=== PATIENT | female | born 1940 | race Caucasian/White ===

== ENCOUNTER 2017-01-05 14:12 | Emergency (ER) | payer MEDICARE, OTHER, MEDICAID ==
[2017-01-05] MEDS ORDERED: NS 0.9% 1000 ML* 2,000 ML IV ONE (15:14)
[2017-01-05] MEDS ORDERED: Ondansetron INJ* 2 MG/ML VIAL IV ONE (15:14)
[2017-01-05 15:45] LABS: Hematocrit 38 % (35-47); Hemoglobin 12.1 g/dl (12.0-16.0); Mean Corpuscular HGB Conc 32 g/dl (31-36); Mean Corpuscular Hemoglobin 26 pg (27-31); Mean Corpuscular Volume 83 fL (80-97); Mean Platelet Volume 10 um3 (7.4-10.4); Red Cell Distribution Width 15 % (10.5-15)
[2017-01-05 15:57] LABS: Albumin 3.5 g/dL (3.2-5.2); BUN/Creatinine Ratio 23.2 (8-20); C Reactive Protein 53.75 mg/L (< 5.00); Calcium 9.7 mg/dL (8.6-10.3); EGFR African American 87.4 (>60); Globulin 3.8 g/dL (2-4); Total Bilirubin 0.3 mg/dL (0.2-1.0); Total Protein 7.3 g/dL (6.4-8.9)
[2017-01-05] MEDS ORDERED: Iodixanol* (CONTRAST) 320 MG/ML 100 ML SDV IV ONE (16:59)
--- NOTE | 2017-01-05 18:14 | RAD ---
Indication: Left-sided abdominal pain, diverticulitis. Contrast:Administered 100.0 ml of VISAPAQUE 320 mgi/ml CT of the abdomen and pelvis was performed after oral and IV contrast administration. Coronal and sagittal reconstructed images were obtained. The lung bases demonstrate no pleural fluid, nodules or masses. Heart is of normal size without evidence of pericardial effusion. Liver is normal in size. No focal lesions or intrahepatic ductal dilatation is noted although the liver is incompletely imaged. Spleen is normal in size. Pancreas demonstrates no mass or pancreatic duct dilatation. Common duct is not dilated. Gallbladder demonstrates no calcified gallstones. No pericholecystic fluid or wall thickening is noted. No adrenal lesions are noted. The kidneys demonstrate no hydronephrosis of either kidney. Urinary bladder is distended. Aorta demonstrates peripheral thrombus with atherosclerosis. Common iliac arteries are unremarkable. The colon is filled with stool. No hernias are noted. The patient status post hysterectomy. No evidence of bowel obstruction is noted. No free fluid is identified. IMPRESSION: No evidence of bowel obstruction. No hydronephrosis of either kidney is noted. Atherosclerotic aorta is noted. No hernias are noted.
[2017-01-05 18:39] VITALS: BP 117/82
--- NOTE | 2017-01-05 18:55 | ED ---
I, Oh,Soohdianaun, scribed for Hao Alcala MD on 01/05/17 at 1519 . Abdominal Pain/Female - HPI Summary HPI Summary: This 76 y/o female presents to ED for left sided abd pain since 5 days ago. Pain is intermittent and lasts about 10 minutes, and radiates to left hip. Positive nausea. Negative fever, chills, couch, or diarrhea. Deep breath makes it worse. Oxycodone does not alleviate the pain. PMHx includes recently diagnosed UTI with ongoing abx treatment since 4 days ago. Pt was not able to specify which abx she is on. Other PMHx includes chronic constipation, breast CA , DM, CAD, HTN, and [place]. Primary care involves Dr. Nguyễn. 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 Negative: Fever , Vomiting, Diarrhea Allergies/Adverse Reactions: Allergies Allergy/AdvReac Type Severity Reaction Status Date / Time Atorvastatin [From Lipitor] AdvReac Intermediate MUSCLE Verified 01/05/17 14:20 ACHES PMH/Surg Hx/FS Hx/Imm Hx Endocrine/Hematology History: Reports: Hx Diabetes - diet controlled, Other Endocrine/Hematological Disorders - Risk for neutropenia secondary to chemotherapy Denies: Hx Sickle Cell Disease, Hx Thyroid Disease, Hx Unexplained Bleeding Cardiovascular History: Reports: Hx Angina, Hx Angioplasty - LAD stent 2010, Hx Coronary Artery Disease, Hx Deep Vein Thrombosis, Hx Hypercholesterolemia, Hx Hypertension, Hx Myocardial Infarction, Other Cardiovascular Problems/Disorders Denies: Hx Pacemaker/ICD, Hx Peripheral Vascular Disease, Hx Valvular Heart Disease Respiratory History: Reports: Hx Asthma, Hx Sleep Apnea, Other Respiratory Problems/Disorders Denies: Hx Chronic Obstructive Pulmonary Disease (COPD) GI History: Reports: Hx Gastroesophageal Reflux Disease, Hx Hiatal Hernia, Other GI Disorders - CHRONIC CONSTIPATION History: Reports: Hx Kidney Stones, Other Problems/Disorders - FREQUENT UTI'S Denies: Hx Dialysis, Hx Renal Disease Musculoskeletal History: Reports: Hx Orthopedic Injury - L hip fx, 1014, Other Musculoskeletal History - osteo/arthitis, generalized weakness Denies: Hx Arthritis, Hx Osteoporosis Sensory History: Reports: Hx Cataracts - B/L cataract removal , Hx Contacts or Glasses, Hx Hearing Aid - DOESN'T WEAR, Hx Hearing Problem - [place] Denies: Hx Glaucoma Opthamlomology History: Reports: Hx Cataracts - B/L cataract removal , Hx Contacts or Glasses Denies: Hx Glaucoma Neurological History: Reports: Other Neuro Impairments/Disorders - pt states sometimes she gets weak Psychiatric History: Reports: Hx Anxiety, Hx Depression - Hx, Hx Inpatient Treatment - [facility] [place] 2005, Other Psychiatric Issues/Disorders - Possible delusional symptoms Denies: Hx Eating Disorder, Hx Panic Disorder, Hx Community Mental Health Tx , Hx of Violent Episodes Against Others - Cancer History Cancer Type, Location and Year: breast ca, R mastectomy 2012 Hx Chemotherapy: Yes Hx Radiation Therapy: Yes Hx Palliative Cancer Treatment: Yes - RIGHT MASECTOMY - Surgical History Surgery Procedure, Year, and Place: Rt MASTECTOMY 2012. CARDIAC STENTS 04/2013 @ [facility] [place] - [facility]-ELUTING STENT - [facility] DRUG ELUTING STENT - CONDITIONAL 5 1.5T-3.0T MAX SPATIAL GRADIENT 720GAUSS/CM. CATARACT SURGERY. : Screw fixation of fractured L hip, [facility] [place]. 12/2014 FRACTURED LEFT SHOULDER. POWER PORT Hx Anesthesia Reactions: No Infectious Disease History: No Infectious Disease History: Denies: Traveled Outside the [place] in Last 30 Days - Family History Known Family History: Positive: Cardiac Disease, Other - Depression - Social History Alcohol Use: None Substance Use Type: Reports: None Smoking Status (MU): Never Smoked Tobacco Review of Systems Negative: Fever, Chills Negative: Cough Positive: Abdominal Pain, Nausea, Other - chronic constipation. Negative: Vomiting All Other Systems Reviewed And Are Negative: Yes Physical Exam - Summary Physical Exam Summary: The patient is well-nourished in no acute distress and in no acute pain. Obese. The skin is warm and diaphoresis. HEENT: The head is normocephalic and atraumatic. The pupils are equal and reactive. The conjunctivae are clear and without drainage. Nares are patent and without drainage. Mouth reveals moist mucous membranes and the throat is without erythema and exudate. The external ears are intact. The ear canals are patent and without drainage. The tympanic membranes are intact. Hard of hearing Neck is supple with full range of motion and non-tender. There are no carotid bruits. There is no neck vein distension. Respiratory: Chest is non-tender. Lungs are clear to auscultation and breath sounds are symmetrical and equal. Cardiovascular: Hear is regular rate and rhythm. There is no murmur or rub auscultated. There is no peripheral edema and pulses are symmetrical and equal. Abdomen: The abdomen is tender at left mid quadrant. There are normal bowel sounds heard in all four quadrants and there is no organomegaly palpated. Musculoskeletal: There is no back pain noted. Extremities are non-tender with full range of motion. There is good capillary refill. There is no peripheral edema or calf tenderness elicited. Neurological: Patient is alert and oriented to person, place and time. The patient has symmetrical motor strength in all four extremities. Cranial nerves are grossly intact. Deep tendon reflexes are symmetrical and equal in all four extremities. Psychiatric: The patient has an appropriate affect and does not exhibit any anxiety or depression. Triage Information Reviewed: Yes Vital Signs On Initial Exam: Initial Vitals Temp Pulse Resp BP Pulse Ox 97.0 F 77 16 138/74 100 01/05/17 14:16 01/05/17 14:16 01/05/17 14:16 01/05/17 14:16 01/05/17 14:16 Vital Signs Reviewed: Yes - Lottie Coma Scale Coma Scale Total: 15 Diagnostics - Vital Signs Vital Signs Temp Pulse Resp BP Pulse Ox 01/05/17 14:32 77 94 01/05/17 14:29 137/82 01/05/17 14:16 97.0 F 77 16 138/74 100 - Laboratory Lab Results: Lab Results 01/05/17 01/05/17 01/05/17 Range/Units 15:30 15:30 15:30 WBC 8.0 (3.5-10.8) 10^3/ul RBC 4.60 (4.0-5.4) 10^6/ul Hgb 12.1 (12.0-16.0) g/dl Hct 38 (35-47) % MCV 83 (80-97) fL MCH 26 L (27-31) pg MCHC 32 (31-36) g/dl RDW 15 (10.5-15) % Plt Count 146 L (150-450) 10^3/ul MPV 10 (7.4-10.4) um3 Neut % (Auto) 78.5 (38-83) % Lymph % (Auto) 10.6 L (25-47) % Dewey % (Auto) 7.5 (1-9) % Eos % (Auto) 2.4 (0-6) % Baso % (Auto) 1.0 (0-2) % Absolute Neuts (auto) 6.3 (1.5-7.7) 10^3/ul Absolute Lymphs (auto) 0.8 L (1.0-4.8) 10^3/ul Absolute Monos (auto) 0.6 (0-0.8) 10^3/ul Absolute Eos (auto) 0.2 (0-0.6) 10^3/ul Absolute Basos (auto) 0.1 (0-0.2) 10^3/ul Absolute Nucleated RBC 0.01 10^3/ul Nucleated RBC % 0.1 Sodium 136 (133-145) mmol/L Potassium 4.0 (3.5-5.0) mmol/L Chloride 98 L (101-111) mmol/L Carbon Dioxide 31 (22-32) mmol/L Anion Gap 7 (2-11) mmol/L BUN 19 (6-24) mg/dL Creatinine 0.82 (0.51-0.95) mg/dL Est GFR ( Amer) 87.4 (>60) Est GFR (Non-Af Amer) 68.0 (>60) BUN/Creatinine Ratio 23.2 H (8-20) Glucose 114 H (70-100) mg/dL Lactic Acid 1.3 (0.5-2.0) mmol/L Calcium 9.7 (8.6-10.3) mg/dL Total Bilirubin 0.30 (0.2-1.0) mg/dL AST 37 (13-39) U/L ALT 16 (7-52) U/L Alkaline Phosphatase 75 (34-104) U/L C-Reactive Protein 53.75 H (< 5.00) mg/L Total Protein 7.3 (6.4-8.9) g/dL Albumin 3.5 (3.2-5.2) g/dL Globulin 3.8 (2-4) g/dL Albumin/Globulin Ratio 0.9 L (1-3) Amylase 14 L (29-103) U/L Lipase 10 L (11.0-82.0) U/L Result Diagrams: 01/05/17 15:30 01/05/17 15:30 Lab Statement: Any lab studies that have been ordered have been reviewed, and results considered in the medical decision making process. - CT Ab/P CT Interpretation: No Acute Changes - No evidence of bowel obstruction. No hydronephrosis of either kidney is noted. Atherosclerotic aorta is noted. No hernias are noted. CT Interpretation Completed By: Radiologist Re-Evaluation - Re-Evaluation First Eval Re-Evaluation Time: 18:28 Comment: Dr. Alcala in room to update pt on bloodwork and CT results. Plan of care involving outpatient f/u with Dr. Ramirez is discussed, and she is agreeable. Abdominal Pain Fem Course/Dx - Course Course Of Treatment: This 76 y/o female presents to ED for persistent LUQ abd pain since 5 days ago. PMHx includes chronic constipation, UTI with ongoing abx treatment, and breast CA. Pt was noted with left mid quadrant pain upon physical examination. CT Ab/P was unremarkable. Bloodwork is wnl except CRP of 53.75. Lab results and CT imagings were shared with pt and present at bedside, and plan of care involving outpatient f/u with PCP is discussed. They are agreeable at this time. - Diagnoses Differential Diagnosis: Positive: Bowel Obstruction, Diverticulitis, Peptic Ulcer Disease, Urinary Tract Infection, Other - adverse drug reaction to antibiotics Provider Diagnoses: Abdominal pain Discharge - Discharge Plan Condition: Stable Disposition: HOME Patient Education Materials: Abdominal Pain (ED) Referrals: Tramaine Ramirez MD [Primary Care Provider] - 2 Days The documentation as recorded by the Elton mcqueen Soohyun accurately reflects the service I personally performed and the decisions made by me, Hao Alcala MD.
== END 2017-01-05 18:58 | disposition home or self-care (01) ==
LOC: ED 14:12
DX: R10.9 Unspecified abdominal pain (principal); K59.00 Constipation, unspecified; R11.0 Nausea
CPT/HCPCS: 36415; 74177; 80053; 82150; 83605; 83690; 85025; 86140; 96374; 99282; J2405; Q9967

== ENCOUNTER 2017-10-09 15:46 | Inpatient (IN) | payer MEDICARE, OTHER, MEDICAID ==
[2017-10-09] MEDS ORDERED: Albuterol 2.5 MG/3 ML NEB.SOL* (0.083%) INH ONE (16:19)
[2017-10-09 17:31] LABS: ABS Basophils 0 10^3/ul (0-0.2); ABS Eosinophils 0.2 10^3/ul (0-0.6); ABS Monocytes 0.7 10^3/ul (0-0.8); ABS Neutrophils 6.3 10^3/ul (1.5-7.7); ABS Nucleated RBC 0 10^3/ul; Eosinophil % 2.8 % (0-6); Hematocrit 37 % (35-47); Hemoglobin 11.4 g/dl (12.0-16.0); Lymphocyte % 12.5 % (25-47); Mean Corpuscular HGB Conc 31 g/dl (31-36); Mean Corpuscular Hemoglobin 25 pg (27-31); Mean Corpuscular Volume 82 fL (80-97); Mean Platelet Volume 11 um3 (7.4-10.4); Nucleated Red Blood Cells % 0.2; Platelet Count 131 10^3/ul (150-450); Red Blood Count 4.53 10^6/ul (4.0-5.4); Red Cell Distribution Width 17 % (10.5-15); White Blood Count 8.3 10^3/ul (3.5-10.8)
[2017-10-09 17:33] LABS: EGFR Non-African American 61.7 (>60)
--- NOTE | 2017-10-09 17:37 | RAD ---
Indication: Dyspnea. 2 views of the chest are reviewed and compared to previous exam dated December 07, 2014. Central line is in place. Cardiomegaly is noted. Interstitial edema consistent with vascular congestion is noted. IMPRESSION: Findings consistent with vascular congestion.
[2017-10-09] MEDS ORDERED: Furosemide IV* 10 MG/ML 2 ML VIAL (20 MG) IV ONE (17:42)
[2017-10-09] MEDS ORDERED: Nitroglycerin TAB 0.4 MG* 0.4 MG TAB SL PRN (18:40)
[2017-10-09] MEDS ORDERED: Meclizine TAB* 12.5 MG PO PRN (18:40)
[2017-10-09] MEDS ORDERED: ALPRAZolam TAB* 0.5 MG PO PRN (18:40)
[2017-10-09] MEDS ORDERED: LORazepam TAB(*) 1 MG PO PRN (18:40)
[2017-10-09] MEDS: Oxybutynin TAB* 5 MG PO SCH (21:10)
[2017-10-09] MEDS: CMCS Simvastatin TAB(NF) 20 MG TAB PO SCH (21:10)
[2017-10-09] MEDS: CMCS Melatonin (NF) 3 MG TAB PO SCH (21:10)
[2017-10-09] MEDS: Mirtazapine TAB* 15 MG PO SCH (21:10)
[2017-10-09] MEDS: Gabapentin CAP(*) 300 MG PO SCH (21:10)
[2017-10-09] MEDS: Heparin VIAL(*) 5000 UNITS/ML VIAL (FIVE THOUSAND) SUBCUT SCH (21:10)
--- NOTE | 2017-10-09 23:54 | HP ---
CC: Dr. Ramirez; Dr. Gio Armijo * ADMISSION HISTORY AND PHYSICAL: DATE OF ADMISSION: 10/09/17 PRIMARY CARE PROVIDER: Dr. Ramirez. MY ATTENDING WHILE IN THE HOSPITAL: Dr. Ed Wiggins.* (DICTATED BY AMRIT HERNÁNDEZ) PRIMARY BREAD DISTRIBUTOR: Dr. Gio Armijo. CHIEF COMPLAINT: Shortness of breath x1 month. HISTORY OF PRESENT ILLNESS: Ms. Bill is a 77-year-old female with past medical history significant for hypertension; hyperlipidemia; coronary artery disease, status post stenting; PAULA; history of Herceptin-induced heart failure; recurrent UTIs and breast cancer, who presents with 1-month of progressive shortness of breath with exertion as well as intermittent substernal chest pain and occasional dizziness on standing. Patient denies any changes in her medications or diet before the shortness of breath began. Patient states that during this time, her exercise tolerance has decreased significantly due to dyspnea. She states that she cannot walk more than 30 feet at this point, but cannot quantify what her previous activity tolerance was. Patient states that her chest pain is unpredictable, happens 0 to 3 times a week, occasionally associated with diaphoresis, was not associated with increased shortness of breath or nausea. This has been evaluated previously by her primary care provider according to outpatient notes. Patient states that she tries to restrict salt in her diet, was unable to describe how she does so, but states that she has not had any changes in her diet corresponding to this weight gain. Patient previously had CHF related to her Herceptin treatment for her breast cancer, but does not remember when she stopped taking Herceptin. Patient recently had a PET scan, which showed no metastatic disease. Patient is currently on anastrozole therapy for suppression. Patient states that she is supposed to be wearing a CPAP at home but does not due to urinary frequency during the night. Patient has frequent urinary tract infections and is generally on suppressive antibiotics. Patient cannot identify what her suppressive antibiotic outpatient is. Patient states that she is being considered for a bladder surgery at [facility], but they cannot perform it due to according to her inability to eradicate her bladder infection. Patient states she does not weigh herself at home. Patient has gained 30 pounds according to notes from her pressure controller. Patient was at her pressure controller's office today and was found to be saturating at 82% and was sent into the emergency department for evaluation. Patient continued to have oxygen demand in the emergency department and had an elevated troponin at 0.12 and we were asked to evaluate for admission. PAST MEDICAL HISTORY: Hypertension, chest pain, syncope, hyperlipidemia, diastolic heart failure, borderline EF at 50% to 55%, diabetes mellitus type 2, breast cancer in remission, obstructive sleep apnea, recurrent UTIs, anxiety. PAST SURGICAL HISTORY: Heart catheterization in 2010 with stent placement and bilateral mastectomy. MEDICATIONS: 1. Lorazepam 1 mg p.o. b.i.d. as needed. 2. Gabapentin 300 mg p.o. t.i.d. 3. Anastrazole 1 mg p.o. daily. 4. Metoprolol 50 mg p.o. daily. 5. Sertraline 100 mg p.o. daily. 6. Aspirin 81 mg p.o. daily. 7. Simvastatin 20 mg p.o. at bedtime. 8. Meclizine 37.5 mg p.o. t.i.d. as needed. 9. Omeprazole 40 mg p.o. daily. 10. Ranitidine 300 mg p.o. daily. 11. Mirtazapine 30 mg p.o. at bedtime. 12. Lisinopril 10 mg p.o. daily. 13. Oxybutynin 5 mg p.o. b.i.d. 14. Xanax 0.5 mg p.o. daily as needed. 15. Zolpidem 5 mg p.o. at bedtime as needed. 16. Nitroglycerin 0.4 mg sublingually q. 5 minutes as needed for chest pain. 17. Polyethylene glycol 17 g p.o. daily. 18. MetroCream 0.75% topical at bedtime. 19. Ibuprofen 600 mg p.o. t.i.d. as needed. Patient also takes unknown antibiotic for urinary tract infection, suppressive therapy and diuretics at unknown dose. We will reconcile these when patient is able to bring them in. ALLERGIES: Patient gets severe muscle aches with LIPITOR. FAMILY HISTORY: Patient's mother of "woman cancer." Patient's father of [place]. Patient's mother suffers from fibromyalgia. Patient's son has chronic back pain. Nothing else runs in the patient's family. SOCIAL HISTORY: Patient denies ever smoking tobacco, drinking alcohol, or using illicit drugs. 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 Patient is , has a significant other, Piero Preciado, who is her healthcare proxy and has 2 adult children. REVIEW OF SYSTEMS: A 14-point review of systems was reviewed and is negative except as above. PHYSICAL EXAMINATION GENERAL: Patient is a 77-year-old female who appears stated age and sitting in the bed, in no acute distress with slight increased work of breathing. VITAL SIGNS: Temperature 98.1, pulse rate 71, respiratory rate 22, oxygen saturation 87% on room air, 99% on 2 L, blood pressure 142/107. HEENT: Head: Normocephalic, atraumatic. Sclerae anicteric. No conjunctival injection. Nasal mucosa moist. Oral mucosa moist. No pharyngeal erythema, discharge, or exudate. NECK: Supple, nontender. No lymphadenopathy. No carotid bruit auscultated. RESPIRATORY: Crackles in the bilateral lung bases in the lateral and posterior lobes. No other adventitious lung sounds. Good air exchange bilaterally. CARDIAC: Regular rate and rhythm. No clicks, murmurs, gallops, or rubs. Pulses are 2+ in the bilateral dorsalis pedis, posterior tibialis and radial areas, 1+ pitting edema in the bilateral lower extremity slightly worse in the left than the right. No calf tenderness or palpable cords. ABDOMEN: Soft, nontender, nondistended. Bowel sounds present and normoactive in all 4 quadrants. No hepatosplenomegaly. GENITOURINARY: No suprapubic or CVA tenderness. NEUROLOGIC: Cranial nerves II through XII intact. No focal deficits. Alert and oriented x3. SKIN: Clean, dry, and intact. No rash. PSYCHIATRIC: Pleasant and cooperative. DIAGNOSTIC STUDIES/LAB DATA: White blood cell count 8.3, hemoglobin 11.4, hematocrit 37, MCV 82, MCH 25, RDW 17, platelet count 131. Sodium 139, potassium 4.2, chloride 98, carbon dioxide 36, anion gap 5, BUN 19, creatinine 0.89, glucose 127, calcium 9.2. Total bilirubin 0.3, AST 32, ALT 18, alkaline phosphatase 81. Troponin I 0.12. BNP 203, total protein 7.5, albumin 3.8, globulin 3.7, albumin/globulin ratio 1.0, TSH 14.9. Hemoglobin A1c, lipid panel , free T3 and free T4 pending and repeat troponin are pending. Chest x-ray read as findings consistent with vascular congestion. Electrocardiogram shows normal sinus rhythm, normal axis, poor R-wave progression across the precordium. No blocks, hypertrophy, or enlargement. T- waves inverted in V1, V2, V3, flattened in V4 and positive in V5, V6 consistent with previous exams. No other abnormalities. ASSESSMENT AND PLAN: Impression: Ms. Bill is a 77-year-old female with past medical history significant for diastolic congestive heart failure, hypertension , hyperlipidemia, obstructive sleep apnea, and breast cancer currently in remission, who presents with 1 month of worsening shortness of breath and leg swelling with significant dyspnea on exertion. The patient has gained 30 pounds over this period. Patient has a constellation of findings consistent with chronic obstructive pulmonary disease exacerbation. The patient will be admitted to the hospital for aggressive diuresis, fluid restriction, telemetry monitoring and rule out myocardial infarction. 1. Congestive heart failure exacerbation. The patient has increased swelling in her legs, worsening shortness of breath and dyspnea on exertion with chest x- ray showing significant vascular congestion. We will start the patient on Lasix 20 mg p.o. b.i.d. and monitor strict intake and output and adjust up as needed. We will weigh patient daily. The patient takes an unknown dose of diuretic at home, we will reconcile this when available. Patient refuses Mace catheter for hemodynamic monitoring. Patient's blood pressure is currently within normal limits. Patient will have fluid restriction of 1.5 L every 24 hours. For patient's dyspnea on exertion, will have physical therapy and occupational therapy assessment to see if patient will be able to function at home upon discharge. We will repeat patient's transthoracic echocardiogram as she does have significant decrease in her functional capacity since her most recent one in February 2016. 2. Coronary artery disease, status post stenting. Patient has an elevated troponin. This is likely demand ischemia from her congestive heart failure exacerbation. We will trend this to peak. Due to patient's congestive heart failure exacerbation, patient is not a candidate for stress testing at this time. We would recommend outpatient stress testing and possible followup cardiac catheterization to assess the patient's coronary artery disease given recurrent stable angina as well. 3. Hypertension. Patient is currently normotensive. Continue patient's lisinopril and metoprolol as well as increase Lasix dose. We will monitor closely. 4. Hyperlipidemia. We will check a lipid panel. Continue patient's home statin. Patient is intolerant to Lipitor. We will substitute per pharmacy while in the hospital. 5. Diabetes mellitus. We will check a hemoglobin A1c and start the patient on pharmacologic for lifestyle modification therapy based on this. 6. Breast cancer. Patient is status post bilateral breast mastectomies and Herceptin treatment, which caused heart failure. Patient recently on a PET scan , which showed no disease activity. Continue anastrozole while in the hospital. 7. Obstructive sleep apnea. Patient refuses to wear a CPAP. Patient should have to wear her CPAP at home. Patient's bladder procedure to decrease the frequency of her incontinence would help with this and have a long-term positive effect on her health. 8. Recurrent urinary tract infections. Patient is on chronic suppressive therapy. We will institute this when available by med reconciliation. We will get a urinalysis and culture. 9. FEN: The patient is fluid overloaded. We will not start her on fluids. Patient will have a heart healthy diet without caffeine. 10. Code status: The patient would like to be a full code. Patient's surrogate decision maker is her significant other, Piero Preciado. 11. Disposition: The patient is admitted for observation. 12. DVT prophylaxis: The patient is a high risk. Patient will be on heparin subcu. TIME SPENT: Approximately 60 minutes were spent on this admission, 30 of which was spent [id number] with the patient obtaining history and physical and discussing the treatment plan. This plan has been discussed with my attending, Dr. Ed Wiggins, he is in agreement. AMRIT HERNÁNDEZ [id number]/[facility] #: [id number] JOSE
[2017-10-10 03:16] LABS: Urine Appearance Clear; Urine Blood 2+ (Negative); Urine Color Yellow; Urine Ketones Negative (Negative); Urine Protein 2+(100 mg/dL) (Negative); Urine Specific Gravity 1.019 (1.010-1.030); Urine Urobilinogen Negative (Negative)
[2017-10-10] MEDS: Heparin VIAL(*) 5000 UNITS/ML VIAL (FIVE THOUSAND) SUBCUT SCH ×3 (05:13→22:00)
[2017-10-10 06:28] LABS: EGFR Non-African American 70.8 (>60)
[2017-10-10] MEDS: Acetaminophen TAB* 325 MG PO PRN (07:01)
[2017-10-10] MEDS: Lisinopril TAB* 10 MG PO SCH (07:38)
[2017-10-10] MEDS: Sertraline* 100 MG TAB PO SCH (07:38)
[2017-10-10] MEDS: Metoprolol Succinate XL TAB* 50 MG PO SCH (07:38)
[2017-10-10] MEDS: Gabapentin CAP(*) 300 MG PO SCH ×3 (07:38→21:59)
[2017-10-10] MEDS: Furosemide IV* 10 MG/ML VIAL (40 MG) IV SLOW PU SCH ×2 (07:38→17:09)
[2017-10-10] MEDS: Famotidine TAB* 20 MG PO SCH (07:39)
[2017-10-10] MEDS: Oxybutynin TAB* 5 MG PO SCH ×2 (07:39→21:59)
[2017-10-10] MEDS: Aspirin EC Low Dose* 81 MG TAB.EC PO SCH (07:39)
[2017-10-10] MEDS: Omeprazole CAP* 20 MG PO SCH (07:39)
[2017-10-10] MEDS: Polyethylene Glycol 3350* 17 GM PACKET PO SCH (07:40)
[2017-10-10 07:42] LABS: ABS Basophils 0 10^3/ul (0-0.2); ABS Eosinophils 0.2 10^3/ul (0-0.6); ABS Lymphocytes 0.7 10^3/ul (1.0-4.8); ABS Monocytes 0.4 10^3/ul (0-0.8); ABS Neutrophils 4.8 10^3/ul (1.5-7.7); ABS Nucleated RBC 0 10^3/ul; Hematocrit 36 % (35-47); Hemoglobin 10.7 g/dl (12.0-16.0); Lymphocyte % 11.7 % (25-47); Mean Corpuscular HGB Conc 30 g/dl (31-36); Mean Corpuscular Hemoglobin 25 pg (27-31); Mean Corpuscular Volume 84 fL (80-97); Mean Platelet Volume 11 um3 (7.4-10.4); Nucleated Red Blood Cells % 0.1; Platelet Count 103 10^3/ul (150-450); Red Blood Count 4.29 10^6/ul (4.0-5.4); Red Cell Distribution Width 18 % (10.5-15); White Blood Count 6.1 10^3/ul (3.5-10.8)
[2017-10-10] MEDS: Anastrozole (NF) 1 MG TAB PO SCH (08:43)
--- NOTE | 2017-10-10 12:23 | ECHO ---
Patient: TODD RODRIGUES [facility] Rec#: [id number] : 1940 Date: 10/10/2017 Age: 77y Height: 149.9 cm / 59.0 in Weight: 95.3 kg / 210.0 lbs Sex: F BSA: 1.88 Room#: [facility] Admit Date#: 10/09/2017 Type: Inpatient Referring: Ed Wiggins MD Reading: Mejia Abreu MD Quality Assurance Manager: Jennifer Turner RN RDCS CC: Tramaine Ramirez MD CC: Gio Armijo MD Transthoracic Echocardiogram Indication: CHF BP: 149/58 HR: 71 Rhythm: NSR Findings History: CAD, PCI, Herceptin-induced heart failure, HTN, HLD, breast cancer, mastectomy, chemotherapy, PAULA Technical Comments: The study quality is fair. The study is technically limited due to patient body habitus. The study was technically limited due to the patient's inability to lay in the left lateral decubitus position. Completed at 1110. Left Ventricle: The left ventricular chamber size is normal. Mild concentric left ventricular hypertrophy is observed. Global left ventricular wall motion and contractility are within normal limits. There is normal left ventricular systolic function. The estimated ejection fraction is 55-60%. The assessment of diastolic function is non-diagnostic. Left Atrium: The left atrial chamber size is normal. Right Ventricle: The right ventricular cavity size is normal. The right ventricular global systolic function is low normal. Right Atrium: The right atrial cavity size is normal. Aortic Valve: The aortic valve structure is not well visualized. The aortic valve leaflets are mildly thickened. There is trace to mild aortic regurgitation. There is mild aortic stenosis. The mean gradient of the aortic valve is 9.7 mmHg. The peak instantaneous gradient of the aortic valve is 14.6 mmHg. The aortic valve area, by peak velocities, is calculated at 1.8 cm2. The aortic valve area, by VTI's, is calculated at 1.6 cm2. Mitral Valve: The mitral valve leaflets are mildly thickened. There is a trace of mitral regurgitation. There is no evidence of mitral stenosis. Tricuspid Valve: The tricuspid valve leaflets are normal. There is trace to mild tricuspid regurgitation. Unable to estimate the right ventricular systolic pressure. There is no tricuspid stenosis. Pulmonic Valve: The pulmonic valve structure is not well visualized. There is a trace pulmonic regurgitation. There is no pulmonic stenosis. Pericardium: There is no significant pericardial effusion. A pericardial fat pad is visualized. Aorta: There is mild dilatation of the ascending aorta. There is no dilatation of the aortic arch. There is no dilation of the aortic root. Pulmonary Artery: The main pulmonary artery is not well visualized. Venous: The inferior vena cava appears normal in size. There is less than 50% respiratory change in the inferior vena cava dimension. Summary: There are changes noted when compared to the previous study done on 02/08/2016, is new. Conclusions The left ventricular chamber size is normal. Mild concentric left ventricular hypertrophy is observed. The estimated ejection fraction is 55-60%. The assessment of diastolic function is non-diagnostic. There is mild aortic stenosis. There is trace to mild aortic regurgitation. There is a trace of mitral regurgitation. There is trace to mild tricuspid regurgitation. Unable to estimate the right ventricular systolic pressure. There is a trace pulmonic regurgitation. Measurements Name Value Normal Range RVDdMajor (2D) 3.7 cm (2.2 - 4.4) RAd ISD 4CH 4.5 cm (3.4 - 4.9) RA (A4C)W 4.1 cm (2.9 - 4.6) IVSd (2D) 1.2 cm (0.6 - 1) LVPWd (2D) 1.2 cm (0.6 - 1) LVIDd (2D) 4 cm (3.6 - 5.4) LVIDs (2D) 3 cm - LV FS (2D) 25 % (25 - 45) Aortic Annulus 1.9 cm (1.4 - 2.6) Ao root diameter (2D) 2.5 cm (2.1 - 3.5) Ascending Ao 3.5 cm (2.1 - 3.4) Aortic arch 3 cm (1.8 - 3.4) LA dimension (AP) 2D 3.1 cm (2.3 - 3.8) LAd ISD 4CH 4.5 cm (2.9 - 5.3) LA ISD 4CH W 4.1 cm (2.5 - 4.5) Name Value Normal Range LA ESV SP 4CH (A/L) 71 ml - LA ESV SP 2CH (A/L) 37 ml - LA ESV BP (A/L) 52 ml - LA ESV BP (A/L) index 28 ml/m2 - LA ESV SP 4CH (MOD) 62 ml - LA ESV SP 2CH (MOD) 35 ml - Name Value Normal Range MV E-wave Vmax 1.1 m/sec - MV deceleration time 166 msec - MV A-wave Vmax 0.88 m/sec - MV E:A ratio 1.3 ratio - LV septal e' Vmax 0.06 m/sec - LV lateral e' Vmax 0.1 m/sec - LV E:e' septal ratio 18.3 ratio - LV E:e' lateral ratio 11 ratio - Name Value Normal Range AV Vmax 1.9 m/sec - AV VTI 47 cm - AV peak gradient 14.6 mmHg - AV mean gradient 9.7 mmHg - LVOT diameter 2 cm - LVOT Vmax 1.1 m/sec - LVOT VTI 24.5 cm - LVOT peak gradient 5 mmHg - LVOT mean gradient 3.1 mmHg - DOI (VTI) 0.52 ratio - DOI (Vmax) 0.58 ratio - SV LVOT 77 ml - CO LVOT 5.5 l/min - Cardiac index 2.9 l/min/m2 - KHUSHBU (continuity Vmax) 1.8 cm2 - KHUSHBU (continuity VTI) 1.6 cm2 - AR PHT 536 msec - JOSE RAUL Vmax 0.61 m/sec - Name Value Normal Range IVC diameter 2 cm - Name Value Normal Range PV Vmax 0.68 m/sec -
--- NOTE | 2017-10-10 17:13 | PN ---
Subjective Date of Service: 10/10/17 Interval History: Patient feels much better today. Decreased BOTELLO, able to ambulate further in the hallway. Decreased SOB at rest. Denies CP, Dysuria, F/C, N/V, abdominal pain, dizziness, palpitations, or other pain. 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 Family History: Unchanged from Admission Social History: Unchanged from Admission Past Medical History: Unchanged from Admission Objective Active Medications: Acetaminophen (Tylenol Tab*) 650 mg PO Q4H PRN PRN Reason: FEVER/PAIN Last Admin: 10/10/17 07:01 Dose: 650 mg Alprazolam (Xanax Tab*) 0.5 mg PO DAILY PRN PRN Reason: ANXIETY Anastrozole (Arimidex (Nf)) 1 mg PO DAILY [facility] Last Admin: 10/10/17 08:43 Dose: Not Given Aspirin (Aspirin Ec Low Dose*) 81 mg PO DAILY [facility] Last Admin: 10/10/17 07:39 Dose: 81 mg Famotidine (Pepcid Tab*) 40 mg PO DAILY [facility] PRN Reason: Protocol Last Admin: 10/10/17 07:39 Dose: 40 mg Furosemide (Lasix Iv*) 20 mg IV SLOW PU 0800,1700 [facility] Last Admin: 10/10/17 07:38 Dose: 20 mg Gabapentin (Neurontin Cap(*)) 300 mg PO TID [facility] Last Admin: 10/10/17 13:52 Dose: 300 mg Heparin Sodium (Porcine) (Heparin Vial(*)) 5,000 units SUBCUT Q8HR [facility] Last Admin: 10/10/17 13:52 Dose: 5,000 units Lisinopril (Prinivil Tab*) 10 mg PO DAILY [facility] Last Admin: 10/10/17 07:38 Dose: 10 mg Lorazepam (Ativan Tab(*)) 1 mg PO BID PRN PRN Reason: ANXIETY Meclizine HCl (Antivert Tab*) 37.5 mg PO TID PRN PRN Reason: DIZZINESS Melatonin (Melatonin (Nf)) 3 mg PO BEDTIME [facility] Last Admin: 10/09/17 21:10 Dose: 3 mg Metoprolol Succinate (Toprol Xl Tab*) 50 mg PO DAILY [facility] Last Admin: 10/10/17 07:38 Dose: 50 mg Mirtazapine (Remeron Tab*) 30 mg PO BEDTIME [facility] Last Admin: 10/09/17 21:10 Dose: 30 mg Nitroglycerin (Nitroglycerin Tab 0.4 Mg*) 0.4 mg SL Q5M PRN PRN Reason: PAIN - CHEST Omeprazole (Prilosec Cap*) 40 mg PO DAILY [facility] Last Admin: 10/10/17 07:39 Dose: 40 mg Oxybutynin Chloride (Ditropan Tab*) 5 mg PO BID [facility] Last Admin: 10/10/17 07:39 Dose: 5 mg Polyethylene Glycol/Electrolytes (Miralax*) 17 gm PO DAILY [facility] Last Admin: 10/10/17 07:40 Dose: Not Given Sertraline HCl (Zoloft*) 100 mg PO DAILY [facility] Last Admin: 10/10/17 07:38 Dose: 100 mg Simvastatin (Zocor(Nf)) 20 mg PO BEDTIME [facility] Last Admin: 10/09/17 21:10 Dose: 20 mg Vital Signs - 8 hr 10/10/17 10/10/17 13:52 15:31 Temperature 98.4 F Pulse Rate 70 Respiratory 18 22 Rate Blood Pressure 147/55 (mmHg) O2 Sat by Pulse 98 Oximetry Oxygen Devices in Use Now: Nasal Cannula Appearance: Patient is a 77yo female who appears stated age and is sitting in the bed in [facility]. Eyes: No Scleral Icterus, PERRLA Ears/Nose/Mouth/Throat: NL Teeth, Lips, Gums, Clear Oropharnyx, Mucous Membranes Moist Neck: NL Appearance and Movements; NL JVP, Trachea Midline Respiratory: Symmetrical Chest Expansion and Respiratory Effort, Clear to Auscultation Cardiovascular: NL Sounds; No Murmurs; No JVD, RRR, - - 1+ edema in B/L LE. Decreased from previous exam. Abdominal: NL Sounds; No Tenderness; No Distention, No Hepatosplenomegaly Lymphatic: No Cervical Adenopathy Extremities: No Edema, No Clubbing, Cyanosis Skin: No Rash or Ulcers, No Nodules or Sclerosis Neurological: Alert and Oriented x 3, NL Sensation, NL Muscle Strength and Tone , - - CN II-XII intact. Result Diagrams: 10/10/17 05:05 10/10/17 05:05 Assess/Plan/Problems-Billing Assessment: Patient os a 77yo female with HFpEF, HTN, PAULA, recurrent UTIs DM II and Breast cancer in remission who presents with CHF exacerbation and is feeling better with diuresis. - Patient Problems (1) CHF exacerbation Current Visit: Yes Status: Acute Code(s): I50.9 - HEART FAILURE, UNSPECIFIED SNOMED Code(s): 78135965 Comment: Acute, with 20lb weight gain in past year. Significant BOTELLO and leg swelling. Down 1L overnight. Feels much better. Increased exercise tolerance. Continue with Lasix 20mg IV BID. Strict I/O, Daily Weights. (2) Hematuria Current Visit: Yes Status: Acute Code(s): R31.9 - HEMATURIA, UNSPECIFIED SNOMED Code(s): 76027197 Comment: Patient has known microscopic hematuria with bladder mass according to patient. H/H stable. Plan for cystoscopy at [facility] outpatient. (3) Recurrent UTI Current Visit: Yes Status: Acute Code(s): N39.0 - URINARY TRACT INFECTION, SITE NOT SPECIFIED SNOMED Code(s): 196435871 Comment: Patient states she gets frequent UTIs and was on suppressive therapy. Was on Bactrim at home before being admitted at dose for UTI treatment. Will hold in hospital as she is asymptomatic and UA shows only trace LE. (4) CAD (coronary artery disease) Current Visit: No Status: Chronic Code(s): I25.10 - ATHSCL HEART DISEASE OF [place] CORONARY ARTERY W/O ANG PCTRS SNOMED Code(s): 25310566 Comment: No signs of ACS. Troponin mildly elevated, likely due to demand ischemia. Continue ASA, Statin, BB. (5) Diabetes Current Visit: No Status: Chronic Code(s): E11.9 - TYPE 2 DIABETES MELLITUS WITHOUT COMPLICATIONS SNOMED Code(s): 61511457 Comment: Hemoglobin A1c 7.1%. Would be a candidate for metformin treatment. Will not begin while aggressively diuresing due to risk for KATHIE. Discussed lifestyle modification. (6) Dyslipidemia Current Visit: No Status: Chronic Code(s): E78.5 - HYPERLIPIDEMIA, UNSPECIFIED SNOMED Code(s): 811377108 Comment: Continue Simvastatin. (7) GERD (gastroesophageal reflux disease) Current Visit: No Status: Chronic Code(s): K21.9 - GASTRO-ESOPHAGEAL REFLUX DISEASE WITHOUT ESOPHAGITIS SNOMED Code(s): 829676296 Comment: Asymptomatic, continue Zantac. (8) HTN (hypertension) Current Visit: No Status: Chronic Code(s): I10 - ESSENTIAL (PRIMARY) HYPERTENSION SNOMED Code(s): 84047024 Comment: Normotensive. Continue Lisinopril and Metoprolol. (9) PAULA (obstructive sleep apnea) Current Visit: Yes Status: Acute Code(s): G47.33 - OBSTRUCTIVE SLEEP APNEA ( ADULT) (PEDIATRIC) SNOMED Code(s): 93840105 Comment: Has CPAP at home. Non-compliant due to frequent nocturia. (10) DVT prophylaxis Current Visit: No Status: Acute Priority: Medium Onset Date: 11/21/14 Code(s): FLS0316 - SNOMED Code(s): 752024640 Comment: Heparin SubQ. (11) Full code status Current Visit: No Status: Acute Priority: Medium Onset Date: 11/21/14 Code(s): Z78.9 - OTHER SPECIFIED HEALTH STATUS SNOMED Code(s): 409525209 Status and Disposition: Patient is admitted inpatient.
[2017-10-10] MEDS: CMCS Melatonin (NF) 3 MG TAB PO SCH (21:58)
[2017-10-10] MEDS: CMCS Simvastatin TAB(NF) 20 MG TAB PO SCH (21:59)
[2017-10-10] MEDS: Mirtazapine TAB* 15 MG PO SCH (21:59)
[2017-10-11] MEDS: Heparin VIAL(*) 5000 UNITS/ML VIAL (FIVE THOUSAND) SUBCUT SCH ×3 (05:24→20:56)
[2017-10-11 06:39] LABS: EGFR Non-African American 76.3 (>60)
[2017-10-11] MEDS: Lisinopril TAB* 10 MG PO SCH (08:18)
[2017-10-11] MEDS: Furosemide IV* 10 MG/ML VIAL (40 MG) IV SLOW PU SCH ×2 (08:18→15:14)
[2017-10-11] MEDS: Omeprazole CAP* 20 MG PO SCH (08:18)
[2017-10-11] MEDS: Aspirin EC Low Dose* 81 MG TAB.EC PO SCH (08:18)
[2017-10-11] MEDS: Oxybutynin TAB* 5 MG PO SCH ×2 (08:18→20:56)
[2017-10-11] MEDS: Sertraline* 100 MG TAB PO SCH (08:18)
[2017-10-11] MEDS: Famotidine TAB* 20 MG PO SCH (08:18)
[2017-10-11] MEDS: Metoprolol Succinate XL TAB* 50 MG PO SCH (08:18)
[2017-10-11] MEDS: Acetaminophen TAB* 325 MG PO PRN (08:19)
[2017-10-11] MEDS: Gabapentin CAP(*) 300 MG PO SCH ×3 (08:19→20:56)
[2017-10-11] MEDS: Polyethylene Glycol 3350* 17 GM PACKET PO SCH (08:44)
[2017-10-11] MEDS: Anastrozole (NF) 1 MG TAB PO SCH (08:44)
[2017-10-11 09:38] LABS: ABS Basophils 0 10^3/ul (0-0.2); ABS Eosinophils 0.1 10^3/ul (0-0.6); ABS Lymphocytes 0.9 10^3/ul (1.0-4.8); ABS Monocytes 0.5 10^3/ul (0-0.8); ABS Neutrophils 5.1 10^3/ul (1.5-7.7); ABS Nucleated RBC 0 10^3/ul; Eosinophil % 2.2 % (0-6); Hematocrit 37 % (35-47); Hemoglobin 11.4 g/dl (12.0-16.0); Lymphocyte % 13.3 % (25-47); Mean Corpuscular HGB Conc 31 g/dl (31-36); Mean Corpuscular Hemoglobin 25 pg (27-31); Mean Corpuscular Volume 82 fL (80-97); Mean Platelet Volume 10 um3 (7.4-10.4); Nucleated Red Blood Cells % 0.1; Platelet Count 105 10^3/ul (150-450); Red Blood Count 4.53 10^6/ul (4.0-5.4); Red Cell Distribution Width 17 % (10.5-15); White Blood Count 6.7 10^3/ul (3.5-10.8)
--- NOTE | 2017-10-11 15:27 | PN ---
Subjective Date of Service: 10/11/17 Interval History: Patient continues to fell much better. Patient states she has less SOB with exertion. Patient states that she feels her leg swelling is much improved. Patient denies CP, N/V, Abdominal pain, back pain, or other pain. Significant Other brought in meds for reconciliation. Family History: Unchanged from Admission Social History: Unchanged from Admission Past Medical History: Unchanged from Admission Objective Active Medications: Acetaminophen (Tylenol Tab*) 650 mg PO Q4H PRN PRN Reason: FEVER/PAIN Last Admin: 10/11/17 08:19 Dose: 650 mg Alprazolam (Xanax Tab*) 0.5 mg PO DAILY PRN PRN Reason: ANXIETY Anastrozole (Arimidex (Nf)) 1 mg PO DAILY [facility] Last Admin: 10/11/17 08:44 Dose: Not Given Aspirin (Aspirin Ec Low Dose*) 81 mg PO DAILY [facility] Last Admin: 10/11/17 08:18 Dose: 81 mg Famotidine (Pepcid Tab*) 40 mg PO DAILY [facility] PRN Reason: Protocol Last Admin: 10/11/17 08:18 Dose: 40 mg Furosemide (Lasix Iv*) 20 mg IV SLOW PU 0800,1700 [facility] Last Admin: 10/11/17 15:14 Dose: 20 mg Gabapentin (Neurontin Cap(*)) 300 mg PO TID [facility] Last Admin: 10/11/17 15:13 Dose: 300 mg Heparin Sodium (Porcine) (Heparin Vial(*)) 5,000 units SUBCUT Q8HR [facility] Last Admin: 10/11/17 15:13 Dose: 5,000 units Lisinopril (Prinivil Tab*) 10 mg PO DAILY [facility] Last Admin: 10/11/17 08:18 Dose: 10 mg Lorazepam (Ativan Tab(*)) 1 mg PO BID PRN PRN Reason: ANXIETY Meclizine HCl (Antivert Tab*) 37.5 mg PO TID PRN PRN Reason: DIZZINESS Melatonin (Melatonin (Nf)) 3 mg PO BEDTIME [facility] Last Admin: 10/10/17 21:58 Dose: 3 mg Metoprolol Succinate (Toprol Xl Tab*) 50 mg PO DAILY [facility] Last Admin: 10/11/17 08:18 Dose: 50 mg Mirtazapine (Remeron Tab*) 30 mg PO BEDTIME [facility] Last Admin: 10/10/17 21:59 Dose: 30 mg Nitroglycerin (Nitroglycerin Tab 0.4 Mg*) 0.4 mg SL Q5M PRN PRN Reason: PAIN - CHEST Omeprazole (Prilosec Cap*) 40 mg PO DAILY [facility] Last Admin: 10/11/17 08:18 Dose: 40 mg Oxybutynin Chloride (Ditropan Tab*) 5 mg PO BID [facility] Last Admin: 10/11/17 08:18 Dose: 5 mg Polyethylene Glycol/Electrolytes (Miralax*) 17 gm PO DAILY [facility] Last Admin: 10/11/17 08:44 Dose: Not Given Sertraline HCl (Zoloft*) 100 mg PO DAILY [facility] Last Admin: 10/11/17 08:18 Dose: 100 mg Simvastatin (Zocor(Nf)) 20 mg PO BEDTIME [facility] Last Admin: 10/10/17 21:59 Dose: 20 mg Vital Signs - 8 hr 10/11/17 10/11/17 10/11/17 08:00 08:19 11:47 Temperature 98.7 F Pulse Rate 74 Respiratory 16 16 16 Rate Blood Pressure 154/58 (mmHg) O2 Sat by Pulse 97 Oximetry 10/11/17 15:13 Temperature Pulse Rate Respiratory 18 Rate Blood Pressure (mmHg) O2 Sat by Pulse Oximetry Oxygen Devices in Use Now: None Appearance: Patient is a 77yo female who appears stated age and is sitting in the bed in [facility]. Eyes: No Scleral Icterus, PERRLA Ears/Nose/Mouth/Throat: NL Teeth, Lips, Gums, Clear Oropharnyx, Mucous Membranes Moist Neck: NL Appearance and Movements; NL JVP, Trachea Midline Respiratory: Symmetrical Chest Expansion and Respiratory Effort, - - Crackles in B/L Lung bases. Cardiovascular: NL Sounds; No Murmurs; No JVD, RRR, - - 1+ pitting edema in B/L LE. Abdominal: NL Sounds; No Tenderness; No Distention, No Hepatosplenomegaly Lymphatic: No Cervical Adenopathy Extremities: No Edema, No Clubbing, Cyanosis Skin: No Rash or Ulcers, No Nodules or Sclerosis Neurological: Alert and Oriented x 3, NL Sensation, NL Muscle Strength and Tone , - - CN II-XII intact. Lines/Tubes/Other Access: Clean, Dry and Intact Mace Result Diagrams: 10/11/17 05:47 10/11/17 05:47 Assess/Plan/Problems-Billing Assessment: Patient os a 77yo female with HFpEF, HTN, PAULA, recurrent UTIs DM II and Breast cancer in remission who presents with CHF exacerbation and is feeling better with diuresis. - Patient Problems (1) CHF exacerbation Current Visit: Yes Status: Acute Code(s): I50.9 - HEART FAILURE, UNSPECIFIED SNOMED Code(s): 36964468 Comment: Acute, with 20lb weight gain in past year. Significant BOTELLO and leg swelling. Down 3.4L since admission and 7lbs. Feels much better. Increased exercise tolerance. Continue with Lasix 20mg IV BID. Strict I/O, Daily Weights. Patient takes 40mg PO lasix daily at home and attests to compliance. Patient states that she enjoys and eats a large amount of salty food. Counseled to avoid added salt and monitor daily salt intake. Nutrition consult entered. (2) Hematuria Current Visit: Yes Status: Acute Code(s): R31.9 - HEMATURIA, UNSPECIFIED SNOMED Code(s): 97400127 Comment: Patient has known microscopic hematuria with bladder mass according to patient. H/H stable. Plan for cystoscopy at [facility] outpatient. (3) Recurrent UTI Current Visit: Yes Status: Acute Code(s): N39.0 - URINARY TRACT INFECTION, SITE NOT SPECIFIED SNOMED Code(s): 889270284 Comment: Patient states she gets frequent UTIs and was on suppressive therapy. Was on Bactrim at home before being admitted at dose for UTI treatment. Will hold in hospital as she is asymptomatic and UA shows only trace LE. (4) CAD (coronary artery disease) Current Visit: No Status: Chronic Code(s): I25.10 - ATHSCL HEART DISEASE OF [place] CORONARY ARTERY W/O ANG PCTRS SNOMED Code(s): 45100372 Comment: No signs of ACS. Troponin mildly elevated, likely due to demand ischemia. Continue ASA, Statin, BB. (5) Diabetes Current Visit: No Status: Chronic Code(s): E11.9 - TYPE 2 DIABETES MELLITUS WITHOUT COMPLICATIONS SNOMED Code(s): 88441551 Comment: Hemoglobin A1c 7.1%. Would be a candidate for metformin treatment. Will not begin while aggressively diuresing due to risk for KATHIE. Discussed lifestyle modification. (6) Dyslipidemia Current Visit: No Status: Chronic Code(s): E78.5 - HYPERLIPIDEMIA, UNSPECIFIED SNOMED Code(s): 555895597 Comment: Continue Simvastatin. LDL cholesterol 81. (7) GERD (gastroesophageal reflux disease) Current Visit: No Status: Chronic Code(s): K21.9 - GASTRO-ESOPHAGEAL REFLUX DISEASE WITHOUT ESOPHAGITIS SNOMED Code(s): 678374113 Comment: Severe at times, worst in AM. Takes Omeprazole, Ranitidine and Sucralfate at home. Patient does not sleep on a wedge but is acquiring one. Discussed other lifestyle modifications to mitigate GERD symptoms. Possible cause of non-cardiac chest pain. Continue Omeprazole and Ranitidine. (8) HTN (hypertension) Current Visit: No Status: Chronic Code(s): I10 - ESSENTIAL (PRIMARY) HYPERTENSION SNOMED Code(s): 27709871 Comment: Normotensive. Continue Lisinopril and Metoprolol. (9) PAULA (obstructive sleep apnea) Current Visit: Yes Status: Acute Code(s): G47.33 - OBSTRUCTIVE SLEEP APNEA ( ADULT) (PEDIATRIC) SNOMED Code(s): 63481022 Comment: Has CPAP at home. Non-compliant due to frequent nocturia. (10) DVT prophylaxis Current Visit: No Status: Acute Priority: Medium Onset Date: 11/21/14 Code(s): JRK6524 - SNOMED Code(s): 269560134 Comment: Heparin SubQ. (11) Full code status Current Visit: No Status: Acute Priority: Medium Onset Date: 11/21/14 Code(s): Z78.9 - OTHER SPECIFIED HEALTH STATUS SNOMED Code(s): 583170453 Status and Disposition: Patient is admitted inpatient.
[2017-10-11] MEDS ORDERED: Lisinopril TAB* 10 MG PO ONE (16:14)
[2017-10-11] MEDS ORDERED: Zolpidem TAB* 5 MG PO PRN (17:02)
[2017-10-11] MEDS ORDERED: CMCS:Simvastatin TAB(NF) 20 MG TAB PO SCH (17:03)
[2017-10-11] MEDS: CMCS Melatonin (NF) 3 MG TAB PO SCH (20:54)
[2017-10-11] MEDS: Mirtazapine TAB* 15 MG PO SCH (20:56)
[2017-10-12] MEDS: Heparin VIAL(*) 5000 UNITS/ML VIAL (FIVE THOUSAND) SUBCUT SCH (05:28)
[2017-10-12 05:34] VITALS: BP 158/62
[2017-10-12 06:13] LABS: ABS Basophils 0 10^3/ul (0-0.2); ABS Eosinophils 0.2 10^3/ul (0-0.6); ABS Lymphocytes 1.3 10^3/ul (1.0-4.8); ABS Monocytes 0.7 10^3/ul (0-0.8); ABS Neutrophils 5.9 10^3/ul (1.5-7.7); ABS Nucleated RBC 0 10^3/ul; Eosinophil % 2.1 % (0-6); Hematocrit 38 % (35-47); Hemoglobin 12.1 g/dl (12.0-16.0); Lymphocyte % 16.5 % (25-47); Mean Corpuscular HGB Conc 32 g/dl (31-36); Mean Corpuscular Hemoglobin 25 pg (27-31); Mean Corpuscular Volume 80 fL (80-97); Mean Platelet Volume 11 um3 (7.4-10.4); Nucleated Red Blood Cells % 0.1; Platelet Count 110 10^3/ul (150-450); Red Blood Count 4.78 10^6/ul (4.0-5.4); Red Cell Distribution Width 17 % (10.5-15)
[2017-10-12 06:32] LABS: EGFR Non-African American 77.5 (>60)
[2017-10-12] MEDS: Polyethylene Glycol 3350* 17 GM PACKET PO SCH (07:36)
[2017-10-12] MEDS: Omeprazole CAP* 20 MG PO SCH (07:36)
[2017-10-12] MEDS: Metoprolol Succinate XL TAB* 50 MG PO SCH (07:37)
[2017-10-12] MEDS: Gabapentin CAP(*) 300 MG PO SCH (07:37)
[2017-10-12] MEDS: Oxybutynin TAB* 5 MG PO SCH (07:37)
[2017-10-12] MEDS: Anastrozole (NF) 1 MG TAB PO SCH (07:37)
[2017-10-12] MEDS: Famotidine TAB* 20 MG PO SCH (07:37)
[2017-10-12] MEDS: Sertraline* 100 MG TAB PO SCH (07:37)
[2017-10-12] MEDS: Aspirin EC Low Dose* 81 MG TAB.EC PO SCH (07:37)
[2017-10-12] MEDS ORDERED: metFORMIN* 500 MG TAB PO SCH (09:00)
[2017-10-12] MEDS ORDERED: Lisinopril TAB* 10 MG PO SCH (09:00)
[2017-10-12] MEDS ORDERED: Furosemide TAB* 40 MG PO SCH (09:00)
[2017-10-12] MEDS ORDERED: Furosemide TAB* 20 MG PO SCH (15:00)
[2017-10-12] MEDS ORDERED: CMCS Simvastatin TAB(NF) 20 MG TAB PO SCH (21:00)
--- NOTE | 2017-10-13 04:28 | DS ---
CC: Dr. Ramirez * DISCHARGE SUMMARY: DATE OF ADMISSION: 10/09/17 DATE OF DISCHARGE: 10/12/17 PRIMARY CARE PROVIDER: Dr. Ramirez. MY ATTENDING WHILE IN THE HOSPITAL: Dr. Lauri Hastings.* (DICTATED BY AMRIT HERNÁNDEZ) PRIMARY DISCHARGE DIAGNOSES: 1. Congestive heart failure exacerbation. 2. Diabetes mellitus type 2. SECONDARY DISCHARGE DIAGNOSES: 1. Hypertension. 2. Hyperlipidemia. 3. Diastolic heart failure. 4. Breast cancer. 5. Obstructive sleep apnea. 6. Recurrent urinary tract infections. 7. Anxiety. 8. Hematuria. STUDIES DONE WHILE IN THE HOSPITAL: Chest x-ray from 10/09/17 read as findings consistent with vascular congestion. Electrocardiogram from 10/09/17 read as normal sinus rhythm, normal axis, QTc of 456. No enlargement or hypertrophy. T - wave flattening in V2, V3, V4, and V5. No other abnormalities. Transthoracic echocardiogram from 10/09/17 read as left ventricular chamber size normal, mild concentric left ventricular hypertrophy observed. The estimated ejection fraction is 55% to 60%. Assessment is diastolic function is nondiagnostic. There is some mild aortic stenosis. There is mild aortic regurgitation. There is trace mitral regurgitation, trace tricuspid regurgitation. Unable to estimate the right ventricular systolic pressure. There is a trace pulmonary regurgitation. MEDICATIONS AT DISCHARGE: 1. Lorazepam 0.25 mg p.o. b.i.d. p.r.n. 2. Gabapentin 600 mg p.o. b.i.d. 3. Anastrazole 1 mg p.o. q.a.m. 4. Sertraline 100 mg p.o. daily. 5. Aspirin 81 mg p.o. daily. 6. Simvastatin 40 mg p.o. at bedtime. 7. Meclizine 25 mg p.o. t.i.d. as needed. 8. Omeprazole 40 mg p.o. daily. 9. Ranitidine 150 mg p.o. b.i.d. 10. Mirtazapine 30 mg p.o. at bedtime. 11. Lisinopril 20 mg p.o. daily. 12. Nitroglycerin 0.4 mg sublingually q.5 minutes as needed for chest pain. 13. Polyethylene glycol 17 g p.o. daily. 14. MetroCream 0.75% one application topical at bedtime. 15. Ibuprofen 600 mg p.o. t.i.d. as needed. 16. Oxybutynin 10 mg p.o. daily. 17. Sucralfate 1 g p.o. q.i.d. 18. [place] 7.5/325 one to two tabs q.8 hours as needed. 19. Vitamin D3 5000 units p.o. daily. 20. Furosemide 40 mg p.o. daily. 21. Furosemide 20 mg p.o. at 1500. 22. Melatonin 3 mg p.o. at bedtime. 23. Metformin 500 mg p.o. daily. 24. Metoprolol succinate 50 mg p.o. daily. New medications at discharge: 1. Furosemide 20 mg p.o. at 1500. 2. Metformin 500 mg p.o. daily. 3. Metoprolol succinate 50 mg p.o. daily. Medications discontinued at discharge: 1. Lisinopril 5 mg p.o. daily. 2. Metoprolol tartrate 12.5 mg p.o. b.i.d. 3. Bactrim double strength 1 tab p.o. b.i.d. HOSPITAL COURSE: This is a brief summary of the patient's presentation. For more details, please see the history and physical from this author on 10/09/17. The patient is a 77-year-old female with a past medical history significant for the above, who presents after being sent in from her airbrush artist, Dr. Armijo's office for progressive shortness of breath with exertion over 1 month. The patient has also gained 30 pounds since her last appointment with Dr. Armijo and 20 pounds since her last admission to this hospital last year. The patient denies any recent changes in her diet or medications; however, upon further examination, the patient eats quite a bit of salty food, but she does not eat canned food. The patient states that at point she could not walk more than 30 feet without becoming too short of breath. She does not know what her exercise tolerance was previous to this. The patient was admitted to the hospital. The patient had an elevated troponin on admission which trended down. The patient was started on Lasix 20 mg IV b.i.d. The patient had a Mace inserted. The patient was normal to hypertensive throughout her hospital stay with no hypotension. The patient had a urinalysis which showed trace leukocyte esterase and 3+ blood. The patient had a hemoglobin A1c of 7.1. Other laboratory values of note show a hemoglobin of 11.4, platelet count of 151 , carbon-dioxide 36, chloride 98. The patient had good diuresis, being negative approximately 4.5 L throughout her hospitalization and losing approximately 7 pounds. The patient did also note decrease in her renal function. The patient felt much better after one night of treatment with IV Lasix. The patient did not sleep well while in the hospital. The patient had desaturations overnight both nights. The patient refused attempt to use her CPAP while in the hospital. The patient felt better when treated with melatonin and Ambien. The patient states she is noncompliant with CPAP at home due to frequent urination and inability to get back to sleep after she gets up to urinate. The patient also endorses significant reflux, waking up with gastric contents in her mouth several times a week. The patient was not started on metformin while she was in the hospital due to aggressive diuresis and risk for acute kidney injury. However, the patient was in agreement to be started on metformin at discharge. The patient was instructed on proper heart- healthy diet and was in agreement to having her metoprolol and lisinopril increased. PHYSICAL EXAM ON THE DAY OF DISCHARGE: General: The patient is a 77-year-old female who appears her stated age and sitting comfortable in the bed, in no acute distress. Vital Signs: At the time of discharge; temperature 98.4, pulse rate 75, respiratory rate 16, oxygen saturation 92% on room air, and blood pressure 158/62. HEENT: Head: Normocephalic and atraumatic. Sclerae anicteric. No conjunctival injection. Nasal mucosa moist. Oral mucosa moist. No oropharyngeal erythema, discharge, or exudate. The patient has a high arching palate. Neck: Supple, nontender. No lymphadenopathy. No carotid bruits auscultated. Cardiac: Regular rate and rhythm. No clicks, murmurs, gallops, or rubs. Pulses 2+ in bilateral dorsalis pedis, posterior tibialis, and radial areas. The patient has trace edema in her bilateral lower extremities, significantly decreased from previous exam. Respiratory: Clear to auscultation bilaterally. No wheezes, rales, or rhonchi. Good air exchange bilaterally. Abdomen: Soft, nontender, and nondistended. Bowel sounds present and normoactive in all 4 quadrants. No hepatosplenomegaly. No abdominal bruits auscultated. Genitourinary: No suprapubic or CVA tenderness. Skin: Clean, dry, and intact. No rash. Neuro: Cranial nerves II through XII intact. Normal gait. No focal deficits. Alert and oriented x3. Psychiatric: Pleasant and cooperative. LABORATORY DATA ON DAY OF DISCHARGE: White blood cell count 8.0, hemoglobin 12.1, MCH 25, RDW 17, platelet count 110. Sodium 140, potassium 3.9, chloride 96, carbon dioxide 37, anion gap 7, BUN 14, creatinine 0.73, glucose 129, calcium 9.9, magnesium 1.9. Other laboratory values of note from admission, troponin at admission 0.12; repeat 0.09, 0.09, and 0.08. Urinalysis showing trace leukocyte esterase, 2+ protein, 2+ blood, and squamous epithelial cells. TSH of 14.9, free T4 of 0.61, free T3 of 2.5. LDL cholesterol of 71, HDL cholesterol of 36.4. DISCHARGE PLAN: The patient will be discharged to home with the assistance of her . The patient will be on an increased dose of Lasix as above. The patient was started on metformin for her newly diagnosed diabetes. The patient was hypertensive while in the hospital, will have increased lisinopril, metoprolol, and Lasix as above. The patient was educated on a heart-healthy diet. The patient will attempt to be more compliant with her CPAP as much as possible. The patient will follow up with Piero Barnett for her chronic hematuria and possibly to address her chronic incontinence which would help with compliance with her CPAP. The patient will avoid salt and try to maintain around 2 L of oral intake fluid daily. The patient will not be restarted on her Bactrim at discharge as her urine culture grew nothing and she had only trace leukocyte esterase in her urine and no nitrite. The patient should follow up with Dr. Armijo as scheduled. The patient should follow up with her primary care provider within 1 week. The patient should return to the hospital for alarming symptoms such as chest pain, significantly increased shortness of breath, or other alarming symptoms. TIME SPENT: Approximately 1 hour was spent on this discharge, 35 minutes of which was spent [id number] with the patient obtaining history and physical and discussing treatment plan. AMRIT HERNÁNDEZ [id number]/[facility] #: [id number] JOSE
--- NOTE | 2017-10-14 19:41 | ED ---
Kyree Leal Julia, scribed for Tramaine Gusman MD on 10/09/17 at 1625 . Shortness of Breath - HPI Summary HPI Summary: This patient is a 77 year old F presenting to [facility] accompanied by her with a chief complaint of SOB for the past month. Patient reports mild lower extremity edema. Patient denies chest pain, fever, and chills. SOB is worse at night and walking at any incline. Patient was sent from Dr. Cano office with an SaO2 of 82%. Patient is not on at home oxygen. Patient has sleep apnea and a CPAP machine at home but does not use it because she is frequently waking up during the night to urinate. - History of Current Complaint Chief Complaint: EDShortnessOfBreath Hx Obtained From: Patient Onset/Duration: Lasting Weeks, Still Present Timing: Constant Dyspnea At: Rest Associated Signs & Symptoms: Negative - Allergy/Home Medications Allergies/Adverse Reactions: Allergies Allergy/AdvReac Type Severity Reaction Status Date / Time atorvastatin [From Lipitor] Allergy Muscle Ache Verified 10/09/17 16:20 Home Medications: Home Medications Ibuprofen TAB* [Motrin TAB* 600 MG] 600 mg PO TID PRN 10/09/17 [History Confirmed 10/09/17] Metronidazole (TOPICAL)(NF) [Metrocream (NF)] 0.75 % TOPICAL BEDTIME 10/09/17 [ History Confirmed 10/09/17] Mirtazapine TAB* [Remeron TAB*] 30 mg PO BEDTIME 10/09/17 [History Confirmed 03/21] Nitroglycerin TAB 0.4 MG* 0.4 mg SL Q5M PRN 10/09/17 [History Confirmed 10/09/17 ] Polyethylene Glycol 3350* [Miralax*] 17 gm PO DAILY 10/09/17 [History Confirmed 10/09/17] Ranitidine TAB (NF) [Zantac TAB (NF)] 150 mg PO BID 10/09/17 [History Confirmed 10/11/17] Cholecalciferol (Vitamin D3) [Vitamin D3] 5,000 unit PO DAILY 10/11/17 [History Confirmed 10/11/17] Hydrocodone/Acetaminophen [[place] 7.5-325 Tablet] 2 each PO Q8HR PRN MDD 6 [History Confirmed 10/11/17] Oxybutynin Chloride [Oxybutynin Chloride ER] 10 mg PO DAILY 10/11/17 [History Confirmed 10/11/17] Sucralfate TAB* [Carafate*] 1 gm PO QID 10/11/17 [History Confirmed 10/11/17] PMH/Surg Hx/FS Hx/Imm Hx Endocrine/Hematology History: Reports: Hx Diabetes - diet controlled, Other Endocrine/Hematological Disorders - Risk for neutropenia secondary to chemotherapy Denies: Hx Sickle Cell Disease, Hx Thyroid Disease, Hx Unexplained Bleeding Cardiovascular History: Reports: Hx Angina, Hx Angioplasty - LAD stent 2010, Hx Coronary Artery Disease, Hx Deep Vein Thrombosis, Hx Hypercholesterolemia, Hx Hypertension, Hx Myocardial Infarction, Other Cardiovascular Problems/Disorders Denies: Hx Pacemaker/ICD, Hx Peripheral Vascular Disease, Hx Valvular Heart Disease Respiratory History: Reports: Hx Asthma, Hx Sleep Apnea, Other Respiratory Problems/Disorders Denies: Hx Chronic Obstructive Pulmonary Disease (COPD) GI History: Reports: Hx Gastroesophageal Reflux Disease, Hx Hiatal Hernia, Other GI Disorders - CHRONIC CONSTIPATION History: Reports: Hx Kidney Stones, Other Problems/Disorders - FREQUENT UTI'S Denies: Hx Dialysis, Hx Renal Disease Musculoskeletal History: Reports: Hx Orthopedic Injury - L hip fx, 1014, Other Musculoskeletal History - osteo/arthitis, generalized weakness Denies: Hx Arthritis, Hx Osteoporosis Sensory History: Reports: Hx Cataracts - B/L cataract removal , Hx Contacts or Glasses, Hx Hearing Aid - DOESN'T WEAR, Hx Hearing Problem - [place] Denies: Hx Glaucoma Opthamlomology History: Reports: Hx Cataracts - B/L cataract removal , Hx Contacts or Glasses Denies: Hx Glaucoma Neurological History: Reports: Other Neuro Impairments/Disorders - pt states sometimes she gets weak Psychiatric History: Reports: Hx Anxiety, Hx Depression - Hx, Hx Inpatient Treatment - [facility] [place], Other Psychiatric Issues/Disorders - Possible delusional symptoms Denies: Hx Eating Disorder, Hx Panic Disorder, Hx Community Mental Health Tx , Hx of Violent Episodes Against Others - Cancer History Cancer Type, Location and Year: breast ca, R mastectomy 2012 Hx Chemotherapy: Yes Hx Radiation Therapy: Yes Hx Palliative Cancer Treatment: Yes - RIGHT MASECTOMY - Surgical History Surgery Procedure, Year, and Place: Rt MASTECTOMY 2012. CARDIAC STENTS 04/2013 @ [facility] [place] - [facility]-EL[facility] STENT - [facility] ELUTING STENT - CONDITIONAL 5 1.5T-3.0T MAX SPATIAL GRADIENT 720GAUSS/CM. CATARACT SURGERY. : Screw fixation of fractured L hip, [facility]. 12/2014 FRACTURED LEFT SHOULDER. POWER PORT Hx Anesthesia Reactions: No Infectious Disease History: No Infectious Disease History: Denies: Traveled Outside the [place] in Last 30 Days - Family History Known Family History: Positive: Cardiac Disease, Other - Depression - Social History Alcohol Use: None Substance Use Type: Reports: None Smoking Status (MU): Never Smoked Tobacco Review of Systems Negative: Fever, Chills Negative: Chest Pain Positive: Shortness Of Breath All Other Systems Reviewed And Are Negative: Yes Physical Exam - Summary Physical Exam Summary: Appearance:, Well-nourished, cyanotic Skin: Warm, Dry, No rash Eyes: Normal, PERRL, EOMI, sclera anicteric ENT: mallampati score of +4 Neck: Supple, nontender, no lymphadenopathy Respiratory: Clear to auscultation, tachypnic at rest Cardiovascular: S1, S2, no murmur, no rub, no gallop Abdomen: Soft, nontender, no organomegaly Bowel sounds: Present Musculoskeletal: Normal, Strength/ROM Intact, +1 lower extremity edema, pulses symmetrical Neurological: Normal, A&Ox3, cranial nerves II-XII WNL, follows commands, gait not tested, sensation intact to pin and light touch Psychiatric: affect normal, behavior appropriate, dressed appropriately, judgment intact Triage Information Reviewed: Yes Vital Signs On Initial Exam: Initial Vitals Temp Pulse Resp BP Pulse Ox 98.1 F 71 22 142/107 87 10/09/17 15:55 10/09/17 15:55 10/09/17 15:55 10/09/17 15:55 10/09/17 15:55 Vital Signs Reviewed: Yes Diagnostics - Vital Signs Vital Signs Temp Pulse Resp BP Pulse Ox 10/09/17 15:55 98.1 F 71 22 142/107 87 - Laboratory Lab Results: Lab Results 10/09/17 10/09/17 10/09/17 Range/Units 16:41 16:41 16:41 WBC 8.3 (3.5-10.8) 10^3/ul RBC 4.53 (4.0-5.4) 10^6/ul Hgb 11.4 L (12.0-16.0) g/dl Hct 37 (35-47) % MCV 82 (80-97) fL MCH 25 L (27-31) pg MCHC 31 (31-36) g/dl RDW 17 H (10.5-15) % Plt Count 131 L (150-450) 10^3/ul MPV 11 H (7.4-10.4) um3 Neut % (Auto) 76.2 (38-83) % Lymph % (Auto) 12.5 L (25-47) % [place] % (Auto) 8.2 H (0-7) % Eos % (Auto) 2.8 (0-6) % Baso % (Auto) 0.3 (0-2) % Absolute Neuts (auto) 6.3 (1.5-7.7) 10^3/ul Absolute Lymphs (auto) 1.0 (1.0-4.8) 10^3/ul Absolute Monos (auto) 0.7 (0-0.8) 10^3/ul Absolute Eos (auto) 0.2 (0-0.6) 10^3/ul Absolute Basos (auto) 0 (0-0.2) 10^3/ul Absolute Nucleated RBC 0 10^3/ul Nucleated RBC % 0.2 Sodium 139 (133-145) mmol/L Potassium 4.2 (3.5-5.0) mmol/L Chloride 98 L (101-111) mmol/L Carbon Dioxide 36 H (22-32) mmol/L Anion Gap 5 (2-11) mmol/L BUN 19 (6-24) mg/dL Creatinine 0.89 (0.51-0.95) mg/dL Est GFR ( Amer) 79.3 (>60) Est GFR (Non-Af Amer) 61.7 (>60) BUN/Creatinine Ratio 21.3 H (8-20) Glucose 127 H (70-100) mg/dL Hemoglobin A1c (4.0-5.6) % Calcium 9.2 (8.6-10.3) mg/dL Total Bilirubin 0.30 (0.2-1.0) mg/dL AST 32 (13-39) U/L ALT 18 (7-52) U/L Alkaline Phosphatase 81 (34-104) U/L Troponin I 0.12 H* (<0.04) ng/mL B-Natriuretic Peptide 203 H ( - 100) pg/mL Total Protein 7.5 (6.4-8.9) g/dL Albumin 3.8 (3.2-5.2) g/dL Globulin 3.7 (2-4) g/dL Albumin/Globulin Ratio 1.0 (1-3) Triglycerides 224 mg/dL Cholesterol 152 mg/dL LDL Cholesterol 71 mg/dL HDL Cholesterol 36.4 mg/dL TSH 14.09 H (0.34-5.60) mcIU/mL Free T4 0.61 (0.61-1.12) ng/dL Free T3 2.50 (2.5-3.9) pg/mL Urine Color Urine Appearance Urine pH (5-9) Ur Specific [place] (1.010-1.030) Urine Protein (Negative) Urine Ketones (Negative) Urine Blood (Negative) Urine Nitrate (Negative) Urine Bilirubin (Negative) Urine Urobilinogen (Negative) Ur Leukocyte Esterase (Negative) Urine WBC (Auto) (Absent) Urine RBC (Auto) (Absent) Ur Squamous Epith Cells (Absent) Urine Bacteria (Absent) Urine Glucose (Negative) 10/09/17 10/09/17 10/10/17 Range/Units 19:02 21:07 01:24 WBC (3.5-10.8) 10^3/ul RBC (4.0-5.4) 10^6/ul Hgb (12.0-16.0) g/dl Hct (35-47) % MCV (80-97) fL MCH (27-31) pg MCHC (31-36) g/dl RDW (10.5-15) % Plt Count (150-450) 10^3/ul MPV (7.4-10.4) um3 Neut % (Auto) (38-83) % Lymph % (Auto) (25-47) % [place] % (Auto) (0-7) % Eos % (Auto) (0-6) % Baso % (Auto) (0-2) % Absolute Neuts (auto) (1.5-7.7) 10^3/ul Absolute Lymphs (auto) (1.0-4.8) 10^3/ul Absolute Monos (auto) (0-0.8) 10^3/ul Absolute Eos (auto) (0-0.6) 10^3/ul Absolute Basos (auto) (0-0.2) 10^3/ul Absolute Nucleated RBC 10^3/ul Nucleated RBC % Sodium (133-145) mmol/L Potassium (3.5-5.0) mmol/L Chloride (101-111) mmol/L Carbon Dioxide (22-32) mmol/L Anion Gap (2-11) mmol/L BUN (6-24) mg/dL Creatinine (0.51-0.95) mg/dL Est GFR ( Amer) (>60) Est GFR (Non-Af Amer) (>60) BUN/Creatinine Ratio (8-20) Glucose (70-100) mg/dL Hemoglobin A1c 7.1 H (4.0-5.6) % Calcium (8.6-10.3) mg/dL Total Bilirubin (0.2-1.0) mg/dL AST (13-39) U/L ALT (7-52) U/L Alkaline Phosphatase (34-104) U/L Troponin I 0.09 H* 0.09 H* (<0.04) ng/mL B-Natriuretic Peptide ( - 100) pg/mL Total Protein (6.4-8.9) g/dL Albumin (3.2-5.2) g/dL Globulin (2-4) g/dL Albumin/Globulin Ratio (1-3) Triglycerides mg/dL Cholesterol mg/dL LDL Cholesterol mg/dL HDL Cholesterol mg/dL TSH (0.34-5.60) mcIU/mL Free T4 (0.61-1.12) ng/dL Free T3 (2.5-3.9) pg/mL Urine Color Urine Appearance Urine pH (5-9) Ur Specific [place] (1.010-1.030) Urine Protein (Negative) Urine Ketones (Negative) Urine Blood (Negative) Urine Nitrate (Negative) Urine Bilirubin (Negative) Urine Urobilinogen (Negative) Ur Leukocyte Esterase (Negative) Urine WBC (Auto) (Absent) Urine RBC (Auto) (Absent) Ur Squamous Epith Cells (Absent) Urine Bacteria (Absent) Urine Glucose (Negative) 10/10/17 10/10/17 10/10/17 Range/Units 02:50 05:05 05:05 WBC 6.1 (3.5-10.8) 10^3/ul RBC 4.29 (4.0-5.4) 10^6/ul Hgb 10.7 L (12.0-16.0) g/dl Hct 36 (35-47) % MCV 84 (80-97) fL MCH 25 L (27-31) pg MCHC 30 L (31-36) g/dl RDW 18 H (10.5-15) % Plt Count 103 L (150-450) 10^3/ul MPV 11 H (7.4-10.4) um3 Neut % (Auto) 78.1 (38-83) % Lymph % (Auto) 11.7 L (25-47) % [place] % (Auto) 7.0 (0-7) % Eos % (Auto) 3.0 (0-6) % Baso % (Auto) 0.2 (0-2) % Absolute Neuts (auto) 4.8 (1.5-7.7) 10^3/ul Absolute Lymphs (auto) 0.7 L (1.0-4.8) 10^3/ul Absolute Monos (auto) 0.4 (0-0.8) 10^3/ul Absolute Eos (auto) 0.2 (0-0.6) 10^3/ul Absolute Basos (auto) 0 (0-0.2) 10^3/ul Absolute Nucleated RBC 0 10^3/ul Nucleated RBC % 0.1 Sodium 139 (133-145) mmol/L Potassium 4.0 (3.5-5.0) mmol/L Chloride 98 L (101-111) mmol/L Carbon Dioxide 35 H (22-32) mmol/L Anion Gap 6 (2-11) mmol/L BUN 16 (6-24) mg/dL Creatinine 0.79 (0.51-0.95) mg/dL Est GFR ( Amer) 91.0 (>60) Est GFR (Non-Af Amer) 70.8 (>60) BUN/Creatinine Ratio 20.3 H (8-20) Glucose 118 H (70-100) mg/dL Hemoglobin A1c (4.0-5.6) % Calcium 9.2 (8.6-10.3) mg/dL Total Bilirubin (0.2-1.0) mg/dL AST (13-39) U/L ALT (7-52) U/L Alkaline Phosphatase (34-104) U/L Troponin I (<0.04) ng/mL B-Natriuretic Peptide ( - 100) pg/mL Total Protein (6.4-8.9) g/dL Albumin (3.2-5.2) g/dL Globulin (2-4) g/dL Albumin/Globulin Ratio (1-3) Triglycerides mg/dL Cholesterol mg/dL LDL Cholesterol mg/dL HDL Cholesterol mg/dL TSH (0.34-5.60) mcIU/mL Free T4 (0.61-1.12) ng/dL Free T3 (2.5-3.9) pg/mL Urine Color Yellow Urine Appearance Clear Urine pH 5.0 (5-9) Ur Specific [place] 1.019 (1.010-1.030) Urine Protein 2+(100 mg/dl) A (Negative) Urine Ketones Negative (Negative) Urine Blood 2+ A (Negative) Urine Nitrate Negative (Negative) Urine Bilirubin Negative (Negative) Urine Urobilinogen Negative (Negative) Ur Leukocyte Esterase Trace A (Negative) Urine WBC (Auto) 2+(11-20/hpf) A (Absent) Urine RBC (Auto) 3+(>10/hpf) A (Absent) Ur Squamous Epith Cells Present A (Absent) Urine Bacteria Absent (Absent) Urine Glucose Negative (Negative) 10/10/17 Range/Units 05:05 WBC (3.5-10.8) 10^3/ul RBC (4.0-5.4) 10^6/ul Hgb (12.0-16.0) g/dl Hct (35-47) % MCV (80-97) fL MCH (27-31) pg MCHC (31-36) g/dl RDW (10.5-15) % Plt Count (150-450) 10^3/ul MPV (7.4-10.4) um3 Neut % (Auto) (38-83) % Lymph % (Auto) (25-47) % [place] % (Auto) (0-7) % Eos % (Auto) (0-6) % Baso % (Auto) (0-2) % Absolute Neuts (auto) (1.5-7.7) 10^3/ul Absolute Lymphs (auto) (1.0-4.8) 10^3/ul Absolute Monos (auto) (0-0.8) 10^3/ul Absolute Eos (auto) (0-0.6) 10^3/ul Absolute Basos (auto) (0-0.2) 10^3/ul Absolute Nucleated RBC 10^3/ul Nucleated RBC % Sodium (133-145) mmol/L Potassium (3.5-5.0) mmol/L Chloride (101-111) mmol/L Carbon Dioxide (22-32) mmol/L Anion Gap (2-11) mmol/L BUN (6-24) mg/dL Creatinine (0.51-0.95) mg/dL Est GFR ( Amer) (>60) Est GFR (Non-Af Amer) (>60) BUN/Creatinine Ratio (8-20) Glucose (70-100) mg/dL Hemoglobin A1c (4.0-5.6) % Calcium (8.6-10.3) mg/dL Total Bilirubin (0.2-1.0) mg/dL AST (13-39) U/L ALT (7-52) U/L Alkaline Phosphatase (34-104) U/L Troponin I 0.08 H* (<0.04) ng/mL B-Natriuretic Peptide ( - 100) pg/mL Total Protein (6.4-8.9) g/dL Albumin (3.2-5.2) g/dL Globulin (2-4) g/dL Albumin/Globulin Ratio (1-3) Triglycerides mg/dL Cholesterol mg/dL LDL Cholesterol mg/dL HDL Cholesterol mg/dL TSH (0.34-5.60) mcIU/mL Free T4 (0.61-1.12) ng/dL Free T3 (2.5-3.9) pg/mL Urine Color Urine Appearance Urine pH (5-9) Ur Specific [place] (1.010-1.030) Urine Protein (Negative) Urine Ketones (Negative) Urine Blood (Negative) Urine Nitrate (Negative) Urine Bilirubin (Negative) Urine Urobilinogen (Negative) Ur Leukocyte Esterase (Negative) Urine WBC (Auto) (Absent) Urine RBC (Auto) (Absent) Ur Squamous Epith Cells (Absent) Urine Bacteria (Absent) Urine Glucose (Negative) Result Diagrams: 10/12/17 05:28 10/12/17 05:28 Lab Statement: Any lab studies that have been ordered have been reviewed, and results considered in the medical decision making process. - Radiology CXR Radiology Interpretation Completed By: Radiologist - Findings consistent with vascular congestion. ED Physician has reviewed this report. - EKG 16:28 Cardiac Rate: NL - at 73 BPM EKG Rhythm: Sinus Rhythm EKG Interpretation: RAD Course/Dx - Course Course Of Treatment: Patient presents with SOB for the past month. Patient was sent from Dr. Cano office with an SaO2 of 82%. CXR reveals vascular congestion. EKG is unremarkable. Lab results reveal a Troponin of 0.12. An ABG was unable to be obtained. Patient is given Lasix and Albuterol. Patient will be admited to rule out an non STEMI. - Diagnoses Provider Diagnoses: Sleep apnea, CAD (coronary artery disease), Breast cancer - Physician Notifications Discussed Care of Patient With: Brit Barragan Time Discussed With Above Provider: 17:40 Instructed by Provider To: Admit As Inpatient Discharge - Discharge Plan Condition: Guarded Disposition: ADMITTED TO [facility] Discharge Disposition Comment: admit to [facility] [place] The documentation as recorded by the Kyree mcqueen Julia accurately reflects the service I personally performed and the decisions made by me, Tramaine Gusman MD.
== END 2017-10-12 12:00 | disposition home or self-care (01) | DRG 292 ==
LOC: ED 15:46 → MEDTELE 18:38 → OBSVTOIN 10-10 11:34
PROVIDERS: ADMIT Internal Medicine; ATTEND Internal Medicine
DX: I11.0 Hypertensive heart disease with heart failure (principal); I24.8 Other forms of acute ischemic heart disease; E11.9 Type 2 diabetes mellitus without complications; R31.9 Hematuria, unspecified; I50.31 Acute diastolic (congestive) heart failure; E78.5 Hyperlipidemia, unspecified; F41.9 Anxiety disorder, unspecified; G47.33 Obstructive sleep apnea (adult) (pediatric); I25.10 Atherosclerotic heart disease of native coronary artery without angina pectoris; R74.8 Abnormal levels of other serum enzymes; R32 Unspecified urinary incontinence; K21.9 Gastro-esophageal reflux disease without esophagitis; Z95.5 Presence of coronary angioplasty implant and graft; Z87.440 Personal history of urinary (tract) infections; Z85.3 Personal history of malignant neoplasm of breast; Z79.1 Long term (current) use of non-steroidal anti-inflammatories (NSAID); Z79.82 Long term (current) use of aspirin; Z79.899 Other long term (current) drug therapy; Z79.2 Long term (current) use of antibiotics; Z88.8 Allergy status to other drugs, medicaments and biological substances; Z80.49 Family history of malignant neoplasm of other genital organs; Z82.49 Family history of ischemic heart disease and other diseases of the circulatory system
CPT/HCPCS: 36415; 71046; 80048; 80053; 80061; 81003; 81015; 83036; 83735; 83880; 84439; 84443; 84481; 84484; 85025; 87086; 93005; 93306; 94640; 99283; A9270-GY; G8978-GP-CI; G8979-GP-CH; G8987-GO-CJ; G8988-GO-CI; J1644; J1940

== ENCOUNTER 2017-12-19 12:18 | Inpatient (IN) | payer MEDICARE, OTHER, MEDICAID ==
[2017-12-19 13:54] LABS: Urine Appearance Cloudy; Urine Blood 2+ (Negative); Urine Color Amber; Urine Ketones Negative (Negative); Urine Protein 1+(30 mg/dL) (Negative); Urine Urobilinogen Negative (Negative)
[2017-12-19 14:20] LABS: Hematocrit 37 % (35-47); Hemoglobin 11.4 g/dl (12.0-16.0); Mean Corpuscular HGB Conc 31 g/dl (31-36); Mean Corpuscular Hemoglobin 26 pg (27-31); Mean Corpuscular Volume 82 fL (80-97); Mean Platelet Volume 10.5 um3 (7.4-10.4); Platelet Count 134 10^3/ul (150-450); Red Blood Count 4.46 10^6/ul (4.0-5.4); Red Cell Distribution Width 20 % (10.5-15); White Blood Count 9.4 10^3/ul (3.5-10.8)
[2017-12-19 14:37] LABS: EGFR Non-African American 25.1 (>60)
[2017-12-19] MEDS ORDERED: NS 0.9% 1000 ML* 1,000 ML IV ONE (14:53)
[2017-12-19] MEDS ORDERED: cefTRIAXone(*) 1 GM in NS 0.9% 50 ML* 50 ML IVPB ONE (15:00)
--- NOTE | 2017-12-19 15:58 | ED ---
Huseyin Leal Natalie, scribed for Eloy Lara MD on 12/19/17 at 1505 . Neurological HPI - HPI Summary HPI Summary: The pt is a 77 y/o F presenting to the ED c/o unable to walk starting today. She has been feeling weaker for the last few months, but it's been getting worse as she keeps shaking, causing her to not be able to walk. She fell today when she was trying to get out of bed and get her walker. Pt additionally c/o pain in neck, where she has a tumor that doesn't have a specific diagnosis, but was found through an MRI about 7 months ago. The neck pain radiates to shoulders. She hasn't had these shakes before. - History of Current Complaint Chief Complaint: EDWeakness Stated Complaint: UNABLE TO WALK Hx Obtained From: Patient Onset/Duration: Gradual Onset, Still Present Timing: Constant Onset Severity: Moderate Current Severity: Moderate Pain Intensity: 0 Pain Scale Used: 0-10 Numeric Character: Weak Aggravating: Nothing Alleviating: Nothing Associated Signs and Symptoms: Positive: Neck Pain/Stiffness - radiates to shoulders - Additional Pertinent History Primary Care Physician: [id number] - Allergy/Home Medications Allergies/Adverse Reactions: Allergies Allergy/AdvReac Type Severity Reaction Status Date / Time atorvastatin [From Lipitor] Allergy Muscle Ache Verified 10/09/17 16:20 Home Medications: Home Medications Cholecalciferol TAB* [Vitamin D TAB*] 5,000 unit PO DAILY 12/19/17 [History Confirmed 12/19/17] Furosemide TAB* [Lasix TAB*] 20 mg PO 1200 12/19/17 [History Confirmed 12/19/17] Furosemide TAB* [Lasix TAB*] 40 mg PO BID 12/19/17 [History Confirmed 12/19/17] Levothyroxine TAB* [Synthroid TAB*] 25 mcg PO DAILY 12/19/17 [History Confirmed 12/19/17] Lisinopril TAB* [Prinivil TAB 10 MG*] 20 mg PO QAM 12/19/17 [History Confirmed 12/19/17] Lisinopril TAB* [Prinivil TAB*] 10 mg PO QPM 12/19/17 [History Confirmed ] Metformin ER (NF) 500 mg PO DAILY 12/19/17 [History Confirmed 12/19/17] Oxybutynin XL TAB* [Ditropan XL TAB*] 10 mg PO DAILY 12/19/17 [History Confirmed 12/19/17] PMH/Surg Hx/FS Hx/Imm Hx Endocrine/Hematology History: Reports: Hx Diabetes - diet controlled, Other Endocrine/Hematological Disorders - Risk for neutropenia secondary to chemotherapy Denies: Hx Sickle Cell Disease, Hx Thyroid Disease, Hx Unexplained Bleeding Cardiovascular History: Reports: Hx Angina, Hx Angioplasty - LAD stent 2010, Hx Coronary Artery Disease, Hx Deep Vein Thrombosis, Hx Hypercholesterolemia, Hx Hypertension, Hx Myocardial Infarction, Other Cardiovascular Problems/Disorders Denies: Hx Pacemaker/ICD, Hx Peripheral Vascular Disease, Hx Valvular Heart Disease Respiratory History: Reports: Hx Asthma, Hx Sleep Apnea, Other Respiratory Problems/Disorders Denies: Hx Chronic Obstructive Pulmonary Disease (COPD) GI History: Reports: Hx Gastroesophageal Reflux Disease, Hx Hiatal Hernia, Other GI Disorders - CHRONIC CONSTIPATION History: Reports: Hx Kidney Stones, Other Problems/Disorders - FREQUENT UTI'S Denies: Hx Dialysis, Hx Renal Disease Musculoskeletal History: Reports: Hx Orthopedic Injury - L hip fx, 1014, Other Musculoskeletal History - osteo/arthitis, generalized weakness Denies: Hx Arthritis, Hx Osteoporosis Sensory History: Reports: Hx Cataracts - B/L cataract removal , Hx Contacts or Glasses, Hx Hearing Aid - DOESN'T WEAR, Hx Hearing Problem - NUIQSUT Denies: Hx Glaucoma Opthamlomology History: Reports: Hx Cataracts - B/L cataract removal , Hx Contacts or Glasses Denies: Hx Glaucoma Neurological History: Reports: Other Neuro Impairments/Disorders - pt states sometimes she gets weak Psychiatric History: Reports: Hx Anxiety, Hx Depression - Hx, Hx Inpatient Treatment - [facility], Other Psychiatric Issues/Disorders - Possible delusional symptoms Denies: Hx Eating Disorder, Hx Panic Disorder, Hx Community Mental Health Tx , Hx of Violent Episodes Against Others - Cancer History Cancer Type, Location and Year: breast ca, R mastectomy 2012 Hx Chemotherapy: Yes Hx Radiation Therapy: Yes Hx Palliative Cancer Treatment: Yes - RIGHT MASECTOMY - Surgical History Surgery Procedure, Year, and Place: Rt MASTECTOMY 2012. CARDIAC STENTS 04/2013 @ [facility] [place] - [facility]-ELUTING STENT - [facility] DRUG ELUTING STENT - CONDITIONAL 5 1.5T-3.0T MAX SPATIAL GRADIENT 720GAUSS/CM. CATARACT SURGERY. : Screw fixation of fractured L hip, [facility]. 12/2014 FRACTURED LEFT SHOULDER. POWER PORT Hx Anesthesia Reactions: No Infectious Disease History: No Infectious Disease History: Denies: Traveled Outside the [place] in Last 30 Days - Family History Known Family History: Positive: Cardiac Disease, Other - Depression - Social History Alcohol Use: None Substance Use Type: Reports: None Smoking Status (MU): Never Smoked Tobacco Review of Systems Positive: Other - neck pain radiating to shoulders Neurological: Other - unable to ambulate, shaking All Other Systems Reviewed And Are Negative: Yes Physical Exam - Summary Physical Exam Summary: Appearance: Slightly fatigued, Well-nourished Skin: Warm Eyes: Normal ENT: Normal Neck: Supple, nontender Respiratory: Clear to auscultation Cardiovascular: Normal S1, S2. No murmurs. Normal distal pulses in tibial and radial bilaterally. Abdomen: Soft, nontender Musculoskeletal: Strength/ROM Intact. Mild tremulous weakness of upper annular extremities with intention, no obvious focal neurological deficits. Granular nodes intact. Neurological: Normal, A&Ox3 Psychiatric: Normal General: No acute distress Triage Information Reviewed: Yes Vital Signs On Initial Exam: Initial Vitals Temp Pulse Resp BP Pulse Ox 97.8 F 89 18 163/140 91 12/19/17 12:27 12/19/17 12:27 12/19/17 12:27 12/19/17 12:27 12/19/17 12:27 Vital Signs Reviewed: Yes Diagnostics - Vital Signs Vital Signs Temp Pulse Resp BP Pulse Ox 12/19/17 14:00 83 19 92 12/19/17 13:57 88 22 101/68 88 12/19/17 13:56 85 20 90 12/19/17 12:27 97.8 F 89 18 163/140 91 - Laboratory Lab Results: Lab Results 12/19/17 12/19/17 12/19/17 Range/Units 13:17 14:09 14:09 WBC 9.4 (3.5-10.8) 10^3/ul RBC 4.46 (4.0-5.4) 10^6/ul Hgb 11.4 L (12.0-16.0) g/dl Hct 37 (35-47) % MCV 82 (80-97) fL MCH 26 L (27-31) pg MCHC 31 (31-36) g/dl RDW 20 H (10.5-15) % Plt Count 134 L (150-450) 10^3/ul MPV 10.5 H (7.4-10.4) um3 Sodium 139 (139-145) mmol/L Potassium 3.6 (3.5-5.0) mmol/L Chloride 102 (101-111) mmol/L Carbon Dioxide 31 (22-32) mmol/L Anion Gap 6 (2-11) mmol/L BUN 42 H (6-24) mg/dL Creatinine 1.94 H (0.51-0.95) mg/dL Est GFR ( Amer) 32.3 (>60) Est GFR (Non-Af Amer) 25.1 (>60) BUN/Creatinine Ratio 21.6 H (8-20) Glucose 161 H (70-100) mg/dL Calcium 9.6 (8.6-10.3) mg/dL Total Bilirubin 0.30 (0.2-1.0) mg/dL AST 30 (13-39) U/L ALT 24 (7-52) U/L Alkaline Phosphatase 82 (34-104) U/L Troponin I 1.80 H* (<0.04) ng/mL Total Protein 7.1 (6.4-8.9) g/dL Albumin 3.6 (3.2-5.2) g/dL Globulin 3.5 (2-4) g/dL Albumin/Globulin Ratio 1.0 (1-3) TSH Pending Free T4 Pending Urine Color Gaye Urine Appearance Cloudy Urine pH 5.0 (5-9) Ur Specific Pin[place]ard 1.020 (1.010-1.030) Urine Protein 1+(30 mg/dl) A (Negative) Urine Ketones Negative (Negative) Urine Blood 2+ A (Negative) Urine Nitrate Negative (Negative) Urine Bilirubin Negative (Negative) Urine Urobilinogen Negative (Negative) Ur Leukocyte Esterase 1+ A (Negative) Urine WBC (Auto) 2+(11-20/hpf) A (Absent) Urine RBC (Auto) 3+(>10/hpf) A (Absent) Ur Squamous Epith Cells Present A (Absent) Urine Bacteria 1+ A (Absent) Hyaline Casts Present A (Absent) Urine Glucose Negative (Negative) Urine Ascorbic Acid * A (Negative) Result Diagrams: 12/19/17 14:09 12/19/17 14:09 Lab Statement: Any lab studies that have been ordered have been reviewed, and results considered in the medical decision making process. - EKG 13:56 Cardiac Rate: NL EKG Rhythm: Sinus Rhythm - 83 BPM EKG Interpretation: Right axis deviation. Nonspecific T abnormalities, inferior leads. Re-Evaluation - Re-Evaluation First Eval Re-Evaluation Time: 15:46 Change: Unchanged Comment: I spoke with the patient about possible admittance to [facility]. Course/Dx - Course Assessment/Plan: Patient seen to have UTI in the context of acute kidney injury , started on fluids and antibiotics here in the ED, admitted for further treatment. - Diagnoses Provider Diagnoses: UTI (urinary tract infection), Acute kidney injury - Physician Notifications Discussed Care Of Patient With: Lauri Hastings Discharge - Sign-Out/Discharge Documenting (check all that apply): Discharge/Admit/Transfer - Discharge Plan Condition: Stable Disposition: ADMITTED TO [facility] Referrals: Tramaine Ramirez MD [Primary Care Provider] - - Billing Disposition and Condition Condition: STABLE Disposition: [facility] The documentation as recorded by the Huseyin mcqueen Natalie accurately reflects the service I personally performed and the decisions made by me, Eloy Lara MD.
[2017-12-19] MEDS ORDERED: Nitroglycerin TAB 0.4 MG* 0.4 MG TAB SL PRN (18:09)
[2017-12-19] MEDS ORDERED: Meclizine TAB* 12.5 MG PO PRN (18:09)
--- NOTE | 2017-12-19 19:02 | RAD ---
INDICATION: Hypoxia. CHF COMPARISON: 3 2017 TECHNIQUE: An AP portable view obtained at 1841 hours is submitted. FINDINGS: Bones/Soft Tissues: There are no acute bony findings. There is a left-sided Frdzmz-y-Fudf catheter Cardiomediastinal: Cardiac silhouette is enlarged. Lungs: There are no infiltrates. There is interstitial edema Pleura: There are no pleural effusions. Other: None IMPRESSION: MODERATE VASCULAR CONGESTION WITHOUT SIGNIFICANT CHANGE
[2017-12-19] MEDS: Gabapentin CAP(*) 300 MG PO SCH (21:41)
[2017-12-19] MEDS: CMCS:Simvastatin TAB(NF) 20 MG TAB PO SCH (21:42)
[2017-12-19] MEDS: Mirtazapine TAB* 15 MG PO SCH (21:42)
[2017-12-19] MEDS: CMCS:Melatonin (NF) 3 MG TAB PO SCH (21:42)
[2017-12-19] MEDS: Sucralfate TAB* 1 GM PO SCH (21:43)
--- NOTE | 2017-12-20 02:54 | HP ---
HISTORY AND PHYSICAL: DATE OF ADMISSION: 12/19/17 ADMITTING PROVIDER: Lauri Hastings MD PRIMARY CARE PROVIDER: Dr. Ramirez. OUTPATIENT CONCRETE FORM SETTER AND FINISHER: Dr. Gio Armijo. CHIEF COMPLAINT: Tremors in all 4 extremities, she says progressive for a few months now. HISTORY OF PRESENT ILLNESS: Damari Bill is a 77-year-old female with past medical history of coronary artery disease, hypertension, syncope, diastolic CHF , zhf-svthxyx-bsboxwttm diabetes mellitus, breast cancer such as sleep apnea, anxiety, recurrent UTIs, hyperlipidemia, recent admission for CHF exacerbation 2 months ago, presenting with complaints of shaking in all of her extremities, progressive over the last few months. She is an incredibly poor historian as well as her is not much better at bedside. Notably on evaluation in the emergency room, she had acute kidney injury with creatinine of 1.94 from 0.7 two months prior and troponin of 1.8. She has urinalysis suggestive of potential urinary tract infection. She denies any chest pain, shortness of breath, chest pressure. She does have dysuria. She just finished a course of unknown antibiotics 2 days prior to admission on 5-day course given by Dr. Ramirez's office. The patient also attests to racing heart rate for 2 to 3 weeks. Morning of admission, she actually fell getting out of bed between her walker and her bed, had to be helped up. She denies any headaches, vision changes, neck stiffness, fevers, chills. She has had labile blood pressures in the ED, initially recorded in the 160/140 (likely erroneous given pulse pressure ), then dropped to 80s over 50s, got 1 L of bolus, was started on ceftriaxone for suspected urinary tract infection. There is a lactic acid pending. She thinks that her weight recently was 196 pounds. She weighs herself daily. She states that Dr. Armijo wants her to weigh around 140 pounds. She cannot recall the last time she saw Dr. Ramirez himself. PAST MEDICAL HISTORY: Hypertension; syncope; hyperlipidemia, diastolic heart failure; oqj-fkrcabc-foktsqoye diabetes mellitus; breast cancer, on anastrozole ; obstructive sleep apnea; recurrent UTIs; anxiety. PAST SURGICAL HISTORY: 1. Left heart catheterization in 2010 with the stent. 2. Bilateral mastectomy. MEDICATIONS: Include: 1. Synthroid 25 mcg daily. 2. Carafate 1 g p.o. 4 times a day. 3. Simvastatin 40 mg p.o. at bedtime. 4. Sertraline 100 mg p.o. daily. 5. Zantac 150 mg p.o. b.i.d. 6. Oxybutynin 10 mg p.o. daily. 7. Prilosec 40 mg p.o. daily. 8. Nitroglycerin 0.5 mg sublingual q.5 minutes p.r.n. 9. Remeron 30 mg p.o. at bedtime. 10. Metoprolol 50 mg p.o. daily. 11. Metformin 500 mg p.o. daily. 12. Melatonin 3 mg p.o. q.h.s. 13. Meclizine 12.5 mg p.o. t.i.d. p.r.n. 14. Lisinopril 10 mg in the morning and 5 mg at night. 15. Ativan 0.5 mg to 1 mg p.o. b.i.d. p.r.n. 16. Ruffin 7.5 to 325 mg p.o. q.8 hours p.r.n. 17. Gabapentin 600 mg p.o. b.i.d. 18. Lasix 40 mg in the morning, 20 mg at night. 19. Cholecalciferol 5000 units p.o. daily. 20. Aspirin 81 mg daily. 21. Anastrozole 1 mg p.o. q.a.m. ALLERGIES: Include ATORVASTATIN, side effect of muscle aches. SOCIAL HISTORY: The patient is a never smoker, does not drink alcohol or use illicit drugs. 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 She is , has a significant other, Piero Preciado, who is her health care proxy. She desires to be a full code. REVIEW OF SYSTEMS: A complete 14-point review of systems negative except as per HPI. PHYSICAL EXAMINATION GENERAL APPEARANCE: No acute distress, but chronically ill appearing and deconditioned, morbidly obese. VITAL SIGNS: Temperature 97.8, heart rate 83, respiratory rate 17, oxygen sat 98%, blood pressure initially listed as 163/140, low as 82/57, currently 100/55. HEENT: Normocephalic, atraumatic. Pupils equally round and reactive to light. Extraocular motions intact. No scleral icterus. Moist mucous membranes. NECK: Supple. No cervical lymphadenopathy. PULMONARY: Slight rales at bilateral bases. CARDIOVASCULAR: Regular rate and rhythm. No murmurs, rubs or gallops. ABDOMEN: Soft, nontender, obese. No rebound. No guarding. EXTREMITIES: Warm, well perfused. No peripheral edema. NEUROLOGIC: Cranial nerves II through XII intact. Oven Laborer strength 3+ bilaterally. The patient has an intention tremor with fqmmqx-sq-saoq, occasionally has tremors of the lower extremities. SKIN: No lesions. No rashes. DIAGNOSTIC STUDIES/LAB DATA: White count 9.4, hemoglobin 11.4, hematocrit 37, platelets 134. Sodium 139, potassium 3.6, chloride 102, carbon dioxide 31, BUN 42, creatinine 1.94, glucose 161. Troponin 1.80. BNP 637. Urinalysis 1+ protein, 2+ blood, 1+ leukocyte esterase, 2+ white count, 2+ rbc, 1+ bacteria, hyaline casts present. Imaging: None. EKG with normal sinus rhythm, T-wave inversion in lead III, Q wave in V1. No ST elevations or depressions. Poor R-wave progression, flat T waves in the lateral leads. ASSESSMENT AND PLAN: Damari Bill is a 77-year-old female with congestive heart failure, coronary artery disease, non-insulin dependent diabetes, coming in with tremors found to have evidence of elevated troponin and acute kidney injury and likely congestive heart failure exacerbation. She denies any chest pain, coughing, shortness of breath, fever, she was hypotensive, got 1 L of normal saline in the emergency room. She was started on ceftriaxone for concern for urinary tract infection(which she gets chronically), was just recently treated for 5 days with unknown antibiotic(will try to get records from Dr. Ramirez's office). We will follow up with the urine culture. She has had evidence of E. coli and Citrobacter youngae, urinary tract infection relatively pansensitive in the last few months, (October and November 2017 respectively). I am adding on a lactic acidosis given her hypotension, suspicion for urinary tract infection, elevated troponin. I am going to repeat the troponins, put her on telemetry. I have ordered a transthoracic echocardiogram. I am going to follow up on the latest troponin, which is just drawn to see if there was any lab error, consideration for heparin drip or Lovenox. She had been admitted to inpatient status. I am going to add urine studies, urine sodium and BUN and calculate FEUrea. She has a BUN to creatinine ratio of 21.6 suggestive of prerenal state. Her congestive heart failure may be worsened or may have developed ATN from infection. I am going to continue her simvastatin, her oxybutynin, Prilosec, nitroglycerin p.r.n., Remeron, metoprolol, hold her metformin in the setting of a lactic acidosis, which could be contributing, continue her meclizine, Ativan, hold her lisinopril in the setting of acute kidney injury, continue her Synthroid, gabapentin, hold her diuretics for now. I will put her on heparin for DVT prophylaxis. [id number]/[facility] #: [id number] JOSE
[2017-12-20] MEDS: Acetaminophen TAB* 325 MG PO PRN (03:24)
[2017-12-20] MEDS: Levothyroxine TAB* 25 MCG TAB PO SCH (04:46)
[2017-12-20] MEDS: Omeprazole CAP* 20 MG PO SCH (07:25)
[2017-12-20] MEDS: Oxybutynin XL TAB* 5 MG PO SCH (09:16)
[2017-12-20] MEDS: Sucralfate TAB* 1 GM PO SCH ×4 (09:16→19:49)
[2017-12-20] MEDS: Gabapentin CAP(*) 300 MG PO SCH ×2 (09:17→19:46)
[2017-12-20] MEDS: Famotidine TAB* 20 MG PO SCH (09:17)
[2017-12-20] MEDS: Sertraline* 100 MG TAB PO SCH (09:17)
[2017-12-20] MEDS: Metoprolol Succinate XL TAB* 50 MG PO SCH (09:17)
[2017-12-20] MEDS: Cholecalciferol TAB* 1000 UNITS PO SCH (09:17)
[2017-12-20] MEDS: CMCS:Anastrozole (NF) 1 MG TAB PO SCH (09:17)
[2017-12-20] MEDS: Aspirin EC TAB* 81 MG TAB.EC PO SCH (09:17)
[2017-12-20] MEDS: cefTRIAXone(*) 1 GM in NS 0.9% 50 ML* 50 ML IVPB SCH (15:33)
--- NOTE | 2017-12-20 18:46 | PN ---
Hospitalist Progress Note Date of Service: 12/20/17 Pt seen and examined. Meds and labs reviewed. ROS: Denied LUCIA/dizziness, F/C, N/V, CP, SOB, increased cough, sputum production , abd pain, diarrhea, constipation, dysuria, myalgias, arthralgias, throat pain , and new skin lesions. The rest of the 14 point ROS are unremarkable. PHYSICAL EXAM: GEN APPEARANCE: Awake, not in acute distress HEENT: NC/AT, PERRLA, moist oral mucosa, (-) throat erythema NECK: Soft, supple, (-) cervical LAD, (-)JVD HEART: S1S2 WNL, RRR, No MRG CHEST: CTA, BL, GAE, No W/R/R ABD: Soft, ND/NT, NABS 4x Q EXT: No C/C/E SKIN: Warm to touch PSYCH: No active psychosis, hallucinations, depression, SI/HI ASSESSMENT AND PLAN: #UTI, E. fecalis: -Continue Rocephin -Awaiting sensitivity #Neck pain, chronic: -Continue Gabapentin and PRN Tylenol #GERD: -Continue Omeprazole #DVTp: -Will place pt on low dose Lovenox SQ, given advanced age and GFR<30 #Dispo: -Will request for PT eval for D/C planning
[2017-12-20] MEDS: Enoxaparin(*) 30 MG/0.3 ML SYR SUBCUT SCH (19:46)
[2017-12-20] MEDS: Mirtazapine TAB* 15 MG PO SCH (19:49)
[2017-12-20] MEDS: CMCS:Simvastatin TAB(NF) 20 MG TAB PO SCH (19:50)
[2017-12-20] MEDS: CMCS:Melatonin (NF) 3 MG TAB PO SCH (19:50)
[2017-12-21] MEDS: LORazepam TAB(*) 0.5 MG PO PRN ×2 (00:30→22:44)
[2017-12-21] MEDS: Acetaminophen TAB* 325 MG PO PRN ×2 (00:31→22:44)
[2017-12-21] MEDS: Levothyroxine TAB* 25 MCG TAB PO SCH (05:09)
[2017-12-21 06:16] LABS: ABS Basophils 0 10^3/ul (0-0.2); ABS Eosinophils 0.2 10^3/ul (0-0.6); ABS Lymphocytes 0.9 10^3/ul (1.0-4.8); ABS Monocytes 0.5 10^3/ul (0-0.8); ABS Neutrophils 4.1 10^3/ul (1.5-7.7); ABS Nucleated RBC 0 10^3/ul; Eosinophil % 2.8 % (0-6); Hematocrit 36 % (35-47); Hemoglobin 10.9 g/dl (12.0-16.0); Lymphocyte % 16.1 % (25-47); Mean Corpuscular HGB Conc 31 g/dl (31-36); Mean Corpuscular Hemoglobin 25 pg (27-31); Mean Corpuscular Volume 82 fL (80-97); Mean Platelet Volume 10.3 um3 (7.4-10.4); Nucleated Red Blood Cells % 0.1; Platelet Count 109 10^3/ul (150-450); Red Blood Count 4.31 10^6/ul (4.0-5.4); Red Cell Distribution Width 19 % (10.5-15); White Blood Count 5.7 10^3/ul (3.5-10.8)
[2017-12-21 06:30] LABS: EGFR Non-African American 76.3 (>60)
[2017-12-21] MEDS: Omeprazole CAP* 20 MG PO SCH (08:59)
[2017-12-21] MEDS: Oxybutynin XL TAB* 5 MG PO SCH (08:59)
[2017-12-21] MEDS: Cholecalciferol TAB* 1000 UNITS PO SCH (08:59)
[2017-12-21] MEDS: Gabapentin CAP(*) 300 MG PO SCH ×2 (08:59→19:25)
[2017-12-21] MEDS: Famotidine TAB* 20 MG PO SCH (08:59)
[2017-12-21] MEDS: Aspirin EC TAB* 81 MG TAB.EC PO SCH (09:00)
[2017-12-21] MEDS: Metoprolol Succinate XL TAB* 50 MG PO SCH (09:00)
[2017-12-21] MEDS: Sucralfate TAB* 1 GM PO SCH ×4 (09:00→19:28)
[2017-12-21] MEDS: Sertraline* 100 MG TAB PO SCH (09:00)
[2017-12-21] MEDS: CMCS:Anastrozole (NF) 1 MG TAB PO SCH (09:02)
[2017-12-21] MEDS ORDERED: Magnesium Sulfate 2 GM IV* 2 GM/50 ML BAG IVPB ONE (09:10)
[2017-12-21] MEDS: cefTRIAXone(*) 1 GM in NS 0.9% 50 ML* 50 ML IVPB SCH (15:07)
--- NOTE | 2017-12-21 16:36 | PN ---
Hospitalist Progress Note Date of Service: 12/21/17 Pt seen and examined. Meds and labs reviewed. ROS: Denied LUCIA/dizziness, F/C, N/V, CP, SOB, increased cough, sputum production , abd pain, diarrhea, constipation, dysuria, myalgias, arthralgias, throat pain , and new skin lesions. The rest of the 14 point ROS are unremarkable. PHYSICAL EXAM: GEN APPEARANCE: Awake, not in acute distress HEENT: NC/AT, PERRLA, moist oral mucosa, (-) throat erythema NECK: Soft, supple, (-) cervical LAD, (-)JVD HEART: S1S2 WNL, RRR, No MRG CHEST: CTA, BL, GAE, No W/R/R ABD: Soft, ND/NT, NABS 4x Q EXT: No C/C/E SKIN: Warm to touch PSYCH: No active psychosis, hallucinations, depression, SI/HI ASSESSMENT AND PLAN: #UTI, E. fecalis: -Continue Rocephin; sensitive to penicillin #Elevated troponin, likely due to demand ischemia: -Trending down and does not complain of CP and/or SOB -Awaiting for 2D echo to evaluate EF and any presence of wall motion abnormalities #Neck pain, chronic: -Continue Gabapentin and PRN Tylenol #GERD: -Continue Omeprazole #DVTp: -Continue low dose Lovenox SQ, given advanced age and GFR<30 #Dispo: -Awaiting PT eval for D/C planning -Awaiting result of 2D echo as discussed
[2017-12-21] MEDS: Enoxaparin(*) 30 MG/0.3 ML SYR SUBCUT SCH (19:24)
[2017-12-21] MEDS: CMCS:Melatonin (NF) 3 MG TAB PO SCH (19:27)
[2017-12-21] MEDS: Mirtazapine TAB* 15 MG PO SCH (19:28)
[2017-12-21] MEDS: CMCS:Simvastatin TAB(NF) 20 MG TAB PO SCH (19:28)
[2017-12-22] MEDS: Levothyroxine TAB* 25 MCG TAB PO SCH (05:51)
[2017-12-22 06:07] LABS: ABS Basophils 0 10^3/ul (0-0.2); ABS Eosinophils 0.1 10^3/ul (0-0.6); ABS Lymphocytes 0.8 10^3/ul (1.0-4.8); ABS Monocytes 0.6 10^3/ul (0-0.8); ABS Neutrophils 4.4 10^3/ul (1.5-7.7); ABS Nucleated RBC 0 10^3/ul; Eosinophil % 2.3 % (0-6); Hematocrit 35 % (35-47); Hemoglobin 10.8 g/dl (12.0-16.0); Lymphocyte % 13.6 % (25-47); Mean Corpuscular HGB Conc 31 g/dl (31-36); Mean Corpuscular Hemoglobin 25 pg (27-31); Mean Corpuscular Volume 83 fL (80-97); Mean Platelet Volume 10.4 um3 (7.4-10.4); Nucleated Red Blood Cells % 0.1; Platelet Count 112 10^3/ul (150-450); Red Blood Count 4.28 10^6/ul (4.0-5.4); Red Cell Distribution Width 19 % (10.5-15); White Blood Count 5.9 10^3/ul (3.5-10.8)
[2017-12-22 06:23] LABS: EGFR Non-African American 85.6 (>60)
[2017-12-22] MEDS ORDERED: Magnesium Sulfate 2 GM IV* 2 GM/50 ML BAG IVPB ONE (08:34)
[2017-12-22] MEDS: Gabapentin CAP(*) 300 MG PO SCH ×2 (09:07→20:30)
[2017-12-22] MEDS: Sucralfate TAB* 1 GM PO SCH ×4 (09:08→20:30)
[2017-12-22] MEDS: Metoprolol Succinate XL TAB* 50 MG PO SCH (09:08)
[2017-12-22] MEDS: Famotidine TAB* 20 MG PO SCH (09:08)
[2017-12-22] MEDS: Oxybutynin XL TAB* 5 MG PO SCH (09:08)
[2017-12-22] MEDS: Aspirin EC TAB* 81 MG TAB.EC PO SCH (09:08)
[2017-12-22] MEDS: Cholecalciferol TAB* 1000 UNITS PO SCH (09:08)
[2017-12-22] MEDS: Omeprazole CAP* 20 MG PO SCH (09:08)
[2017-12-22] MEDS: CMCS:Anastrozole (NF) 1 MG TAB PO SCH (09:08)
[2017-12-22] MEDS: Sertraline* 100 MG TAB PO SCH (09:08)
[2017-12-22] MEDS: Lisinopril TAB* 10 MG PO SCH (09:13)
--- NOTE | 2017-12-22 09:39 | ECHO ---
Patient: TODD RODRIGUES [facility] Rec#: [id number] : 1940 Date: 12/22/2017 Age: 77y Height: 147.32 cm / 58.0 in Weight: 86.18 kg / 189.9 lbs Sex: F BSA: 1.78 Room#: 438 Admit Date#: 12/19/2017 Type: Inpatient Referring: Lauri Hastings Reading: Samir Quevedo DO Direct Marketing Manager: Ida Shabazz RDCS,RDMS CC: Tramaine Ramirez MD Transthoracic Echocardiogram Indication: Elevated TROP, CHF BP: 145/73 HR: 78 Rhythm: NSR Findings History: CAD, PCI, CHF, HTN, HLD, breast cancer, radiation, chemotherapy, PAULA Technical Comments: The study quality is good. Left Ventricle: The left ventricular chamber size is normal. Mild concentric left ventricular hypertrophy is observed. Global left ventricular wall motion and contractility are within normal limits. Left ventricular systolic function is at the lower limits of normal. The estimated ejection fraction is 50-55%. Abnormal left ventricular diastolic function is observed. Left Atrium: The left atrium is mildly dilated. Right Ventricle: The right ventricle is mildly dilated. The right ventricular global systolic function is moderately reduced. Right Atrium: The right atrial cavity size is normal. Aortic Valve: The aortic valve leaflets are mildly thickened. There is aortic annular calcification. There is mild aortic regurgitation. There is mild aortic stenosis. The mean gradient of the aortic valve is 4.4 mmHg. Mitral Valve: Mild mitral annular calcification present. There is mild mitral regurgitation. There is no evidence of mitral stenosis. Tricuspid Valve: The tricuspid valve leaflets are normal. There is mild tricuspid regurgitation. There is evidence of moderate pulmonary hypertension. Pulmonic Valve: The pulmonic valve structure is not well visualized. There is no evidence of pulmonic valve thickening. There is a trace pulmonic regurgitation. Pericardium: There is no significant pericardial effusion. Aorta: The aortic root appears normal. There is no dilatation of the aortic arch. Pulmonary Artery: The main pulmonary artery is not well visualized. Venous: The inferior vena cava appears normal in size. There is no change in the dimension of the inferior vena cava with respiration consistent with markedly increased right atrial pressure. Conclusions The left ventricular chamber size is normal. Mild concentric left ventricular hypertrophy is observed. Global left ventricular wall motion and contractility are within normal limits. Left ventricular systolic function is at the lower limits of normal. The estimated ejection fraction is 50-55%. The left atrium is mildly dilated. The right ventricle is mildly dilated. The right ventricular global systolic function is moderately reduced. There is mild aortic stenosis. There is mild tricuspid regurgitation. There is evidence of moderate pulmonary hypertension. Compared to prior study from 10/2017, RV is now dysfunctional. Results discussed with Dr. Mitchell at time of interpretation Measurements Name Value Normal Range RVIDd (AP) 2D 2.7 cm (0.9 - 2.6) RVDdMajor (2D) 3.3 cm (2.2 - 4.4) RAd ISD 4CH 4.1 cm (3.4 - 4.9) RA (A4C)W 3.8 cm (2.9 - 4.6) IVSd (2D) 1.2 cm (0.6 - 1) LVPWd (2D) 1.1 cm (0.6 - 1) LVIDd (2D) 4.6 cm (3.6 - 5.4) LVIDs (2D) 3.1 cm - LV FS (2D) 31 % (25 - 45) Aortic Annulus 2 cm (1.4 - 2.6) Ao root diameter (2D) 2.4 cm (2.1 - 3.5) Ascending Ao 2.4 cm (2.1 - 3.4) Aortic arch 3.4 cm (1.8 - 3.4) LA dimension (AP) 2D 3.7 cm (2.3 - 3.8) LAd ISD 4CH 4.9 cm (2.9 - 5.3) LA ISD 4CH W 4.2 cm (2.5 - 4.5) Name Value Normal Range LA ESV SP 4CH (A/L) 49.51 ml - LA ESV SP 2CH (A/L) 61.39 ml - LA ESV BP (A/L) 57.29 ml - LA ESV BP (A/L) index 32 ml/m2 - LA ESV SP 4CH (MOD) 45.93 ml - LA ESV SP 2CH (MOD) 55.45 ml - Name Value Normal Range MV E-wave Vmax 0.9 m/sec - MV deceleration time 151 msec - MV A-wave Vmax 0.8 m/sec - MV E:A ratio 1.1 ratio - P. vein S-wave Vmax 0.5 m/sec - P. vein D-wave Vmax 0.3 m/sec - P. vein S:D Vmax ratio 1.4 ratio - P. vein A-wave duration 83 msec - LV septal e' Vmax 0.06 m/sec - LV lateral e' Vmax 0.05 m/sec - Name Value Normal Range AV Vmax 1.4 m/sec - AV VTI 34 cm - AV peak gradient 8 mmHg - AV mean gradient 4.4 mmHg - LVOT diameter 2 cm - LVOT Vmax 0.8 m/sec - LVOT VTI 18.2 cm - LVOT peak gradient 2.6 mmHg - LVOT mean gradient 1.3 mmHg - DOI (VTI) 0.5 ratio - KHUSHBU (continuity Vmax) 1.8 cm2 - AR PHT 535.4 msec - AR peak gradient 62.19 mmHg - JOSE RAUL Vmax 0.5 m/sec - Name Value Normal Range TR Vmax 3.2 m/sec - TR peak gradient 41 mmHg - RAP 8 mmHg - RVSP 49 mmHg - IVC diameter 2.1 cm - Name Value Normal Range PV Vmax 0.6 m/sec - PV peak gradient 1.4 mmHg -
--- NOTE | 2017-12-22 11:09 | CONSULT ---
Subjective Date of Service: 12/22/17 Interval History: Date of admission 12/19/2017 Date of consult 12/22/2017 PMD: Dr. Ramirez Operation Supervisor: Dr. Armijo Service Hospitalist CC: leg shaking Reason for consult: Elevated troponin level. MARCUS Bill is a 77 year old followed by Dr. Armijo with a history as below including CAD/FL and a recent admission 10/2017 with a diastolic heart failure exacerbation. She has a prior history of moderate sleep apnea with prior sleep apnea non-adherence. She is now admitted with tremors in all 4 extremities noted to be a suboptimal history. She was noted with KATHIE and a creatinien of 1.94 and troponin level of 1.8. She denies any CP or dyspnea. She did not dyspnea on our conversation. She denies any current leg swelling or pain. Uses a walker. BP initial ? error of 160/140 then to 80's/50's along with KATHIE suggest volume depletion did receive IVF and also ceftriaxone for UTI. An echocardiogram was performed and significant change from 10/10/2017 was that of new moderate pulmonary HTN prior unable to be evaluated and new RV dysfunction. LVEF was low normal but no segmental wall motion abnormalities noted Allergies: Lipitor 04/02/07 - severe muscle aches PMhx Obesity Aortic valve disorder Old FL/CAD HFpEF Hemangioma Hyperlipidemia Essential hypertension Chronic ischemic heart disease Diabetes Surgical Hx: Hysterectomy - (age 31 Years) fibroids Heart stent X's1 Breast Surgery - R L hip, L shoulder FH: Heart Disease, Diabetes, cancer. Father: due to [place] - (age 68 Years) x3. Mother: due to Cancer, Ovarian - (age 83 Years). Siblings:5 - 2 full brothers, 2 half brothers and 1 half sister. SH: SOCIAL HISTORY: The patient is a never smoker, does not drink alcohol or use illicit drugs. 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 She is , has a significant other, Piero Preciado, who is her health care proxy. She desires to be a full code. Medications Active Medications: Acetaminophen (Tylenol Tab*) 650 mg PO Q6H PRN PRN Reason: FEVER/PAIN Last Admin: 12/21/17 22:44 Dose: 650 mg Anastrozole (Arimidex (Nf)) 1 mg PO QAM [facility] Last Admin: 05/21/18 09:08 Dose: 1 mg Aspirin (Aspirin Ec Tab*) 81 mg PO DAILY [facility] Last Admin: 12/22/17 09:08 Dose: 81 mg Cholecalciferol (Vitamin D Tab*) 5,000 units PO DAILY [facility] Last Admin: 12/22/17 09:08 Dose: 5,000 units Enoxaparin Sodium (Lovenox(*)) 30 mg SUBCUT Q24H [facility] Last Admin: 12/21/17 19:24 Dose: 30 mg Famotidine (Pepcid Tab*) 20 mg PO DAILY [facility] PRN Reason: Protocol Last Admin: 12/22/17 09:08 Dose: 20 mg Gabapentin (Neurontin Cap(*)) 600 mg PO BID [facility] Last Admin: 12/22/17 09:07 Dose: 600 mg Ceftriaxone Sodium 1 gm/ (Sodium Chloride) 50 mls @ 200 mls/hr IVPB Q24H [facility] Last Admin: 12/21/17 15:07 Dose: 200 mls/hr Levothyroxine Sodium (Synthroid Tab*) 25 mcg PO DAILY@0600 [facility] Last Admin: 12/22/17 05:51 Dose: 25 mcg Lisinopril (Prinivil Tab*) 10 mg PO DAILY [facility] Last Admin: 12/22/17 09:13 Dose: 10 mg Lorazepam (Ativan Tab(*)) 0.5 mg PO BID PRN PRN Reason: ANXIETY Last Admin: 12/21/17 22:44 Dose: 0.5 mg Meclizine HCl (Antivert Tab*) 12.5 mg PO TID PRN PRN Reason: DIZZINESS Melatonin (Melatonin (Nf)) 3 mg PO BEDTIME [facility] PRN Reason: Protocol Last Admin: 12/21/17 19:27 Dose: 3 mg Metoprolol Succinate (Toprol Xl Tab*) 50 mg PO DAILY [facility] Last Admin: 12/22/17 09:08 Dose: 50 mg Mirtazapine (Remeron Tab*) 30 mg PO BEDTIME [facility] Last Admin: 12/21/17 19:28 Dose: 30 mg Nitroglycerin (Nitroglycerin Tab 0.4 Mg*) 0.4 mg SL Q5M PRN PRN Reason: PAIN - CHEST Omeprazole (Prilosec Cap*) 40 mg PO DAILY@0730 [facility] Last Admin: 12/22/17 09:08 Dose: 40 mg Oxybutynin Chloride (Ditropan Xl Tab*) 10 mg PO DAILY [facility] Last Admin: 12/22/17 09:08 Dose: 10 mg Sertraline HCl (Zoloft*) 100 mg PO DAILY [facility] Last Admin: 12/22/17 09:08 Dose: 100 mg Simvastatin (Zocor(Nf)) 40 mg PO BEDTIME [facility] Last Admin: 12/21/17 19:28 Dose: 40 mg Sucralfate (Carafate*) 1 gm PO QID [facility] Last Admin: 12/22/17 09:08 Dose: 1 gm Home Medications: LORazepam TAB(*) [Ativan 0.5 MG TAB (*)] 0.5 - 1 mg PO BID PRN 11/22/13 [ History Confirmed 12/19/17] Gabapentin CAP(*) [Neurontin 300 CAP(*)] 600 mg PO BID 01/15/14 [History Confirmed 12/19/17] Anastrozole (NF) [Arimidex (NF)] 1 mg PO QAM 12/07/14 [History Confirmed ] Aspirin EC TAB* [Ecotrin EC Low Dose 81 MG*] 81 mg PO DAILY 12/07/14 [History Confirmed 12/19/17] Meclizine TAB* [Antivert 12.5 TAB*] 12.5 - 25 mg PO TID PRN 12/07/14 [History Confirmed 12/19/17] Sertraline* [Zoloft*] 100 mg PO DAILY 12/07/14 [History Confirmed 12/19/17] Simvastatin TAB(NF) [Zocor 20 MG (NF)] 40 mg PO BEDTIME 12/07/14 [History Confirmed 12/19/17] Omeprazole CAP* [Prilosec CAP* 20 MG] 40 mg PO DAILY 06/11/15 [History Confirmed 12/19/17] Metronidazole (TOPICAL)(NF) [Metrocream (NF)] 0.75 % TOPICAL BEDTIME 10/09/17 [ History Confirmed 12/19/17] Mirtazapine TAB* [Remeron TAB*] 30 mg PO BEDTIME 10/09/17 [History Confirmed ] Nitroglycerin TAB 0.4 MG* 0.4 mg SL Q5M PRN 10/09/17 [History Confirmed 12/19/17 ] Ranitidine TAB (NF) [Zantac TAB (NF)] 150 mg PO BID 10/09/17 [History Confirmed 12/19/17] Hydrocodone/Acetaminophen [[place] 7.5-325 Tablet] 2 each PO Q8HR PRN MDD 6 [History Confirmed 12/19/17] Sucralfate TAB* [Carafate*] 1 gm PO QID 10/11/17 [History Confirmed 12/19/17] Melatonin (NF) 3 mg PO BEDTIME #30 tab 10/12/17 [Rx Confirmed 12/19/17] Metoprolol Succinate XL TAB* [Toprol XL TAB*] 50 mg PO DAILY #30 tab.xl [Rx Confirmed 12/19/17] Cholecalciferol TAB* [Vitamin D TAB*] 5,000 unit PO DAILY 12/19/17 [History Confirmed 12/19/17] Furosemide TAB* [Lasix TAB*] 20 mg PO QPM 12/19/17 [History Confirmed 12/19/17] Furosemide TAB* [Lasix TAB*] 40 mg PO QAM 12/19/17 [History Confirmed 12/19/17] Levothyroxine TAB* [Synthroid TAB*] 25 mcg PO DAILY 12/19/17 [History Confirmed 12/19/17] Lisinopril TAB* [Prinivil TAB 10 MG*] 10 mg PO QAM 12/19/17 [History Confirmed 12/19/17] Lisinopril TAB* [Prinivil TAB*] 5 mg PO QPM 12/19/17 [History Confirmed 12/19/17 ] Metformin ER (NF) 500 mg PO DAILY 12/19/17 [History Confirmed 12/19/17] Oxybutynin XL TAB* [Ditropan XL TAB*] 10 mg PO DAILY 12/19/17 [History Confirmed 12/19/17] Review of Systems - Measurements Intake and Output: Intake and Output Last 24 Hours 12/20/17 12/21/17 12/22/17 12/23/17 06:59 06:59 06:59 06:59 Intake Total [phone] Output Total 175 315 0 Balance 498 856 7190 Weight 205 lb 199 lb 8 oz 199 lb 11.2 oz Intake: Oral [phone] Output: Urine 175 315 0 Other: Estimated Void Small Small Large # Bowel Movements 0 0 0 # Voids 2 2 0 - Review of Systems Constitutional Symptoms: Negative: Weakness, Night Sweats, Unexplained Falls Dermatology: Negative: Rash, Skin Lesions HEENT: Negative: Change in Hearing, Vertigo Eyes: Negative: Change in Vision, Double Vision Thyroid: Positive: Tremor Negative: Goiter, Thyroid Nodule, Primary Hypothyroidism, Primary Hyperthyroidism, Weight Loss, Weight Gain Pulmonary: Positive: Shortness of Breath, Exercise Intolerance Negative: Cough, Sputum, Hemoptysis, Wheezing, Respiratory Distress, COPD, Asthma Cardiology: Positive: Shortness of Breath Negative: Palpitations, Swelling of Ankles, Peripheral Vascular Dis, Edema, Claudication, Paroxysmal Nocturnal Dyspnea, Orthopnea Gastroenterology: Negative: Abdominal Pain, Nausea, Vomiting, Anorexia, Heartburn, Constipation , Haematemesis, Melena Genital - Urinary: Negative: Dysuria, Hematuria Musculoskeletal: Negative: Joint Pain, Joint Stiffness, Osteoporosis, Low Back Pain Endocrinology: Positive: Obesity Negative: Thyroid Problems, Polydipsia, Polyuria Hematologic/Lymphatic: Positive: Use of Antiplatelet Drugs Negative: Hx Leukemia, Hx Lymphoma, Use of Anticoagulant Neurology: Negative: Change in Speech, Hx Seizures Psychiatry: Negative: Unusual Anxiety, Suicidal Ideation Allergic/Immunologic: Negative: Hx Anaphylaxis, Hx Angioedema, Hx HIV, Immunocompromise Review of Systems Statement: All other review of systems negative, unless stated above. Objective Vital Signs: Temp Pulse Resp BP Pulse Ox 98.6 F 68 18 174/72 99 12/22/17 08:15 12/22/17 08:15 12/22/17 09:07 12/22/17 08:15 12/22/17 08:15 Oxygen Devices in Use Now: Nasal Cannula Appearance: nad, pleasant Ears/Nose/Mouth/Throat: Clear Oropharnyx, Mucous Membranes Moist Neck: - - uncertain jvp Respiratory: Symmetrical Chest Expansion and Respiratory Effort, Clear to Auscultation Cardiovascular: RRR, No Edema, - - 1/6 murmur Abdominal: NL Sounds; No Tenderness; No Distention Extremities: No Edema, No Clubbing, Cyanosis Skin: No Rash or Ulcers Neurological: Alert and Oriented x 3 Laboratory Results: 12/22/17 05:33 12/22/17 05:33 Total Bilirubin 0.20 mg/dL (0.2-1.0) 12/22/17 05:33 AST 22 U/L (13-39) 12/22/17 05:33 ALT 17 U/L (7-52) 12/22/17 05:33 Alkaline Phosphatase 70 U/L (34-104) 12/22/17 05:33 B-Natriuretic Peptide 637 pg/mL (-100) H 12/19/17 14:09 Total Protein 6.8 g/dL (6.4-8.9) 12/22/17 05:33 Albumin 3.3 g/dL (3.2-5.2) 12/22/17 05:33 Globulin 3.5 g/dL (2-4) 12/22/17 05:33 Albumin/Globulin Ratio 0.9 (1-3) L 12/22/17 05:33 TSH 0.81 mcIU/mL (0.34-5.60) 12/19/17 14:09 12/19/17 12/19/17 12/21/17 14:09 17:26 10:02 Troponin I 1.80 H* 1.58 H* 0.49 H* 12/21/17 12/21/17 18:50 23:33 Troponin I 0.55 H* 0.49 H* Diagnostic Imaging: Cardiac catheterization 11/07/2010 indication acute FL. 95% proximal LAD with a 35-40% mid LAD, 35-40% proximal circumflex. 55-60% proximal portion of a bifurcating mid obtuse marginal branch. Diffusely diseased proximal to mid right coronary artery with 55-60% narrowing. Intervention to LAD with balloon angioplasty and placement of a 2.75 x 18 mm long PROMUS Element drug-eluting stent. Stress test evaluation for residual coronary artery disease 11/29/2010, no evidence of ischemia, normal left ventricular systolic function, EF 60%. [facility] for recurrent chest discomfort 03/12 through 03/14/2011, reported abnormal Lexiscan stress test, question ischemia. a. Cardiac catheterization 10% ostial left main, 15-20% in-stent narrowing in LAD, 55-60% proximal circumflex, 45-50% proximal portion of bifurcating mid obtuse marginal branch, long diffuse 55-60% narrowing in proximal right coronary artery, medical management pursued. 4Recurrent symptomatology of chest burning July 2012. a. Repeat nuclear stress test 07/15/2012, attempt at exercise Myoview converted to Lexiscan stress test because of inability to achieve target heart break. Nuclear images show normal perfusion with no reversible ischemia, EF 60 % with normal TID index. 5 Chest pain [place] [facility] [place]. Lexiscan stress for chest discomfort 01/16/14 - no EKG changes of ischemia, nuclear images - hypokinesis inferior apex septum EF 58% no fixed or reversible perfusion defects of significance Echocardiogram - (10/10/2017) Lv chamber size normal. mild concentric LVH. EF 55- 60%. assessment of diastolic function is non-diagnostic. mild aortic stenosis. trace to mild AR. trace MR. trace to mild TR. unable to estimate RVSP. trace TX. Admission CXR 12/19/2017: moderate vascular congestion no significant change from 10/2017 EKG Data: EKG 12/19/2017 NSR, s1/q3/t3 pattern grossly unchanged from 10/09/2017 Assessment/Plan Damari Bill is a 77 year old woman admitted with shaking found with elevated troponin in the setting of KATHIE and UTI. No evidence of a type 1 plaque disruption ACS. - Appears to be demand related ischemia with exagerated troponin level (ck-mb not checked) in setting of KATHIE - Suspect RV dysfunction multifactorial from respiratory issues and diastolic dysfunction. CT study no evidence of PE, lungs clear, small R effusion. Chronically elevated bicarbonate suggestive of chronic c02 retention - Continue aspirin, statin and beta-crispin - Would restart SKULL GRINDER diuretic regimen - Antibiotics per primary service Thank you for allowing me to participate in the cardiovascular care of this patient. Please do not hesitate to contact me with questions or concerns.
[2017-12-22] MEDS ORDERED: Iohexol 350* (CONTRAST) 500 ML MDV IV SCH (13:13)
[2017-12-22] MEDS: cefTRIAXone(*) 1 GM in NS 0.9% 50 ML* 50 ML IVPB SCH (14:50)
--- NOTE | 2017-12-22 15:15 | RAD ---
HISTORY: Right ventricular hypokinesis evaluate for pulmonary embolism COMPARISONS: November 30, 2015 TECHNIQUE: Multiple contiguous axial CT scans of the chest were obtained after the administration of nonionic intravenous contrast, timed to the pulmonary arterial phase of contrast enhancement.. Coronal and sagittal multiplanar reformations are also submitted for review. FINDINGS: NECK AND THYROID: The lower neck and thyroid are unremarkable. CHEST WALL: There is no lower cervical, axillary, or supraclavicular lymphadenopathy by size criteria. Left-sided chest port is noted. HEART AND PERICARDIUM: Coronary and valvular cardiac calcifications are noted. AORTA AND PULMONARY VASCULATURE: There is no pulmonary arterial filling defect to suggest pulmonary embolism. Evaluation of the aorta is limited by the phase contrast menstruation, but is grossly normal.. MEDIASTINUM: There is no mediastinal lymphadenopathy by size criteria. MAGNO: There is no hilar lymphadenopathy by size criteria. AIRWAY AND ESOPHAGUS: The airway is unremarkable, without endobronchial filling defect. The esophagus is grossly normal. LUNG PARENCHYMA: The lungs are clear. PLEURA: There is a small right pleural effusion. UPPER ABDOMEN: The upper abdomen is unremarkable. BONES AND SOFT TISSUES: There is diffuse osteopenia. Degenerative changes are noted. OTHER: None. IMPRESSION: NO PULMONARY ARTERIAL FILLING DEFECT TO SUGGEST PULMONARY EMBOLISM.
--- NOTE | 2017-12-22 18:05 | PN ---
Hospitalist Progress Note Date of Service: 12/22/17 Pt seen and examined. Meds and labs reviewed. Was called by Dr. Quevedo earlier given he read the 2D echo and men given evidence of pulmonary HTN and hypokinetic right ventricle. ROS: Denied LUCIA/dizziness, F/C, N/V, CP, SOB, increased cough, sputum production , abd pain, diarrhea, constipation, dysuria, myalgias, arthralgias, throat pain , and new skin lesions. The rest of the 14 point ROS are unremarkable. PHYSICAL EXAM: GEN APPEARANCE: Awake, not in acute distress HEENT: NC/AT, PERRLA, moist oral mucosa, (-) throat erythema NECK: Soft, supple, (-) cervical LAD, (-)JVD HEART: S1S2 WNL, RRR, No MRG CHEST: CTA, BL, GAE, No W/R/R ABD: Soft, ND/NT, NABS 4x Q EXT: No C/C/E SKIN: Warm to touch PSYCH: No active psychosis, hallucinations, depression, SI/HI ASSESSMENT AND PLAN: #UTI, E. fecalis: -Continue Rocephin; sensitive to penicillin #Elevated troponin, likely due to demand ischemia: -Trending down and does not complain of CP and/or SOB -Was called by Dr. Quevedo earlier given he read the 2D echo and men given evidence of pulmonary HTN and hypokinetic right ventricle -CTA of chest (-) PE -Will defer of Cardiac F/U of whether she will need catheterization given unremarkable CTA -May have underlying coronary artery disease in the setting of demand ischemia from UTI? #Neck pain, chronic: -Continue Gabapentin and PRN Tylenol #GERD: -Continue Omeprazole #DVTp: -Continue low dose Lovenox SQ, given advanced age and GFR<30 #Dispo: -Awaiting PT eval for D/C planning -Awaiting Cardiac re-eval in AM
[2017-12-22] MEDS: Mirtazapine TAB* 15 MG PO SCH (20:30)
[2017-12-22] MEDS: CMCS:Melatonin (NF) 3 MG TAB PO SCH (20:30)
[2017-12-22] MEDS: CMCS:Simvastatin TAB(NF) 20 MG TAB PO SCH (20:30)
[2017-12-22] MEDS: Enoxaparin(*) 30 MG/0.3 ML SYR SUBCUT SCH (20:30)
[2017-12-22] MEDS: LORazepam TAB(*) 0.5 MG PO PRN (23:56)
[2017-12-23] MEDS: Levothyroxine TAB* 25 MCG TAB PO SCH (04:57)
[2017-12-23] MEDS: Gabapentin CAP(*) 300 MG PO SCH (08:08)
[2017-12-23] MEDS: Cholecalciferol TAB* 1000 UNITS PO SCH (08:09)
[2017-12-23] MEDS: Oxybutynin XL TAB* 5 MG PO SCH (08:09)
[2017-12-23] MEDS: Metoprolol Succinate XL TAB* 50 MG PO SCH (08:09)
[2017-12-23] MEDS: Omeprazole CAP* 20 MG PO SCH (08:09)
[2017-12-23] MEDS: Famotidine TAB* 20 MG PO SCH (08:09)
[2017-12-23] MEDS: Aspirin EC TAB* 81 MG TAB.EC PO SCH (08:10)
[2017-12-23] MEDS: Sertraline* 100 MG TAB PO SCH (08:10)
[2017-12-23] MEDS: CMCS:Anastrozole (NF) 1 MG TAB PO SCH (08:10)
[2017-12-23] MEDS: Lisinopril TAB* 10 MG PO SCH (08:10)
[2017-12-23 08:14] VITALS: BP 148/69
--- NOTE | 2017-12-23 09:03 | PN ---
Subjective Date of Service: 12/23/17 Interval History: Pt is feeling well. She denies any pain. No SOB at this time. She states she does get SOB from time to time however. She is very anxious to go home. Objective Active Medications: Acetaminophen (Tylenol Tab*) 650 mg PO Q6H PRN PRN Reason: FEVER/PAIN Last Admin: 12/21/17 22:44 Dose: 650 mg Anastrozole (Arimidex (Nf)) 1 mg PO QAM [facility] Last Admin: 12/23/17 08:10 Dose: 1 mg Aspirin (Aspirin Ec Tab*) 81 mg PO DAILY [facility] Last Admin: 12/23/17 08:10 Dose: 81 mg Cholecalciferol (Vitamin D Tab*) 5,000 units PO DAILY [facility] Last Admin: 12/23/17 08:09 Dose: 5,000 units Enoxaparin Sodium (Lovenox(*)) 30 mg SUBCUT Q24H [facility] Last Admin: 12/22/17 20:30 Dose: 30 mg Famotidine (Pepcid Tab*) 20 mg PO DAILY [facility] PRN Reason: Protocol Last Admin: 12/23/17 08:09 Dose: 20 mg Gabapentin (Neurontin Cap(*)) 600 mg PO BID [facility] Last Admin: 12/23/17 08:08 Dose: 600 mg Ceftriaxone Sodium 1 gm/ (Sodium Chloride) 50 mls @ 200 mls/hr IVPB Q24H [facility] Last Admin: 12/22/17 14:50 Dose: 200 mls/hr Iohexol (Omnipaque 350 (Contrast)-) 80 ml IV ONCE [facility] Stop: 12/24/17 13:12 Last Admin: 12/22/17 14:37 Dose: 80 ml Levothyroxine Sodium (Synthroid Tab*) 25 mcg PO DAILY@0600 [facility] Last Admin: 12/23/17 04:57 Dose: 25 mcg Lisinopril (Prinivil Tab*) 10 mg PO DAILY [facility] Last Admin: 12/23/17 08:10 Dose: 10 mg Lorazepam (Ativan Tab(*)) 0.5 mg PO BID PRN PRN Reason: ANXIETY Last Admin: 12/22/17 23:56 Dose: 0.5 mg Meclizine HCl (Antivert Tab*) 12.5 mg PO TID PRN PRN Reason: DIZZINESS Melatonin (Melatonin (Nf)) 3 mg PO BEDTIME [facility] PRN Reason: Protocol Last Admin: 12/22/17 20:30 Dose: 3 mg Metoprolol Succinate (Toprol Xl Tab*) 50 mg PO DAILY [facility] Last Admin: 12/23/17 08:09 Dose: 50 mg Mirtazapine (Remeron Tab*) 30 mg PO BEDTIME [facility] Last Admin: 12/22/17 20:30 Dose: 30 mg Nitroglycerin (Nitroglycerin Tab 0.4 Mg*) 0.4 mg SL Q5M PRN PRN Reason: PAIN - CHEST Omeprazole (Prilosec Cap*) 40 mg PO DAILY@0730 [facility] Last Admin: 12/23/17 08:09 Dose: 40 mg Oxybutynin Chloride (Ditropan Xl Tab*) 10 mg PO DAILY [facility] Last Admin: 12/23/17 08:09 Dose: 10 mg Sertraline HCl (Zoloft*) 100 mg PO DAILY [facility] Last Admin: 12/23/17 08:10 Dose: 100 mg Simvastatin (Zocor(Nf)) 40 mg PO BEDTIME [facility] Last Admin: 12/22/17 20:30 Dose: 40 mg Sucralfate (Carafate*) 1 gm PO QID [facility] Last Admin: 12/22/17 20:30 Dose: 1 gm Vital Signs - 8 hr 12/23/17 12/23/17 12/23/17 02:41 04:14 08:00 Temperature 98.0 F Pulse Rate 77 Respiratory 18 24 20 Rate Blood Pressure 180/97 (mmHg) O2 Sat by Pulse 93 Oximetry 12/23/17 08:08 Temperature 99.0 F Pulse Rate 66 Respiratory 18 Rate Blood Pressure 148/69 (mmHg) O2 Sat by Pulse 96 Oximetry Oxygen Devices in Use Now: None Appearance: Elderly female sitting up in a chair, NAD Eyes: No Scleral Icterus Ears/Nose/Mouth/Throat: Mucous Membranes Moist Respiratory: Symmetrical Chest Expansion and Respiratory Effort, Clear to Auscultation - diminished breath sounds at the bases Cardiovascular: NL Sounds; No Murmurs; No JVD, RRR, No Edema Abdominal: NL Sounds; No Tenderness; No Distention Extremities: No Clubbing, Cyanosis Skin: No Rash or Ulcers, No Nodules or Sclerosis Neurological: Alert and Oriented x 3 Result Diagrams: 12/22/17 05:33 12/22/17 05:33 Additional Lab and Data: Lab Results 12/19/17 12/19/17 12/19/17 Range/Units 13:17 14:09 14:09 WBC 9.4 (3.5-10.8) 10^3/ul RBC 4.46 (4.0-5.4) 10^6/ul Hgb 11.4 L (12.0-16.0) g/dl Hct 37 (35-47) % MCV 82 (80-97) fL MCH 26 L (27-31) pg MCHC 31 (31-36) g/dl RDW 20 H (10.5-15) % Plt Count 134 L (150-450) 10^3/ul MPV 10.5 H (7.4-10.4) um3 Sodium 139 (139-145) mmol/L Potassium 3.6 (3.5-5.0) mmol/L Chloride 102 (101-111) mmol/L Carbon Dioxide 31 (22-32) mmol/L Anion Gap 6 (2-11) mmol/L BUN 42 H (6-24) mg/dL Creatinine 1.94 H (0.51-0.95) mg/dL Est GFR ( Amer) 32.3 (>60) Est GFR (Non-Af Amer) 25.1 (>60) BUN/Creatinine Ratio 21.6 H (8-20) Glucose 161 H (70-100) mg/dL Calcium 9.6 (8.6-10.3) mg/dL Total Bilirubin 0.30 (0.2-1.0) mg/dL AST 30 (13-39) U/L ALT 24 (7-52) U/L Alkaline Phosphatase 82 (34-104) U/L Troponin I 1.80 H* (<0.04) ng/mL Total Protein 7.1 (6.4-8.9) g/dL Albumin 3.6 (3.2-5.2) g/dL Globulin 3.5 (2-4) g/dL Albumin/Globulin Ratio 1.0 (1-3) TSH Pending Free T4 Pending Urine Color [place] Urine Appearance Cloudy Urine pH 5.0 (5-9) Ur Specific [place] 1.020 (1.010-1.030) Urine Protein 1+(30 mg/dl) A (Negative) Urine Ketones Negative (Negative) Urine Blood 2+ A (Negative) Urine Nitrate Negative (Negative) Urine Bilirubin Negative (Negative) Urine Urobilinogen Negative (Negative) Ur Leukocyte Esterase 1+ A (Negative) Urine WBC (Auto) 2+(11-20/hpf) A (Absent) Urine RBC (Auto) 3+(>10/hpf) A (Absent) Ur Squamous Epith Cells Present A (Absent) Urine Bacteria 1+ A (Absent) Hyaline Casts Present A (Absent) Urine Glucose Negative (Negative) Urine Ascorbic Acid * A (Negative) Assess/Plan/Problems-Billing Ms Bill is a 77 yo F who has a h/o CAD, diastolic CHF, type II DM, PAULA and h/ o breast cancer who presented to the ER with c/o tremors in her extremities and was found to have a UTI and elevated troponin. - Patient Problems (1) UTI (urinary tract infection) Current Visit: Yes Status: Acute Comment: E facaelis UTI. Continue augmentin for another 9 doses. (2) Demand ischemia Current Visit: Yes Status: Acute Code(s): I24.8 - OTHER FORMS OF ACUTE ISCHEMIC HEART DISEASE SNOMED Code(s): 020411705 Comment: THe patient had a troponin of 1.8 on admission- it has subsequently trended down. Cardiology evaluation appreciated-likely demand ischemia from UTI and in the setting of elevated creatinine. No further work up at this time. Will ask that the patient follow up with Dr Armijo as an outpatient. (3) Type II diabetes mellitus Current Visit: Yes Status: Acute Comment: BS have been under good control on morning labs. Resume metformin on d/c. (4) HTN (hypertension) Current Visit: Yes Status: Chronic Code(s): I10 - ESSENTIAL (PRIMARY) HYPERTENSION SNOMED Code(s): 85278246 Comment: BP has fluctuated quite a bit. Will resume all home meds. (5) CAD (coronary artery disease) Current Visit: Yes Status: Chronic Code(s): I25.10 - ATHSCL HEART DISEASE OF [place] CORONARY ARTERY W/O ANG PCTRS SNOMED Code(s): 74349551 Comment: Continue ASA, Bblocker, statin. (6) PAULA (obstructive sleep apnea) Current Visit: Yes Status: Acute Code(s): G47.33 - OBSTRUCTIVE SLEEP APNEA ( ADULT) (PEDIATRIC) SNOMED Code(s): 67048601 Comment: Continue CPAP. (7) DVT prophylaxis Current Visit: Yes Status: Acute Onset Date: 11/21/14 Code(s): EIF3590 - SNOMED Code(s): 565502457 Comment: thiagox (8) Full code status Current Visit: Yes Status: Acute Onset Date: 11/21/14 Code(s): Z78.9 - OTHER SPECIFIED HEALTH STATUS SNOMED Code(s): 281811325
--- NOTE | 2017-12-24 03:18 | DS ---
CC: Dr. Ramirez; Dr. Armijo * DISCHARGE SUMMARY: DATE OF ADMISSION: 12/19/17 DATE OF DISCHARGE: 12/23/17 PRIMARY CARE PROVIDER: Dr. Ramirez. FEED AND FARM MANAGEMENT ADVISER: Dr. Armijo. PRINCIPAL DIAGNOSES: 1. Enterococcus faecalis urinary tract infection. 2. Demand ischemia likely secondary to urinary tract infection in the setting of elevated creatinine that promptly improved with holding KENDAL inhibitor and IV fluid hydration. SECONDARY DIAGNOSES: 1. Diastolic congestive heart failure. 2. Moderate pulmonary hypertension of unclear etiology. 3. Obstructive sleep apnea. 4. Hypertension. 5. Type 2 diabetes. DISCHARGE MEDICATIONS: 1. Lisinopril 10 mg q.a.m., 5 mg p.o. q.p.m. 2. Lasix 40 mg p.o. a.m., 20 mg p.o. q.p.m. 3. Synthroid 25 mcg p.o. daily. 4. Carafate 1 g p.o. 4 times a day. 5. Simvastatin 40 mg p.o. q.h.s. 6. Sertraline 100 mg p.o. daily. 7. Ranitidine 150 mg p.o. b.i.d. 8. Oxybutynin 10 mg p.o. daily. 9. Omeprazole 40 mg p.o. daily. 10. Nitroglycerin 0.4 mg SL q.5 minutes p.r.n. chest pain. 11. Remeron 30 mg p.o. q.h.s. 12. Metronidazole cream applied to rash at bedtime. 13. Metoprolol XL 50 mg p.o. daily. 14. Metformin ER 500 mg p.o. daily. 15. Melatonin 3 mg p.o. q.h.s. 16. Meclizine 12.5 to 25 mg p.o. t.i.d. p.r.n. dizziness. 17. Ativan 0.5 to 1 mg p.o. b.i.d. p.r.n. anxiety. 18. [place] 7.5/325 two tabs p.o. q.8 hours p.r.n. pain. 19. Gabapentin 600 mg p.o. b.i.d. 20. Vitamin D 5000 units p.o. daily. 21. Aspirin 81 mg p.o. daily. 22. Anastrozole 1 mg p.o. daily. 23. Augmentin 500 mg p.o. b.i.d. x9 doses. HOSPITAL COURSE: Ms. Bill is a 77-year-old female with multiple chronic medical conditions including hypertension, diastolic congestive heart failure, type 2 diabetes, PAULA, recurrent UTIs and history of breast cancer who presents to the emergency room with complaints of tremors in all 4 extremities. The patient was noted to be an incredibly poor historian on admission. Her was also noted to be not much better. In the ER, the patient was found to have an elevated creatinine of 1.94 up from 0.7 two months prior and a troponin of 1.8. The patient was admitted for evaluation of these lab abnormalities. Ultimately, the patient was found to have an Enterococcus faecalis urinary tract infection. The troponin trended down from 1.8 down to 0.49 on 12/21/17. This was ultimately felt to be demand ischemia related to her urinary tract infection especially in the setting of an elevated creatinine. The patient was seen in consultation by Dr. Quevedo from Cardiology who did not recommend any further evaluation than what had already been performed, which was a transthoracic echocardiogram, which did not reveal any wall motion abnormalities and moderate pulmonary hypertension and a CTA of the chest, which was negative for PE. The patient should follow up with Dr. Armijo in the next one month or so. Perhaps, a stress test would be warranted to evaluate for underlying significant coronary artery disease. In terms of the elevated creatinine, the patient's creatinine promptly returned to normal with holding her KENDAL inhibitor and metformin. Additionally, the patient received IV fluid hydration. The patient has been restarted on her KENDAL inhibitor though at a lower dose. She will resume on her usual dose of lisinopril on discharge as well as her metformin. The patient's primary care provider should be mindful of the finding of the elevated creatinine on admission and to get followup labs sometime in the near future. The patient is going to be maintained on all of her home medications. Her Lasix is also being resumed on discharge at her prior to admission dosing. Again, she did have this elevated creatinine on admission, so labs should be checked in the near future. FOLLOWUP CONCERNS: The patient is being discharged home today, 12/23/17. ACTIVITY LEVEL: As tolerated. DIET: Heart healthy, diabetic. CONDITION ON DISCHARGE: Stable. The patient should follow up with Dr. Ramirez in the next 4 to [address] Armijo in the next 3 to 4 weeks. The patient has been instructed to return to the emergency room for any concerning issues. TIME SPENT: 35 minutes were spent discharging this patient. [id number] #: [id number] MTDD
== END 2017-12-23 10:53 | disposition home or self-care (01) | DRG 690 ==
LOC: ED 12:18 → MEDTELE 16:47
PROVIDERS: ADMIT Internal Medicine; ATTEND Hospitalist
DX: N39.0 Urinary tract infection, site not specified (principal); N17.9 Acute kidney failure, unspecified; E87.2 Acidosis; I24.8 Other forms of acute ischemic heart disease; I50.32 Chronic diastolic (congestive) heart failure; E11.9 Type 2 diabetes mellitus without complications; I25.10 Atherosclerotic heart disease of native coronary artery without angina pectoris; E78.00 Pure hypercholesterolemia, unspecified; J45.909 Unspecified asthma, uncomplicated; K21.9 Gastro-esophageal reflux disease without esophagitis; M19.90 Unspecified osteoarthritis, unspecified site; F41.9 Anxiety disorder, unspecified; F32.9 Major depressive disorder, single episode, unspecified; I11.0 Hypertensive heart disease with heart failure; G47.33 Obstructive sleep apnea (adult) (pediatric); E66.01 Morbid (severe) obesity due to excess calories; I95.9 Hypotension, unspecified; B95.2 Enterococcus as the cause of diseases classified elsewhere; G89.29 Other chronic pain; M54.2 Cervicalgia; I27.20 Pulmonary hypertension, unspecified; Z90.710 Acquired absence of both cervix and uterus; Z95.5 Presence of coronary angioplasty implant and graft; Z86.718 Personal history of other venous thrombosis and embolism; I25.2 Old myocardial infarction; Z87.442 Personal history of urinary calculi; Z98.42 Cataract extraction status, left eye; Z98.41 Cataract extraction status, right eye; Z85.3 Personal history of malignant neoplasm of breast; Z82.49 Family history of ischemic heart disease and other diseases of the circulatory system; Z81.8 Family history of other mental and behavioral disorders; Z90.13 Acquired absence of bilateral breasts and nipples; Z80.41 Family history of malignant neoplasm of ovary; Z79.84 Long term (current) use of oral hypoglycemic drugs; Z79.82 Long term (current) use of aspirin; Z87.440 Personal history of urinary (tract) infections; Z88.8 Allergy status to other drugs, medicaments and biological substances; Z92.21 Personal history of antineoplastic chemotherapy; Z92.3 Personal history of irradiation
CPT/HCPCS: 36415; 71045; 71275; 80053; 81003; 81015; 82570; 83605; 83735; 83880; 84100; 84300; 84439; 84443; 84484; 84540; 85025; 85027; 87040; 87077; 87086; 87186; 93005; 93306; 94660; 99285; A9270-GY; G8978-GP-CH; G8979-GP-CH; G8980-GP-CH; J0696; J1650; J3475; Q9967

== ENCOUNTER 2019-01-21 13:38 | Emergency (ER) | payer MEDICARE, OTHER, MEDICAID ==
[2019-01-21 16:41] LABS: Urine Appearance Cloudy; Urine Bacteria 1+ (Absent); Urine Bilirubin Negative (Negative); Urine Blood 2+ (Negative); Urine Color Yellow; Urine Glucose Negative (Negative); Urine Ketones Negative (Negative); Urine Nitrite Negative (Negative); Urine Protein Negative (Negative); Urine Red Blood Cell 1+(3-5/hpf) (Absent); Urine Specific Gravity 1.015 (1.010-1.030); Urine Squamous Epithelial Cell Present (Absent); Urine Urobilinogen Negative (Negative); Urine White Blood Cell 2+(11-20/hpf) (Absent)
--- NOTE | 2019-01-21 16:46 | ED ---
Lower Extremity - HPI Summary HPI Summary: 78-year-old female presents with right leg pain for the past couple weeks. She states that she is pain from her foot into her bardales. States pain does not go into the hip. She admits to some back pain. States she has been having dysuria urgency and frequency. denies any fevers. No nausea or vomiting. No flank pain. No fevers. Denies any new chest pain or shortness of breath. Denies any increase in weight. No increase swelling noted to the leg. Denies any calf pain. States it is very sensitive to touch. States she is unable to place weight on the area. She is suppose to be on chronic Bactrim but script was never refilled. - History of Current Complaint Chief Complaint: EDGeneral Stated Complaint: LEG PAIN BOTH LEGS Time Seen by Provider: 01/21/19 16:12 Pain Intensity: 8 - Allergies/Home Medications Allergies/Adverse Reactions: Allergies Allergy/AdvReac Type Severity Reaction Status Date / Time atorvastatin [From Lipitor] Allergy Muscle Ache Verified 01/21/19 13:52 PMH/Surg Hx/FS Hx/Imm Hx Endocrine/Hematology History: Reports: Other Endocrine/Hematological Disorders - Risk for neutropenia secondary to chemotherapy Denies: Hx Diabetes, Hx Sickle Cell Disease, Hx Thyroid Disease, Hx Unexplained Bleeding Cardiovascular History: Reports: Hx Angina, Hx Angioplasty - LAD stent 2010, Hx Congestive Heart Failure - Dialstolic CHF, Hx Coronary Artery Disease, Hx Deep Vein Thrombosis, Hx Hypercholesterolemia, Hx Hypertension, Hx Myocardial Infarction, Other Cardiovascular Problems/Disorders Denies: Hx Pacemaker/ICD, Hx Peripheral Vascular Disease, Hx Valvular Heart Disease Respiratory History: Reports: Hx Asthma, Hx Sleep Apnea, Other Respiratory Problems/Disorders Denies: Hx Chronic Obstructive Pulmonary Disease (COPD) GI History: Reports: Hx Gastroesophageal Reflux Disease, Hx Hiatal Hernia, Other GI Disorders - CHRONIC CONSTIPATION History: Reports: Hx Kidney Stones, Other Problems/Disorders - FREQUENT UTI'S Denies: Hx Dialysis, Hx Renal Disease Musculoskeletal History: Reports: Hx Orthopedic Injury - L hip fx, 1014, Other Musculoskeletal History - osteo/arthitis, generalized weakness Denies: Hx Arthritis, Hx Osteoporosis Sensory History: Reports: Hx Cataracts - B/L cataract removal , Hx Contacts or Glasses - reading only, Hx Hearing Problem - [place]' Denies: Hx Glaucoma, Hx Hearing Aid Opthamlomology History: Reports: Hx Cataracts - B/L cataract removal , Hx Contacts or Glasses - reading only Denies: Hx Glaucoma Neurological History: Reports: Other Neuro Impairments/Disorders - pt states sometimes she gets weak Denies: Hx Seizures Psychiatric History: Reports: Hx Anxiety, Hx Depression - Hx, Hx Inpatient Treatment - [facility] [place] [facility] [place], Other Psychiatric Issues/Disorders - Possible delusional symptoms Denies: Hx Eating Disorder, Hx Panic Disorder, Hx Community Mental Health Tx , Hx of Violent Episodes Against Others - Cancer History Cancer Type, Location and Year: breast ca, R mastectomy 2012 Hx Chemotherapy: Yes Hx Radiation Therapy: Yes Hx Palliative Cancer Treatment: Yes - RIGHT MASECTOMY - Surgical History Surgery Procedure, Year, and Place: Rt MASTECTOMY 2012. CARDIAC STENTS 04/2013 @ [facility] [place] [facility] [place] - [facility]-ELUTING STENT - [facility] ELUTING STENT - CONDITIONAL 5 1.5T-3.0T MAX SPATIAL GRADIENT 720GAUSS/CM. CATARACT SURGERY. : Screw fixation of fractured L hip, [facility] [place] [facility] [place]2014 FRACTURED LEFT SHOULDER. POWER PORT. HYSTERECTOMY Hx Anesthesia Reactions: No Infectious Disease History: No Infectious Disease History: Denies: Traveled Outside the [place] in Last 30 Days - Family History Known Family History: Positive: Cardiac Disease, Other - Depression - Social History Alcohol Use: None Substance Use Type: Reports: None Smoking Status (MU): Never Smoked Tobacco Review of Systems Negative: Fever Negative: Chest Pain Negative: Shortness Of Breath Positive: Myalgia - right leg pain All Other Systems Reviewed And Are Negative: Yes Physical Exam Triage Information Reviewed: Yes Vital Signs On Initial Exam: Initial Vitals Temp Pulse Resp BP Pulse Ox 98.3 F 77 18 155/87 97 01/21/19 13:44 01/21/19 13:44 01/21/19 13:44 01/21/19 13:44 01/21/19 13:44 Vital Signs Reviewed: Yes Appearance: Positive: Well-Appearing Skin: Positive: Warm, Dry Head/Face: Positive: Normal Head/Face Inspection Eyes: Positive: Normal, Conjunctiva Clear ENT: Positive: Pharynx normal Respiratory/Lung Sounds: Positive: Clear to Auscultation, Breath Sounds Present Cardiovascular: Positive: Normal, RRR Abdomen Description: Positive: Soft, Other: - tenderness suprapubic Bowel Sounds: Positive: Present Musculoskeletal: Positive: Limited @ - right leg, Other - nontender hip, full ROM hip passive, tenderness right bardales and foot, good pulses, capillary refill< 2secs, sensation grossly intact Neurological: Positive: Normal Psychiatric: Positive: Normal Diagnostics - Vital Signs Vital Signs Temp Pulse Resp BP Pulse Ox 01/21/19 16:00 68 96 01/21/19 15:53 64 138/60 93 01/21/19 15:50 64 95 01/21/19 13:44 98.3 F 77 18 155/87 97 - Laboratory Result Diagrams: 01/21/19 16:29 01/21/19 16:35 Lab Statement: Any lab studies that have been ordered have been reviewed, and results considered in the medical decision making process. - CT back CT Interpretation Completed By: Radiologist Summary of CT Findings: IMPRESSION: 1. No CT evidence of acute fracture or dislocation. 2. Multilevel degenerative changes most severely affecting L3/L4 and L4/L5 where there are. varying degrees of central canal or neural foraminal stenosis. Re-Evaluation - Re-Evaluation First Eval Re-Evaluation Time: 17:58 Change: Improved Comment: feeling better Lower Extremity Course/Dx - Course Course Of Treatment: 78-year-old female presents with right leg pain for the past couple weeks. She states that she is pain from her foot into her bardales. States pain does not go into the hip. She admits to some back pain. States she has been having dysuria urgency and frequency. denies any fevers. No nausea or vomiting. No flank pain. No fevers. Denies any new chest pain or shortness of breath. Denies any increase in weight. No increase swelling noted to the leg. Denies any calf pain. States it is very sensitive to touch. States she is unable to place weight on the area. She is suppose to be on chronic Bactrim but script was never refilled. On exam tenderness suprapubically in abdomen. Lungs clear to auscultation. Heart regular rhythm. Tender to touch over the right bardales and right foot. Neurovascular intact. Tenderness mild lower back. Positive straight leg raise. Neurovascularly intact. Urine shows a UTI. White blood cell count normal. CRP is slightly elevated. Renal function is normal. CT shows degenerative changes. gave dose of augmentin. will treat with augmentin for uti. will add on gabapentin for pain as likely has neuropathy component to it. told to move as tolerated. told to follow up with primary. patient understand and agrees with plan. - Diagnoses Differential Diagnosis/HQI/PQRI: Positive: Fracture (Closed), Sprain, Other - diabetic neuropathy Provider Diagnoses: UTI (urinary tract infection), Right leg pain, Back pain Discharge - Sign-Out/Discharge Documenting (check all that apply): Patient Departure Patient Received Moderate/Deep Sedation with Procedure: No - Discharge Plan Condition: Good Disposition: HOME Prescriptions: Amoxicillin/Clavulanate TAB* [Augmentin TAB 875*] 875 mg PO BID #10 tab Gabapentin CAP(*) [Neurontin 100 mg CAP(*)] 100 mg PO TID #30 cap Patient Education Materials: Urinary Tract Infection in Women (ED), Leg Pain ( ED) Referrals: Tramaine Ramirez MD [Primary Care Provider] - Additional Instructions: take gabapentin once a day for 2 days at night, then twice a day for 3 days, then three times a day Take augmentin twice a day for 5 days ice, heat move as tolerated you may benefit from PT in the future Follow up with primary within 5 days Return to ED if develop any new or worsening symptoms - Billing Disposition and Condition Condition: GOOD Disposition: Home
[2019-01-21 16:56] LABS: ABS Eosinophils 0.2 10^3/ul (0-0.6); ABS Monocytes 0.5 10^3/ul (0-0.8); ABS Neutrophils 5.5 10^3/ul (1.5-7.7); Eosinophil % 2.7 %; Hematocrit 38 % (35-47); Hemoglobin 12.2 g/dL (12.0-16.0); Lymphocyte % 14.4 %; Mean Corpuscular HGB Conc 32 g/dL (31-36); Mean Corpuscular Hemoglobin 27 pg (27-31); Mean Corpuscular Volume 83 fL (80-97); Mean Platelet Volume 9.5 fL (7.4-10.4); Platelet Count 123 10^3/uL (150-450); Red Blood Count 4.61 10^6 /uL (3.70-4.87); Red Cell Distribution Width 17 % (10-15); White Blood Count 7.3 10^3/uL (3.5-10.8)
[2019-01-21 17:00] LABS: Albumin 3.7 g/dL (3.2-5.2); BUN/Creatinine Ratio 17.6 (8-20); C Reactive Protein 9.41 mg/L (<8.01); Calcium 9.7 mg/dL (8.6-10.3); EGFR African American 72.5 (>60); EGFR Non-African American 59.9 (>60); Globulin 3.8 g/dL (2-4); Magnesium 1.9 mg/dL (1.9-2.7); Potassium 3.6 mmol/L (3.5-5.0); Total Bilirubin 0.4 mg/dL (0.2-1.0); Total Protein 7.5 g/dL (6.4-8.9)
[2019-01-21] MEDS ORDERED: Amoxicillin/Clavulanate TAB* 875 MG PO ONE (17:13)
[2019-01-21] MEDS ORDERED: oxyCODONE/Acetamin 5/325 MG* TAB PO ONE (17:13)
[2019-01-21] MEDS ORDERED: Gabapentin CAP(*) 100 MG PO ONE (17:47)
[2019-01-21 18:00] VITALS: BP 156/80
--- NOTE | 2019-01-25 14:53 | PN ---
Progress Note - Progress Note Date of Service: 01/21/19 Note: Urine culture growing <100k klebsiella pneumoniae. Pt. treated with augmentin which is susceptible. No change in treatment needed at this time.
== END 2019-01-21 18:03 | disposition home or self-care (01) ==
LOC: ED 13:38
DX: M79.604 Pain in right leg (principal); N39.0 Urinary tract infection, site not specified; M54.9 Dorsalgia, unspecified
CPT/HCPCS: 36415; 72131; 80053; 81003; 81015; 82550; 83605; 83735; 85025; 86140; 87077; 87086; 87186; 99283; A9270-GY

== ENCOUNTER 2019-08-13 03:36 | Emergency (ER) | payer OTHER, MEDICARE, MEDICAID ==
[2019-08-13] MEDS ORDERED: NS 0.9% 1000 ML** 1,000 ML IV ONE (03:40)
--- NOTE | 2019-08-13 03:44 | ED ---
Abdominal Pain/Female - HPI Summary HPI Summary: This pt is a 79 Y/O F presenting to [facility] with a CC of diffuse abdominal pain that she stated was a 5/10 in severity. She states that she has not been feeling good since 08/10/2019. She states that she has been nauseas since the onset with episodic vomiting. She states that she has mild chest pain but denies any SOB. She denies a headache and diaphoresis. She states that she has been having increased incontinence issues with urination and states that she has been having episodic dysuria. She states that she has no aggravating ot alleviating symptoms. She states that she has a PMHx of CAD, DVTs, CHF, DM, and Breast CA with a R mastectomy. - History of Current Complaint Chief Complaint: EDAbdPain Stated Complaint: GENERAL ILLNESS PER EMS Time Seen by Provider: 08/13/19 03:41 Hx Obtained From: Patient ?: No Onset/Duration: Sudden Onset Timing: Days - 3 Severity Initially: Moderate Severity Currently: Moderate Pain Intensity: 5 Pain Scale Used: 0-10 Numeric Location: Diffuse Radiates: No Aggravating Factor(s): Nothing Alleviating Factor(s): Nothing Associated Signs and Symptoms: Positive: Negative - headache SOB, Chest Pain, Urinary Symptoms - dysuria and incontinence, Decreased Appetite, Nausea, Vomiting. Negative: Diaphoresis Allergies/Adverse Reactions: Allergies Allergy/AdvReac Type Severity Reaction Status Date / Time atorvastatin [From Lipitor] Allergy Muscle Ache Verified 08/13/19 03:38 PMH/Surg Hx/FS Hx/Imm Hx Previously Healthy: Yes Endocrine/Hematology History: Reports: Hx Diabetes, Other Endocrine/ Hematological Disorders - Risk for neutropenia secondary to chemotherapy Denies: Hx Sickle Cell Disease, Hx Thyroid Disease, Hx Unexplained Bleeding Cardiovascular History: Reports: Hx Angina, Hx Angioplasty - LAD stent 2010, Hx Congestive Heart Failure - Dialstolic CHF, Hx Coronary Artery Disease, Hx Deep Vein Thrombosis, Hx Hypercholesterolemia, Hx Hypertension, Hx Myocardial Infarction, Other Cardiovascular Problems/Disorders Denies: Hx Pacemaker/ICD, Hx Peripheral Vascular Disease, Hx Valvular Heart Disease Respiratory History: Reports: Hx Asthma, Hx Sleep Apnea, Other Respiratory Problems/Disorders Denies: Hx Chronic Obstructive Pulmonary Disease (COPD) GI History: Reports: Hx Gastroesophageal Reflux Disease, Hx Hiatal Hernia, Other GI Disorders - CHRONIC CONSTIPATION History: Reports: Hx Kidney Stones, Other Problems/Disorders - FREQUENT UTI'S Denies: Hx Dialysis, Hx Renal Disease Musculoskeletal History: Reports: Hx Orthopedic Injury - L hip fx, 1014, Other Musculoskeletal History - osteo/arthitis, generalized weakness Denies: Hx Arthritis, Hx Osteoporosis Sensory History: Reports: Hx Cataracts - B/L cataract removal , Hx Contacts or Glasses - reading only, Hx Hearing Aid, Hx Hearing Problem - [place] Denies: Hx Glaucoma Opthamlomology History: Reports: Hx Cataracts - B/L cataract removal , Hx Contacts or Glasses - reading only Denies: Hx Glaucoma Neurological History: Reports: Other Neuro Impairments/Disorders - pt states sometimes she gets weak Denies: Hx Seizures Psychiatric History: Reports: Hx Anxiety, Hx Depression - Hx, Hx [place]patient Treatment - [facility] [place], Other Psychiatric Issues/Disorders - Possible delusional symptoms Denies: Hx Eating Disorder, Hx Panic Disorder, Hx Community Mental Health Tx , Hx of Violent Episodes Against Others - Cancer History Cancer Type, Location and Year: breast ca, R mastectomy 2012 Hx Chemotherapy: Yes Hx Radiation Therapy: Yes Hx Palliative Cancer Treatment: Yes - RIGHT MASECTOMY - Surgical History Surgical History: Yes Surgery Procedure, Year, and Place: Rt MASTECTOMY 2012. CARDIAC STENTS 04/2013 @ [facility] [place] - [facility] DRUG-ELUTING STENT - [facility] ELUTING STENT - CONDITIONAL 5 1.5T-3.0T MAX SPATIAL GRADIENT 720GAUSS/CM. CATARACT SURGERY. : Screw fixation of fractured L hip, [facility] [place] FRACTURED LEFT SHOULDER. POWER PORT. HYSTERECTOMY Hx Anesthesia Reactions: No - Immunization History Immunizations Up to Date: Yes - Family History Known Family History: Positive: Cardiac Disease, Other - Depression - Social History Occupation: Retired Lives: Alone Alcohol Use: None Hx Substance Use: No Substance Use Type: Reports: None Hx Tobacco Use: No Smoking Status (MU): Never Smoked Tobacco Household Exposure: No Review of Systems Negative: Fever, Skin Diaphoresis Positive: Chest Pain Negative: Shortness Of Breath Positive: Abdominal Pain, Vomiting, Nausea Positive: dysuria, incontinence Negative: Headache All Other Systems Reviewed And Are Negative: Yes Physical Exam - Summary Physical Exam Summary: Appearance: Well-appearing, elderly obese woman who does not appear toxic or acutely ill. Skin: Warm, dry, no obvious rash Eyes: sclera anicteric, no conjunctival pallor ENT: mucous membranes moist, pharynx appears normal Neck: Supple, nontender Respiratory: Clear to auscultation, no signs of respiratory distress Cardiovascular: Normal S1, S2. No murmurs. Normal distal pulses in tibial and radial bilaterally. Abdomen: Soft, mild lower abdominal tenderness without peritoneal signs. normal active bowel sounds present Musculoskeletal: Normal, Strength/ROM Intact Neurological: A&Ox3, awake and alert, mentation is normal, speech is fluent and appropriate Psychiatric: affect is normal, does not appear anxious or depressed Triage Information Reviewed: Yes Vital Signs On Initial Exam: Temp Pulse Resp BP SpO2 FiO2 97.8 F 86 18 180/96 98 08/13/19 03:36 08/13/19 03:36 08/13/19 03:36 08/13/19 03:36 08/13/19 03:36 Vital Signs Reviewed: Yes Procedures - Sedation Patient Received Moderate/Deep Sedation with Procedure: No Diagnostics - Laboratory Result Diagrams: 08/13/19 03:50 08/13/19 03:50 Lab Statement: Any lab studies that have been ordered have been reviewed, and results considered in the medical decision making process. - EKG 0350 Cardiac Rate: NL - 73 BPM EKG Rhythm: Sinus Rhythm ST Segment: Normal Ectopy: None EKG Comparison: No Significant Change Summary of EKG Findings: NSR at 73 BPM, P waves, QRS complex, and T waves are within normal limits, T waves and intervals are normal, no ischemic changes. This is a normal EKG. Interpreted by Dr. Navarrete at 08/13/2019 0355. Abdominal Pain Fem Course/Dx - Course Course Of Treatment: This pt is a 79 Y/O F presenting to [facility] with a CC of diffuse abdominal pain. She states that she has not been feeling good since 2019. She states that she has been nauseas since the onset with episodic vomiting. She states that she has mild chest pain but denies any SOB. She denies a headache and diaphoresis. Her PE found that she has mild lower abdominal tenderness without peritoneal signs. She was given Zofran during her ED course. EKG at 0350 shows NSR at 73 BPM, P waves, QRS complex, and T waves are within normal limits, T waves and intervals are normal, no ischemic changes. This is a normal EKG. Her labratory results are consistent with a UTI. She will be diagnosed with a UTI and discharged home with ABx Tx Keflex. - Diagnoses Provider Diagnoses: UTI (urinary tract infection) Discharge ED - Sign-Out/Discharge Documenting (check all that apply): Patient Departure - discharge - Discharge Plan Condition: Good Disposition: HOME Prescriptions: Cephalexin CAP* [Keflex CAP*] 500 mg PO QID #28 cap Cephalexin CAP* [Keflex CAP*] 500 mg PO QID 7 Days #28 cap Patient Education Materials: Urinary Tract Infection in Older Adults (ED) Referrals: Omar Santana DO [Primary Care Provider] - - Billing Disposition and Condition Condition: GOOD Disposition: Home - Attestation Statements Document Initiated by Scribe: Yes Documenting Scribe: Daniel Coronado Provider For Whom Pérez is Documenting (Include Credential): Ashok Navarrete MD Scribe Attestation: Daniel Leal, scribed for Ashok Navarrete MD on 08/14/19 at 0435. Scribe Documentation Reviewed: Yes Provider Attestation: The documentation as recorded by the Daniel mcqueen accurately reflects the service I personally performed and the decisions made by Ashok noyola MD Status of Scribe Document: Viewed
[2019-08-13] MEDS ORDERED: Ondansetron INJ* 2 MG/ML VIAL IV ONE (03:46)
[2019-08-13 03:58] LABS: ABS Eosinophils 0.1 10^3/ul (0-0.6); ABS Lymphocytes 1.1 10^3/ul (1.0-4.8); ABS Monocytes 0.5 10^3/ul (0-0.8); ABS Neutrophils 5.8 10^3/ul (1.5-7.7); Eosinophil % 1.5 %; Hematocrit 37 % (35-47); Hemoglobin 12.3 g/dL (12.0-16.0); Lymphocyte % 14.9 %; Mean Corpuscular HGB Conc 33 g/dL (31-36); Mean Corpuscular Hemoglobin 28 pg (27-31); Mean Corpuscular Volume 85 fL (80-97); Nucleated Red Blood Cells % 0.5; Platelet Count 148 10^3/uL (150-450); Red Blood Count 4.39 10^6 /uL (3.70-4.87); Red Cell Distribution Width 15 % (10-15); White Blood Count 7.6 10^3/uL (3.5-10.8)
[2019-08-13 04:13] LABS: Albumin 3.8 g/dL (3.2-5.2); Albumin/Globulin Ratio 1.1 (1-3); BUN/Creatinine Ratio 18.2 (8-20); Calcium 9.5 mg/dL (8.6-10.3); EGFR African American 87.7 (>60); EGFR Non-African American 72.5 (>60); Globulin 3.5 g/dL (2-4); Potassium 3.5 mmol/L (3.5-5.0); Total Bilirubin 0.4 mg/dL (0.2-1.0); Total Protein 7.3 g/dL (6.4-8.9)
--- OUTSIDE RECORDS SUMMARY | 2019-08-13 04:53 | XMS REPORT ---
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 [id number] with with diabetic diabetic neuropathy, neuropathy, unspecified unspecified 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 angina angina pectoris pectoris Cervicalgia Cervicalgia Diagnosis Active Marilyn 08-04 Lizzeth [id number] Other Other Diagnosis Active Marilyn chronic chronic 08-04 Lizzeth pain pain [id number] Generalized Generalized Diagnosis Active Marilyn anxiety anxiety Lizzeth disorder disorder [id number] 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, disorder, [id number] single single episode, episode, unspecified unspecified Personal Personal Diagnosis Active Marilyn history of history of Lizzeth urinary urinary [id number] (tract) (tract) infections infections Obstructive Obstructive Diagnosis Active Marilyn sleep apnea sleep apnea Lizzeth (adult) (adult) [id number] (pediatric) (pediatric) Morbid Morbid Diagnosis Active Marilyn (severe) (severe) Lizzeth obesity due obesity due [id number] to excess to excess calories calories History of History of Diagnosis Active Marilyn falling falling Lizzeth [id number] Pain frequent Pain Mgmt Resolve 2018-2018-12-01 Sera pain d 3-27 16:22:00 (Kirk) 10:50: Rider [id number] Cardio edema Cardiovasc Resolve 2019-04-27 Sera ular d 3-27 13:15:00 (Kirk) 10:50: Rider [id number] Respiratory dyspnea Respirator Resolve 2019-02-16 Sera present y d 3-27 10:57:00 (Kirk) 10:50: Rider [id number] Respiratory CPAP Respirator Resolve 2019-02-16 Sera treatments y d 3-27 10:57:00 (Kirk) in home 10:50: Rider [id number] Endo/Steven anti-coagul Endo/Steven Resolve 2018-11-17 Sera ation d 3-27 14:30:00 (Kirk) therapy 10:50: Rider [id number] Sensory impaired Sensory Active Sera hearing 3- (Kirk) 10:50: Rider [id number] Integument skin Integument Resolve 2018-12-31 Sera integrity d 3-27 14:10:00 (Kirk) risk 10:50: Rider [id number] Elimination urinary Eliminatio Resolve 2018-11-17 Sera incontinenc n d 3-27 14:30:00 (Kirk) e 10:50: Rider [id number] Elimination UTI within Eliminatio Resolve 2018-11-17 Sera past 14 n d 3-27 14:30:00 (Kirk) days 10:50: Rider [id number] Elimination bowel Eliminatio Resolve 2018-11-17 Sera incontinenc n d 3-27 14:30:00 (Kirk) e 10:50: Rider [id number] Neuro confusion Neuro/Emot Active Sera present ion 3-27 (Kirk) 10:50: Rider 00 [id number] Neuro anxiety Neuro/Emot Active Sera present ion 3-27 (Kirk) 10:50: Rider [id number] Neuro depressive Neuro/Emot Active Sera feelings ion 3-27 (Kirk) present 10:50: Rider [id number] Neuro impaired Neuro/Emot Active Sera decision-ma ion 3-27 (Kirk) camilla 10:50: Rider [id number] Neuro memory Neuro/Emot Active Sera deficit ion 3-27 (Kirk) needing 10:50: Rider supervision 00 [id number] Activity ADL Activity Resolve 2018-2019-04-13 Sera assistance d 3-27 10:57:00 (Kirk) required 10:50: Rider [id number] Activity self-care Activity Resolve 2018-2019-04-13 Sera deficit d 3-27 10:57:00 (Kirk) 10:50: Rider [id number] Safety structural Safety Resolve 2018-2019-06-15 Sera barriers d 3- 09:01:00 (Kirk) present 10:50: Rider [id number] Safety sanitation Safety Resolve 2018-2019-06-15 Sera hazards d 3- 09:01:00 (Kirk) present 10:50: Rider [id number] Safety fall risk Safety Active Sera factor 3- (Kirk) present 10:50: Rider [id number] Safety risk for Safety Active Sera hospitaliza 3- (Kirk) tion 10:50: Rider [id number] Safety can be left Safety Resolve 2018-2019-06-15 Sera alone for d 3- 09:01:00 (Kirk) only short 10:50: Rider periods 00 [id number] Medication oral med Meds Active Sera assistance 3- (Kirk) required 10:50: Rider [id number] Medication potential Meds Active Sera clinically 3-27 (Kirk) significant 10:50: Rider medication 00 [id number] issue Musculoskel transfer Musculoske Resolve 2019-03-16 Sera etal assistance letal d 10-28 12:21:00 (Kirk) required 10:50: Rider [id number] Safety fire risk Safety Active Lilliam present 10-30 Drake 10:25: [id number] 00 Musculoskel requires Musculoske Resolve 2019-03-16 Marilyn etal human letal d -02 12:21:00 Lizzeth assist to 13:12: [id number] leave home 00 Nutrition nutritional Nutrition Resolve 2018-12-08 Marilyn risk d 11-10 13:53:00 Lizzeth 12:39: [id number] 00 Nutrition knowledge/s Nutrition Resolve 2018-12-08 Marilyn kill d 11-10 13:53:00 Lizzeth deficit: pt 12:39: [id number] 00 Endo/Steven anti-coagul Endo/Steven Resolve 2018-12-01 Marilyn ation d 11-24 16:22:00 Lizzeth therapy 14:10: [id number] 00 Elimination urinary Eliminatio Resolve 2018-11-24 Marilyn incontinenc n d 11-24 14:10:00 Lizzeth e 14:10: [id number] 00 Elimination urinary Eliminatio Resolve 2018-12-08 Marilyn incontinenc n d 12-01 13:53:00 Lizzeth e 16:22: [id number] 00 Endo/Steven anti-coagul Endo/Steven Resolve 2019-01-07 Marilyn ation d 12-08 11:45:00 Lizzeth therapy 13:53: [id number] 00 Musculoskel knowledge/s Musculoske Resolve 2019-03-16 Marilyn etal kill letal d 12-08 12:21:00 Lizzeth deficit: pt 13:53: [id number] 00 Elimination urinary Eliminatio Resolve 2018-12-31 Marilyn incontinenc n d 12-15 14:10:00 Lizzeth e 13:30: [id number] 00 Pain frequent Pain Mgmt Active Marilyn pain 12-22 Lizzeth 13:45: [id number] 00 Elimination urinary Eliminatio Resolve 2019-02-16 Marilyn incontinenc n d 01-07 10:57:00 Lizzeth e 11:45: [id number] 00 Endo/Steven anti-coagul Endo/Steven Resolve 2019-02-16 Marilyn ation d 01-14 10:57:00 Lizzeth therapy 12:15: [id number] 00 Pain knowledge/s Pain Mgmt Resolve 2019-2019-05-04 Marilyn kill d 01-22 11:45:00 Lizzeth deficit: cg 12:43: [id number] 00 Safety cannot be Safety Resolve 2019-06-15 Marilyn left alone d 01-22 09:01:00 Lizzeth 12:43: [id number] 00 Safety knowledge/s Safety Resolve 2019-06-15 Marilyn kill d 01-22 09:01:00 Lizzeth deficit: cg 12:43: [id number] 00 Musculoskel knowledge/s Musculoske Resolve 2019-03-16 Marilyn etal kill letal d 01-22 12:21:00 Lizzeth deficit: cg 12:43: [id number] 00 Pain knowledge/s Pain Mgmt Resolve 2019-05-04 Marilyn kill d 01-26 11:45:00 Lizzeth deficit: pt 14:21: [id number] 00 Elimination recurring Eliminatio Resolve 2019-02-16 Marilyn UTI n d 01-26 10:57:00 Lizzeth 14:21: [id number] 00 Respiratory dyspnea Respirator Resolve 2019-04-27 Marilyn present y d 02-23 13:15:00 Lizzeth 14:30: [id number] 00 Endo/Steven anti-coagul Endo/Steven Resolve 2019-04-13 Marilyn ation d 02-23 10:57:00 Lizzeth therapy 14:30: [id number] 00 Integument skin Integument Resolve 2019-04-20 Marilyn integrity d 02-23 11:34:00 Lizzeth risk 14:30: [id number] 00 Elimination urinary Eliminatio Resolve 2019-04-20 Marilyn incontinenc n d 02-23 11:34:00 Lizzeth e 14:30: [id number] 00 Respiratory BiPAP Respirator Resolve 2019-06-15 Marilyn treatments y d 03-16 09:01:00 Lizzeth in home 12:21: [id number] 00 Social support LEATHA: Active Marilyn Services deficit Social 03-16 Lizzeth Services 12:21: [id number] 00 Musculoskel requires Musculoske Active Marilyn etal human letal 03-23 Lizzeth assist to 10:15: [id number] leave home 00 Respiratory CPAP Respirator Resolve 2019-06-15 Marilyn treatments y d 03-30 09:01:00 Lizzeth in home 12:50: [id number] 00 Musculoskel transfer Musculoske Active Lilliam etal assistance letal 04-20 Drake required 11:34: [id number] 00 Pain knowledge/s Pain Mgmt Active 2018-08 Tani kill 0-04 Kobziewicz deficit: pt 12:45: [id number] 00 Bed knowledge/s PT/OT: Bed Active 2018-08 Tani Mobility/Tr kill Mobility/T 0-04 Kobziewicz ansfer deficit: pt ransfer 12:45: [id number] 00 Balance/End balance/coding coordinator PT/OT: Active 2018-08 Tani urance rdination Balance/En 0-04 Kobziewicz deficit durance 12:45: [id number] 00 OT: Self self-care OT: Active 2018-08 Tani Care deficit Self-Care 0-04 Kobziewicz 12:45: [id number] 00 OT: Self knowledge/s OT: Active 2018-08 Tani Care kill Self-Care 0-04 Kobziewicz deficit: pt 12:45: [id number] 00 Gait/Locomo stair PT/OT: Active 2018-08 Tani tion management Gait/Locom 0-04 Kobziewicz problems req otion 12:45: [id number] 00 Gait/Locomo knowledge/s PT/OT: Active 2018-08 Tani tion kill Gait/Locom 0-04 Kobziewicz problems deficit: pt otion 12:45: [id number] 00 Gait/Locomo gait PT/OT: Active 2018-08 Tani tion deficit Gait/Locom 0-04 Kobziewicz problems otion 12:45: [id number] 00 Endo/Steven anti-coagul Endo/Steven Active 2018-08 Marilyn ation 1 Lizzeth therapy 14:16: [id number] 00 Activity self-care Activity Active 2018-08 Marilyn deficit 08-15 Lizzeth 09:01: [id number] 00 Activity ADL Activity Active 2018-08 Marilyn assistance 1-19 Lizzeth required 11:20: [id number] Respiratory CPAP Respirator Active 2018-08 Marilyn treatments y 2- Lizzeth in home 11:22: [id number] 00 Respiratory dyspnea Respirator Active 2018-08 Marilyn present y - Lizzeth 16:14: [id number] 00 Allergies, Adverse Reactions, Alerts Allergy Allergy Status Severity Reaction(s) Onset Inactive Treating Comments Name Type Date Date Clinician Lipitor Unknown Active Unknown Reaction 2017-10 Lilliam Unknown -14 Drake [id number] Medications Ordered Filled Start Stop Current Ordering Indication Dosage Frequency Signature Comments Components Medication Medication Date Date Medication? Clinician (SIG) Name Name furosemide furosemide No Brimley 1 Unknown 20 mg 20 mg ,Tramaine tablet tablet furosemide furosemide 2018- No Max Unknown Unknown 40 mg 40 mg 10-28 ,Omar J tablet tablet metFORMIN metFORMIN No Brimley 1 Unknown 500 mg 500 mg ,Tramaine tablet tablet metoprolol metoprolol No Max Unknown Unknown succinate succinate 10-28 MDOmar Carin ER 50 mg ER 50 mg tablet,exte tablet,exte nded nded release 24 release 24 hr hr LORazepam LORazepam No Brimley Unknown Unknown 0.5 mg 0.5 mg 10-28 MDTramaine tablet tablet gabapentin gabapentin 2018- No Max Unknown Unknown 300 mg 300 mg 10-28 ,Omar J capsule capsule anastrozole anastrozole 2018- No Max Unknown Unknown 1 mg tablet 1 mg tablet 10-28 ,Omar J sertraline sertraline No Brimley 1 Unknown 100 mg 100 mg ,Tramaine tablet tablet Aspirin Low Aspirin Low No Max Unknown Unknown Dose 81 mg Dose 81 mg 10-28 ,Omar J tablet,roel tablet,roel yed release yed release simvastatin simvastatin No Max Unknown Unknown 40 mg 40 mg 10-28 ,Omar J tablet tablet meclizine meclizine No Brimley 2oral Unknown 12.5 mg 12.5 mg ,Tramaine tablet tablet omeprazole omeprazole No Max Unknown Unknown 40 mg 40 mg 10-28 ,Omar J capsule,del capsule,del ayed ayed release release raNITIdine raNITIdine No Brimley 1 Unknown 150 mg 150 mg Tramaine ESPINAL tablet tablet mirtazapine mirtazapine No Brimley 1 Unknown 30 mg 30 mg Tramaine ESPINAL tablet tablet Nitrostat Nitrostat No Brimley 1 Unknown 0.4 mg 0.4 mg Tramaine ESPINAL sublingual sublingual tablet tablet polyethylen polyethylen No Santana Unknown Unknown e glycol e glycol 10-28 ,Omar J 3350 (bulk) 3350 (bulk) granules granules cholecalcif cholecalcif No Max Unknown Unknown john john 10-28 ,Omar J (vitamin (vitamin D3) 5,000 D3) 5,000 unit unit capsule capsule HYDROcodone HYDROcodone No Brimley 2 Unknown 7.5 7.5 Tramaine ESPINAL mg-acetamin mg-acetamin ophen 325 ophen 325 mg tablet mg tablet sucralfate sucralfate No Brimley 1 Unknown 1 gram 1 gram Tramaine ESPINAL tablet tablet oxybutynin oxybutynin No Max Unknown Unknown chloride ER chloride ER 10-28 ,Omar J 10 mg 10 mg tablet,exte tablet,exte nded nded release 24 release 24 hr hr metroNIDAZO metroNIDAZO No Brimley 1applic Unknown LE 0.75 % LE 0.75 % Tramaine ESPINAL ation lotion lotion lisinopril lisinopril 2018- No Max Unknown Unknown 10 mg 10 mg 10-28 10 ,Omar J tablet tablet levothyroxi levothyroxi No Max Unknown Unknown ne 25 mcg ne 25 mcg 10-28 ,Omar J capsule capsule meclizine meclizine No Max Unknown Unknown 25 mg 25 mg 10-28 ,Omar J tablet tablet sulfamethox sulfamethox 2018- No Max Unknown Unknown azole 800 azole 800 10-28 04-03 ,Omar J mg-trimetho mg-trimetho prim 160 mg prim 160 mg tablet tablet triamcinolo triamcinolo No Max Unknown Unknown ne ne 10-28 ,Omar J acetonide acetonide 0.1 % 0.1 % topical topical cream cream venlafaxine venlafaxine No Max Unknown Unknown ER 75 mg ER 75 mg 10-28 ,Omar J capsule,ext capsule,ext ended ended release 24 release 24 hr hr sulfamethox sulfamethox No Santana Unknown Unknown azole 400 azole 400 12-01 ,Omar Carin mg-trimetho mg-trimetho prim 80 mg prim 80 mg tablet tablet traMADol 50 traMADol 50 2018- No Santana Unknown Unknown mg tablet mg tablet 12-01 ,Omar Carin HYDROcodone HYDROcodone 2018- No Santana Unknown Unknown 7.5 7.5 12-02 ,Omar Carin mg-acetamin mg-acetamin ophen 325 ophen 325 mg tablet mg tablet gabapentin gabapentin 2018- No Max Unknown Unknown 300 mg 300 mg 10-28 ,Omar J capsule capsule sertraline sertraline 2018- No Max Unknown Unknown 100 mg 100 mg 12-22 ,Omar J tablet tablet HYDROcodone HYDROcodone 2018- No Brimley Unknown Unknown 7.5 7.5 01-26 Tramaine ESPINAL mg-acetamin mg-acetamin ophen 325 ophen 325 mg tablet mg tablet nitrofurant nitrofurant No Max Unknown Unknown oin oin 14 ,Omar Carin macrocrysta macrocrysta l 50 mg l 50 mg capsule capsule ibuprofen ibuprofen No Max Unknown Unknown 600 mg 600 mg 03-17 ,Omar Carin tablet tablet buprenorphi buprenorphi 2018- No Max Unknown Unknown ne 10 ne 10 04-1310 Omar ESPINAL mcg/hour mcg/hour weekly weekly transdermal transdermal patch patch buprenorphi buprenorphi No [place] Unknown Unknown ne 10 ne 10 10 Brian ESPINAL mcg/hour mcg/hour weekly weekly transdermal transdermal patch patch metroNIDAZO metroNIDAZO No Max Unknown Unknown LE 0.75 % LE 0.75 % 04-22 ,Omar Carin topical gel topical gel cefdinir cefdinir 2018- No Max Unknown Unknown 300 mg 300 mg 04-22 ,Omar J capsule capsule furosemide furosemide 2018-08 Yes Max Unknown Unknown 40 mg 40 mg 0-08 ,Omar J tablet tablet gabapentin gabapentin 2019-0 No Santana Unknown Unknown 300 mg 300 mg 3-27 ,Omar J capsule capsule traMADol 50 traMADol 50 2018-08 Yes [place] Unknown Unknown mg tablet mg tablet 0-08 Brian ESPINAL lisinopril lisinopril 2018-08 Yes Santana Unknown Unknown 10 mg 10 mg 0- ,Omar J tablet tablet methylPREDN methylPREDN 2018-08- Yes Ellis Unknown Unknown ISolone 4 ISolone 4 08-08 ,Vladislav mg tablets mg tablets in a dose in a dose pack pack metaxalone metaxalone 2018-08 Yes Ellis Unknown Unknown 400 mg 400 mg 08-08 ,Vladislav tablet tablet amoxicillin amoxicillin 2018-08- Yes Ellis Unknown Unknown [id number] 08-08 ,Vladislav mg-potassiu mg-potassiu m m clavulanate clavulanate 125 mg 125 mg tablet tablet cefdinir cefdinir 2018-08- Yes Santana Unknown Unknown 300 mg 300 mg 09-27 ,Omar J capsule capsule Vital Signs Vital Name Observation Time Observation Value Comments SYSTOLIC mm[Hg] 2019-08-03 18:09:38 118 mm[Hg] mm[Hg] Method: Sit SYSTOLIC mm[Hg] 2019-04-27 18:08:00 124 mm[Hg] mm[Hg] Method: Stand DIASTOLIC mm[Hg] 2019-08-03 18:09:38 78 mm[Hg] mm[Hg] Method: Sit DIASTOLIC mm[Hg] 2019-04-27 18:08:00 82 mm[Hg] mm[Hg] Method: Stand PULSE 2019-08-03 18:09:38 62 /min /min RESP RATE 2019-08-03 18:09:38 18 /min /min TEMP 2019-08-03 18:09:38 97.3 [degF] Procedures This patient has no known procedures. Results This patient has no known results.
--- OUTSIDE RECORDS SUMMARY | 2019-08-13 04:53 | XMS REPORT ---
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, neuropathy, unspecified unspecified 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 angina pectoris pectoris Cervicalgia Cervicalgia Diagnosis Active Marilyn 08-04 Lizzeth [id number] Other Other Diagnosis Active Marilyn chronic chronic 08-04 Lizzeth pain pain [id number] Generalized Generalized Diagnosis Active Marilyn anxiety anxiety Lizzeth disorder disorder [id number] 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, disorder, [id number] single single episode, episode, unspecified unspecified Personal Personal Diagnosis Active Marilyn history of history of Lizzeth urinary urinary [id number] (tract) (tract) infections infections Obstructive Obstructive Diagnosis Active Marilyn sleep apnea sleep apnea Lizzeth (adult) (adult) [id number] (pediatric) (pediatric) Morbid Morbid Diagnosis Active Marilyn (severe) (severe) Lizzeth obesity due obesity due [id number] to excess to excess calories calories History of History of Diagnosis Active Marilyn falling falling Lizzeth [id number] Pain frequent Pain Mgmt Resolve 2018-2018-12-01 Sera pain d 3-27 16:22:00 (Kirk) 10:50: Rider [id number] Cardio edema Cardiovasc Resolve 2019-04-27 Sera ular d 3-27 13:15:00 (Kirk) 10:50: Rider [id number] Respiratory dyspnea Respirator Resolve 2019-02-16 Sera present y d 3-27 10:57:00 (Kirk) 10:50: Rider [id number] Respiratory CPAP Respirator Resolve 2019-02-16 Sera treatments y d 3-27 10:57:00 (Kirk) in home 10:50: Rider [id number] Endo/Steven anti-coagul Endo/Steven Resolve 2018-11-17 Sera ation d 3-27 14:30:00 (Kirk) therapy 10:50: Rider [id number] Sensory impaired Sensory Active Sera hearing 3- (Kirk) 10:50: Rider [id number] Integument skin Integument Resolve 2018-12-31 Sera integrity d 3-27 14:10:00 (Kirk) risk 10:50: Rider [id number] Elimination urinary Eliminatio Resolve 2018-11-17 Sera incontinenc n d 3-27 14:30:00 (Kirk) e 10:50: Rider [id number] Elimination UTI within Eliminatio Resolve 2018-11-17 Sera past 14 n d 3-27 14:30:00 (Kirk) days 10:50: Rider [id number] Elimination bowel Eliminatio Resolve 2018-11-17 Sera incontinenc n d 3-27 14:30:00 (Kirk) e 10:50: Rider [id number] Neuro confusion Neuro/Emot Active Sera present ion 3-27 (Kirk) 10:50: Rider 00 [id number] Neuro anxiety Neuro/Emot Active Sera present ion 3-27 (Kirk) 10:50: Rider [id number] Neuro depressive Neuro/Emot Active Sera feelings ion 3-27 (Kirk) present 10:50: Rider [id number] Neuro impaired Neuro/Emot Active Sera decision-ma ion 3-27 (Kirk) [place] 10:50: Rider [id number] Neuro memory Neuro/Emot Active Sera deficit ion 3-27 (Kirk) needing 10:50: Rider supervision 00 [id number] Activity ADL Activity Resolve 2018-2019-04-13 Sera assistance d 3-27 10:57:00 (Kirk) required 10:50: Rider [id number] Activity self-care Activity Resolve 2018-2019-04-13 Sera deficit d 3-27 10:57:00 (Kirk) 10:50: Rider [id number] Safety structural Safety Resolve 2018-2019-06-15 Sera barriers d 3- 09:01:00 (Kirk) present 10:50: Rider [id number] Safety sanitation Safety Resolve 2018-2019-06-15 Sera hazards d 3- 09:01:00 (Kirk) present 10:50: Rider [id number] Safety fall risk Safety Active Sera factor 3- (Kirk) present 10:50: Rider [id number] Safety risk for Safety Active Sera hospitaliza 3- (Kirk) tion 10:50: Rider [id number] Safety can be left Safety Resolve 2018-2019-06-15 Sera alone for d 3- 09:01:00 (Kirk) only short 10:50: Rider periods 00 [id number] Medication oral med Meds Active Sera assistance 3- (Kirk) required 10:50: Rider [id number] Medication potential Meds Active Sera clinically 3-27 (Kirk) significant 10:50: Rider medication 00 [id number] issue Musculoskel transfer Musculoske Resolve 2019-03-16 Sera etal assistance letal d 10-28 12:21:00 (Kirk) required 10:50: Rider [id number] Safety fire risk Safety Active Lilliam present 10-30 Drake 10:25: [id number] Musculoskel requires Musculoske Resolve 2019-03-16 Marilyn etal human letal d -02 12:21:00 Lizzeth assist to 13:12: [id number] leave home 00 Nutrition nutritional Nutrition Resolve 2018-12-08 Marilyn risk d 11-10 13:53:00 Lizzeth 12:39: [id number] 00 Nutrition knowledge/s Nutrition Resolve 2018-12-08 Marilyn kill d 11-10 13:53:00 Lizzeth deficit: pt 12:39: [id number] 00 Endo/Steven anti-coagul Endo/Steven Resolve 2018-12-01 Marilyn ation d 11-24 16:22:00 Lizzeth therapy 14:10: [id number] 00 Elimination urinary Eliminatio Resolve 2018-11-24 Marilyn incontinenc n d 11-24 14:10:00 Lizzeth e 14:10: [id number] 00 Elimination urinary Eliminatio Resolve 2018-12-08 Marilyn incontinenc n d 12-01 13:53:00 Lizzeth e 16:22: [id number] 00 Endo/Steven anti-coagul Endo/Steven Resolve 2019-01-07 Marilyn ation d 12-08 11:45:00 Lizzeth therapy 13:53: [id number] 00 Musculoskel knowledge/s Musculoske Resolve 2019-03-16 Marilyn etal kill letal d 12-08 12:21:00 Lizzeth deficit: pt 13:53: [id number] 00 Elimination urinary Eliminatio Resolve 2018-12-31 Marilyn incontinenc n d 12-15 14:10:00 Lizzeth e 13:30: [id number] 00 Pain frequent Pain Mgmt Active Marilyn pain 12-22 Lizzeth 13:45: [id number] 00 Elimination urinary Eliminatio Resolve 2019-02-16 Marilyn incontinenc n d 01-07 10:57:00 Lizzeth e 11:45: [id number] Endo/Steven anti-coagul Endo/Steven Resolve 2019-02-16 Marilyn ation d 01-14 10:57:00 Lizzeth therapy 12:15: [id number] 00 Pain knowledge/s Pain Mgmt Resolve 2019-2019-05-04 Marilyn kill d 01-22 11:45:00 Lizzeth deficit: cg 12:43: [id number] 00 Safety cannot be Safety Resolve 2019-06-15 Marilyn left alone d 01-22 09:01:00 Lizzeth 12:43: [id number] 00 Safety knowledge/s Safety Resolve 2019-06-15 Marilyn kill d 01-22 09:01:00 Lizzeth deficit: cg 12:43: [id number] 00 Musculoskel knowledge/s Musculoske Resolve 2019-03-16 Marilyn etal kill letal d 01-22 12:21:00 Lizzeth deficit: cg 12:43: [id number] 00 Pain knowledge/s Pain Mgmt Resolve 2019-05-04 Marilyn kill d 01-26 11:45:00 Lizzeth deficit: pt 14:21: [id number] 00 Elimination recurring Eliminatio Resolve 2019-02-16 Marilyn UTI n d 01-26 10:57:00 Lizzeth 14:21: [id number] 00 Respiratory dyspnea Respirator Resolve 2019-04-27 Marilyn present y d 02-23 13:15:00 Lizzeth 14:30: [id number] 00 Endo/Steven anti-coagul Endo/Steven Resolve 2019-04-13 Marilyn ation d 02-23 10:57:00 Lizzeth therapy 14:30: [id number] 00 Integument skin Integument Resolve 2019-04-20 Marilyn integrity d 02-23 11:34:00 Lizzeth risk 14:30: [id number] 00 Elimination urinary Eliminatio Resolve 2019-04-20 Marilyn incontinenc n d 02-23 11:34:00 Lizzeth e 14:30: [id number] 00 Respiratory BiPAP Respirator Resolve 2019-06-15 Marilyn treatments y d 03-16 09:01:00 Lizzeth in home 12:21: [id number] 00 Social support LEATHA: Active Marilyn Services deficit Social 03-16 Lizzeth Services 12:21: [id number] Musculoskel requires Musculoske Active Marilyn etal human letal 03-23 Lizzeth assist to 10:15: [id number] leave home 00 Respiratory CPAP Respirator Resolve 2019-06-15 Marilyn treatments y d 03-30 09:01:00 Lizzeth in home 12:50: [id number] Musculoskel transfer Musculoske Active Lilliam etal assistance letal 04-20 Drake required 11:34: [id number] Pain knowledge/s Pain Mgmt Active 2018-08 Tani kill 0-04 Kobziewicz deficit: pt 12:45: [id number] 00 Bed knowledge/s PT/OT: Bed Active 2018-08 Tani Mobility/Tr kill Mobility/T 0-04 Kobziewicz ansfer deficit: pt ransfer 12:45: [id number] 00 Balance/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 PT/OT: Active 2018-08 Tani urance rdination Balance/En 0-04 Kobziewicz deficit durance 12:45: [id number] 00 OT: Self self-care OT: Active 2018-08 Tani Care deficit Self-Care 0-04 Kobziewicz 12:45: [id number] 00 OT: Self knowledge/s OT: Active 2018-08 Tani Care kill Self-Care 0-04 Kobziewicz deficit: pt 12:45: [id number] Gait/Locomo stair PT/OT: Active 2018-08 Tani tion management Gait/Locom 0-04 Kobziewicz problems req otion 12:45: [id number] Gait/Locomo knowledge/s PT/OT: Active 2018-08 Tani tion kill Gait/Locom 0-04 Kobziewicz problems deficit: pt otion 12:45: [id number] 00 Gait/Locomo gait PT/OT: Active 2018-08 Tani tion deficit Gait/Locom 0-04 Kobziewicz problems otion 12:45: [id number] 00 Endo/Steven anti-coagul Endo/Steven Active 2018-08 Marilyn ation 1 Lizzeth therapy 14:16: [id number] 00 Activity self-care Activity Active 2018-08 Marilyn deficit 08-15 Lizzeth 09:01: [id number] 00 Activity ADL Activity Active 2018-08 Marilyn assistance 1-19 Lizzeth required 11:20: [id number] 00 Respiratory CPAP Respirator Active 2018-08 Marilyn treatments y 2-17 Lizzeth in home 11:22: [id number] 00 Allergies, Adverse Reactions, Alerts Allergy Allergy Status Severity Reaction(s) Onset Inactive Treating Comments Name Type Date Date Clinician Lipitor Unknown Active Unknown Reaction 2017-10 Lilliam Unknown -14 Drake [id number] Medications Ordered Filled Start Stop Current Ordering Indication Dosage Frequency Signature Comments Components Medication Medication Date Date Medication? Clinician (SIG) Name Name furosemide furosemide No Bourbon 1 Unknown 20 mg 20 mg MD,Tramaine tablet tablet furosemide furosemide 2018- Max Unknown Unknown 40 mg 40 mg 10-28 ,Omar J tablet tablet metFORMIN metFORMIN No [place] 1 Unknown 500 mg 500 mg MD,Tramaine tablet tablet metoprolol metoprolol No Max Unknown Unknown succinate succinate 10-28 ,Omar J ER 50 mg ER 50 mg tablet,exte tablet,exte nded nded release 24 release 24 hr hr LORazepam LORazepam No [place] Unknown Unknown 0.5 mg 0.5 mg 10-28 ,Tramaine tablet tablet gabapentin gabapentin 2018- No Max Unknown Unknown 300 mg 300 mg 10-28 ,Omar J capsule capsule anastrozole anastrozole 2018- No Max Unknown Unknown 1 mg tablet 1 mg tablet 10-28 ,Omar J sertraline sertraline No [place] 1 Unknown 100 mg 100 mg ,Tramaine tablet tablet Aspirin Low Aspirin Low No Max Unknown Unknown Dose 81 mg Dose 81 mg 10-28 ,Omar J tablet,roel tablet,roel yed release yed release simvastatin simvastatin No Max Unknown Unknown 40 mg 40 mg 10-28 ,Omar J tablet tablet meclizine meclizine No [place]bon 2oral Unknown 12.5 mg 12.5 mg ,Tramaine tablet tablet omeprazole omeprazole No Max Unknown Unknown 40 mg 40 mg 10-28 ,Omar J capsule,del capsule,del ayed ayed release release raNITIdine raNITIdine No [place]bon 1 Unknown 150 mg 150 mg MD,Tramaine tablet tablet mirtazapine mirtazapine No Bourbon 1 Unknown 30 mg 30 mg Tramaine ESPINAL tablet tablet Nitrostat Nitrostat No Bourbon 1 Unknown 0.4 mg 0.4 mg Tramaine ESPINAL sublingual sublingual tablet tablet polyethylen polyethylen No Max Unknown Unknown e glycol e glycol 10-28 ,Omar Carin 3350 (bulk) 3350 (bulk) granules granules cholecalcif cholecalcif No Max Unknown Unknown john john 10-28 ,Omar Carin (vitamin (vitamin D3) 5,000 D3) 5,000 unit unit capsule capsule HYDROcodone HYDROcodone No Bourbon 2 Unknown 7.5 7.5 Tramaine ESPINAL mg-acetamin mg-acetamin ophen 325 ophen 325 mg tablet mg tablet sucralfate sucralfate No Bourbon 1 Unknown 1 gram 1 gram Tramaine ESPINAL tablet tablet oxybutynin oxybutynin No Max Unknown Unknown chloride ER chloride ER 10-28 Adriel ESPINALed Carin 10 mg 10 mg tablet,exte tablet,exte nded nded release 24 release 24 hr hr metroNIDAZO metroNIDAZO No Bourbon 1applic Unknown LE 0.75 % LE 0.75 % Tramaine ESPINAL ation lotion lotion lisinopril lisinopril 2018- No Max Unknown Unknown 10 mg 10 mg 10-28 ,Omar J tablet tablet levothyroxi levothyroxi No [...] Max Unknown Unknown ne ne 10-28 ,Omar Carin acetonide acetonide 0.1 % 0.1 % topical topical cream cream venlafaxine venlafaxine No Max Unknown Unknown ER 75 mg ER 75 mg 10-28 ,Omar Carin capsule,ext capsule,ext ended ended release 24 release 24 hr hr sulfamethox sulfamethox No Santana Unknown Unknown azole 400 azole 400 12-01 ,Omar J mg-trimetho mg-trimetho prim 80 mg prim 80 mg tablet tablet traMADol 50 traMADol 50 2018- No Santana Unknown Unknown mg tablet mg tablet 12-01- ,Omar J HYDROcodone HYDROcodone 2018- No Santana Unknown Unknown 7.5 7.5 12-02 ,Omar Carin mg-acetamin mg-acetamin ophen 325 ophen 325 mg tablet mg tablet gabapentin gabapentin 2018- No Santana Unknown Unknown 300 mg 300 mg 10-28 ,Omar J capsule capsule sertraline sertraline 2018- No Santana Unknown Unknown 100 mg 100 mg 12-22 ,Omar J tablet tablet HYDROcodone HYDROcodone 2018- No [place]bon Unknown Unknown 7.5 7.5 01-26 Tramaine ESPINAL mg-acetamin mg-acetamin ophen 325 ophen 325 mg tablet mg tablet nitrofurant nitrofurant No Santana Unknown Unknown oin oin 03-17 ,Omar J macrocrysta macrocrysta l 50 mg l 50 mg capsule capsule ibuprofen ibuprofen No Max Unknown Unknown 600 mg 600 mg 03-17 ,Omar Carin tablet tablet buprenorphi buprenorphi 2018- No Santana Unknown Unknown ne 10 ne 10 04-13 Omar ESPINAL mcg/hour mcg/hour weekly weekly transdermal transdermal patch patch buprenorphi buprenorphi No [place] Unknown Unknown ne 10 ne 10 10 Brian ESPINAL mcg/hour mcg/hour weekly weekly transdermal transdermal patch patch metroNIDAZO metroNIDAZO No Max Unknown Unknown LE 0.75 % LE 0.75 % 04-22 ,Omar J topical gel topical gel cefdinir cefdinir 2018- No Max Unknown Unknown 300 mg 300 mg 04-22 ,Omar J capsule capsule furosemide furosemide 2018-08 Yes Max Unknown Unknown 40 mg 40 mg 0-08 ,Omar J tablet tablet gabapentin gabapentin No Max Unknown Unknown 300 mg 300 mg 10-28 ,Omar J capsule capsule traMADol 50 traMADol 50 2018-08 Yes [place] Unknown Unknown mg tablet mg tablet 0-08 Brian ESPINAL lisinopril lisinopril 2018-08 Yes Santana Unknown Unknown 10 mg 10 mg 0-29 ,Omar Carin tablet tablet methylPREDN methylPREDN 2018-08- Yes Ellis Unknown Unknown ISolone 4 ISolone 4 08-08 ,Vladislav mg tablets mg tablets in a dose in a dose pack pack metaxalone metaxalone 2018-08 Yes Ellis Unknown Unknown 400 mg 400 mg 1- ,Vladislav tablet tablet amoxicillin amoxicillin 2018-08- Yes Ellis Unknown Unknown [id number] 08-08 ,Vladislav mg-potassiu mg-potassiu m m clavulanate clavulanate 125 mg 125 mg tablet tablet cefdinir cefdinir 2018-08 Yes Santana Unknown Unknown 300 mg 300 mg 2-24 ,Omar Del Rosario capsule capsule Vital Signs Vital Name Observation Time Observation Value Comments SYSTOLIC mm[Hg] 2019-07-27 18:09:31 118 mm[Hg] mm[Hg] Method: Sit SYSTOLIC mm[Hg] 2019-04-27 18:08:00 124 mm[Hg] mm[Hg] Method: Stand DIASTOLIC mm[Hg] 2019-07-27 18:09:31 78 mm[Hg] mm[Hg] Method: Sit DIASTOLIC mm[Hg] 2019-04-27 18:08:00 82 mm[Hg] mm[Hg] Method: Stand PULSE 2019-07-27 18:09:31 60 /min /min RESP RATE 2019-07-27 18:09:31 18 /min /min TEMP 2019-07-27 18:09:31 97.3 [degF] Procedures This patient has no known procedures. Results This patient has no known results.
--- OUTSIDE RECORDS SUMMARY | 2019-08-13 04:53 | XMS REPORT ---
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 [id number] with with diabetic diabetic neuropathy, neuropathy, unspecified unspecified 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 angina angina pectoris pectoris Cervicalgia Cervicalgia Diagnosis Active Marilyn 08-04 Lizzeth [id number] Other Other Diagnosis Active Marilyn chronic chronic 08-04 Lizzeth pain pain [id number] Generalized Generalized Diagnosis Active Marilyn anxiety anxiety Lizzeth disorder disorder [id number] 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, disorder, [id number] single single episode, episode, unspecified unspecified Personal Personal Diagnosis Active Marilyn history of history of Lizzeth urinary urinary [id number] (tract) (tract) infections infections Obstructive Obstructive Diagnosis Active Marilyn sleep apnea sleep apnea Lizzeth (adult) (adult) [id number] (pediatric) (pediatric) Morbid Morbid Diagnosis Active Marilyn (severe) (severe) Lizzeth obesity due obesity due [id number] to excess to excess calories calories History of History of Diagnosis Active Marilyn falling falling Lizzeth [id number] Pain frequent Pain Mgmt Resolve 2018-2018-12-01 Sera pain d 3-27 16:22:00 (Kirk) 10:50: Rider [id number] Cardio edema Cardiovasc Resolve 2019-04-27 Sera ular d 3-27 13:15:00 (Kirk) 10:50: Rider [id number] Respiratory dyspnea Respirator Resolve 2019-02-16 Sera present y d 3-27 10:57:00 (Kirk) 10:50: Rider [id number] Respiratory CPAP Respirator Resolve 2019-02-16 Sera treatments y d 3-27 10:57:00 (Kirk) in home 10:50: Rider [id number] Endo/Steven anti-coagul Endo/Steven Resolve 2018-11-17 Sera ation d 3-27 14:30:00 (Kirk) therapy 10:50: Rider [id number] Sensory impaired Sensory Active Sera hearing 3- (Kirk) 10:50: Rider [id number] Integument skin Integument Resolve 2018-12-31 Sera integrity d 3-27 14:10:00 (Kirk) risk 10:50: Rider [id number] Elimination urinary Eliminatio Resolve 2018-11-17 Sera incontinenc n d 3-27 14:30:00 (Kirk) e 10:50: Rider [id number] Elimination UTI within Eliminatio Resolve 2018-11-17 Sera past 14 n d 3-27 14:30:00 (Kirk) days 10:50: Rider [id number] Elimination bowel Eliminatio Resolve 2018-11-17 Sera incontinenc n d 3-27 14:30:00 (Kirk) e 10:50: Rider [id number] Neuro confusion Neuro/Emot Active Sera present ion 3-27 (Kirk) 10:50: Rider 00 [id number] Neuro anxiety Neuro/Emot Active Sera present ion 3-27 (Kirk) 10:50: Rider [id number] Neuro depressive Neuro/Emot Active Sera feelings ion 3-27 (Kirk) present 10:50: Rider [id number] Neuro impaired Neuro/Emot Active Sera decision-ma ion 3-27 (Kirk) [place] 10:50: Rider [id number] Neuro memory Neuro/Emot Active Sera deficit ion 3-27 (Kirk) needing 10:50: Rider supervision 00 [id number] Activity ADL Activity Resolve 2018-2019-04-13 Sera assistance d 3-27 10:57:00 (Kirk) required 10:50: Rider [id number] Activity self-care Activity Resolve 2018-2019-04-13 Sera deficit d 3-27 10:57:00 (Kirk) 10:50: Rider [id number] Safety structural Safety Resolve 2018-2019-06-15 Sera barriers d 3- 09:01:00 (Kirk) present 10:50: Rider [id number] Safety sanitation Safety Resolve 2018-2019-06-15 Sera hazards d 3- 09:01:00 (Kirk) present 10:50: Rider [id number] Safety fall risk Safety Active Sera factor 3- (Kirk) present 10:50: Rider [id number] Safety risk for Safety Active Sera hospitaliza 3- (Kirk) tion 10:50: Rider [id number] Safety can be left Safety Resolve 2018-2019-06-15 Sera alone for d 3- 09:01:00 (Kirk) only short 10:50: Rider periods 00 [id number] Medication oral med Meds Active Sera assistance 3- (Kirk) required 10:50: Rider [id number] Medication potential Meds Active Sera clinically 3-27 (Kirk) significant 10:50: Rider medication 00 [id number] issue Musculoskel transfer Musculoske Resolve 2019-03-16 Sera etal assistance letal d 10-28 12:21:00 (Kirk) required 10:50: Rider [id number] Safety fire risk Safety Active Lilliam present 10-30 Drake 10:25: [id number] 00 Musculoskel requires Musculoske Resolve 2019-03-16 Marilyn etal human letal d -02 12:21:00 Lizzeth assist to 13:12: [id number] leave home 00 Nutrition nutritional Nutrition Resolve 2018-12-08 Marilyn risk d 11-10 13:53:00 Lizzeth 12:39: [id number] Nutrition knowledge/s Nutrition Resolve 2018-12-08 Marilyn kill d 11-10 13:53:00 Lizzeth deficit: pt 12:39: [id number] 00 Endo/Steven anti-coagul Endo/Steven Resolve 2018-12-01 Marilyn ation d 11-24 16:22:00 Lizzeth therapy 14:10: [id number] 00 Elimination urinary Eliminatio Resolve 2018-11-24 Marilyn incontinenc n d 11-24 14:10:00 Lizzeth e 14:10: [id number] 00 Elimination urinary Eliminatio Resolve 2018-12-08 Marilyn incontinenc n d 12-01 13:53:00 Lizzeth e 16:22: [id number] 00 Endo/Steven anti-coagul Endo/Steven Resolve 2019-01-07 Marilyn ation d 12-08 11:45:00 Lizzeth therapy 13:53: [id number] 00 Musculoskel knowledge/s Musculoske Resolve 2019-03-16 Marilyn etal kill letal d 12-08 12:21:00 Lizzeth deficit: pt 13:53: [id number] 00 Elimination urinary Eliminatio Resolve 2018-12-31 Marilyn incontinenc n d 12-15 14:10:00 Lizzeth e 13:30: [id number] 00 Pain frequent Pain Mgmt Active Marilyn pain 12-22 Lizzeth 13:45: [id number] 00 Elimination urinary Eliminatio Resolve 2019-02-16 Marilyn incontinenc n d 01-07 10:57:00 Lizzeth e 11:45: [id number] 00 Endo/Steven anti-coagul Endo/Steven Resolve 2019-02-16 Marilyn ation d 01-14 10:57:00 Lizzeth therapy 12:15: [id number] 00 Pain knowledge/s Pain Mgmt Resolve 2019-2019-05-04 Marilyn kill d 01-22 11:45:00 Lizzeth deficit: cg 12:43: [id number] 00 Safety cannot be Safety Resolve 2019-06-15 Marilyn left alone d 01-22 09:01:00 Lizzeth 12:43: [id number] 00 Safety knowledge/s Safety Resolve 2019-06-15 Marilyn kill d 01-22 09:01:00 Lizzeth deficit: cg 12:43: [id number] 00 Musculoskel knowledge/s Musculoske Resolve 2019-03-16 Marilyn etal kill letal d 01-22 12:21:00 Lizzeth deficit: cg 12:43: [id number] 00 Pain knowledge/s Pain Mgmt Resolve 2019-05-04 Marilyn kill d 01-26 11:45:00 Lizzeth deficit: pt 14:21: [id number] 00 Elimination recurring Eliminatio Resolve 2019-02-16 Marilyn UTI n d 01-26 10:57:00 Lizzeth 14:21: [id number] 00 Respiratory dyspnea Respirator Resolve 2019-04-27 Mariyln present y d 02-23 13:15:00 Lizzeth 14:30: [id number] 00 Endo/Steven anti-coagul Endo/Steven Resolve 2019-04-13 Marilyn ation d 02-23 10:57:00 Lizzeth therapy 14:30: [id number] 00 Integument skin Integument Resolve 2019-04-20 Marilyn integrity d 02-23 11:34:00 Lizzeth risk 14:30: [id number] 00 Elimination urinary Eliminatio Resolve 2019-04-20 Marilyn incontinenc n d 02-23 11:34:00 Lizzeth e 14:30: [id number] 00 Respiratory BiPAP Respirator Resolve 2019-06-15 Marilyn treatments y d 03-16 09:01:00 Lizzeth in home 12:21: [id number] 00 Social support LEATHA: Active Marilyn Services deficit Social 03-16 Lizzeth Services 12:21: [id number] 00 Musculoskel requires Musculoske Active Marilyn etal human letal 03-23 Lizzeth assist to 10:15: [id number] leave home 00 Respiratory CPAP Respirator Resolve 2019-06-15 Marilyn treatments y d 03-30 09:01:00 Lizzeth in home 12:50: [id number] 00 Musculoskel transfer Musculoske Active Lilliam etal assistance letal 04-20 Drake required 11:34: [id number] 00 Pain knowledge/s Pain Mgmt Active 2018-08 Tani kill 0-04 Kobziewicz deficit: pt 12:45: [id number] 00 Bed knowledge/s PT/OT: Bed Active 2018-08 Tani Mobility/Tr kill Mobility/T 0-04 Kobziewicz ansfer deficit: pt ransfer 12:45: [id number] 00 Balance/End balance/marketing technology coordinator PT/OT: Active 2018-08 Tani urance rdination Balance/En 0-04 Kobziewicz deficit durance 12:45: [id number] 00 OT: Self self-care OT: Active 2018-08 Tani Care deficit Self-Care 0-04 Kobziewicz 12:45: [id number] 00 OT: Self knowledge/s OT: Active 2018-08 Tani Care kill Self-Care 0-04 Kobziewicz deficit: pt 12:45: [id number] 00 Gait/Locomo stair PT/OT: Active 2018-08 Tani tion management Gait/Locom 0-04 Kobziewicz problems req otion 12:45: [id number] 00 Gait/Locomo knowledge/s PT/OT: Active 2018-08 Tani tion kill Gait/Locom 0-04 Kobziewicz problems deficit: pt otion 12:45: [id number] 00 Gait/Locomo gait PT/OT: Active 2018-08 Tani tion deficit Gait/Locom 0-04 Kobziewicz problems otion 12:45: [id number] 00 Endo/Steven anti-coagul Endo/Stveen Active 2018-08 Marilyn ation 1 Lizzeth therapy 14:16: [id number] 00 Activity self-care Activity Active 2018-08 Marilyn deficit 08-15 Lizzeth 09:01: [id number] 00 Activity ADL Activity Active 2018-08 Marilyn assistance 1-19 Lizzeth required 11:20: [id number] 00 Respiratory CPAP Respirator Active 2018-08 Marilyn treatments y 2- Lizzeth in home 11:22: [id number] 00 Respiratory dyspnea Respirator Active 2018-08 Marilyn present y - Lizzeth 16:14: [id number] 00 Allergies, Adverse Reactions, Alerts Allergy Allergy Status Severity Reaction(s) Onset Inactive Treating Comments Name Type Date Date Clinician Lipitor Unknown Active Unknown Reaction 2017-10 Lilliam Unknown -14 Drake [id number] Medications Ordered Filled Start Stop Current Ordering Indication Dosage Frequency Signature Comments Components Medication Medication Date Date Medication? Clinician (SIG) Name Name furosemide furosemide No [place] 1 Unknown 20 mg 20 mg ,Tramaine tablet tablet furosemide furosemide 2018- No Max Unknown Unknown 40 mg 40 mg 10-28 ,Omar J tablet tablet metFORMIN metFORMIN No [place] 1 Unknown 500 mg 500 mg ,Tramaine tablet tablet metoprolol metoprolol No Max Unknown Unknown succinate succinate 10-28 MDOmar Carin ER 50 mg ER 50 mg tablet,exte tablet,exte nded nded release 24 release 24 hr hr LORazepam LORazepam No [place] Unknown Unknown 0.5 mg 0.5 mg 10-28 MDTramaine tablet tablet gabapentin gabapentin 2018- No Max Unknown Unknown 300 mg 300 mg 10-28 ,Omar J capsule capsule anastrozole anastrozole 2018- No Max Unknown Unknown 1 mg tablet 1 mg tablet 10-28 ,Omar J sertraline sertraline No [place] 1 Unknown 100 mg 100 mg ,Tramaine tablet tablet Aspirin Low Aspirin Low No Max Unknown Unknown Dose 81 mg Dose 81 mg 10-28 ,Omar J tablet,roel tablet,roel yed release yed release simvastatin simvastatin No Max Unknown Unknown 40 mg 40 mg 10-28 ,Omar J tablet tablet meclizine meclizine No [place] 2oral Unknown 12.5 mg 12.5 mg ,Tramaine tablet tablet omeprazole omeprazole No Max Unknown Unknown 40 mg 40 mg 10-28 ,Omar J capsule,del capsule,del ayed ayed release release raNITIdine raNITIdine No [place] 1 Unknown 150 mg 150 mg Tramaine ESPINAL tablet tablet mirtazapine mirtazapine No [place] 1 Unknown 30 mg 30 mg Tramaine ESPINAL tablet tablet Nitrostat Nitrostat No [place] 1 Unknown 0.4 mg 0.4 mg Tramaine ESPINAL sublingual sublingual tablet tablet polyethylen polyethylen No Santana Unknown Unknown e glycol e glycol 10-28 ,Omar J 3350 (bulk) 3350 (bulk) granules granules cholecalcif cholecalcif No Max Unknown Unknown john john 10-28 ,Omar J (vitamin (vitamin D3) 5,000 D3) 5,000 unit unit capsule capsule HYDROcodone HYDROcodone No [place] 2 Unknown 7.5 7.5 Tramaine ESPINAL mg-acetamin mg-acetamin ophen 325 ophen 325 mg tablet mg tablet sucralfate sucralfate No [place] 1 Unknown 1 gram 1 gram Tramaine ESPINAL tablet tablet oxybutynin oxybutynin No Max Unknown Unknown chloride ER chloride ER 10-28 ,Omar J 10 mg 10 mg tablet,exte tablet,exte nded nded release 24 release 24 hr hr metroNIDAZO metroNIDAZO No [place] 1applic Unknown LE 0.75 % LE 0.75 [...] J tablet tablet HYDROcodone HYDROcodone 2018- No [place] Unknown Unknown 7.5 7.5 01-26 Tramaine ESPINAL [...]
--- OUTSIDE RECORDS SUMMARY | 2019-08-13 04:53 | XMS REPORT ---
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 [id number] with with diabetic diabetic neuropathy, neuropathy, unspecified unspecified 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 angina angina pectoris pectoris Cervicalgia Cervicalgia Diagnosis Active Marilyn 08-04 Lizzeth [id number] Other Other Diagnosis Active Marilyn chronic chronic 08-04 Lizzeth pain pain [id number] Generalized Generalized Diagnosis Active Marilyn anxiety anxiety Lizzeth disorder disorder [id number] 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, disorder, [id number] single single episode, episode, unspecified unspecified Personal Personal Diagnosis Active Marilyn history of history of Lizzeth urinary urinary [id number] (tract) (tract) infections infections Obstructive Obstructive Diagnosis Active Marilyn sleep apnea sleep apnea Lizzeth (adult) (adult) [id number] (pediatric) (pediatric) Morbid Morbid Diagnosis Active Marilyn (severe) (severe) Lizzeth obesity due obesity due [id number] to excess to excess calories calories History of History of Diagnosis Active Marilyn falling falling Lizzeth [id number] Pain frequent Pain Mgmt Resolve 2018-2018-12-01 Sera pain d 3-27 16:22:00 (Kirk) 10:50: Rider [id number] Cardio edema Cardiovasc Resolve 2019-04-27 Sera ular d 3-27 13:15:00 (Kirk) 10:50: Rider [id number] Respiratory dyspnea Respirator Resolve 2019-02-16 Sera present y d 3-27 10:57:00 (Kirk) 10:50: Rider [id number] Respiratory CPAP Respirator Resolve 2019-02-16 Sera treatments y d 3-27 10:57:00 (Kirk) in home 10:50: Rider [id number] Endo/Steven anti-coagul Endo/Steven Resolve 2018-11-17 Sera ation d 3-27 14:30:00 (Kirk) therapy 10:50: Rider [id number] Sensory impaired Sensory Active Sera hearing 3- (Kirk) 10:50: Rider [id number] Integument skin Integument Resolve 2018-12-31 Sera integrity d 3-27 14:10:00 (Kirk) risk 10:50: Rider [id number] Elimination urinary Eliminatio Resolve 2018-11-17 Sera incontinenc n d 3-27 14:30:00 (Kirk) e 10:50: Rider [id number] Elimination UTI within Eliminatio Resolve 2018-11-17 Sera past 14 n d 3-27 14:30:00 (Kirk) days 10:50: Rider [id number] Elimination bowel Eliminatio Resolve 2018-11-17 Sera incontinenc n d 3-27 14:30:00 (Kirk) e 10:50: Rider [id number] Neuro confusion Neuro/Emot Active Sera present ion 3-27 (Kirk) 10:50: Rider 00 [id number] Neuro anxiety Neuro/Emot Active Sera present ion 3-27 (Kirk) 10:50: Rider [id number] Neuro depressive Neuro/Emot Active Sera feelings ion 3-27 (Kirk) present 10:50: Rider [id number] Neuro impaired Neuro/Emot Active Sera decision-ma ion 3-27 (Kirk) [place] 10:50: Rider [id number] Neuro memory Neuro/Emot Active Sera deficit ion 3-27 (Kirk) needing 10:50: Rider supervision 00 [id number] Activity ADL Activity Resolve 2018-2019-04-13 Sera assistance d 3-27 10:57:00 (Kirk) required 10:50: Rider [id number] Activity self-care Activity Resolve 2018-2019-04-13 Sera deficit d 3-27 10:57:00 (Kirk) 10:50: Rider [id number] Safety structural Safety Resolve 2018-2019-06-15 Sera barriers d 3- 09:01:00 (Kirk) present 10:50: Rider [id number] Safety sanitation Safety Resolve 2018-2019-06-15 Sera hazards d 3- 09:01:00 (Kirk) present 10:50: Rider [id number] Safety fall risk Safety Active Sera factor 3- (Kirk) present 10:50: Rider [id number] Safety risk for Safety Active Sera hospitaliza 3- (Kirk) tion 10:50: Rider [id number] Safety can be left Safety Resolve 2018-2019-06-15 Sera alone for d 3- 09:01:00 (Kirk) only short 10:50: Rider periods 00 [id number] Medication oral med Meds Active Sera assistance 3- (Kirk) required 10:50: Rider [id number] Medication potential Meds Active Sera clinically 3-27 (Kirk) significant 10:50: Rider medication 00 [id number] issue Musculoskel transfer Musculoske Resolve 2019-03-16 Sera etal assistance letal d 10-28 12:21:00 (Kirk) required 10:50: Rider [id number] Safety fire risk Safety Active Lilliam present 10-30 Drake 10:25: [id number] 00 Musculoskel requires Musculoske Resolve 2019-03-16 Marilyn etal human letal d -02 12:21:00 Lizzeth assist to 13:12: [id number] leave home 00 Nutrition nutritional Nutrition Resolve 2018-12-08 Marilyn risk d 11-10 13:53:00 Lizzeth 12:39: [id number] 00 Nutrition knowledge/s Nutrition Resolve 2018-12-08 Marilyn kill d 11-10 13:53:00 Lizzeth deficit: pt 12:39: [id number] 00 Endo/Steven anti-coagul Endo/Steven Resolve 2018-12-01 Marilyn ation d 11-24 16:22:00 Lizzeth therapy 14:10: [id number] 00 Elimination urinary Eliminatio Resolve 2018-11-24 Marilyn incontinenc n d 11-24 14:10:00 Lizzeth e 14:10: [id number] 00 Elimination urinary Eliminatio Resolve 2018-12-08 Marilyn incontinenc n d 12-01 13:53:00 Lizzeth e 16:22: [id number] 00 Endo/Steven anti-coagul Endo/Steven Resolve 2019-01-07 Marilyn ation d 12-08 11:45:00 Lizzeth therapy 13:53: [id number] 00 Musculoskel knowledge/s Musculoske Resolve 2019-03-16 Marilyn etal kill letal d 12-08 12:21:00 Lizzeth deficit: pt 13:53: [id number] 00 Elimination urinary Eliminatio Resolve 2018-12-31 Marilyn incontinenc n d 12-15 14:10:00 Lizzeth e 13:30: [id number] Pain frequent Pain Mgmt Active Marilyn pain 12-22 Lizzeth 13:45: [id number] 00 Elimination urinary Eliminatio Resolve 2019-02-16 Marilyn incontinenc n d 01-07 10:57:00 Lizzeth e 11:45: [id number] 00 Endo/Steven anti-coagul Endo/Steven Resolve 2019-02-16 Marilyn ation d 01-14 10:57:00 Lizzeth therapy 12:15: [id number] 00 Pain knowledge/s Pain Mgmt Resolve 2019-2019-05-04 Marilyn kill d 01-22 11:45:00 Lizzeth deficit: cg 12:43: [id number] 00 Safety cannot be Safety Resolve 2019-06-15 Marilyn left alone d 01-22 09:01:00 Lizzeth 12:43: [id number] 00 Safety knowledge/s Safety Resolve 2019-06-15 Marilyn kill d 01-22 09:01:00 Lizzeth deficit: cg 12:43: [id number] 00 Musculoskel knowledge/s Musculoske Resolve 2019-03-16 Marilyn etal kill letal d 01-22 12:21:00 Lizzeth deficit: cg 12:43: [id number] 00 Pain knowledge/s Pain Mgmt Resolve 2019-05-04 Marilyn kill d 01-26 11:45:00 Lizzeth deficit: pt 14:21: [id number] 00 Elimination recurring Eliminatio Resolve 2019-02-16 Marilyn UTI n d 01-26 10:57:00 Lizzeth 14:21: [id number] 00 Respiratory dyspnea Respirator Resolve 2019-04-27 Marilyn present y d 02-23 13:15:00 Lizzeth 14:30: [id number] 00 Endo/Steven anti-coagul Endo/Steven Resolve 2019-04-13 Marilyn ation d 02-23 10:57:00 Lizzeth therapy 14:30: [id number] 00 Integument skin Integument Resolve 2019-04-20 Marilyn integrity d 02-23 11:34:00 Lizzeth risk 14:30: [id number] 00 Elimination urinary Eliminatio Resolve 2019-04-20 Marilyn incontinenc n d 02-23 11:34:00 Lizzeth e 14:30: [id number] 00 Respiratory BiPAP Respirator Resolve 2019-06-15 Marilyn treatments y d 03-16 09:01:00 Lizzeth in home 12:21: [id number] 00 Social support LEATHA: Active Marilyn Services deficit Social 03-16 Lizzeth Services 12:21: [id number] 00 Musculoskel requires Musculoske Active Marilyn etal human letal 03-23 Lizzeth assist to 10:15: [id number] leave home 00 Respiratory CPAP Respirator Resolve 2019-06-15 Marilyn treatments y d 03-30 09:01:00 Lizzeth in home 12:50: [id number] 00 Musculoskel transfer Musculoske Active Lilliam etal assistance letal 04-20 Drake required 11:34: [id number] Pain knowledge/s Pain Mgmt Active 2018-08 Tani kill 0-04 Kobziewicz deficit: pt 12:45: [id number] 00 Bed knowledge/s PT/OT: Bed Active 2018-08 Tani Mobility/Tr kill Mobility/T 0-04 Kobziewicz ansfer deficit: pt ransfer 12:45: [id number] 00 Balance/End balance/magnetic resonance imaging coordinator PT/OT: Active 2018-08 Tani urance rdination Balance/En 0-04 Kobziewicz deficit durance 12:45: [id number] 00 OT: Self self-care OT: Active 2018-08 Tani Care deficit Self-Care 0-04 Kobziewicz 12:45: [id number] 00 OT: Self knowledge/s OT: Active 2018-08 Tani Care kill Self-Care 0-04 Kobziewicz deficit: pt 12:45: [id number] 00 Gait/Locomo stair PT/OT: Active 2018-08 Tani tion management Gait/Locom 0-04 Kobziewicz problems req otion 12:45: [id number] 00 Gait/Locomo knowledge/s PT/OT: Active 2018-08 Tani tion kill Gait/Locom 0-04 Kobziewicz problems deficit: pt otion 12:45: [id number] 00 Gait/Locomo gait PT/OT: Active 2018-08 Tani tion deficit Gait/Locom 0-04 Kobziewicz problems otion 12:45: [id number] 00 Endo/Steven anti-coagul Endo/Steven Active 2018-08 Marilyn ation 1 Lizzeth therapy 14:16: [id number] 00 Activity self-care Activity Active 2018-08 Marilyn deficit 08-15 Lizzeth 09:01: [id number] 00 Activity ADL Activity Active 2018-08 Marilyn assistance 1-19 Lizzeth required 11:20: [id number] 00 Respiratory CPAP Respirator Active 2018-08 Marilyn treatments y 2-17 Lizzeth in home 11:22: [id number] 00 Allergies, Adverse Reactions, Alerts Allergy Allergy Status Severity Reaction(s) Onset Inactive Treating Comments Name Type Date Date Clinician Lipitor Unknown Active Unknown Reaction 2017-10 Lilliam Unknown -14 Drake [id number] Medications Ordered Filled Start Stop Current Ordering Indication Dosage Frequency Signature Comments Components Medication Medication Date Date Medication? Clinician (SIG) Name Name furosemide furosemide No [place] 1 Unknown 20 mg 20 mg MD,Tramaine tablet tablet furosemide furosemide 2018- Max Unknown Unknown 40 mg 40 mg 10-28 ,Omar J tablet tablet metFORMIN metFORMIN No [place] 1 Unknown 500 mg 500 mg MD,Tramaine tablet tablet metoprolol metoprolol No Max Unknown Unknown succinate succinate 10-28 ,Omar J ER 50 mg ER 50 mg tablet,exte tablet,exte nded nded release 24 release 24 hr hr LORazepam LORazepam No [place] Unknown Unknown 0.5 mg 0.5 mg 10-28 ,Tramaine tablet tablet gabapentin gabapentin 2018- No Max Unknown Unknown 300 mg 300 mg 10-28 ,Omar J capsule capsule anastrozole anastrozole 2018- No Max Unknown Unknown 1 mg tablet 1 mg tablet 10-28 ,Omar J sertraline sertraline No [place] 1 Unknown 100 mg 100 mg ,Tramaine tablet tablet Aspirin Low Aspirin Low No Max Unknown Unknown Dose 81 mg Dose 81 mg 10-28 ,Omar J tablet,roel tablet,roel yed release yed release simvastatin simvastatin No Max Unknown Unknown 40 mg 40 mg 10-28 ,Omar J tablet tablet meclizine meclizine No [place] 2oral Unknown 12.5 mg 12.5 mg ,Tramaine tablet tablet omeprazole omeprazole No Max Unknown Unknown 40 mg 40 mg 10-28 ,Omar J capsule,del capsule,del ayed ayed release release raNITIdine raNITIdine No [place] 1 Unknown 150 mg 150 mg MD,Tramaine tablet tablet mirtazapine mirtazapine No [place] 1 Unknown 30 mg 30 mg Tramaine ESPINAL tablet tablet Nitrostat Nitrostat No [place] 1 Unknown 0.4 mg 0.4 mg Tramaine ESPINAL sublingual sublingual tablet tablet polyethylen polyethylen No Max Unknown Unknown e glycol e glycol 10-28 ,Omar Carin 3350 (bulk) 3350 (bulk) granules granules cholecalcif cholecalcif No Max Unknown Unknown john john 10-28 ,Omar Carin (vitamin (vitamin D3) 5,000 D3) 5,000 unit unit capsule capsule HYDROcodone HYDROcodone No [place] 2 Unknown 7.5 7.5 Tramaine ESPINAL mg-acetamin mg-acetamin ophen 325 ophen 325 mg tablet mg tablet sucralfate sucralfate No [place] 1 Unknown 1 gram 1 gram Tramaine ESPINAL tablet tablet oxybutynin oxybutynin No Max Unknown Unknown chloride ER chloride ER 10-28 Adriel ESPINALed Carin 10 mg 10 mg tablet,exte tablet,exte nded nded release 24 release 24 hr hr metroNIDAZO metroNIDAZO No [place] 1applic Unknown LE 0.75 % LE 0.75 [...] J tablet tablet HYDROcodone HYDROcodone 2018- No [place] Unknown Unknown 7.5 7.5 01-26 Tramaine ESPINAL [...] Unknown 10 mg 10 mg 0-29 ,Omar J tablet tablet methylPREDN methylPREDN 2018-08- Yes Ellis Unknown Unknown ISolone 4 ISolone 4 08-08 ,Vladislav mg tablets mg tablets in a dose in a dose pack pack metaxalone metaxalone 2018-08 Yes Ellis Unknown Unknown 400 mg 400 mg - ,Vladislav tablet tablet amoxicillin amoxicillin 2018-08- Yes Ellis Unknown Unknown [id number] 08-08 ,Vladislav mg-potassiu mg-potassiu m m clavulanate clavulanate 125 mg 125 mg tablet tablet cefdinir cefdinir 2018-08 Yes Santana Unknown Unknown 300 mg 300 mg 2-24 ,Omar Carin capsule capsule Vital Signs Vital Name Observation [...]
--- OUTSIDE RECORDS SUMMARY | 2019-08-13 04:53 | XMS REPORT ---
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, neuropathy, unspecified unspecified 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 angina pectoris pectoris Cervicalgia Cervicalgia Diagnosis Active Marilyn 08-04 Lizzeth [id number] Other Other Diagnosis Active Marilyn chronic chronic 08-04 Lizzeth pain pain [id number] Generalized Generalized Diagnosis Active Marilyn anxiety anxiety Lizzeth disorder disorder [id number] 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, disorder, [id number] single single episode, episode, unspecified unspecified Personal Personal Diagnosis Active Marilyn history of history of Lizzeth urinary urinary [id number] (tract) (tract) infections infections Obstructive Obstructive Diagnosis Active Marilyn sleep apnea sleep apnea Lizzeth (adult) (adult) [id number] (pediatric) (pediatric) Morbid Morbid Diagnosis Active Marilyn (severe) (severe) Lizzeth obesity due obesity due [id number] to excess to excess calories calories History of History of Diagnosis Active Marilyn falling falling Lizzeth [id number] Pain frequent Pain Mgmt Resolve 2018-2018-12-01 Sera pain d 3-27 16:22:00 (Kirk) 10:50: Rider [id number] Cardio edema Cardiovasc Resolve 2019-04-27 Sera ular d 3-27 13:15:00 (Kirk) 10:50: Rider [id number] Respiratory dyspnea Respirator Resolve 2019-02-16 Sera present y d 3-27 10:57:00 (Kirk) 10:50: Rider [id number] Respiratory CPAP Respirator Resolve 2019-02-16 Sera treatments y d 3-27 10:57:00 (Kirk) in home 10:50: Rider [id number] Endo/Steven anti-coagul Endo/Steven Resolve 2018-11-17 Sera ation d 3-27 14:30:00 (Kirk) therapy 10:50: Rider [id number] Sensory impaired Sensory Active Sera hearing 3- (Kirk) 10:50: Rider [id number] Integument skin Integument Resolve 2018-12-31 Sera integrity d 3-27 14:10:00 (Kirk) risk 10:50: Rider [id number] Elimination urinary Eliminatio Resolve 2018-11-17 Sera incontinenc n d 3-27 14:30:00 (Kirk) e 10:50: Rider [id number] Elimination UTI within Eliminatio Resolve 2018-11-17 Sera past 14 n d 3-27 14:30:00 (Kirk) days 10:50: Rider [id number] Elimination bowel Eliminatio Resolve 2018-11-17 Sera incontinenc n d 3-27 14:30:00 (Kirk) e 10:50: Rider [id number] Neuro confusion Neuro/Emot Active Sera present ion 3-27 (Kirk) 10:50: Rider 00 [id number] Neuro anxiety Neuro/Emot Active Sera present ion 3-27 (Kirk) 10:50: Rider [id number] Neuro depressive Neuro/Emot Active Sera feelings ion 3-27 (Kirk) present 10:50: Rider [id number] Neuro impaired Neuro/Emot Active Sera decision-ma ion 3-27 (Kirk) camilla 10:50: Rider [id number] Neuro memory Neuro/Emot Active Sera deficit ion 3-27 (Kirk) needing 10:50: Rider supervision 00 [id number] Activity ADL Activity Resolve 2018-2019-04-13 Sera assistance d 3-27 10:57:00 (Kirk) required 10:50: Rider [id number] Activity self-care Activity Resolve 2018-2019-04-13 Sera deficit d 3-27 10:57:00 (Kirk) 10:50: Rider [id number] Safety structural Safety Resolve 2018-2019-06-15 Sera barriers d 3- 09:01:00 (Kirk) present 10:50: Rider [id number] Safety sanitation Safety Resolve 2018-2019-06-15 Sera hazards d 3- 09:01:00 (Kirk) present 10:50: Rider [id number] Safety fall risk Safety Active Sera factor 3- (Kirk) present 10:50: Rider [id number] Safety risk for Safety Active Sera hospitaliza 3- (Kirk) tion 10:50: Rider [id number] Safety can be left Safety Resolve 2018-2019-06-15 Sera alone for d 3- 09:01:00 (Kirk) only short 10:50: Rider periods 00 [id number] Medication oral med Meds Active Sera assistance 3- (Kirk) required 10:50: Rider [id number] Medication potential Meds Active Srea clinically 3-27 (Kirk) significant 10:50: Rider medication 00 [id number] issue Musculoskel transfer Musculoske Resolve 2019-03-16 Sera etal assistance letal d 10-28 12:21:00 (Kirk) required 10:50: Rider [id number] Safety fire risk Safety Active Lilliam present 10-30 Drake 10:25: [id number] Musculoskel requires Musculoske Resolve 2019-03-16 Marilyn etal human letal d -02 12:21:00 Lizzeth assist to 13:12: [id number] leave home 00 Nutrition nutritional Nutrition Resolve 2018-12-08 Marilyn risk d 11-10 13:53:00 Lizzeth 12:39: [id number] 00 Nutrition knowledge/s Nutrition Resolve 2018-12-08 Marilyn kill d 11-10 13:53:00 Lizzeth deficit: pt 12:39: [id number] 00 Endo/Steven anti-coagul Endo/Steven Resolve 2018-12-01 Marilyn ation d 11-24 16:22:00 Lizzeth therapy 14:10: [id number] 00 Elimination urinary Eliminatio Resolve 2018-11-24 Marilyn incontinenc n d 11-24 14:10:00 Lizzeth e 14:10: [id number] 00 Elimination urinary Eliminatio Resolve 2018-12-08 Marilyn incontinenc n d 12-01 13:53:00 Lizzeth e 16:22: [id number] 00 Endo/Steven anti-coagul Endo/Steven Resolve 2019-01-07 Marilyn ation d 12-08 11:45:00 Lizzeth therapy 13:53: [id number] 00 Musculoskel knowledge/s Musculoske Resolve 2019-03-16 Marilyn etal kill letal d 12-08 12:21:00 Lizzeth deficit: pt 13:53: [id number] 00 Elimination urinary Eliminatio Resolve 2018-12-31 Marilyn incontinenc n d 12-15 14:10:00 Lizzeth e 13:30: [id number] 00 Pain frequent Pain Mgmt Active Marilyn pain 12-22 Lizzeth 13:45: [id number] 00 Elimination urinary Eliminatio Resolve 2019-02-16 Marilyn incontinenc n d 01-07 10:57:00 Lizzeth e 11:45: [id number] 00 Endo/Steven anti-coagul Endo/Steven Resolve 2019-02-16 Marilyn ation d 01-14 10:57:00 Lizzeth therapy 12:15: [id number] 00 Pain knowledge/s Pain Mgmt Resolve 2019-2019-05-04 Marilyn kill d 01-22 11:45:00 Lizzeth deficit: cg 12:43: [id number] 00 Safety cannot be Safety Resolve 2019-06-15 Marilyn left alone d 01-22 09:01:00 Lizzeth 12:43: [id number] 00 Safety knowledge/s Safety Resolve 2019-06-15 Marilyn kill d 01-22 09:01:00 Lizzeth deficit: cg 12:43: [id number] 00 Musculoskel knowledge/s Musculoske Resolve 2019-03-16 Marilyn etal kill letal d 01-22 12:21:00 Lizzeth deficit: cg 12:43: [id number] 00 Pain knowledge/s Pain Mgmt Resolve 2019-05-04 Marilyn kill d 01-26 11:45:00 Lizzeth deficit: pt 14:21: [id number] 00 Elimination recurring Eliminatio Resolve 2019-02-16 Marilyn UTI n d 01-26 10:57:00 Lizzeth 14:21: [id number] 00 Respiratory dyspnea Respirator Resolve 2019-04-27 Marilyn present y d 02-23 13:15:00 Lizzeth 14:30: [id number] 00 Endo/Steven anti-coagul Endo/Steven Resolve 2019-04-13 Marilyn ation d 02-23 10:57:00 Lizzeth therapy 14:30: [id number] 00 Integument skin Integument Resolve 2019-04-20 Marilyn integrity d 02-23 11:34:00 Lizzeth risk 14:30: [id number] 00 Elimination urinary Eliminatio Resolve 2019-04-20 Marilyn incontinenc n d 02-23 11:34:00 Lizzeth e 14:30: [id number] 00 Respiratory BiPAP Respirator Resolve 2019-06-15 Marilyn treatments y d 03-16 09:01:00 Lizzeth in home 12:21: [id number] 00 Social support LEATHA: Active Marilyn Services deficit Social 03-16 Lizzeth Services 12:21: [id number] 00 Musculoskel requires Musculoske Active Marilyn etal human letal 03-23 Lizzeth assist to 10:15: [id number] leave home 00 Respiratory CPAP Respirator Resolve 2019-06-15 Marilyn treatments y d 8 09:01:00 Lizzeth in home 12:50: [id number] 00 Musculoskel transfer Musculoske Active Lilliam etal assistance letal 04-20 Drake required 11:34: [id number] Pain knowledge/s Pain Mgmt Resolve 2018-082019-08-10 Tani kill d 0-04 12:00:00 Kobziewicz deficit: pt 12:45: [id number] 00 Bed knowledge/s PT/OT: Bed Active 2018-08 Tani Mobility/Tr kill Mobility/T 0-04 Kobziewicz ansfer deficit: pt ransfer 12:45: [id number] 00 Balance/End balance/shipping and receiving coordinator PT/OT: Active 2018-08 Tani urance rdination Balance/En 0-04 Kobziewicz deficit durance 12:45: [id number] 00 OT: Self self-care OT: Active 2018-08 Tani Care deficit Self-Care 0-04 Kobziewicz 12:45: [id number] 00 OT: Self knowledge/s OT: Active 2018-08 Tani Care kill Self-Care 0-04 Kobziewicz deficit: pt 12:45: [id number] 00 Gait/Locomo stair PT/OT: Active 2018-08 Tani tion management Gait/Locom 0-04 Kobziewicz problems req otion 12:45: [id number] Gait/Locomo knowledge/s PT/OT: Active 2018-08 Tani tion kill Gait/Locom 0-04 Kobziewicz problems deficit: pt otion 12:45: [id number] 00 Gait/Locomo gait PT/OT: Active 2018-08 Tani tion deficit Gait/Locom 0-04 Kobziewicz problems otion 12:45: [id number] 00 Endo/Steven anti-coagul Endo/Steven Active 2018-08 Marilyn ation 08-08 Lizzeth therapy 14:16: [id number] 00 Activity self-care Activity Active 2018-08 Marilyn deficit 1-12 Lizzeth 09:01: [id number] 00 Activity ADL Activity Active 2018-08 Marilyn assistance -19 Lizzeth required 11:20: [id number] 00 Respiratory CPAP Respirator Active 2018-08 Marilyn treatments y 2-17 Lizzeth in home 11:22: [id number] 00 Respiratory dyspnea Respirator Active 2018-08 Marilyn present y Lizzeth 16:14: [id number] 00 Allergies, Adverse Reactions, Alerts Allergy Allergy Status Severity Reaction(s) Onset Inactive Treating Comments Name Type Date Date Clinician Lipitor Unknown Active Unknown Reaction 2017-10 Lilliam Unknown -14 Drake [id number] Medications Ordered Filled Start Stop Current Ordering Indication Dosage Frequency Signature Comments Components Medication Medication Date Date Medication? Clinician (SIG) Name Name furosemide furosemide [facility] 1 Unknown 20 mg 20 mg MD,Tramaine tablet tablet furosemide furosemide 2018- No Max Unknown Unknown 40 mg 40 mg 10-28 ,Omar J tablet tablet metFORMIN metFORMIN [address] 1 Unknown 500 mg 500 mg ,NetMovie tablet tablet metoprolol metoprolol No Max Unknown Unknown succinate succinate 10-28 MDOmar Carin ER 50 mg ER 50 mg tablet,exte tablet,exte nded nded release 24 release 24 hr hr LORazepam LORazepam No Plaza Unknown Unknown 0.5 mg 0.5 mg 10-28 ,NetMovie tablet tablet gabapentin gabapentin 2018- No Max Unknown Unknown 300 mg 300 mg 10-28 ,Omar J capsule capsule anastrozole anastrozole 2018- No Max Unknown Unknown 1 mg tablet 1 mg tablet 10-28 ,Omar J sertraline sertraline [facility] [address] 1 Unknown 100 mg 100 mg ,Tramaine tablet tablet Aspirin Low Aspirin Low No Max Unknown Unknown Dose 81 mg Dose 81 mg 10-28 ,Omar J tablet,roel tablet,roel yed release yed release simvastatin simvastatin No Max Unknown Unknown 40 mg 40 mg 10-28 ,Omar J tablet tablet meclizine meclizine No Plaza 2oral Unknown 12.5 mg 12.5 mg ,NetMovie tablet tablet omeprazole omeprazole No Max Unknown Unknown 40 mg 40 mg 10-28 ,Omar J capsule,del capsule,del ayed ayed release release raNITIdine raNITIdine No [address] 1 Unknown 150 mg 150 mg Tramaine ESPINAL tablet tablet mirtazapine mirtazapine No Plaza 1 Unknown 30 mg 30 mg Tramaine ESPINAL tablet tablet Nitrostat Nitrostat No Plaza 1 Unknown 0.4 mg 0.4 mg Tramaine ESPINAL sublingual sublingual tablet tablet polyethylen polyethylen No Max Unknown Unknown e glycol e glycol 10-28 ,Omar Carin 3350 (bulk) 3350 (bulk) granules granules cholecalcif cholecalcif No Max Unknown Unknown john john 10-28 ,Omar Carin (vitamin (vitamin D3) 5,000 D3) 5,000 unit unit capsule capsule HYDROcodone HYDROcodone No [address] 2 Unknown 7.5 7.5 Tramaine ESPINAL mg-acetamin mg-acetamin ophen 325 ophen 325 mg tablet mg tablet sucralfate sucralfate No Plaza 1 Unknown 1 gram 1 gram Tramaine ESPINAL tablet tablet oxybutynin oxybutynin No Max Unknown Unknown chloride ER chloride ER 10-28 ,Omar Carin 10 mg 10 mg tablet,exte tablet,exte nded nded release 24 release 24 hr hr metroNIDAZO metroNIDAZO No Plaza 1applic Unknown LE 0.75 % LE 0.75 % Tramaine ESPINAL ation lotion lotion lisinopril lisinopril 2019- No Max Unknown Unknown 10 mg 10 mg 10-28 ,Omar Carin tablet tablet levothyroxi levothyroxi No Max Unknown Unknown ne 25 mcg ne 25 mcg 10-28 ,Omar Carin capsule capsule meclizine meclizine No Max Unknown Unknown 25 mg 25 mg 10-28 ,Omar J tablet tablet sulfamethox sulfamethox 2018- No Max Unknown Unknown azole 800 azole 800 10-28 04 ,Omar Carin mg-trimetho mg-trimetho prim 160 mg prim 160 mg tablet tablet triamcinolo triamcinolo No Max Unknown Unknown ne ne 10-28 ,Omar Carin acetonide acetonide 0.1 % 0.1 % topical topical cream cream venlafaxine venlafaxine Lyric Santana Unknown Unknown ER 75 mg ER 75 mg 10-28 ,Omar J capsule,ext capsule,ext ended ended release 24 release 24 hr hr sulfamethox sulfamethox No Max Unknown Unknown azole 400 azole 400 12-01 ,Omar Carin mg-trimetho mg-trimetho prim 80 mg prim 80 mg tablet tablet traMADol 50 traMADol 50 2018- No Max Unknown Unknown mg tablet mg tablet 12-01 ,Omar Carin HYDROcodone HYDROcodone 2018- No Sant[place] Unknown Unknown 7.5 7.5 12-02 ,Omar Carin mg-acetamin mg-acetamin ophen 325 ophen 325 mg tablet mg tablet gabapentin gabapentin 2018- No Max Unknown Unknown 300 mg 300 mg 10-28 ,Omar J capsule capsule sertraline sertraline 2018- No Max Unknown Unknown 100 mg 100 mg 12-22 ,Omar Carin tablet tablet HYDROcodone HYDROcodone 2018- No Plaza Unknown Unknown 7.5 7.5 01-26 Tramaine ESPINAL mg-acetamin mg-acetamin ophen 325 ophen 325 mg tablet mg tablet nitrofurant nitrofurant No Max Unknown Unknown oin oin 03-17 ,Omar Carin macrocrysta macrocrysta l 50 mg l 50 mg capsule capsule ibuprofen ibuprofen No Max Unknown Unknown 600 mg 600 mg 03-17 ,Omar Carin tablet tablet buprenorphi buprenorphi 2018- No Max Unknown Unknown ne 10 ne 10 04-13 Omar ESPINAL mcg/hour mcg/hour weekly weekly transdermal transdermal patch patch buprenorphi buprenorphi No [place] Unknown Unknown ne 10 ne 10 04-13 Brian ESPINAL mcg/hour mcg/hour weekly weekly transdermal transdermal patch patch metroNIDAZO metroNIDAZO No Max Unknown Unknown LE 0.75 % LE 0.75 % 04-22 ,Omar Carin topical gel topical gel cefdinir cefdinir 2018- No Max Unknown Unknown 300 mg 300 mg 04-22 ,Omar Carin capsule capsule furosemide furosemide 2018-08 No Max Unknown Unknown 40 mg 40 mg 0 ,Omar J tablet tablet gabapentin gabapentin No [place] Unknown Unknown 300 mg 300 mg 3- ,Omar J capsule capsule traMADol 50 traMADol 50 2018-08 No [place] Unknown Unknown mg tablet mg tablet 0-08 ,Brian lisinopril lisinopril 2018-08 Yes Santana Unknown Unknown 10 mg 10 mg 0- ,Omar J tablet tablet methylPREDN methylPREDN 2018-08- Yes Ellis Unknown Unknown ISolone 4 ISolone 4 08-08 MD,Vladislav mg tablets mg tablets in a dose [...] Observation Time Observation Value Comments SYSTOLIC mm[Hg] 2019-08-10 18:09:45 132 mm[Hg] mm[Hg] Method: Sit SYSTOLIC mm[Hg] 2019-04-27 18:08:00 124 mm[Hg] mm[Hg] Method: Stand DIASTOLIC mm[Hg] 2019-08-10 18:09:45 82 mm[Hg] mm[Hg] Method: Sit DIASTOLIC mm[Hg] 2019-04-27 18:08:00 82 mm[Hg] mm[Hg] Method: Stand PULSE 2019-08-10 18:09:45 65 /min /min RESP RATE 2019-08-10 18:09:45 18 /min /min TEMP 2019-08-10 18:09:45 96 [degF] Procedures This patient has no known procedures. Results This patient has no known results.
--- OUTSIDE RECORDS SUMMARY | 2019-08-13 04:54 | XMS REPORT ---
:1940 Author Organization [facility] Care Team Providers Name Role Phone Unavailable Unavailable Unavailable Problems Condition Condition Condition Status Onset Resolution Last Treating Comments Name Details Category Date Date Treatment Clinician Date Pain frequent Pain Mgmt Resolve 2018-12-01 Sera pain d 3- 16:22:00 (Kirk) 10:50: Rider 00 [id number] Cardio edema Cardiovasc Resolve 2019-04-27 Sera ular d 3 13:15:00 (Kirk) 10:50: Riedr 00 [id number] Respiratory dyspnea Respirator Resolve 2019-02-16 Sera present y d 3- 10:57:00 (Kirk) 10:50: Rider 00 [id number] Respiratory CPAP Respirator Resolve 2019-02-16 Sera treatments y d 3-27 10:57:00 (Kirk) in home 10:50: Rider 00 [id number] Endo/Steven anti-coagul Endo/Steven Resolve 2018-11-17 Sera ation d 3-27 14:30:00 (Kirk) therapy 10:50: Rider 00 [id number] Sensory impaired Sensory Active Sera hearing 3 (Kirk) 10:50: Rider 00 [id number] Integument skin Integument Resolve 2018-12-31 Sera integrity d 3- 14:10:00 (Kirk) risk 10:50: Rider 00 [id number] Elimination urinary Eliminatio Resolve 2018-11-17 Sera incontinenc n d 3-27 14:30:00 (Kirk) e 10:50: Rider 00 [id number] Elimination UTI within Eliminatio Resolve 2018-11-17 Sera past 14 n d 3-27 14:30:00 (Kirk) days 10:50: Rider 00 [id number] Elimination bowel Eliminatio Resolve 2018-2018-11-17 Sera incontinenc n d 3- 14:30:00 (Kirk) e 10:50: Rider [id number] Neuro confusion Neuro/Emot Active Sera present ion 3-27 (Kirk) 10:50: Rider [id number] Neuro anxiety Neuro/Emot Active Sera present ion 3 (Kirk) 10:50: Rider [id number] Neuro depressive Neuro/Emot Active Sera feelings ion 3 (Kirk) present 10:50: Rider [id number] Neuro impaired Neuro/Emot Active Sera decision-ma ion 10-28 (Kirk) camilla 10:50: Rider [id number] Neuro memory Neuro/Emot Active Sera deficit ion 10-28 (Kirk) needing 10:50: Rider supervision 00 [id number] Activity ADL Activity Resolve 2019-04-13 Sera assistance d 10-28 10:57:00 (Kirk) required 10:50: Rider [id number] Activity self-care Activity Resolve 2019-04-13 Sera deficit d 3 10:57:00 (Kirk) 10:50: Rider [id number] Safety structural Safety Resolve 2019-06-15 Sera barriers d 3 09:01:00 (Kirk) present 10:50: Rider [id number] Safety sanitation Safety Resolve 2019-06-15 Sera hazards d 3 09:01:00 (Kirk) present 10:50: Irder [id number] Safety fall risk Safety Active Sera factor 3- (Kirk) present 10:50: Rider [id number] Safety risk for Safety Active Sera hospitaliza 10-28 (Kirk) tion 10:50: Rider [id number] Safety can be left Safety Resolve 2019-06-15 Sera alone for d 3- 09:01:00 (Kirk) only short 10:50: Rider 00 [id number] Medication oral med Meds Active Sera assistance 3 (Kirk) required 10:50: Rider [id number] Medication potential Meds Active Sera clinically 10-28 (Kirk) significant 10:50: Rider medication 00 [id number] issue Musculoskel transfer Musculoske Resolve 2019-03-16 Sera etal assistance letal d 10-28 12:21:00 (Kirk) required 10:50: Rider 00 [id number] Safety fire risk Safety Active Lilliam present 10-30 Drake 10:25: [id number] 00 Musculoskel requires Musculoske Resolve 2019-03-16 Marilyn etal human letal d 11-03 12:21:00 Lizzeth assist to 13:12: [id number] leave home 00 Nutrition nutritional Nutrition Resolve 2018-12-08 Marilyn risk d 11-10 13:53:00 Lizzeth 12:39: [id number] 00 Nutrition knowledge/s Nutrition Resolve 2018-12-08 Marilyn kill d 11-10 13:53:00 Lizzeth deficit: pt 12:39: [id number] 00 Endo/Steven anti-coagul Endo/Steven Resolve 2018-12-01 Marilyn ation d 11-24 16:22:00 Lizzeth therapy 14:10: [id number] 00 Elimination urinary Eliminatio Resolve 2018-11-24 Marilyn incontinenc n d 11-24 14:10:00 Lizzeth e 14:10: [id number] 00 Elimination urinary Eliminatio Resolve 2018-12-08 Marilyn incontinenc n d 12-01 13:53:00 Lizzeth e 16:22: [id number] 00 Endo/Steven anti-coagul Endo/Steven Resolve 2019-01-07 Marilyn ation d 12-08 11:45:00 Lizzeth therapy 13:53: [id number] 00 Musculoskel knowledge/s Musculoske Resolve 2019-03-16 Marilyn etal kill letal d 12-08 12:21:00 Lizzeth deficit: pt 13:53: [id number] 00 Elimination urinary Eliminatio Resolve 2018-12-31 Marilyn incontinenc n d 12-15 14:10:00 Lizzeth e 13:30: [id number] 00 Pain frequent Pain Mgmt Active Marilyn pain 12-22 Lizzeth 13:45: [id number] 00 Elimination urinary Eliminatio Resolve 2019-02-16 Marilyn incontinenc n d 01-07 10:57:00 Lizzeth e 11:45: [id number] 00 Endo/Steven anti-coagul Endo/Steven Resolve 2019-02-16 Marilyn ation d 01-14 10:57:00 Lizzeth therapy 12:15: [id number] 00 Pain knowledge/s Pain Mgmt Resolve 2019-05-04 Marilyn kill d 01-22 11:45:00 Lizzeth deficit: cg 12:43: [id number] 00 Safety cannot be Safety Resolve 2019-06-15 Marilyn left alone d 01-22 09:01:00 Lizzeth 12:43: [id number] 00 Safety knowledge/s Safety Resolve 2019-06-15 Marilyn kill d 01-22 09:01:00 Lizzeth deficit: cg 12:43: [id number] 00 Musculoskel knowledge/s Musculoske Resolve 2019-03-16 Marilyn etal kill letal d 01-22 12:21:00 Lizzeth deficit: cg 12:43: [id number] 00 Pain knowledge/s Pain Mgmt Resolve 2019-05-04 Marilyn kill d 01-26 11:45:00 Lizzeth deficit: pt 14:21: [id number] 00 Elimination recurring Eliminatio Resolve 2019-02-16 Marilyn UTI n d 01-26 10:57:00 Lizzeth 14:21: [id number] 00 Respiratory dyspnea Respirator Resolve 2019-04-27 Marilyn present y d 02-23 13:15:00 Lizzeth 14:30: [id number] 00 Endo/Steven anti-coagul Endo/Steven Resolve 2018-2019-04-13 Marilyn ation d 02-23 10:57:00 Lizzeth therapy 14:30: [id number] 00 Integument skin Integument Resolve 2019-04-20 Marilyn integrity d 02-23 11:34:00 Lizzeth risk 14:30: [id number] 00 Elimination urinary Eliminatio Resolve 2019-04-20 Marilyn incontinenc n d 02-23 11:34:00 Lizzeth e 14:30: [id number] 00 Respiratory BiPAP Respirator Resolve 2019-06-15 Marilyn treatments y d 8- 09:01:00 Lizzeth in home 12:21: [id number] 00 Social support LEATHA: Active Marilyn Services deficit Social 03-16 Lizzeth Services 12:21: [id number] 00 Musculoskel requires Musculoske Active Marilyn etal human letal 03-23 Lizzeth assist to 10:15: [id number] leave home 00 Respiratory CPAP Respirator Resolve 2019-06-15 Marilyn treatments y d 03-30 09:01:00 Lizzeth in home 12:50: [id number] 00 Musculoskel transfer Musculoske Active Lilliam etal assistance letal 04-20 Drake required 11:34: [id number] 00 Pain knowledge/s Pain Mgmt Active 2018-08 Tani kill 0-04 Jalen deficit: pt 12:45: [id number] 00 Bed knowledge/s PT/OT: Bed Active 2018-08 Tani Mobility/Tr kill Mobility/T 0-04 Jalen ansfer deficit: pt ransfer 12:45: [id number] 00 Balance/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 PT/OT: Active 2018-08 Tani urance rdination Balance/En 0-04 Jalen deficit durance 12:45: [id number] 00 OT: Self self-care OT: Active 2018-08 Tani Care deficit Self-Care 0-04 Jalen 12:45: [id number] 00 OT: Self knowledge/s OT: Active 2018-08 Tani Care kill Self-Care 0-04 Jalen deficit: pt 12:45: [id number] 00 Gait/Locomo stair PT/OT: Active 2018-08 Tani tion management Gait/Locom 0-04 Jalen problems req otion 12:45: [id number] 00 Gait/Locomo knowledge/s PT/OT: Active 2018-08 Tani tion kill Gait/Locom 0-04 Kobziewicz problems deficit: pt otion 12:45: [id number] 00 Gait/Locomo gait PT/OT: Active 2018-08 Tani tion deficit Gait/Locom 0-04 Kobziewicz problems otion 12:45: [id number] 00 Endo/Steven anti-coagul Endo/Steven Active 2018-08 Marilyn ation 08-08 Lizzeth therapy 14:16: [id number] 00 Activity self-care Activity Active 2018-08 Marilyn deficit 08-15 Lizzeth 09:01: [id number] 00 Activity ADL Activity Active 2018-08 Marilyn assistance 08-22 Lizzeth required 11:20: [id number] 00 Allergies, Adverse Reactions, Alerts Allergy Allergy Status Severity Reaction(s) Onset Inactive Treating Comments Name Type Date Date Clinician Lipitor Unknown Active Unknown Reaction 2017-10 Lilliam Unknown -14 Drake [id number] Medications Ordered Filled Start Stop Current Ordering Indication Dosage Frequency Signature Comments Components Medication Medication Date Date Medication? Clinician (SIG) Name Name furosemide furosemide No [place] 1 Unknown 20 mg 20 mg MDTramaine tablet tablet furosemide furosemide 2018- No Max Unknown Unknown 40 mg 40 mg 10-28 Omar ESPINAL tablet tablet metFORMIN metFORMIN No [place] 1 Unknown 500 mg 500 mg MDTramaine tablet tablet metoprolol metoprolol No Max Unknown Unknown succinate succinate 10-28 Omar ESPINAL ER 50 mg ER 50 mg tablet,exte tablet,exte nded nded release 24 release 24 hr hr LORazepam LORazepam No Frederick Unknown Unknown 0.5 mg 0.5 mg 10-28 MDTramaine tablet tablet gabapentin gabapentin 2018- No Max Unknown Unknown 300 mg 300 mg 10-28 Adriel ESPINALed Carin capsule capsule anastrozole anastrozole 2018- No Max Unknown Unknown 1 mg tablet 1 mg tablet 10-28 Omar ESPINAL sertraline sertraline No [place] 1 Unknown 100 mg 100 mg MDTramaine tablet tablet Aspirin Low Aspirin Low No Max Unknown Unknown Dose 81 mg Dose 81 mg 10-28 Adriel ESPINALed Carin tablet,roel tablet,roel yed release yed release simvastatin simvastatin No Max Unknown Unknown 40 mg 40 mg 10-28 ,Omar Carin tablet tablet meclizine meclizine No Frederick 2oral Unknown 12.5 mg 12.5 mg Tramaine ESPINAL tablet tablet omeprazole omeprazole No Max Unknown Unknown 40 mg 40 mg 10-28 ,Omar Carin capsule,del capsule,del ayed ayed release release raNITIdine raNITIdine No [place] 1 Unknown 150 mg 150 mg Tramaine ESPINAL tablet tablet mirtazapine mirtazapine No [place] 1 Unknown 30 mg 30 mg Tramaine ESPINAL tablet tablet Nitrostat Nitrostat No Frederick 1 Unknown 0.4 mg 0.4 mg Tramaine ESPINAL sublingual sublingual tablet tablet polyethylen polyethylen No Max Unknown Unknown e glycol e glycol 10-28 ,Omar Del Rosario 3350 (bulk) 3350 (bulk) granules granules cholecalcif cholecalcif No Max Unknown Unknown john john 10-28 Omar ESPINAL (vitamin (vitamin D3) 5,000 D3) 5,000 unit unit capsule capsule HYDROcodone HYDROcodone No Frederick 2 Unknown 7.5 7.5 Tramaine ESPINAL mg-acetamin mg-acetamin ophen 325 ophen 325 mg tablet mg tablet sucralfate sucralfate No Frederick 1 Unknown 1 gram 1 gram Tramaine ESPINAL tablet tablet oxybutynin oxybutynin No Max Unknown Unknown chloride ER chloride ER 10-28 Omar ESPINAL 10 mg 10 mg tablet,exte tablet,exte nded nded release 24 release 24 hr hr metroNIDAZO metroNIDAZO No Frederick 1applic Unknown LE 0.75 % LE 0.75 % Tramaine ESPINAL ation lotion lotion lisinopril lisinopril 2018- No Max Unknown Unknown 10 mg 10 mg 10-28 ,Omar Carin tablet tablet levothyroxi levothyroxi No Max Unknown Unknown ne 25 mcg ne 25 mcg 10-28 ,Omar Carin capsule capsule meclizine meclizine No Max Unknown Unknown 25 mg 25 mg 10-28 ,Omar Carin tablet tablet sulfamethox sulfamethox 2018- No Max Unknown Unknown azole 800 azole 800 10-28 04 ,Omar Carin mg-trimetho mg-trimetho prim 160 mg prim 160 mg tablet tablet triamcinolo triamcinolo No Santana Unknown Unknown ne ne 10-28 ,Omar Carin acetonide acetonide 0.1 % 0.1 % topical topical cream cream venlafaxine venlafaxine No Santana Unknown Unknown ER 75 mg ER [...] Unknown 300 mg 300 mg 10-28 ,Omar Carin capsule capsule sertraline sertraline 2018- No Santana Unknown Unknown 100 mg 100 mg 12-22 ,Omar Carin tablet tablet HYDROcodone HYDROcodone 2018- No [place] Unknown Unknown 7.5 7.5 01-26 Tramaine ESPINAL mg-acetamin mg-acetamin ophen 325 ophen 325 mg tablet mg tablet nitrofurant nitrofurant No Santana Unknown Unknown oin oin 03-17 ,Omar Carin macrocrysta macrocrysta l 50 mg l 50 mg capsule capsule ibuprofen ibuprofen No Santana Unknown Unknown 600 mg 600 mg 03-17 ,Omar Carin tablet tablet buprenorphi buprenorphi 2018- Yes Santana Unknown Unknown ne 10 ne 10 04-13 ,Omar Del Rosario mcg/hour mcg/hour weekly weekly transdermal transdermal patch patch buprenorphi buprenorphi Yes [place] Unknown Unknown ne 10 ne 10 04-13 Brian ESPINAL mcg/hour mcg/hour weekly weekly transdermal transdermal patch patch metroNIDAZO metroNIDAZO Yes Santana Unknown Unknown LE 0.75 % LE 0.75 % 04-22 ,Omar Carin topical gel topical gel cefdinir cefdinir 2018- Yes Santana Unknown Unknown 300 mg 300 mg 04-22 ,Omar J capsule capsule furosemide furosemide 2018-08 Yes Santana Unknown Unknown 40 mg 40 mg 0- ,Omar J tablet tablet gabapentin gabapentin No Santana Unknown Unknown 300 mg 300 mg 10-28 ,Omar J capsule capsule traMADol 50 traMADol 50 2018-08 Yes [place] Unknown Unknown mg tablet mg tablet 0- Brian ESPINAL lisinopril lisinopril 2018-08 Yes Santana Unknown Unknown 10 mg 10 mg ,Omar J tablet tablet methylPREDN methylPREDN 2018-08- [...] clavulanate 125 mg 125 mg tablet tablet Vital Signs Vital Name Observation Time Observation Value Comments SYSTOLIC mm[Hg] 2019-06-22 18:08:56 118 mm[Hg] mm[Hg] Method: Sit SYSTOLIC mm[Hg] 2019-04-27 18:08:00 124 mm[Hg] mm[Hg] Method: Stand DIASTOLIC mm[Hg] 2019-06-22 18:08:56 72 mm[Hg] mm[Hg] Method: Sit DIASTOLIC mm[Hg] 2019-04-27 18:08:00 82 mm[Hg] mm[Hg] Method: Stand PULSE 2019-06-22 18:08:56 60 /min /min RESP RATE 2019-06-22 18:08:56 18 /min /min TEMP 2019-06-22 18:08:56 95.5 [degF] Procedures This patient has no known procedures. Results This patient has no known results.
--- OUTSIDE RECORDS SUMMARY | 2019-08-13 04:54 | XMS REPORT ---
:1940 Author Organization [facility] Care Team Providers Name Role Phone Unavailable Unavailable Unavailable Problems Condition Condition Condition Status Onset Resolution Last Treating Comments Name Details Category Date Date Treatment Clinician Date Pain frequent Pain Mgmt Resolve 2018-12-01 Sera pain d 3- 16:22:00 (Kirk) 10:50: Rider 00 [id number] Cardio edema Cardiovasc Resolve 2019-04-27 Sera ular d 3 13:15:00 (Kirk) 10:50: Rider 00 [id number] Respiratory dyspnea Respirator Resolve 2019-02-16 Sera present y d 3- 10:57:00 (Kirk) 10:50: Rider 00 [id number] Respiratory CPAP Respirator Resolve 2019-02-16 Sera treatments y d 3-27 10:57:00 (Kirk) in home 10:50: Rider 00 [id number] Endo/Steven anti-coagul Endo/Steven Resolve 2018-11-17 Sera ation d 3-27 14:30:00 (Kirk) therapy 10:50: Rider 00 [id number] Sensory impaired Sensory Active Sera hearing 3 (Kirk) 10:50: Rider 00 [id number] Integument skin Integument Resolve 2018-12-31 Sera integrity d 3- 14:10:00 (Kirk) risk 10:50: Rider 00 [id number] Elimination urinary Eliminatio Resolve 2018-11-17 Sera incontinenc n d 3-27 14:30:00 (Kirk) e 10:50: Rider 00 [id number] Elimination UTI within Eliminatio Resolve 2018-11-17 Sera past 14 n d 3-27 14:30:00 (Kirk) days 10:50: Rider 00 [id number] Elimination bowel Eliminatio Resolve 2018-2018-11-17 Sera incontinenc n d 3- 14:30:00 (Kirk) e 10:50: Rider [id number] Neuro confusion Neuro/Emot Active Sera present ion 3-27 (Kirk) 10:50: Rider [id number] Neuro anxiety Neuro/Emot Active Sera present ion 3 (Kirk) 10:50: Rider [id number] Neuro depressive Neuro/Emot Active Sera feelings ion 3 (Kirk) present 10:50: Rider [id number] Neuro impaired Neuro/Emot Active Sera decision-ma ion 10-28 (Kirk) camilla 10:50: Rider [id number] Neuro memory Neuro/Emot Active Sera deficit ion 10-28 (Kirk) needing 10:50: Rider supervision 00 [id number] Activity ADL Activity Resolve 2019-04-13 Sera assistance d 10-28 10:57:00 (Kirk) required 10:50: Rider [id number] Activity self-care Activity Resolve 2019-04-13 Sera deficit d 3 10:57:00 (Kirk) 10:50: Rider [id number] Safety structural Safety Resolve 2019-06-15 Sera barriers d 3 09:01:00 (Kirk) present 10:50: Rider [id number] Safety sanitation Safety Resolve 2019-06-15 Sera hazards d 3 09:01:00 (Kirk) present 10:50: Rider [id number] Safety fall risk Safety Active Sera factor 3- (Kirk) present 10:50: Rider [id number] Safety risk for Safety Active Sera hospitaliza 10-28 (Kirk) tion 10:50: Rider [id number] Safety can be left Safety Resolve 2019-06-15 Sera alone for d 3- 09:01:00 (Kirk) only short 10:50: Rider 00 [id number] Medication oral med Meds Active Sera assistance 3 (Kirk) required 10:50: Rider [id number] Medication potential Meds Active Sera clinically 10-28 (Kirk) significant 10:50: Rider medication 00 [id number] issue Musculoskel transfer Musculoske Resolve 2019-03-16 Sera etal assistance letal d 10-28 12:21:00 (Kirk) required 10:50: Rider 00 [id number] Safety fire risk Safety Active Lilliam present 10-30 Drake 10:25: [id number] 00 Musculoskel requires Musculoske Resolve 2019-03-16 Marilyn etal human letal d 11-03 12:21:00 Lizzeth assist to 13:12: [id number] leave home 00 Nutrition nutritional Nutrition Resolve 2018-12-08 Marilyn risk d 11-10 13:53:00 Lizzeth 12:39: [id number] 00 Nutrition knowledge/s Nutrition Resolve 2018-12-08 Marilyn kill d 11-10 13:53:00 Lizzeth deficit: pt 12:39: [id number] 00 Endo/Steven anti-coagul Endo/Steven Resolve 2018-12-01 Marilyn ation d 11-24 16:22:00 Lizzeth therapy 14:10: [id number] 00 Elimination urinary Eliminatio Resolve 2018-11-24 Marilyn incontinenc n d 11-24 14:10:00 Lizzeth e 14:10: [id number] 00 Elimination urinary Eliminatio Resolve 2018-12-08 Marilyn incontinenc n d 12-01 13:53:00 Lizzeth e 16:22: [id number] 00 Endo/Steven anti-coagul Endo/Steven Resolve 2019-01-07 Marilyn ation d 12-08 11:45:00 Lizzeth therapy 13:53: [id number] 00 Musculoskel knowledge/s Musculoske Resolve 2019-03-16 Marilyn etal kill letal d 12-08 12:21:00 Lizzeth deficit: pt 13:53: [id number] 00 Elimination urinary Eliminatio Resolve 2018-12-31 Marilyn incontinenc n d 12-15 14:10:00 Lizzeth e 13:30: [id number] 00 Pain frequent Pain Mgmt Active Marilyn pain 12-22 Lizzeth 13:45: [id number] 00 Elimination urinary Eliminatio Resolve 2019-02-16 Marilyn incontinenc n d 01-07 10:57:00 Lizzeth e 11:45: [id number] 00 Endo/Steven anti-coagul Endo/Steven Resolve 2019-02-16 Marilyn ation d 01-14 10:57:00 Lizzeth therapy 12:15: [id number] 00 Pain knowledge/s Pain Mgmt Resolve 2019-05-04 Marilyn kill d 01-22 11:45:00 Lizzeth deficit: cg 12:43: [id number] 00 Safety cannot be Safety Resolve 2019-06-15 Marilyn left alone d 01-22 09:01:00 Lizzeth 12:43: [id number] 00 Safety knowledge/s Safety Resolve 2019-06-15 Marilyn kill d 01-22 09:01:00 Lizzeth deficit: cg 12:43: [id number] 00 Musculoskel knowledge/s Musculoske Resolve 2019-03-16 Marilyn etal kill letal d 01-22 12:21:00 Lizzeth deficit: cg 12:43: [id number] 00 Pain knowledge/s Pain Mgmt Resolve 2019-05-04 Marilyn kill d 01-26 11:45:00 Lizzeth deficit: pt 14:21: [id number] 00 Elimination recurring Eliminatio Resolve 2019-02-16 Marilyn UTI n d 01-26 10:57:00 Lizzeth 14:21: [id number] 00 Respiratory dyspnea Respirator Resolve 2019-04-27 Marilyn present y d 02-23 13:15:00 Lizzeth 14:30: [id number] 00 Endo/Steven anti-coagul Endo/Steven Resolve 2018-2019-04-13 Marilyn ation d 02-23 10:57:00 Lizzeth therapy 14:30: [id number] 00 Integument skin Integument Resolve 2019-04-20 Marilyn integrity d 02-23 11:34:00 Lizzeth risk 14:30: [id number] 00 Elimination urinary Eliminatio Resolve 2019-04-20 Marilyn incontinenc n d 02-23 11:34:00 Lizzeth e 14:30: [id number] 00 Respiratory BiPAP Respirator Resolve 2019-06-15 Marilyn treatments y d 8- 09:01:00 Lizzeth in home 12:21: [id number] 00 Social support LEATHA: Active Marilyn Services deficit Social 03-16 Lizzeth Services 12:21: [id number] 00 Musculoskel requires Musculoske Active Marilyn etal human letal 03-23 Lizzeth assist to 10:15: [id number] leave home 00 Respiratory CPAP Respirator Resolve 2019-06-15 Marilyn treatments y d 03-30 09:01:00 Lizzeth in home 12:50: [id number] 00 Musculoskel transfer Musculoske Active Lilliam etal assistance letal 04-20 Drake required 11:34: [id number] 00 Pain knowledge/s Pain Mgmt Active 2018-08 Tani kill 0-04 Jalen deficit: pt 12:45: [id number] 00 Bed knowledge/s PT/OT: Bed Active 2018-08 Tani Mobility/Tr kill Mobility/T 0-04 Jalen ansfer deficit: pt ransfer 12:45: [id number] 00 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 PT/OT: Active 2018-08 Tani urance rdination Balance/En 0-04 Jalen deficit durance 12:45: [id number] 00 OT: Self self-care OT: Active 2018-08 Tani Care deficit Self-Care 0-04 Jalen 12:45: [id number] 00 OT: Self knowledge/s OT: Active 2018-08 Tani Care kill Self-Care 0-04 Jalen deficit: pt 12:45: [id number] 00 Gait/Locomo stair PT/OT: Active 2018-08 Tani tion management Gait/Locom 0-04 Jalen problems req otion 12:45: [id number] 00 Gait/Locomo knowledge/s PT/OT: Active 2018-08 Tani tion kill Gait/Locom 0-04 Kobziewicz problems deficit: pt otion 12:45: [id number] 00 Gait/Locomo gait PT/OT: Active 2018-08 Tani tion deficit Gait/Locom 0-04 Kobziewicz problems otion 12:45: [id number] 00 Endo/Steven anti-coagul Endo/Steven Active 2018-08 Marilyn ation 08-08 Lizzeth therapy 14:16: [id number] 00 Activity self-care Activity Active 2018-08 Marilyn deficit 08-15 Lizzeth 09:01: [id number] 00 Activity ADL Activity Active 2018-08 Marilyn assistance 08-22 Lizzeth required 11:20: [id number] 00 Allergies, Adverse Reactions, Alerts Allergy Allergy Status Severity Reaction(s) Onset Inactive Treating Comments Name Type Date Date Clinician Lipitor Unknown Active Unknown Reaction 2017-10 Lilliam Unknown -14 Drake [id number] Medications Ordered Filled Start Stop Current Ordering Indication Dosage Frequency Signature Comments Components Medication Medication Date Date Medication? Clinician (SIG) Name Name furosemide furosemide No [place] 1 Unknown 20 mg 20 mg MDTramaine tablet tablet furosemide furosemide 2018- No Max Unknown Unknown 40 mg 40 mg 10-28 Omar ESPINAL tablet tablet metFORMIN metFORMIN No [place] 1 Unknown 500 mg 500 mg MDTramaine tablet tablet metoprolol metoprolol No Max Unknown Unknown succinate succinate 10-28 Omar ESPINAL ER 50 mg ER 50 mg tablet,exte tablet,exte nded nded release 24 release 24 hr hr LORazepam LORazepam No [place] Unknown Unknown 0.5 mg 0.5 mg 10-28 MDTramaine tablet tablet gabapentin gabapentin 2018- No Max Unknown Unknown 300 mg 300 mg 10-28 Adriel ESPINALed Carin capsule capsule anastrozole anastrozole 2018- No Max Unknown Unknown 1 mg tablet 1 mg tablet 10-28 Omar ESPINAL sertraline sertraline No [place] 1 Unknown 100 mg 100 mg MDTramaine tablet tablet Aspirin Low Aspirin Low No Max Unknown Unknown Dose 81 mg Dose 81 mg 10-28 Adriel ESPINALed Carin tablet,reol tablet,roel yed release yed release simvastatin simvastatin No Max Unknown Unknown 40 mg 40 mg 10-28 ,Omar Carin tablet tablet meclizine meclizine No [place] 2oral Unknown 12.5 mg 12.5 mg Tramaine ESPINAL tablet tablet omeprazole omeprazole No Max Unknown Unknown 40 mg 40 mg 10-28 ,Omar Carin capsule,del capsule,del ayed ayed release release raNITIdine raNITIdine No [place] 1 Unknown 150 mg 150 mg Tramaine ESPINAL tablet tablet mirtazapine mirtazapine No [place] 1 Unknown 30 mg 30 mg Tramaine ESPINAL tablet tablet Nitrostat Nitrostat No [place] 1 Unknown 0.4 mg 0.4 mg Tramaine ESPINAL sublingual sublingual tablet tablet polyethylen polyethylen No Max Unknown Unknown e glycol e glycol 10-28 ,Omar Del Rosario 3350 (bulk) 3350 (bulk) granules granules cholecalcif cholecalcif No Max Unknown Unknown ojhn john 10-28 Omar ESPINAL (vitamin (vitamin D3) 5,000 D3) 5,000 unit unit capsule capsule HYDROcodone HYDROcodone No [place] 2 Unknown 7.5 7.5 Tramaine ESPINAL mg-acetamin mg-acetamin ophen 325 ophen 325 mg tablet mg tablet sucralfate sucralfate No [place] 1 Unknown 1 gram 1 gram Tramaine ESPINAL tablet tablet oxybutynin oxybutynin No Max Unknown Unknown chloride ER chloride ER 10-28 Omar ESPINAL 10 mg 10 mg tablet,exte tablet,exte nded nded release 24 release 24 hr hr metroNIDAZO metroNIDAZO No [place] 1applic Unknown LE 0.75 % LE 0.75 [...] Carin tablet tablet HYDROcodone HYDROcodone 2018- No [place] Unknown Unknown 7.5 7.5 01-26 Tramaine ESPINAL [...]
--- OUTSIDE RECORDS SUMMARY | 2019-08-13 04:54 | XMS REPORT ---
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, neuropathy, unspecified unspecified 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 angina pectoris pectoris Cervicalgia Cervicalgia Diagnosis Active Marilyn 08-04 Lizzeth [id number] Other Other Diagnosis Active Marilyn chronic chronic 08-04 Lizzeth pain pain [id number] Generalized Generalized Diagnosis Active Marilyn anxiety anxiety Lizzeth disorder disorder [id number] 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, disorder, [id number] single single episode, episode, unspecified unspecified Personal Personal Diagnosis Active Marilyn history of history of Lizzeth urinary urinary [id number] (tract) (tract) infections infections Obstructive Obstructive Diagnosis Active Marilyn sleep apnea sleep apnea Lizzeth (adult) (adult) [id number] (pediatric) (pediatric) Morbid Morbid Diagnosis Active Marilyn (severe) (severe) Lizzeth obesity due obesity due [id number] to excess to excess calories calories History of History of Diagnosis Active Marilyn falling falling Lizzeth [id number] Pain frequent Pain Mgmt Resolve 2018-2018-12-01 Sera pain d 3-27 16:22:00 (Kirk) 10:50: Rider [id number] Cardio edema Cardiovasc Resolve 2019-04-27 Sera ular d 3-27 13:15:00 (Kirk) 10:50: Rider [id number] Respiratory dyspnea Respirator Resolve 2019-02-16 Sera present y d 3-27 10:57:00 (Kirk) 10:50: Rider [id number] Respiratory CPAP Respirator Resolve 2019-02-16 Sera treatments y d 3-27 10:57:00 (Kirk) in home 10:50: Rider [id number] Endo/Steven anti-coagul Endo/Steven Resolve 2018-11-17 Sera ation d 3-27 14:30:00 (Kirk) therapy 10:50: Rider [id number] Sensory impaired Sensory Active Sera hearing 3- (Kirk) 10:50: Rider [id number] Integument skin Integument Resolve 2018-12-31 Sera integrity d 3-27 14:10:00 (Kirk) risk 10:50: Rider [id number] Elimination urinary Eliminatio Resolve 2018-11-17 Sera incontinenc n d 3-27 14:30:00 (Kirk) e 10:50: Rider [id number] Elimination UTI within Eliminatio Resolve 2018-11-17 Sera past 14 n d 3-27 14:30:00 (Kirk) days 10:50: Rider [id number] Elimination bowel Eliminatio Resolve 2018-11-17 Sera incontinenc n d 3-27 14:30:00 (Kirk) e 10:50: Rider [id number] Neuro confusion Neuro/Emot Active Sera present ion 3-27 (Kirk) 10:50: Rider 00 [id number] Neuro anxiety Neuro/Emot Active Sera present ion 3-27 (Kirk) 10:50: Rider [id number] Neuro depressive Neuro/Emot Active Sera feelings ion 3-27 (Kirk) present 10:50: Rider [id number] Neuro impaired Neuro/Emot Active Sera decision-ma ion 3-27 (Kirk) [place] 10:50: Rider [id number] Neuro memory Neuro/Emot Active Sera deficit ion 3-27 (Kirk) needing 10:50: Rider supervision 00 [id number] Activity ADL Activity Resolve 2018-2019-04-13 Sera assistance d 3-27 10:57:00 (Kirk) required 10:50: Rider [id number] Activity self-care Activity Resolve 2018-2019-04-13 Sera deficit d 3-27 10:57:00 (Kirk) 10:50: Rider [id number] Safety structural Safety Resolve 2018-2019-06-15 Sera barriers d 3- 09:01:00 (Kirk) present 10:50: Rider [id number] Safety sanitation Safety Resolve 2018-2019-06-15 Sera hazards d 3- 09:01:00 (Kirk) present 10:50: Rider [id number] Safety fall risk Safety Active Sera factor 3- (Kirk) present 10:50: Rider [id number] Safety risk for Safety Active Sera hospitaliza 3- (Kirk) tion 10:50: Rider [id number] Safety can be left Safety Resolve 2018-2019-06-15 Sera alone for d 3- 09:01:00 (Kirk) only short 10:50: Rider periods 00 [id number] Medication oral med Meds Active Sera assistance 3- (Kirk) required 10:50: Rider [id number] Medication potential Meds Active Sera clinically 3-27 (Kirk) significant 10:50: Rider medication 00 [id number] issue Musculoskel transfer Musculoske Resolve 2019-03-16 Sera etal assistance letal d 10-28 12:21:00 (Kirk) required 10:50: Rider [id number] Safety fire risk Safety Active Lilliam present 10-30 Drake 10:25: [id number] Musculoskel requires Musculoske Resolve 2019-03-16 Marilyn etal human letal d -02 12:21:00 Lizzeth assist to 13:12: [id number] leave home 00 Nutrition nutritional Nutrition Resolve 2018-12-08 Marilyn risk d 11-10 13:53:00 Lizzeth 12:39: [id number] Nutrition knowledge/s Nutrition Resolve 2018-12-08 Marilyn kill d 11-10 13:53:00 Lizzeth deficit: pt 12:39: [id number] 00 Endo/Steven anti-coagul Endo/Steven Resolve 2018-12-01 Marilyn ation d 11-24 16:22:00 Lizzeth therapy 14:10: [id number] 00 Elimination urinary Eliminatio Resolve 2018-11-24 Marilyn incontinenc n d 11-24 14:10:00 Lizzeth e 14:10: [id number] 00 Elimination urinary Eliminatio Resolve 2018-12-08 Marilyn incontinenc n d 12-01 13:53:00 Lizzeth e 16:22: [id number] 00 Endo/Steven anti-coagul Endo/Steven Resolve 2019-01-07 Marilyn ation d 12-08 11:45:00 Lizzeth therapy 13:53: [id number] 00 Musculoskel knowledge/s Musculoske Resolve 2019-03-16 Marilyn etal kill letal d 12-08 12:21:00 Lizzeth deficit: pt 13:53: [id number] 00 Elimination urinary Eliminatio Resolve 2018-12-31 Marilyn incontinenc n d 12-15 14:10:00 Lizzeth e 13:30: [id number] 00 Pain frequent Pain Mgmt Active Marilyn pain 12-22 Lizzeth 13:45: [id number] 00 Elimination urinary Eliminatio Resolve 2019-02-16 Marilyn incontinenc n d 01-07 10:57:00 Lizzeth e 11:45: [id number] 00 Endo/Steven anti-coagul Endo/Steven Resolve 2019-02-16 Marilyn ation d 01-14 10:57:00 Lizzeth therapy 12:15: [id number] 00 Pain knowledge/s Pain Mgmt Resolve 2019-2019-05-04 Marilyn kill d 01-22 11:45:00 Lizzeth deficit: cg 12:43: [id number] 00 Safety cannot be Safety Resolve 2019-06-15 Marilyn left alone d 01-22 09:01:00 Lizzeth 12:43: [id number] 00 Safety knowledge/s Safety Resolve 2019-06-15 Marilyn kill d 01-22 09:01:00 Lizzeth deficit: cg 12:43: [id number] 00 Musculoskel knowledge/s Musculoske Resolve 2019-03-16 Marilyn etal kill letal d 01-22 12:21:00 Lizzeth deficit: cg 12:43: [id number] 00 Pain knowledge/s Pain Mgmt Resolve 2019-05-04 Marilyn kill d 01-26 11:45:00 Lizzeth deficit: pt 14:21: [id number] 00 Elimination recurring Eliminatio Resolve 2019-02-16 Marilyn UTI n d 01-26 10:57:00 Lizzeth 14:21: [id number] 00 Respiratory dyspnea Respirator Resolve 2019-04-27 Marilyn present y d 02-23 13:15:00 Lizzeth 14:30: [id number] 00 Endo/Steven anti-coagul Endo/Steven Resolve 2019-04-13 Marilyn ation d 02-23 10:57:00 Lizzeth therapy 14:30: [id number] 00 Integument skin Integument Resolve 2019-04-20 Marilyn integrity d 02-23 11:34:00 Lizzeth risk 14:30: [id number] 00 Elimination urinary Eliminatio Resolve 2019-04-20 Marilyn incontinenc n d 02-23 11:34:00 Lizzeth e 14:30: [id number] 00 Respiratory BiPAP Respirator Resolve 2019-06-15 Marilyn treatments y d 03-16 09:01:00 Lizzeth in home 12:21: [id number] 00 Social support LEATHA: Active Marilyn Services deficit Social 03-16 Lizzeth Services 12:21: [id number] 00 Musculoskel requires Musculoske Active Marilyn etal human letal 03-23 Lizzeth assist to 10:15: [id number] leave home 00 Respiratory CPAP Respirator Resolve 2019-06-15 Marilyn treatments y d 03-30 09:01:00 Lizzeth in home 12:50: [id number] 00 Musculoskel transfer Musculoske Active Lilliam etal assistance letal 04-20 Drake required 11:34: [id number] 00 Pain knowledge/s Pain Mgmt Active 2018-08 Tani kill 0-04 Kobziewicz deficit: pt 12:45: [id number] 00 Bed knowledge/s PT/OT: Bed Active 2018-08 Tani Mobility/Tr kill Mobility/T 0-04 Kobziewicz ansfer deficit: pt ransfer 12:45: [id number] 00 Balance/End balance/event coordinator marketing and sales PT/OT: Active 2018-08 Tani urance rdination Balance/En 0-04 Kobziewicz deficit durance 12:45: [id number] 00 OT: Self self-care OT: Active 2018-08 Tani Care deficit Self-Care 0-04 Kobziewicz 12:45: [id number] 00 OT: Self knowledge/s OT: Active 2018-08 Tani Care kill Self-Care 0-04 Kobziewicz deficit: pt 12:45: [id number] 00 Gait/Locomo stair PT/OT: Active 2018-08 Tani tion management Gait/Locom 0-04 Kobziewicz problems req otion 12:45: [id number] 00 Gait/Locomo knowledge/s PT/OT: Active 2018-08 Tani tion kill Gait/Locom 0-04 Kobziewicz problems deficit: pt otion 12:45: [id number] 00 Gait/Locomo gait PT/OT: Active 2018-08 Tani tion deficit Gait/Locom 0-04 Kobziewicz problems otion 12:45: [id number] 00 Endo/Steven anti-coagul Endo/Steven Active 2018-08 Marilyn ation 1 Lizzeth therapy 14:16: [id number] 00 Activity self-care Activity Active 2018-08 Marilyn deficit 08-15 Lizzeth 09:01: [id number] 00 Activity ADL Activity Active 2018-08 Marilyn assistance 1-19 Lizzeth required 11:20: [id number] 00 Respiratory CPAP Respirator Active 2018-08 Marilyn treatments y 2-17 Lizzeth in home 11:22: [id number] 00 Allergies, Adverse Reactions, Alerts Allergy Allergy Status Severity Reaction(s) Onset Inactive Treating Comments Name Type Date Date Clinician Lipitor Unknown Active Unknown Reaction 2017-10 Lilliam Unknown -14 Drake [id number] Medications Ordered Filled Start Stop Current Ordering Indication Dosage Frequency Signature Comments Components Medication Medication Date Date Medication? Clinician (SIG) Name Name furosemide furosemide No [place] 1 Unknown 20 mg 20 mg MD,Tramaine tablet tablet furosemide furosemide 2018- Max Unknown Unknown 40 mg 40 mg 10-28 ,Omar J tablet tablet metFORMIN metFORMIN No [place] 1 Unknown 500 mg 500 mg MD,Tramaine tablet tablet metoprolol metoprolol No Max Unknown Unknown succinate succinate 10-28 ,Omar J ER 50 mg ER 50 mg tablet,exte tablet,exte nded nded release 24 release 24 hr hr LORazepam LORazepam No [place] Unknown Unknown 0.5 mg 0.5 mg 10-28 ,Tramaine tablet tablet gabapentin gabapentin 2018- No Max Unknown Unknown 300 mg 300 mg 10-28 ,Omar J capsule capsule anastrozole anastrozole 2018- No Max Unknown Unknown 1 mg tablet 1 mg tablet 10-28 ,Omar J sertraline sertraline No [place] 1 Unknown 100 mg 100 mg ,Tramaine tablet tablet Aspirin Low Aspirin Low No Max Unknown Unknown Dose 81 mg Dose 81 mg 10-28 ,Omar J tablet,roel tablet,role yed release yed release simvastatin simvastatin No Max Unknown Unknown 40 mg 40 mg 10-28 ,Omar J tablet tablet meclizine meclizine No [place] 2oral Unknown 12.5 mg 12.5 mg ,Tramaine tablet tablet omeprazole omeprazole No Max Unknown Unknown 40 mg 40 mg 10-28 ,Omar J capsule,del capsule,del ayed ayed release release raNITIdine raNITIdine No [place] 1 Unknown 150 mg 150 mg MD,Tramaine tablet tablet mirtazapine mirtazapine No [place] 1 Unknown 30 mg 30 mg Tramaine ESPINAL tablet tablet Nitrostat Nitrostat No [place] 1 Unknown 0.4 mg 0.4 mg Tramaine ESPINAL sublingual sublingual tablet tablet polyethylen polyethylen No Max Unknown Unknown e glycol e glycol 10-28 ,Omar Carin 3350 (bulk) 3350 (bulk) granules granules cholecalcif cholecalcif No Max Unknown Unknown john john 10-28 ,Omar Carin (vitamin (vitamin D3) 5,000 D3) 5,000 unit unit capsule capsule HYDROcodone HYDROcodone No [place] 2 Unknown 7.5 7.5 Tramaine ESPINAL mg-acetamin mg-acetamin ophen 325 ophen 325 mg tablet mg tablet sucralfate sucralfate No [place] 1 Unknown 1 gram 1 gram Tramaine ESPINAL tablet tablet oxybutynin oxybutynin No Max Unknown Unknown chloride ER chloride ER 10-28 Adriel ESPINALed Carin 10 mg 10 mg tablet,exte tablet,exte nded nded release 24 release 24 hr hr metroNIDAZO metroNIDAZO No [place] 1applic Unknown LE 0.75 % LE 0.75 [...] J tablet tablet HYDROcodone HYDROcodone 2018- No [place] Unknown Unknown 7.5 7.5 01-26 Tramaine ESPINAL [...] 0-08 Brian ESPINAL lisinopril lisinopril 2018-08 Yes [place] Unknown Unknown 10 mg 10 mg 0-29 ,Omar Del Rosario tablet tablet methylPREDN methylPREDN 2018-08- Yes Ellis [...]
--- OUTSIDE RECORDS SUMMARY | 2019-08-13 04:54 | XMS REPORT ---
:1940 Author Organization [facility] Care Team Providers Name Role Phone Unavailable Unavailable Unavailable Problems Condition Condition Condition Status Onset Resolution Last Treating Comments Name Details Category Date Date Treatment Clinician Date Pain frequent Pain Mgmt Resolve 2018-12-01 Sera pain d 3- 16:22:00 (Kirk) 10:50: Rider 00 [id number] Cardio edema Cardiovasc Resolve 2019-04-27 Sera ular d 3 13:15:00 (Kirk) 10:50: Rider 00 [id number] Respiratory dyspnea Respirator Resolve 2019-02-16 Sera present y d 3- 10:57:00 (Kirk) 10:50: Rider 00 [id number] Respiratory CPAP Respirator Resolve 2019-02-16 Sera treatments y d 3-27 10:57:00 (Kirk) in home 10:50: Rider 00 [id number] Endo/Steven anti-coagul Endo/Steven Resolve 2018-11-17 Sera ation d 3 14:30:00 (Kirk) therapy 10:50: Rider 00 [id number] Sensory impaired Sensory Active Sera hearing 3 (Kirk) 10:50: Rider 00 [id number] Integument skin Integument Resolve 2018-12-31 Sera integrity d 3- 14:10:00 (Kirk) risk 10:50: Rider 00 [id number] Elimination urinary Eliminatio Resolve 2018-11-17 Sera incontinenc n d 3-27 14:30:00 (Kirk) e 10:50: Rider 00 [id number] Elimination UTI within Eliminatio Resolve 2018-11-17 Sera past 14 n d 3- 14:30:00 (Kirk) days 10:50: Rider 00 [id number] Elimination bowel Eliminatio Resolve 2018-2018-11-17 Sera incontinenc n d 3- 14:30:00 (Kirk) e 10:50: Rider [id number] Neuro confusion Neuro/Emot Active Sera present ion 3-27 (Kirk) 10:50: Rider [id number] Neuro anxiety Neuro/Emot Active Sera present ion 3 (Kirk) 10:50: Rider [id number] Neuro depressive Neuro/Emot Active Sera feelings ion 3 (Kirk) present 10:50: Rider [id number] Neuro impaired Neuro/Emot Active Sera decision-ma ion 10-28 (Kirk) camilla 10:50: Rider [id number] Neuro memory Neuro/Emot Active Sera deficit ion 10-28 (Kirk) needing 10:50: Rider supervision 00 [id number] Activity ADL Activity Resolve 2019-04-13 Sera assistance d 10-28 10:57:00 (Kirk) required 10:50: Rider [id number] Activity self-care Activity Resolve 2019-04-13 Sera deficit d 3 10:57:00 (Kirk) 10:50: Ridre [id number] Safety structural Safety Resolve 2019-06-15 Sera barriers d 3 09:01:00 (Kirk) present 10:50: Rider [id number] Safety sanitation Safety Resolve 2019-06-15 Sera hazards d 3 09:01:00 (Kirk) present 10:50: Rider [id number] Safety fall risk Safety Active Sera factor 3- (Kirk) present 10:50: Rider [id number] Safety risk for Safety Active Sera hospitaliza 10-28 (Kirk) tion 10:50: Rider [id number] Safety can be left Safety Resolve 2019-06-15 Sera alone for d 3- 09:01:00 (Kirk) only short 10:50: Rider 00 [id number] Medication oral med Meds Active Sera assistance 3 (Kirk) required 10:50: Rider [id number] Medication potential Meds Active Sera clinically 10-28 (Kirk) significant 10:50: Rider medication 00 [id number] issue Musculoskel transfer Musculoske Resolve 2019-03-16 Sera etal assistance letal d 10-28 12:21:00 (Kirk) required 10:50: Rider 00 [id number] Safety fire risk Safety Active Lilliam present 10-30 Drake 10:25: [id number] 00 Musculoskel requires Musculoske Resolve 2019-03-16 Marilyn etal human letal d 11-03 12:21:00 Lizzeth assist to 13:12: [id number] leave home 00 Nutrition nutritional Nutrition Resolve 2018-12-08 Marilyn risk d 11-10 13:53:00 Lizzeth 12:39: [id number] 00 Nutrition knowledge/s Nutrition Resolve 2018-12-08 Marilyn kill d 11-10 13:53:00 Lizzeth deficit: pt 12:39: [id number] 00 Endo/Steven anti-coagul Endo/Steven Resolve 2018-12-01 Marilyn ation d 11-24 16:22:00 Lizzeth therapy 14:10: [id number] 00 Elimination urinary Eliminatio Resolve 2018-11-24 Marilyn incontinenc n d 11-24 14:10:00 Lizzeth e 14:10: [id number] 00 Elimination urinary Eliminatio Resolve 2018-12-08 Marilyn incontinenc n d 12-01 13:53:00 Lizzeth e 16:22: [id number] 00 Endo/Steven anti-coagul Endo/Steven Resolve 2019-01-07 Marilyn ation d 12-08 11:45:00 Lizzeth therapy 13:53: [id number] 00 Musculoskel knowledge/s Musculoske Resolve 2019-03-16 Marilyn etal kill letal d 12-08 12:21:00 Lizzeth deficit: pt 13:53: [id number] 00 Elimination urinary Eliminatio Resolve 2018-12-31 Marilyn incontinenc n d 12-15 14:10:00 Lizzeth e 13:30: [id number] 00 Pain frequent Pain Mgmt Active Marilyn pain 12-22 Lizzeth 13:45: [id number] 00 Elimination urinary Eliminatio Resolve 2019-02-16 Marilyn incontinenc n d 01-07 10:57:00 Lizzeth e 11:45: [id number] 00 Endo/Steven anti-coagul Endo/Steven Resolve 2019-02-16 Marilyn ation d 01-14 10:57:00 Lizzeth therapy 12:15: [id number] 00 Pain knowledge/s Pain Mgmt Resolve 2019-05-04 Marilyn kill d 01-22 11:45:00 Lizzeth deficit: cg 12:43: [id number] 00 Safety cannot be Safety Resolve 2019-06-15 Marilyn left alone d 01-22 09:01:00 Lizzeth 12:43: [id number] 00 Safety knowledge/s Safety Resolve 2019-06-15 Marilyn kill d 01-22 09:01:00 Lizzeth deficit: cg 12:43: [id number] 00 Musculoskel knowledge/s Musculoske Resolve 2019-03-16 Marilyn etal kill letal d 01-22 12:21:00 Lizzeth deficit: cg 12:43: [id number] 00 Pain knowledge/s Pain Mgmt Resolve 2019-05-04 Marilyn kill d 01-26 11:45:00 Lizzeth deficit: pt 14:21: [id number] 00 Elimination recurring Eliminatio Resolve 2019-02-16 Marilyn UTI n d 01-26 10:57:00 Lizzeth 14:21: [id number] 00 Respiratory dyspnea Respirator Resolve 2019-04-27 Marilyn present y d 02-23 13:15:00 Lizzeth 14:30: [id number] 00 Endo/Steven anti-coagul Endo/Steven Resolve 2018-2019-04-13 Marilyn ation d 02-23 10:57:00 Lizzeth therapy 14:30: [id number] 00 Integument skin Integument Resolve 2019-04-20 Marilyn integrity d 02-23 11:34:00 Lizzeth risk 14:30: [id number] 00 Elimination urinary Eliminatio Resolve 2019-04-20 Marilyn incontinenc n d 02-23 11:34:00 Lizzeth e 14:30: [id number] 00 Respiratory BiPAP Respirator Resolve 2019-06-15 Marilyn treatments y d 8- 09:01:00 Lizzeth in home 12:21: [id number] 00 Social support LEATHA: Active Marilyn Services deficit Social 03-16 Lizzeth Services 12:21: [id number] 00 Musculoskel requires Musculoske Active Marilyn etal human letal 03-23 Lizzeth assist to 10:15: [id number] leave home 00 Respiratory CPAP Respirator Resolve 2019-06-15 Marilyn treatments y d 03-30 09:01:00 Lizzeth in home 12:50: [id number] 00 Musculoskel transfer Musculoske Active Lilliam etal assistance letal 04-20 Drake required 11:34: [id number] 00 Pain knowledge/s Pain Mgmt Active 2018-08 Tani kill 0-04 Jalen deficit: pt 12:45: [id number] 00 Bed knowledge/s PT/OT: Bed Active 2018-08 Tani Mobility/Tr kill Mobility/T 0-04 Jalen ansfer deficit: pt ransfer 12:45: [id number] 00 Balance/End balance/regulatory coordinator PT/OT: Active 2018-08 Tani urance rdination Balance/En 0-04 Jalen deficit durance 12:45: [id number] 00 OT: Self self-care OT: Active 2018-08 Tani Care deficit Self-Care 0-04 Jalen 12:45: [id number] 00 OT: Self knowledge/s OT: Active 2018-08 Tani Care kill Self-Care 0-04 Jalen deficit: pt 12:45: [id number] 00 Gait/Locomo stair PT/OT: Active 2018-08 Tani tion management Gait/Locom 0-04 Jalen problems req otion 12:45: [id number] 00 Gait/Locomo knowledge/s PT/OT: Active 2018-08 Tani tion kill Gait/Locom 0-04 Kobziewicz problems deficit: pt otion 12:45: [id number] 00 Gait/Locomo gait PT/OT: Active 2018-08 Tani tion deficit Gait/Locom 0-04 Kobziewicz problems otion 12:45: [id number] 00 Endo/Steven anti-coagul Endo/Steven Active 2018-08 Marilyn ation 08-08 Lizzeth therapy 14:16: [id number] 00 Activity self-care Activity Active 2018-08 Marilyn deficit 08-15 Lizzeth 09:01: [id number] 00 Activity ADL Activity Active 2018-08 Marilyn assistance 08-22 Lizzeth required 11:20: [id number] 00 Allergies, Adverse Reactions, Alerts Allergy Allergy Status Severity Reaction(s) Onset Inactive Treating Comments Name Type Date Date Clinician Lipitor Unknown Active Unknown Reaction 2017-10 Lilliam Unknown -14 Drake [id number] Medications Ordered Filled Start Stop Current Ordering Indication Dosage Frequency Signature Comments Components Medication Medication Date Date Medication? Clinician (SIG) Name Name furosemide furosemide No [place] 1 Unknown 20 mg 20 mg MDTramaine tablet tablet furosemide furosemide 2018- No Max Unknown Unknown 40 mg 40 mg 10-28 Omar ESPINAL tablet tablet metFORMIN metFORMIN No [place] 1 Unknown 500 mg 500 mg MDTramaine tablet tablet metoprolol metoprolol No Max Unknown Unknown succinate succinate 10-28 Omar ESPINAL ER 50 mg ER 50 mg tablet,exte tablet,exte nded nded release 24 release 24 hr hr LORazepam LORazepam No [place] Unknown Unknown 0.5 mg 0.5 mg 10-28 MDTramaine tablet tablet gabapentin gabapentin 2018- No Max Unknown Unknown 300 mg 300 mg 10-28 Adriel ESPINALed Carin capsule capsule anastrozole anastrozole 2018- No Max Unknown Unknown 1 mg tablet 1 mg tablet 10-28 Omar ESPINAL sertraline sertraline No [place] 1 Unknown 100 mg 100 mg MDTramaine tablet tablet Aspirin Low Aspirin Low No Max Unknown Unknown Dose 81 mg Dose 81 mg 10-28 Adriel ESPINALed Carin tablet,roel tablet,roel yed release yed release simvastatin simvastatin No Max Unknown Unknown 40 mg 40 mg 10-28 ,Omar Carin tablet tablet meclizine meclizine No [place] 2oral Unknown 12.5 mg 12.5 mg Tramaine ESPINAL tablet tablet omeprazole omeprazole No Max Unknown Unknown 40 mg 40 mg 10-28 ,Omar Carin capsule,del capsule,del ayed ayed release release raNITIdine raNITIdine No [place] 1 Unknown 150 mg 150 mg Tramaine ESPINAL tablet tablet mirtazapine mirtazapine No [place] 1 Unknown 30 mg 30 mg Tramaine ESPINAL tablet tablet Nitrostat Nitrostat No [place] 1 Unknown 0.4 mg 0.4 mg Tramaine ESPINAL sublingual sublingual tablet tablet polyethylen polyethylen No Max Unknown Unknown e glycol e glycol 10-28 ,Omar Del Rosario 3350 (bulk) 3350 (bulk) granules granules cholecalcif cholecalcif No Max Unknown Unknown john john 10-28 Omar ESPINAL (vitamin (vitamin D3) 5,000 D3) 5,000 unit unit capsule capsule HYDROcodone HYDROcodone No [place] 2 Unknown 7.5 7.5 Tramaine ESPINAL mg-acetamin mg-acetamin ophen 325 ophen 325 mg tablet mg tablet sucralfate sucralfate No [place] 1 Unknown 1 gram 1 gram Tramaine ESPINAL tablet tablet oxybutynin oxybutynin No Max Unknown Unknown chloride ER chloride ER 10-28 Omar ESPINAL 10 mg 10 mg tablet,exte tablet,exte nded nded release 24 release 24 hr hr metroNIDAZO metroNIDAZO No [place] 1applic Unknown LE 0.75 % LE 0.75 [...] Carin tablet tablet HYDROcodone HYDROcodone 2018- No [place] Unknown Unknown 7.5 7.5 01-26 Tramaine ESPINAL [...] Observation Time Observation Value Comments SYSTOLIC mm[Hg] 2019-06-29 18:09:03 110 mm[Hg] mm[Hg] Method: Sit SYSTOLIC mm[Hg] 2019-04-27 18:08:00 124 mm[Hg] mm[Hg] Method: Stand DIASTOLIC mm[Hg] 2019-06-29 18:09:03 60 mm[Hg] mm[Hg] Method: Sit DIASTOLIC mm[Hg] 2019-04-27 18:08:00 82 mm[Hg] mm[Hg] Method: Stand PULSE 2019-06-29 18:09:03 60 /min /min RESP RATE 2019-06-29 18:09:03 16 /min /min TEMP 2019-06-29 18:09:03 98 [degF] Procedures This patient has no known procedures. Results This patient has no known results.
--- OUTSIDE RECORDS SUMMARY | 2019-08-13 04:54 | XMS REPORT ---
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 [id number] with with diabetic diabetic neuropathy, neuropathy, unspecified unspecified 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 angina pectoris pectoris Cervicalgia Cervicalgia Diagnosis Active Marilyn 08-04 Lizzeth [id number] Other Other Diagnosis Active Marilyn chronic chronic 08-04 Lizzeth pain pain [id number] Generalized Generalized Diagnosis Active Marilyn anxiety anxiety Lizzeth disorder disorder [id number] 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, disorder, [id number] single single episode, episode, unspecified unspecified Personal Personal Diagnosis Active Marilyn history of history of Lizzeth urinary urinary [id number] (tract) (tract) infections infections Obstructive Obstructive Diagnosis Active Marilyn sleep apnea sleep apnea Lizzeth (adult) (adult) [id number] (pediatric) (pediatric) Morbid Morbid Diagnosis Active Marilyn (severe) (severe) Lizzeth obesity due obesity due [id number] to excess to excess calories calories History of History of Diagnosis Active Marilyn falling falling Lizzeth [id number] Pain frequent Pain Mgmt Resolve 2018-2018-12-01 Sera pain d 3-27 16:22:00 (Kirk) 10:50: Rider [id number] Cardio edema Cardiovasc Resolve 2019-04-27 Sera ular d 3-27 13:15:00 (Kirk) 10:50: Rider [id number] Respiratory dyspnea Respirator Resolve 2019-02-16 Sera present y d 3-27 10:57:00 (Kirk) 10:50: Rider [id number] Respiratory CPAP Respirator Resolve 2019-02-16 Sera treatments y d 3-27 10:57:00 (Kirk) in home 10:50: Rider [id number] Endo/Steven anti-coagul Endo/Steven Resolve 2018-11-17 Sera ation d 3-27 14:30:00 (Kirk) therapy 10:50: Rider [id number] Sensory impaired Sensory Active Sera hearing 3- (Kirk) 10:50: Rider [id number] Integument skin Integument Resolve 2018-12-31 Sera integrity d 3-27 14:10:00 (Kirk) risk 10:50: Rider [id number] Elimination urinary Eliminatio Resolve 2018-11-17 Sera incontinenc n d 3-27 14:30:00 (Kirk) e 10:50: Rider [id number] Elimination UTI within Eliminatio Resolve 2018-11-17 Sera past 14 n d 3-27 14:30:00 (Kirk) days 10:50: Rider [id number] Elimination bowel Eliminatio Resolve 2018-11-17 Sera incontinenc n d 3-27 14:30:00 (Kirk) e 10:50: Rider [id number] Neuro confusion Neuro/Emot Active Sera present ion 3-27 (Kirk) 10:50: Rider 00 [id number] Neuro anxiety Neuro/Emot Active Sera present ion 3-27 (Kirk) 10:50: Rider [id number] Neuro depressive Neuro/Emot Active Sera feelings ion 3-27 (Kirk) present 10:50: Rider [id number] Neuro impaired Neuro/Emot Active Sera decision-ma ion 3-27 (Kirk) camilla 10:50: Rider [id number] Neuro memory Neuro/Emot Active Sera deficit ion 3-27 (Kirk) needing 10:50: Rider supervision 00 [id number] Activity ADL Activity Resolve 2018-2019-04-13 Sera assistance d 3-27 10:57:00 (Kirk) required 10:50: Rider [id number] Activity self-care Activity Resolve 2018-2019-04-13 Sera deficit d 3-27 10:57:00 (Kirk) 10:50: Rider [id number] Safety structural Safety Resolve 2018-2019-06-15 Sera barriers d 3- 09:01:00 (Kirk) present 10:50: Rider [id number] Safety sanitation Safety Resolve 2018-2019-06-15 Sera hazards d 3- 09:01:00 (Kirk) present 10:50: Rider [id number] Safety fall risk Safety Active Sera factor 3- (Kirk) present 10:50: Rider [id number] Safety risk for Safety Active Sera hospitaliza 3- (Kirk) tion 10:50: Rider [id number] Safety can be left Safety Resolve 2018-2019-06-15 Sera alone for d 3- 09:01:00 (Kirk) only short 10:50: Rider periods 00 [id number] Medication oral med Meds Active Sera assistance 3- (Kirk) required 10:50: Rider [id number] Medication potential Meds Active Sera clinically 3-27 (Kirk) significant 10:50: Rider medication 00 [id number] issue Musculoskel transfer Musculoske Resolve 2019-03-16 Sera etal assistance letal d 10-28 12:21:00 (Kirk) required 10:50: Rider [id number] Safety fire risk Safety Active Lilliam present 10-30 Drake 10:25: [id number] 00 Musculoskel requires Musculoske Resolve 2019-03-16 Marilyn etal human letal d -02 12:21:00 Lizzeth assist to 13:12: [id number] leave home 00 Nutrition nutritional Nutrition Resolve 2018-12-08 Marilyn risk d 11-10 13:53:00 Lizzeth 12:39: [id number] 00 Nutrition knowledge/s Nutrition Resolve 2018-12-08 Marilyn kill d 11-10 13:53:00 Lizzeth deficit: pt 12:39: [id number] 00 Endo/Steven anti-coagul Endo/Steven Resolve 2018-12-01 Marilyn ation d 11-24 16:22:00 Lizzeth therapy 14:10: [id number] 00 Elimination urinary Eliminatio Resolve 2018-11-24 Marilyn incontinenc n d 11-24 14:10:00 Lizzeth e 14:10: [id number] 00 Elimination urinary Eliminatio Resolve 2018-12-08 Marilyn incontinenc n d 12-01 13:53:00 Lizzeth e 16:22: [id number] 00 Endo/Steven anti-coagul Endo/Steven Resolve 2019-01-07 Marilyn ation d 12-08 11:45:00 Lizzeth therapy 13:53: [id number] 00 Musculoskel knowledge/s Musculoske Resolve 2019-03-16 Marilyn etal kill letal d 12-08 12:21:00 Lizzeth deficit: pt 13:53: [id number] 00 Elimination urinary Eliminatio Resolve 2018-12-31 Marilyn incontinenc n d 12-15 14:10:00 Lizzeth e 13:30: [id number] 00 Pain frequent Pain Mgmt Active Marilyn pain 12-22 Lizzeth 13:45: [id number] 00 Elimination urinary Eliminatio Resolve 2019-02-16 Marilyn incontinenc n d 01-07 10:57:00 Lizzeth e 11:45: [id number] 00 Endo/Steven anti-coagul Endo/Steven Resolve 2019-02-16 Marilyn ation d 01-14 10:57:00 Lizzeth therapy 12:15: [id number] 00 Pain knowledge/s Pain Mgmt Resolve 2019-2019-05-04 Marilyn kill d 01-22 11:45:00 Lizzeth deficit: cg 12:43: [id number] 00 Safety cannot be Safety Resolve 2019-06-15 Marilyn left alone d 01-22 09:01:00 Lizzeth 12:43: [id number] 00 Safety knowledge/s Safety Resolve 2019-06-15 Marilyn kill d 01-22 09:01:00 Lizzeth deficit: cg 12:43: [id number] 00 Musculoskel knowledge/s Musculoske Resolve 2019-03-16 Marilyn etal kill letal d 01-22 12:21:00 Lizzeth deficit: cg 12:43: [id number] 00 Pain knowledge/s Pain Mgmt Resolve 2019-05-04 Marilyn kill d 01-26 11:45:00 Lizzeth deficit: pt 14:21: [id number] 00 Elimination recurring Eliminatio Resolve 2019-02-16 Marilyn UTI n d 01-26 10:57:00 Lizzteh 14:21: [id number] 00 Respiratory dyspnea Respirator Resolve 2019-04-27 Marilyn present y d 02-23 13:15:00 Lizzeth 14:30: [id number] 00 Endo/Steven anti-coagul Endo/Steven Resolve 2019-04-13 Marilyn ation d 02-23 10:57:00 Lizzeth therapy 14:30: [id number] 00 Integument skin Integument Resolve 2019-04-20 Marilyn integrity d 02-23 11:34:00 Lizzeth risk 14:30: [id number] 00 Elimination urinary Eliminatio Resolve 2019-04-20 Marilyn incontinenc n d 02-23 11:34:00 Lizzeth e 14:30: [id number] 00 Respiratory BiPAP Respirator Resolve 2019-06-15 Marilyn treatments y d 03-16 09:01:00 Lizzeth in home 12:21: [id number] 00 Social support LEATHA: Active Marilyn Services deficit Social 03-16 Lizzeth Services 12:21: [id number] 00 Musculoskel requires Musculoske Active Marilyn etal human letal 03-23 Lizzeth assist to 10:15: [id number] leave home 00 Respiratory CPAP Respirator Resolve 2019-06-15 Marilyn treatments y d 03-30 09:01:00 Lizzeth in home 12:50: [id number] 00 Musculoskel transfer Musculoske Active Lilliam etal assistance letal 04-20 Drake required 11:34: [id number] 00 Pain knowledge/s Pain Mgmt Active 2018-08 Tani kill 0-04 Kobziewicz deficit: pt 12:45: [id number] 00 Bed knowledge/s PT/OT: Bed Active 2018-08 Tani Mobility/Tr kill Mobility/T 0-04 Kobziewicz ansfer deficit: pt ransfer 12:45: [id number] 00 Balance/End balance/contestant coordinator PT/OT: Active 2018-08 Tani urance rdination Balance/En 0-04 Kobziewicz deficit durance 12:45: [id number] 00 OT: Self self-care OT: Active 2018-08 Tani Care deficit Self-Care 0-04 Kobziewicz 12:45: [id number] 00 OT: Self knowledge/s OT: Active 2018-08 Tani Care kill Self-Care 0-04 Kobziewicz deficit: pt 12:45: [id number] 00 Gait/Locomo stair PT/OT: Active 2018-08 Tani tion management Gait/Locom 0-04 Kobziewicz problems req otion 12:45: [id number] Gait/Locomo knowledge/s PT/OT: Active 2018-08 Tani tion kill Gait/Locom 0-04 Kobziewicz problems deficit: pt otion 12:45: [id number] 00 Gait/Locomo gait PT/OT: Active 2018-08 Tani tion deficit Gait/Locom 0-04 Kobziewicz problems otion 12:45: [id number] 00 Endo/Steven anti-coagul Endo/Steven Active 2018-08 Marilyn ation 1 Lizzeth therapy 14:16: [id number] 00 Activity self-care Activity Active 2018-08 Marilyn deficit 08-15 Lizzeth 09:01: [id number] 00 Activity ADL Activity Active 2018-08 Marilyn assistance 1-19 Lizzeth required 11:20: [id number] 00 Respiratory CPAP Respirator Active 2018-08 Marilyn treatments y 2-17 Lizzeth in home 11:22: [id number] 00 Allergies, Adverse Reactions, Alerts Allergy Allergy Status Severity Reaction(s) Onset Inactive Treating Comments Name Type Date Date Clinician Lipitor Unknown Active Unknown Reaction 2017-10 Lilliam Unknown -14 Drake [id number] Medications Ordered Filled Start Stop Current Ordering Indication Dosage Frequency Signature Comments Components Medication Medication Date Date Medication? Clinician (SIG) Name Name furosemide furosemide No [place] 1 Unknown 20 mg 20 mg MD,Tramaine tablet tablet furosemide furosemide 2018- Max Unknown Unknown 40 mg 40 mg 10-28 ,Omar J tablet tablet metFORMIN metFORMIN No [place] 1 Unknown 500 mg 500 mg MD,Tramaine tablet tablet metoprolol metoprolol No Max Unknown Unknown succinate succinate 10-28 ,Omar J ER 50 mg ER 50 mg tablet,exte tablet,exte nded nded release 24 release 24 hr hr LORazepam LORazepam No [place] Unknown Unknown 0.5 mg 0.5 mg 10-28 ,Tramaine tablet tablet gabapentin gabapentin 2018- No Max Unknown Unknown 300 mg 300 mg 10-28 ,Omar J capsule capsule anastrozole anastrozole 2018- No Max Unknown Unknown 1 mg tablet 1 mg tablet 10-28 ,Omar J sertraline sertraline No [place] 1 Unknown 100 mg 100 mg ,Tramaine tablet tablet Aspirin Low Aspirin Low No Max Unknown Unknown Dose 81 mg Dose 81 mg 10-28 ,Omar J tablet,roel tablet,roel yed release yed release simvastatin simvastatin No Max Unknown Unknown 40 mg 40 mg 10-28 ,Omar J tablet tablet meclizine meclizine No [place] 2oral Unknown 12.5 mg 12.5 mg ,Tramaine tablet tablet omeprazole omeprazole No Max Unknown Unknown 40 mg 40 mg 10-28 ,Omar J capsule,del capsule,del ayed ayed release release raNITIdine raNITIdine No [place] 1 Unknown 150 mg 150 mg MD,Tramaine tablet tablet mirtazapine mirtazapine No [place] 1 Unknown 30 mg 30 mg Tramaine ESPINAL tablet tablet Nitrostat Nitrostat No [place] 1 Unknown 0.4 mg 0.4 mg Tramaine ESPINAL sublingual sublingual tablet tablet polyethylen polyethylen No Max Unknown Unknown e glycol e glycol 10-28 ,Omar Carin 3350 (bulk) 3350 (bulk) granules granules cholecalcif cholecalcif No Max Unknown Unknown john john 10-28 ,Omar Carin (vitamin (vitamin D3) 5,000 D3) 5,000 unit unit capsule capsule HYDROcodone HYDROcodone No [place] 2 Unknown 7.5 7.5 Tramaine ESPINAL mg-acetamin mg-acetamin ophen 325 ophen 325 mg tablet mg tablet sucralfate sucralfate No [place] 1 Unknown 1 gram 1 gram Tramaine ESPINAL tablet tablet oxybutynin oxybutynin No Max Unknown Unknown chloride ER chloride ER 10-28 Adriel ESPINALed Carin 10 mg 10 mg tablet,exte tablet,exte nded nded release 24 release 24 hr hr metroNIDAZO metroNIDAZO No [place] 1applic Unknown LE 0.75 % LE 0.75 [...] J tablet tablet HYDROcodone HYDROcodone 2018- No [place] Unknown Unknown 7.5 7.5 01-26 Tramaine ESPINAL [...] Santana Unknown Unknown ne 10 ne 10 04-1310 [...] [place] Unknown Unknown 40 mg 40 mg 0-08 ,Omar J tablet tablet gabapentin gabapentin No [place] Unknown Unknown 300 mg 300 mg 10-28 ,Omar J capsule capsule traMADol 50 traMADol 50 2018-08 Yes [place] Unknown Unknown mg tablet mg tablet 0-08 Brian ESPINAL lisinopril lisinopril 2018-08 Yes [place] Unknown Unknown 10 mg 10 mg 0-29 Omar ESPINAL tablet tablet methylPREDN methylPREDN 2018-08- Yes Ellis [...] Observation Time Observation Value Comments SYSTOLIC mm[Hg] 2019-07-20 18:09:24 122 mm[Hg] mm[Hg] Method: Sit SYSTOLIC mm[Hg] 2019-04-27 18:08:00 124 mm[Hg] mm[Hg] Method: Stand DIASTOLIC mm[Hg] 2019-07-20 18:09:24 70 mm[Hg] mm[Hg] Method: Sit DIASTOLIC mm[Hg] 2019-04-27 18:08:00 82 mm[Hg] mm[Hg] Method: Stand PULSE 2019-07-20 18:09:24 72 /min /min RESP RATE 2019-07-20 18:09:24 18 /min /min TEMP 2019-07-20 18:09:24 98 [degF] Procedures This patient has no known procedures. Results This patient has no known results.
--- OUTSIDE RECORDS SUMMARY | 2019-08-13 04:54 | XMS REPORT ---
:1940 Author Organization [facility] Care Team Providers Name Role Phone Unavailable Unavailable Unavailable Problems Condition Condition Condition Status Onset Resolution Last Treating Comments Name Details Category Date Date Treatment Clinician Date Pain frequent Pain Mgmt Resolve 2018-12-01 Sera pain d 3- 16:22:00 (Kirk) 10:50: Rider 00 [id number] Cardio edema Cardiovasc Resolve 2019-04-27 Sera ular d 3 13:15:00 (Kirk) 10:50: Rider 00 [id number] Respiratory dyspnea Respirator Resolve 2019-02-16 Sera present y d 3- 10:57:00 (Kirk) 10:50: Rider 00 [id number] Respiratory CPAP Respirator Resolve 2019-02-16 Sera treatments y d 3-27 10:57:00 (Kirk) in home 10:50: Rider 00 [id number] Endo/Steven anti-coagul Endo/Steven Resolve 2018-11-17 Sera ation d 3- 14:30:00 (Kirk) therapy 10:50: Rider 00 [id number] Sensory impaired Sensory Active Sera hearing 3 (Kirk) 10:50: Rider 00 [id number] Integument skin Integument Resolve 2018-12-31 Sera integrity d 3- 14:10:00 (Kirk) risk 10:50: Rider 00 [id number] Elimination urinary Eliminatio Resolve 2018-11-17 Sera incontinenc n d 3-27 14:30:00 (Kirk) e 10:50: Rider 00 [id number] Elimination UTI within Eliminatio Resolve 2018-11-17 Sera past 14 n d 3-27 14:30:00 (Kirk) days 10:50: Rider 00 [id number] Elimination bowel Eliminatio Resolve 2018-2018-11-17 Sera incontinenc n d 3- 14:30:00 (Kirk) e 10:50: Rider [id number] Neuro confusion Neuro/Emot Active Sera present ion 3-27 (Kirk) 10:50: Rider [id number] Neuro anxiety Neuro/Emot Active Sera present ion 3 (Kirk) 10:50: Rider [id number] Neuro depressive Neuro/Emot Active Sera feelings ion 3 (Ikrk) present 10:50: Rider [id number] Neuro impaired Neuro/Emot Active Sera decision-ma ion 10-28 (Kirk) camilla 10:50: Rider [id number] Neuro memory Neuro/Emot Active Sera deficit ion 10-28 (Kirk) needing 10:50: Rider supervision 00 [id number] Activity ADL Activity Resolve 2019-04-13 Sera assistance d 10-28 10:57:00 (Kirk) required 10:50: Rider [id number] Activity self-care Activity Resolve 2019-04-13 Sera deficit d 3 10:57:00 (Kirk) 10:50: Rider [id number] Safety structural Safety Resolve 2019-06-15 Sera barriers d 3 09:01:00 (Kirk) present 10:50: Rider [id number] Safety sanitation Safety Resolve 2019-06-15 Sera hazards d 3 09:01:00 (Kirk) present 10:50: Rider [id number] Safety fall risk Safety Active Sera factor 3- (Kirk) present 10:50: Rider [id number] Safety risk for Safety Active Sera hospitaliza 10-28 (Kirk) tion 10:50: Rider [id number] Safety can be left Safety Resolve 2019-06-15 Sera alone for d 3- 09:01:00 (Kirk) only short 10:50: Rider 00 [id number] Medication oral med Meds Active Sera assistance 3 (Kirk) required 10:50: Rider [id number] Medication potential Meds Active Sera clinically 10-28 (Kirk) significant 10:50: Rider medication 00 [id number] issue Musculoskel transfer Musculoske Resolve 2019-03-16 Sera etal assistance letal d 10-28 12:21:00 (Kirk) required 10:50: Rider 00 [id number] Safety fire risk Safety Active Lilliam present 10-30 Drake 10:25: [id number] 00 Musculoskel requires Musculoske Resolve 2019-03-16 Marilyn etal human letal d 11-03 12:21:00 Lizzeth assist to 13:12: [id number] leave home 00 Nutrition nutritional Nutrition Resolve 2018-12-08 Marilyn risk d 11-10 13:53:00 Lizzeth 12:39: [id number] 00 Nutrition knowledge/s Nutrition Resolve 2018-12-08 Marilyn kill d 11-10 13:53:00 Lizzeth deficit: pt 12:39: [id number] 00 Endo/Steven anti-coagul Endo/Steven Resolve 2018-12-01 Marilyn ation d 11-24 16:22:00 Lizzeth therapy 14:10: [id number] 00 Elimination urinary Eliminatio Resolve 2018-11-24 Marilyn incontinenc n d 11-24 14:10:00 Lizzeth e 14:10: [id number] 00 Elimination urinary Eliminatio Resolve 2018-12-08 Marilyn incontinenc n d 12-01 13:53:00 Lizzeth e 16:22: [id number] 00 Endo/Steven anti-coagul Endo/Steven Resolve 2019-01-07 Marilyn ation d 12-08 11:45:00 Lizzeth therapy 13:53: [id number] 00 Musculoskel knowledge/s Musculoske Resolve 2019-03-16 Marilyn etal kill letal d 12-08 12:21:00 Lizzeth deficit: pt 13:53: [id number] 00 Elimination urinary Eliminatio Resolve 2018-12-31 Marilyn incontinenc n d 12-15 14:10:00 Lizzeth e 13:30: [id number] 00 Pain frequent Pain Mgmt Active Marilyn pain 12-22 Lizzeth 13:45: [id number] 00 Elimination urinary Eliminatio Resolve 2019-02-16 Marilyn incontinenc n d 01-07 10:57:00 Lizzeth e 11:45: [id number] 00 Endo/Steven anti-coagul Endo/Steven Resolve 2019-02-16 Marilyn ation d 01-14 10:57:00 Lizzeth therapy 12:15: [id number] 00 Pain knowledge/s Pain Mgmt Resolve 2019-05-04 Marilyn kill d 01-22 11:45:00 Lizzeth deficit: cg 12:43: [id number] 00 Safety cannot be Safety Resolve 2019-06-15 Marilyn left alone d 01-22 09:01:00 Lizzeth 12:43: [id number] 00 Safety knowledge/s Safety Resolve 2019-06-15 Marilyn kill d 01-22 09:01:00 Lizzeth deficit: cg 12:43: [id number] 00 Musculoskel knowledge/s Musculoske Resolve 2019-03-16 Marilyn etal kill letal d 01-22 12:21:00 Lizzeth deficit: cg 12:43: [id number] 00 Pain knowledge/s Pain Mgmt Resolve 2019-05-04 Marilyn kill d 01-26 11:45:00 Lizzeth deficit: pt 14:21: [id number] 00 Elimination recurring Eliminatio Resolve 2019-02-16 Marilyn UTI n d 01-26 10:57:00 Lizzeth 14:21: [id number] 00 Respiratory dyspnea Respirator Resolve 2019-04-27 Marilyn present y d 02-23 13:15:00 Lizzeth 14:30: [id number] 00 Endo/Steven anti-coagul Endo/Steven Resolve 2018-2019-04-13 Marilyn ation d 02-23 10:57:00 Lizzeth therapy 14:30: [id number] 00 Integument skin Integument Resolve 2019-04-20 Marilyn integrity d 02-23 11:34:00 Lizzeth risk 14:30: [id number] 00 Elimination urinary Eliminatio Resolve 2019-04-20 Marilyn incontinenc n d 02-23 11:34:00 Lizzeth e 14:30: [id number] 00 Respiratory BiPAP Respirator Resolve 2019-06-15 Marilyn treatments y d 8- 09:01:00 Lizzeth in home 12:21: [id number] 00 Social support LEATHA: Active Marilyn Services deficit Social 03-16 Lizzeth Services 12:21: [id number] 00 Musculoskel requires Musculoske Active Marilyn etal human letal 03-23 Lizzeth assist to 10:15: [id number] leave home 00 Respiratory CPAP Respirator Resolve 2019-06-15 Marilyn treatments y d 03-30 09:01:00 Lizzeth in home 12:50: [id number] 00 Musculoskel transfer Musculoske Active Lilliam etal assistance letal 04-20 Drake required 11:34: [id number] 00 Pain knowledge/s Pain Mgmt Active 2018-08 Tani kill 0-04 Jalen deficit: pt 12:45: [id number] 00 Bed knowledge/s PT/OT: Bed Active 2018-08 Tani Mobility/Tr kill Mobility/T 0-04 Jalen ansfer deficit: pt ransfer 12:45: [id number] 00 Balance/End balance/equipment coordinator PT/OT: Active 2018-08 Tani urance rdination Balance/En 0-04 Jalen deficit durance 12:45: [id number] 00 OT: Self self-care OT: Active 2018-08 Tani Care deficit Self-Care 0-04 Jalen 12:45: [id number] 00 OT: Self knowledge/s OT: Active 2018-08 Tani Care kill Self-Care 0-04 Jalen deficit: pt 12:45: [id number] 00 Gait/Locomo stair PT/OT: Active 2018-08 Tani tion management Gait/Locom 0-04 Jalen problems req otion 12:45: [id number] 00 Gait/Locomo knowledge/s PT/OT: Active 2018-08 Tani tion kill Gait/Locom 0-04 Kobziewicz problems deficit: pt otion 12:45: [id number] 00 Gait/Locomo gait PT/OT: Active 2018-08 Tani tion deficit Gait/Locom 0-04 Kobziewicz problems otion 12:45: [id number] 00 Endo/Steven anti-coagul Endo/Steven Active 2018-08 Marilyn ation 08-08 Lizzeth therapy 14:16: [id number] 00 Activity self-care Activity Active 2018-08 Marilyn deficit 08-15 Lizzeth 09:01: [id number] 00 Activity ADL Activity Active 2018-08 Marilyn assistance 08-22 Lizzeth required 11:20: [id number] 00 Allergies, Adverse Reactions, Alerts Allergy Allergy Status Severity Reaction(s) Onset Inactive Treating Comments Name Type Date Date Clinician Lipitor Unknown Active Unknown Reaction 2017-10 Lilliam Unknown -14 Drake [id number] Medications Ordered Filled Start Stop Current Ordering Indication Dosage Frequency Signature Comments Components Medication Medication Date Date Medication? Clinician (SIG) Name Name furosemide furosemide No [place] 1 Unknown 20 mg 20 mg MDTramaine tablet tablet furosemide furosemide 2018- No Max Unknown Unknown 40 mg 40 mg 10-28 Omar ESPINAL tablet tablet metFORMIN metFORMIN No [place] 1 Unknown 500 mg 500 mg MDTramaine tablet tablet metoprolol metoprolol No Max Unknown Unknown succinate succinate 10-28 Omar ESPINAL ER 50 mg ER 50 mg tablet,exte tablet,exte nded nded release 24 release 24 hr hr LORazepam LORazepam No [place] Unknown Unknown 0.5 mg 0.5 mg 10-28 MDTramaine tablet tablet gabapentin gabapentin 2018- No Max Unknown Unknown 300 mg 300 mg 10-28 Adriel ESPINALed Carin capsule capsule anastrozole anastrozole 2018- No Max Unknown Unknown 1 mg tablet 1 mg tablet 10-28 Omar ESPINAL sertraline sertraline No [place] 1 Unknown 100 mg 100 mg MDTramaine tablet tablet Aspirin Low Aspirin Low No Max Unknown Unknown Dose 81 mg Dose 81 mg 10-28 Adriel ESPINALed Carin tablet,roel tablet,roel yed release yed release simvastatin simvastatin No Max Unknown Unknown 40 mg 40 mg 10-28 ,Omar Carin tablet tablet meclizine meclizine No [place] 2oral Unknown 12.5 mg 12.5 mg Tramaine ESPINAL tablet tablet omeprazole omeprazole No Max Unknown Unknown 40 mg 40 mg 10-28 ,Omar Carin capsule,del capsule,del ayed ayed release release raNITIdine raNITIdine No [place] 1 Unknown 150 mg 150 mg Tramaine ESPINAL tablet tablet mirtazapine mirtazapine No [place] 1 Unknown 30 mg 30 mg Tramaine ESPINAL tablet tablet Nitrostat Nitrostat No [place] 1 Unknown 0.4 mg 0.4 mg Tramaine ESPINAL sublingual sublingual tablet tablet polyethylen polyethylen No Max Unknown Unknown e glycol e glycol 10-28 ,Omar Del [place] 3350 (bulk) 3350 (bulk) granules granules cholecalcif cholecalcif No Max Unknown Unknown john john 10-28 Omar ESPINAL (vitamin (vitamin D3) 5,000 D3) 5,000 unit unit capsule capsule HYDROcodone HYDROcodone No [place] 2 Unknown 7.5 7.5 Tramaine ESPINAL mg-acetamin mg-acetamin ophen 325 ophen 325 mg tablet mg tablet sucralfate sucralfate No [place] 1 Unknown 1 gram 1 gram Tramaine ESPINAL tablet tablet oxybutynin oxybutynin No Max Unknown Unknown chloride ER chloride ER 10-28 Omar ESPINAL 10 mg 10 mg tablet,exte tablet,exte nded nded release 24 release 24 hr hr metroNIDAZO metroNIDAZO No [place] 1applic Unknown LE 0.75 % LE 0.75 [...] Carin tablet tablet HYDROcodone HYDROcodone 2018- No [place] Unknown Unknown 7.5 7.5 01-26 Tramaine ESPINAL [...]
--- OUTSIDE RECORDS SUMMARY | 2019-08-13 04:54 | XMS REPORT ---
:1940 Author Organization [facility] Care Team Providers Name Role Phone Unavailable Unavailable Unavailable Problems Condition Condition Condition Status Onset Resolution Last Treating Comments Name Details Category Date Date Treatment Clinician Date Pain frequent Pain Mgmt Resolve 2018-12-01 Sera pain d 3- 16:22:00 (Kirk) 10:50: Rider 00 [id number] Cardio edema Cardiovasc Resolve 2019-04-27 Sera ular d 3 13:15:00 (Kirk) 10:50: Rider 00 [id number] Respiratory dyspnea Respirator Resolve 2019-02-16 Sera present y d 3- 10:57:00 (Kirk) 10:50: Rider 00 [id number] Respiratory CPAP Respirator Resolve 2019-02-16 Sera treatments y d 3-27 10:57:00 (Kirk) in home 10:50: Rider 00 [id number] Endo/Steven anti-coagul Endo/Steven Resolve 2018-11-17 Sera ation d 3-27 14:30:00 (Kirk) therapy 10:50: Rider 00 [id number] Sensory impaired Sensory Active Sera hearing 3 (Kirk) 10:50: Rider 00 [id number] Integument skin Integument Resolve 2018-12-31 Sera integrity d 3- 14:10:00 (Kirk) risk 10:50: Rider 00 [id number] Elimination urinary Eliminatio Resolve 2018-11-17 Sera incontinenc n d 3-27 14:30:00 (Kirk) e 10:50: Rider 00 [id number] Elimination UTI within Eliminatio Resolve 2018-11-17 Sera past 14 n d 3-27 14:30:00 (Kirk) days 10:50: Riedr 00 [id number] Elimination bowel Eliminatio Resolve 2018-2018-11-17 Sera incontinenc n d 3- 14:30:00 (Kirk) e 10:50: Rider [id number] Neuro confusion Neuro/Emot Active Sera present ion 3-27 (Kirk) 10:50: Rider [id number] Neuro anxiety Neuro/Emot Active Sera present ion 3 (Kirk) 10:50: Rider [id number] Neuro depressive Neuro/Emot Active Sera feelings ion 3 (Kirk) present 10:50: Rider [id number] Neuro impaired Neuro/Emot Active Sera decision-ma ion 10-28 (Kirk) camilla 10:50: Rider [id number] Neuro memory Neuro/Emot Active Sera deficit ion 10-28 (Kirk) needing 10:50: Rider supervision 00 [id number] Activity ADL Activity Resolve 2019-04-13 Sera assistance d 10-28 10:57:00 (Kirk) required 10:50: Rider [id number] Activity self-care Activity Resolve 2019-04-13 Sera deficit d 3 10:57:00 (Kirk) 10:50: Rider [id number] Safety structural Safety Resolve 2019-06-15 Sera barriers d 3 09:01:00 (Kirk) present 10:50: Rider [id number] Safety sanitation Safety Resolve 2019-06-15 Sera hazards d 3 09:01:00 (Kirk) present 10:50: Rider [id number] Safety fall risk Safety Active Sera factor 3- (Kirk) present 10:50: Rider [id number] Safety risk for Safety Active Sera hospitaliza 10-28 (Krik) tion 10:50: Rider [id number] Safety can be left Safety Resolve 2019-06-15 Sera alone for d 3- 09:01:00 (Kirk) only short 10:50: Rider 00 [id number] Medication oral med Meds Active Sera assistance 3 (Kirk) required 10:50: Rider [id number] Medication potential Meds Active Sera clinically 10-28 (Kirk) significant 10:50: Rider medication 00 [id number] issue Musculoskel transfer Musculoske Resolve 2019-03-16 Sera etal assistance letal d 10-28 12:21:00 (Kirk) required 10:50: Rider 00 [id number] Safety fire risk Safety Active Lilliam present 10-30 Drake 10:25: [id number] Musculoskel requires Musculoske Resolve 2019-03-16 Marilyn etal human letal d 11-03 12:21:00 Lizzeth assist to 13:12: [id number] leave home 00 Nutrition nutritional Nutrition Resolve 2018-12-08 Marilyn risk d 11-10 13:53:00 Lizzeth 12:39: [id number] 00 Nutrition knowledge/s Nutrition Resolve 2018-12-08 Marilyn kill d 11-10 13:53:00 Lizzeth deficit: pt 12:39: [id number] 00 Endo/Steven anti-coagul Endo/Steven Resolve 2018-12-01 Marilyn ation d 11-24 16:22:00 Lizzeth therapy 14:10: [id number] 00 Elimination urinary Eliminatio Resolve 2018-11-24 Marilyn incontinenc n d 11-24 14:10:00 Lizzeth e 14:10: [id number] 00 Elimination urinary Eliminatio Resolve 2018-12-08 Marilyn incontinenc n d 12-01 13:53:00 Lizzeth e 16:22: [id number] 00 Endo/Steven anti-coagul Endo/Steven Resolve 2019-01-07 Marilyn ation d 12-08 11:45:00 Lizzeth therapy 13:53: [id number] 00 Musculoskel knowledge/s Musculoske Resolve 2019-03-16 Marilyn etal kill letal d 12-08 12:21:00 Lizzeth deficit: pt 13:53: [id number] 00 Elimination urinary Eliminatio Resolve 2018-12-31 Marilyn incontinenc n d 12-15 14:10:00 Lizzeth e 13:30: [id number] 00 Pain frequent Pain Mgmt Active Marilyn pain 12-22 Lizzeth 13:45: [id number] 00 Elimination urinary Eliminatio Resolve 2019-02-16 Marilyn incontinenc n d 01-07 10:57:00 Lizzeth e 11:45: [id number] 00 Endo/Steven anti-coagul Endo/Steven Resolve 2019-02-16 Marilyn ation d 01-14 10:57:00 Lizzeth therapy 12:15: [id number] 00 Pain knowledge/s Pain Mgmt Resolve 2019-05-04 Marilyn kill d 01-22 11:45:00 Lizzeth deficit: cg 12:43: [id number] 00 Safety cannot be Safety Resolve 2019-06-15 Marilyn left alone d 01-22 09:01:00 Lizzeth 12:43: [id number] 00 Safety knowledge/s Safety Resolve 2019-06-15 Marilyn kill d 01-22 09:01:00 Lizzeth deficit: cg 12:43: [id number] 00 Musculoskel knowledge/s Musculoske Resolve 2019-03-16 Marilyn etal kill letal d 01-22 12:21:00 Lizzeth deficit: cg 12:43: [id number] 00 Pain knowledge/s Pain Mgmt Resolve 2019-05-04 Marilyn kill d 01-26 11:45:00 Lizzeth deficit: pt 14:21: [id number] 00 Elimination recurring Eliminatio Resolve 2019-02-16 Marilyn UTI n d 01-26 10:57:00 Lizzeth 14:21: [id number] 00 Respiratory dyspnea Respirator Resolve 2019-04-27 Marilyn present y d 02-23 13:15:00 Lizzeth 14:30: [id number] 00 Endo/Steven anti-coagul Endo/Steven Resolve 2018-2019-04-13 Marilyn ation d 02-23 10:57:00 Lizzeth therapy 14:30: [id number] 00 Integument skin Integument Resolve 2019-04-20 Marilyn integrity d 02-23 11:34:00 Lizzeth risk 14:30: [id number] 00 Elimination urinary Eliminatio Resolve 2019-04-20 Marilyn incontinenc n d 02-23 11:34:00 Lizzeth e 14:30: [id number] 00 Respiratory BiPAP Respirator Resolve 2019-06-15 Marilyn treatments y d 8- 09:01:00 Lizzeth in home 12:21: [id number] 00 Social support LEATHA: Active Marilyn Services deficit Social 03-16 Lizzeth Services 12:21: [id number] 00 Musculoskel requires Musculoske Active Marilyn etal human letal 03-23 Lizzeth assist to 10:15: [id number] leave home 00 Respiratory CPAP Respirator Resolve 2019-06-15 Marilyn treatments y d 03-30 09:01:00 Lizzeth in home 12:50: [id number] 00 Musculoskel transfer Musculoske Active Lilliam etal assistance letal 04-20 Drake required 11:34: [id number] 00 Pain knowledge/s Pain Mgmt Active 2018-08 Tani kill 0-04 Jalen deficit: pt 12:45: [id number] 00 Bed knowledge/s PT/OT: Bed Active 2018-08 Tani Mobility/Tr kill Mobility/T 0-04 Jalne ansfer deficit: pt ransfer 12:45: [id number] 00 Balance/End balance/education and outreach coordinator PT/OT: Active 2018-08 Tani urance rdination Balance/En 0-04 Jalen deficit durance 12:45: [id number] 00 OT: Self self-care OT: Active 2018-08 Tani Care deficit Self-Care 0-04 Jalen 12:45: [id number] 00 OT: Self knowledge/s OT: Active 2018-08 Tani Care kill Self-Care 0-04 Jalen deficit: pt 12:45: [id number] 00 Gait/Locomo stair PT/OT: Active 2018-08 Tani tion management Gait/Locom 0-04 Jalen problems req otion 12:45: [id number] 00 Gait/Locomo knowledge/s PT/OT: Active 2018-08 Tani tion kill Gait/Locom 0-04 Kobziewicz problems deficit: pt otion 12:45: [id number] 00 Gait/Locomo gait PT/OT: Active 2018-08 Tani tion deficit Gait/Locom 0-04 Kobziewicz problems otion 12:45: [id number] 00 Endo/Steven anti-coagul Endo/Steven Active 2018-08 Marilyn ation 08-08 Lizzeth therapy 14:16: [id number] 00 Activity self-care Activity Active 2018-08 Marilyn deficit 08-15 Lizzeth 09:01: [id number] 00 Activity ADL Activity Active 2018-08 Marilyn assistance 08-22 Lizzeth required 11:20: [id number] 00 Allergies, Adverse Reactions, Alerts Allergy Allergy Status Severity Reaction(s) Onset Inactive Treating Comments Name Type Date Date Clinician Lipitor Unknown Active Unknown Reaction 2017-10 Lilliam Unknown -14 Drake [id number] Medications Ordered Filled Start Stop Current Ordering Indication Dosage Frequency Signature Comments Components Medication Medication Date Date Medication? Clinician (SIG) Name Name furosemide furosemide No [place] 1 Unknown 20 mg 20 mg MDTramaine tablet tablet furosemide furosemide 2018- No Max Unknown Unknown 40 mg 40 mg 10-28 Omar ESPINAL tablet tablet metFORMIN metFORMIN No [place] 1 Unknown 500 mg 500 mg MDTramaine tablet tablet metoprolol metoprolol No Max Unknown Unknown succinate succinate 10-28 Omar ESPINAL ER 50 mg ER 50 mg tablet,exte tablet,exte nded nded release 24 release 24 hr hr LORazepam LORazepam No [place] Unknown Unknown 0.5 mg 0.5 mg 10-28 MDTramaine tablet tablet gabapentin gabapentin 2018- No Max Unknown Unknown 300 mg 300 mg 10-28 Adriel ESPINALed Carin capsule capsule anastrozole anastrozole 2018- No Max Unknown Unknown 1 mg tablet 1 mg tablet 10-28 Omar ESPINAL sertraline sertraline No [place] 1 Unknown 100 mg 100 mg MDTramaine tablet tablet Aspirin Low Aspirin Low No Max Unknown Unknown Dose 81 mg Dose 81 mg 10-28 Adriel ESPINALed Carin tablet,roel tablet,roel yed release yed release simvastatin simvastatin No Max Unknown Unknown 40 mg 40 mg 10-28 ,Omar Carin tablet tablet meclizine meclizine No [place] 2oral Unknown 12.5 mg 12.5 mg Tramaine ESPINAL tablet tablet omeprazole omeprazole No Max Unknown Unknown 40 mg 40 mg 10-28 ,Omar Carin capsule,del capsule,del ayed ayed release release raNITIdine raNITIdine No [place] 1 Unknown 150 mg 150 mg Tramaine ESPINAL tablet tablet mirtazapine mirtazapine No [place] 1 Unknown 30 mg 30 mg Tramaine ESPINAL tablet tablet Nitrostat Nitrostat No [place] 1 Unknown 0.4 mg 0.4 mg Tramaine ESPINAL sublingual sublingual tablet tablet polyethylen polyethylen No Max Unknown Unknown e glycol e glycol 10-28 ,Omar Del Rosario 3350 (bulk) 3350 (bulk) granules granules cholecalcif cholecalcif No Max Unknown Unknown john john 10-28 Omar ESPINAL (vitamin (vitamin D3) 5,000 D3) 5,000 unit unit capsule capsule HYDROcodone HYDROcodone No [place] 2 Unknown 7.5 7.5 Tramaine ESPINAL mg-acetamin mg-acetamin ophen 325 ophen 325 mg tablet mg tablet sucralfate sucralfate No [place] 1 Unknown 1 gram 1 gram Tramaine ESPINAL tablet tablet oxybutynin oxybutynin No Max Unknown Unknown chloride ER chloride ER 10-28 Omar ESPINAL 10 mg 10 mg tablet,exte tablet,exte nded nded release 24 release 24 hr hr metroNIDAZO metroNIDAZO No [place] 1applic Unknown LE 0.75 % LE 0.75 [...] Carin tablet tablet HYDROcodone HYDROcodone 2018- No [place] Unknown Unknown 7.5 7.5 01-26 Tramaine ESPINAL [...] transdermal transdermal patch patch metroNIDAZO metroNIDAZO Yes Max Unknown Unknown LE 0.75 % LE [...] Observation Time Observation Value Comments SYSTOLIC mm[Hg] 2019-07-13 18:09:17 138 mm[Hg] mm[Hg] Method: Sit SYSTOLIC mm[Hg] 2019-04-27 18:08:00 124 mm[Hg] mm[Hg] Method: Stand DIASTOLIC mm[Hg] 2019-07-13 18:09:17 80 mm[Hg] mm[Hg] Method: Sit DIASTOLIC mm[Hg] 2019-04-27 18:08:00 82 mm[Hg] mm[Hg] Method: Stand PULSE 2019-07-13 18:09:17 62 /min /min RESP RATE 2019-07-13 18:09:17 18 /min /min TEMP 2019-07-13 18:09:17 98.2 [degF] Procedures This patient has no known procedures. Results This patient has no known results.
--- OUTSIDE RECORDS SUMMARY | 2019-08-13 04:54 | XMS REPORT ---
:1940 Author Organization [facility] Care Team Providers Name Role Phone Unavailable Unavailable Unavailable Problems Condition Condition Condition Status Onset Resolution Last Treating Comments Name Details Category Date Date Treatment Clinician Date Pain frequent Pain Mgmt Resolve 2018-12-01 Sera pain d 3- 16:22:00 (Kirk) 10:50: Rider 00 [id number] Cardio edema Cardiovasc Resolve 2019-04-27 Sera ular d 3 13:15:00 (Kirk) 10:50: Rider 00 [id number] Respiratory dyspnea Respirator Resolve 2019-02-16 Sera present y d 3- 10:57:00 (Kirk) 10:50: Rider 00 [id number] Respiratory CPAP Respirator Resolve 2019-02-16 Sera treatments y d 3-27 10:57:00 (Kirk) in home 10:50: Rider 00 [id number] Endo/Steven anti-coagul Endo/Steven Resolve 2018-11-17 Sera ation d 3-27 14:30:00 (Kirk) therapy 10:50: Rider 00 [id number] Sensory impaired Sensory Active Sera hearing 3 (Kirk) 10:50: Rider 00 [id number] Integument skin Integument Resolve 2018-12-31 Sera integrity d 3- 14:10:00 (Kirk) risk 10:50: Rider 00 [id number] Elimination urinary Eliminatio Resolve 2018-11-17 Sera incontinenc n d 3-27 14:30:00 (Kirk) e 10:50: Rider 00 [id number] Elimination UTI within Eliminatio Resolve 2018-11-17 Sera past 14 n d 3-27 14:30:00 (Kirk) days 10:50: Rider 00 [id number] Elimination bowel Eliminatio Resolve 2018-2018-11-17 Sera incontinenc n d 3- 14:30:00 (Kirk) e 10:50: Rider [id number] Neuro confusion Neuro/Emot Active Sera present ion 3-27 (Kirk) 10:50: Rider [id number] Neuro anxiety Neuro/Emot Active Sera present ion 3 (Kirk) 10:50: Riedr [id number] Neuro depressive Neuro/Emot Active Sera feelings ion 3 (Kirk) present 10:50: Rider [id number] Neuro impaired Neuro/Emot Active Sera decision-ma ion 10-28 (Kirk) camilla 10:50: Rider [id number] Neuro memory Neuro/Emot Active Sera deficit ion 10-28 (Kirk) needing 10:50: Rider supervision 00 [id number] Activity ADL Activity Resolve 2019-04-13 Sera assistance d 10-28 10:57:00 (Kirk) required 10:50: Rider [id number] Activity self-care Activity Resolve 2019-04-13 Sera deficit d 3 10:57:00 (Kirk) 10:50: Rider [id number] Safety structural Safety Resolve 2019-06-15 Sera barriers d 3 09:01:00 (Kirk) present 10:50: Rider [id number] Safety sanitation Safety Resolve 2019-06-15 Sera hazards d 3 09:01:00 (Kirk) present 10:50: Rider [id number] Safety fall risk Safety Active Sera factor 3- (Kirk) present 10:50: Rider [id number] Safety risk for Safety Active Sera hospitaliza 10-28 (Kirk) tion 10:50: Rider [id number] Safety can be left Safety Resolve 2019-06-15 Sera alone for d 3- 09:01:00 (Kirk) only short 10:50: Rider 00 [id number] Medication oral med Meds Active Sera assistance 3 (Kirk) required 10:50: Rider [id number] Medication potential Meds Active Sera clinically 10-28 (Kirk) significant 10:50: Rider medication 00 [id number] issue Musculoskel transfer Musculoske Resolve 2019-03-16 Sera etal assistance letal d 10-28 12:21:00 (Kirk) required 10:50: Rider 00 [id number] Safety fire risk Safety Active Lilliam present 10-30 Drake 10:25: [id number] 00 Musculoskel requires Musculoske Resolve 2019-03-16 Marilyn etal human letal d 11-03 12:21:00 Lizzeth assist to 13:12: [id number] leave home 00 Nutrition nutritional Nutrition Resolve 2018-12-08 Marilyn risk d 11-10 13:53:00 Lizzeth 12:39: [id number] 00 Nutrition knowledge/s Nutrition Resolve 2018-12-08 Marilyn kill d 11-10 13:53:00 Lizzeth deficit: pt 12:39: [id number] 00 Endo/Steven anti-coagul Endo/Steven Resolve 2018-12-01 Marilyn ation d 11-24 16:22:00 Lizzeth therapy 14:10: [id number] 00 Elimination urinary Eliminatio Resolve 2018-11-24 Marilyn incontinenc n d 11-24 14:10:00 Lizzeth e 14:10: [id number] 00 Elimination urinary Eliminatio Resolve 2018-12-08 Marilyn incontinenc n d 12-01 13:53:00 Lizzeth e 16:22: [id number] 00 Endo/Steven anti-coagul Endo/Steven Resolve 2019-01-07 Marilyn ation d 12-08 11:45:00 Lizzeth therapy 13:53: [id number] 00 Musculoskel knowledge/s Musculoske Resolve 2019-03-16 Marilyn etal kill letal d 12-08 12:21:00 Lizzeth deficit: pt 13:53: [id number] 00 Elimination urinary Eliminatio Resolve 2018-12-31 Marilyn incontinenc n d 12-15 14:10:00 Lizzeth e 13:30: [id number] 00 Pain frequent Pain Mgmt Active Marilyn pain 12-22 Lizzeth 13:45: [id number] 00 Elimination urinary Eliminatio Resolve 2019-02-16 Marilyn incontinenc n d 01-07 10:57:00 Lizzeth e 11:45: [id number] 00 Endo/Steven anti-coagul Endo/Steven Resolve 2019-02-16 Marilyn ation d 01-14 10:57:00 Lizzeth therapy 12:15: [id number] 00 Pain knowledge/s Pain Mgmt Resolve 2019-05-04 Marilyn kill d 01-22 11:45:00 Lizzeth deficit: cg 12:43: [id number] 00 Safety cannot be Safety Resolve 2019-06-15 Marilyn left alone d 01-22 09:01:00 Lizzeth 12:43: [id number] 00 Safety knowledge/s Safety Resolve 2019-06-15 Marilyn kill d 01-22 09:01:00 Lizzeth deficit: cg 12:43: [id number] 00 Musculoskel knowledge/s Musculoske Resolve 2019-03-16 Marilyn etal kill letal d 01-22 12:21:00 Lizzeth deficit: cg 12:43: [id number] 00 Pain knowledge/s Pain Mgmt Resolve 2019-05-04 Marilyn kill d 01-26 11:45:00 Lizzeth deficit: pt 14:21: [id number] 00 Elimination recurring Eliminatio Resolve 2019-02-16 Marilyn UTI n d 01-26 10:57:00 Lizzeth 14:21: [id number] 00 Respiratory dyspnea Respirator Resolve 2019-04-27 Marilyn present y d 02-23 13:15:00 Lizzeth 14:30: [id number] 00 Endo/Steven anti-coagul Endo/Steven Resolve 2018-2019-04-13 Marilyn ation d 02-23 10:57:00 Lizzeth therapy 14:30: [id number] 00 Integument skin Integument Resolve 2019-04-20 Marilyn integrity d 02-23 11:34:00 Lizzeth risk 14:30: [id number] 00 Elimination urinary Eliminatio Resolve 2019-04-20 Marilyn incontinenc n d 02-23 11:34:00 Lizzeth e 14:30: [id number] 00 Respiratory BiPAP Respirator Resolve 2019-06-15 Marilyn treatments y d 8- 09:01:00 Lizzeth in home 12:21: [id number] 00 Social support LEATHA: Active Marilyn Services deficit Social 03-16 Lizzeth Services 12:21: [id number] 00 Musculoskel requires Musculoske Active Marilyn etal human letal 03-23 Lizzeth assist to 10:15: [id number] leave home 00 Respiratory CPAP Respirator Resolve 2019-06-15 Marilyn treatments y d 03-30 09:01:00 Lzizeth in home 12:50: [id number] 00 Musculoskel transfer Musculoske Active Lilliam etal assistance letal 04-20 Drake required 11:34: [id number] 00 Pain knowledge/s Pain Mgmt Active 2018-08 Tani kill 0-04 Jalen deficit: pt 12:45: [id number] 00 Bed knowledge/s PT/OT: Bed Active 2018-08 Tani Mobility/Tr kill Mobility/T 0-04 Jalen ansfer deficit: pt ransfer 12:45: [id number] 00 Balance/End balance/food safety coordinator PT/OT: Active 2018-08 Tani urance rdination Balance/En 0-04 Jalen deficit durance 12:45: [id number] 00 OT: Self self-care OT: Active 2018-08 Tani Care deficit Self-Care 0-04 Jalen 12:45: [id number] 00 OT: Self knowledge/s OT: Active 2018-08 Tani Care kill Self-Care 0-04 Jalen deficit: pt 12:45: [id number] 00 Gait/Locomo stair PT/OT: Active 2018-08 Tani tion management Gait/Locom 0-04 Jalen problems req otion 12:45: [id number] 00 Gait/Locomo knowledge/s PT/OT: Active 2018-08 Tani tion kill Gait/Locom 0-04 Kobziewicz problems deficit: pt otion 12:45: [id number] 00 Gait/Locomo gait PT/OT: Active 2018-08 Tani tion deficit Gait/Locom 0-04 Kobziewicz problems otion 12:45: [id number] 00 Endo/Steven anti-coagul Endo/Steven Active 2018-08 Marilyn ation 08-08 Lizzeth therapy 14:16: [id number] 00 Activity self-care Activity Active 2018-08 Marilyn deficit 08-15 Lizzeth 09:01: [id number] Activity ADL Activity Active 2018-08 Marilyn assistance 08-22 Lizzeth required 11:20: [id number] 00 Allergies, Adverse Reactions, Alerts Allergy Allergy Status Severity Reaction(s) Onset Inactive Treating Comments Name Type Date Date Clinician Lipitor Unknown Active Unknown Reaction 2017-10 Lilliam Unknown -14 Drake [id number] Medications Ordered Filled Start Stop Current Ordering Indication Dosage Frequency Signature Comments Components Medication Medication Date Date Medication? Clinician (SIG) Name Name furosemide furosemide No [place] 1 Unknown 20 mg 20 mg MDTramaine tablet tablet furosemide furosemide 2018- No Max Unknown Unknown 40 mg 40 mg 10-28 Omar ESPINAL tablet tablet metFORMIN metFORMIN No [place] 1 Unknown 500 mg 500 mg MDTramaine tablet tablet metoprolol metoprolol No Max Unknown Unknown succinate succinate 10-28 Omar ESPINAL ER 50 mg ER 50 mg tablet,exte tablet,exte nded nded release 24 release 24 hr hr LORazepam LORazepam No Gray Unknown Unknown 0.5 mg 0.5 mg 10-28 MDTramaine tablet tablet gabapentin gabapentin 2018- No Max Unknown Unknown 300 mg 300 mg 10-28 Adriel ESPINALed Carin capsule capsule anastrozole anastrozole 2018- No Max Unknown Unknown 1 mg tablet 1 mg tablet 10-28 Omar ESPINAL sertraline sertraline No [place] 1 Unknown 100 mg 100 mg MDTramaine tablet tablet Aspirin Low Aspirin Low No Max Unknown Unknown Dose 81 mg Dose 81 mg 10-28 Adriel ESPINALed Carin tablet,roel tablet,roel yed release yed release simvastatin simvastatin No Max Unknown Unknown 40 mg 40 mg 10-28 ,Omar Carin tablet tablet meclizine meclizine No [place] 2oral Unknown 12.5 mg 12.5 mg Tramaine ESPINAL tablet tablet omeprazole omeprazole No Max Unknown Unknown 40 mg 40 mg 10-28 ,Omar Carin capsule,del capsule,del ayed ayed release release raNITIdine raNITIdine No [place] 1 Unknown 150 mg 150 mg Tramaine ESPINAL tablet tablet mirtazapine mirtazapine No [place] 1 Unknown 30 mg 30 mg Tramaine ESPINAL tablet tablet Nitrostat Nitrostat No [place] 1 Unknown 0.4 mg 0.4 mg Tramaine ESPINAL sublingual sublingual tablet tablet polyethylen polyethylen No Max Unknown Unknown e glycol e glycol 10-28 ,Omar Del Rosario 3350 (bulk) 3350 (bulk) granules granules cholecalcif cholecalcif No Max Unknown Unknown john john 10-28 Omar ESPINAL (vitamin (vitamin D3) 5,000 D3) 5,000 unit unit capsule capsule HYDROcodone HYDROcodone No [place] 2 Unknown 7.5 7.5 Tramaine ESPINAL mg-acetamin mg-acetamin ophen 325 ophen 325 mg tablet mg tablet sucralfate sucralfate No [place] 1 Unknown 1 gram 1 gram Tramiane ESPINAL tablet tablet oxybutynin oxybutynin No Max Unknown Unknown chloride ER chloride ER 10-28 Omar ESPINAL 10 mg 10 mg tablet,exte tablet,exte nded nded release 24 release 24 hr hr metroNIDAZO metroNIDAZO No [place] 1applic Unknown LE 0.75 % LE 0.75 [...] Carin tablet tablet HYDROcodone HYDROcodone 2018- No [place] Unknown Unknown 7.5 7.5 01-26 Tramaine ESPINAL [...]
--- OUTSIDE RECORDS SUMMARY | 2019-08-13 04:54 | XMS REPORT ---
:1940 Author Organization [facility] Care Team Providers Name Role Phone Unavailable Unavailable Unavailable Problems Condition Condition Condition Status Onset Resolution Last Treating Comments Name Details Category Date Date Treatment Clinician Date Pain frequent Pain Mgmt Resolve 2018-12-01 Sera pain d 3- 16:22:00 (Kirk) 10:50: Rider 00 [id number] Cardio edema Cardiovasc Resolve 2019-04-27 Sera ular d 3 13:15:00 (Kirk) 10:50: Rider 00 [id number] Respiratory dyspnea Respirator Resolve 2019-02-16 Sera present y d 3- 10:57:00 (Kirk) 10:50: Rider 00 [id number] Respiratory CPAP Respirator Resolve 2019-02-16 Sera treatments y d 3-27 10:57:00 (Kirk) in home 10:50: Rider 00 [id number] Endo/Steven anti-coagul Endo/Steven Resolve 2018-11-17 Sera ation d 3-27 14:30:00 (Kirk) therapy 10:50: Rider 00 [id number] Sensory impaired Sensory Active Sera hearing 3 (Kirk) 10:50: Rider 00 [id number] Integument skin Integument Resolve 2018-12-31 Sera integrity d 3- 14:10:00 (Kirk) risk 10:50: Rider 00 [id number] Elimination urinary Eliminatio Resolve 2018-11-17 Sera incontinenc n d 3-27 14:30:00 (Kirk) e 10:50: Rider 00 [id number] Elimination UTI within Eliminatio Resolve 2018-11-17 Sera past 14 n d 3-27 14:30:00 (Kirk) days 10:50: Rider 00 [id number] Elimination bowel Eliminatio Resolve 2018-2018-11-17 Sera incontinenc n d 3- 14:30:00 (Kirk) e 10:50: Rider [id number] Neuro confusion Neuro/Emot Active Sera present ion 3-27 (Kirk) 10:50: Rider [id number] Neuro anxiety Neuro/Emot Active Sera present ion 3 (Kirk) 10:50: Rider [id number] Neuro depressive Neuro/Emot Active Sera feelings ion 3 (Kirk) present 10:50: Rider [id number] Neuro impaired Neuro/Emot Active Sera decision-ma ion 10-28 (Kirk) camilla 10:50: Rider [id number] Neuro memory Neuro/Emot Active Sera deficit ion 10-28 (Kirk) needing 10:50: Rider supervision 00 [id number] Activity ADL Activity Resolve 2019-04-13 Sera assistance d 10-28 10:57:00 (Kirk) required 10:50: Rider [id number] Activity self-care Activity Resolve 2019-04-13 Sera deficit d 3 10:57:00 (Kirk) 10:50: Rider [id number] Safety structural Safety Resolve 2019-06-15 Sera barriers d 3 09:01:00 (Kirk) present 10:50: Rider [id number] Safety sanitation Safety Resolve 2019-06-15 Sera hazards d 3 09:01:00 (Kirk) present 10:50: Rider [id number] Safety fall risk Safety Active Sera factor 3- (Kirk) present 10:50: Rider [id number] Safety risk for Safety Active Sera hospitaliza 10-28 (Kirk) tion 10:50: Rider [id number] Safety can be left Safety Resolve 2019-06-15 Sera alone for d 3- 09:01:00 (Kirk) only short 10:50: Rider 00 [id number] Medication oral med Meds Active Sera assistance 3 (Kirk) required 10:50: Rider [id number] Medication potential Meds Active Sera clinically 10-28 (Kirk) significant 10:50: Rider medication 00 [id number] issue Musculoskel transfer Musculoske Resolve 2019-03-16 Sera etal assistance letal d 10-28 12:21:00 (Kirk) required 10:50: Rider 00 [id number] Safety fire risk Safety Active Lilliam present 10-30 Drake 10:25: [id number] Musculoskel requires Musculoske Resolve 2019-03-16 Marilyn etal human letal d 11-03 12:21:00 Lizzeth assist to 13:12: [id number] leave home 00 Nutrition nutritional Nutrition Resolve 2018-12-08 Marilyn risk d 11-10 13:53:00 Lizzeth 12:39: [id number] 00 Nutrition knowledge/s Nutrition Resolve 2018-12-08 Marilyn kill d 11-10 13:53:00 Lizzeth deficit: pt 12:39: [id number] 00 Endo/Steven anti-coagul Endo/Steven Resolve 2018-12-01 Marilyn ation d 11-24 16:22:00 Lizzeth therapy 14:10: [id number] 00 Elimination urinary Eliminatio Resolve 2018-11-24 Marilyn incontinenc n d 11-24 14:10:00 Lizzeth e 14:10: [id number] 00 Elimination urinary Eliminatio Resolve 2018-12-08 Marilyn incontinenc n d 12-01 13:53:00 Lizzeth e 16:22: [id number] 00 Endo/Steven anti-coagul Endo/Steven Resolve 2019-01-07 Marilyn ation d 12-08 11:45:00 Lizzeth therapy 13:53: [id number] 00 Musculoskel knowledge/s Musculoske Resolve 2019-03-16 Marilyn etal kill letal d 12-08 12:21:00 Lizzeth deficit: pt 13:53: [id number] 00 Elimination urinary Eliminatio Resolve 2018-12-31 Marilyn incontinenc n d 12-15 14:10:00 Lizzeth e 13:30: [id number] 00 Pain frequent Pain Mgmt Active Marilyn pain 12-22 Lizzeth 13:45: [id number] 00 Elimination urinary Eliminatio Resolve 2019-02-16 Marilyn incontinenc n d 01-07 10:57:00 Lizzeth e 11:45: [id number] 00 Endo/Steven anti-coagul Endo/Steven Resolve 2019-02-16 Marilyn ation d 01-14 10:57:00 Lizzeth therapy 12:15: [id number] 00 Pain knowledge/s Pain Mgmt Resolve 2019-05-04 Marilyn kill d 01-22 11:45:00 Lizzeth deficit: cg 12:43: [id number] 00 Safety cannot be Safety Resolve 2019-06-15 Marilyn left alone d 01-22 09:01:00 Lizzeth 12:43: [id number] 00 Safety knowledge/s Safety Resolve 2019-06-15 Marilyn kill d 01-22 09:01:00 Lizzeth deficit: cg 12:43: [id number] 00 Musculoskel knowledge/s Musculoske Resolve 2019-03-16 Marilyn etal kill letal d 01-22 12:21:00 Lizzeth deficit: cg 12:43: [id number] 00 Pain knowledge/s Pain Mgmt Resolve 2019-05-04 Marilyn kill d 01-26 11:45:00 Lizzeth deficit: pt 14:21: [id number] 00 Elimination recurring Eliminatio Resolve 2019-02-16 Marilyn UTI n d 01-26 10:57:00 Lizzeth 14:21: [id number] 00 Respiratory dyspnea Respirator Resolve 2019-04-27 Marilyn present y d 02-23 13:15:00 Lizzeth 14:30: [id number] 00 Endo/Steven anti-coagul Endo/Steven Resolve 2018-2019-04-13 Marilyn ation d 02-23 10:57:00 Lizzeht therapy 14:30: [id number] 00 Integument skin Integument Resolve 2019-04-20 Marilyn integrity d 02-23 11:34:00 Lizzeth risk 14:30: [id number] 00 Elimination urinary Eliminatio Resolve 2019-04-20 Marilyn incontinenc n d 02-23 11:34:00 Lizzeth e 14:30: [id number] 00 Respiratory BiPAP Respirator Resolve 2019-06-15 Marilyn treatments y d 8- 09:01:00 Lizzeth in home 12:21: [id number] 00 Social support LEATHA: Active Marilyn Services deficit Social 03-16 Lizzeth Services 12:21: [id number] 00 Musculoskel requires Musculoske Active Marilyn etal human letal 03-23 Lizzeth assist to 10:15: [id number] leave home 00 Respiratory CPAP Respirator Resolve 2019-06-15 Marilyn treatments y d 03-30 09:01:00 Lizzeth in home 12:50: [id number] 00 Musculoskel transfer Musculoske Active Lilliam etal assistance letal 04-20 Drake required 11:34: [id number] 00 Pain knowledge/s Pain Mgmt Active 2018-08 Tani kill 0-04 Jalen deficit: pt 12:45: [id number] 00 Bed knowledge/s PT/OT: Bed Active 2018-08 Tani Mobility/Tr kill Mobility/T 0-04 Jalen ansfer deficit: pt ransfer 12:45: [id number] 00 Balance/End balance/magnetic resonance imaging coordinator PT/OT: Active 2018-08 Tani urance rdination Balance/En 0-04 Jalen deficit durance 12:45: [id number] 00 OT: Self self-care OT: Active 2018-08 Tani Care deficit Self-Care 0-04 Jalen 12:45: [id number] 00 OT: Self knowledge/s OT: Active 2018-08 Tani Care kill Self-Care 0-04 Jalen deficit: pt 12:45: [id number] 00 Gait/Locomo stair PT/OT: Active 2018-08 Tani tion management Gait/Locom 0-04 Jalen problems req otion 12:45: [id number] 00 Gait/Locomo knowledge/s PT/OT: Active 2018-08 Tani tion kill Gait/Locom 0-04 Kobziewicz problems deficit: pt otion 12:45: [id number] 00 Gait/Locomo gait PT/OT: Active 2018-08 Tani tion deficit Gait/Locom 0-04 Kobziewicz problems otion 12:45: [id number] 00 Endo/Steven anti-coagul Endo/Steven Active 2018-08 Marilyn ation 08-08 Lizzeth therapy 14:16: [id number] 00 Activity self-care Activity Active 2018-08 Marilyn deficit 08-15 Lizzeth 09:01: [id number] 00 Activity ADL Activity Active 2018-08 Marilyn assistance 08-22 Lizzeth required 11:20: [id number] 00 Allergies, Adverse Reactions, Alerts Allergy Allergy Status Severity Reaction(s) Onset Inactive Treating Comments Name Type Date Date Clinician Lipitor Unknown Active Unknown Reaction 2017-10 Lilliam Unknown -14 Drake [id number] Medications Ordered Filled Start Stop Current Ordering Indication Dosage Frequency Signature Comments Components Medication Medication Date Date Medication? Clinician (SIG) Name Name furosemide furosemide No [place] 1 Unknown 20 mg 20 mg MDTramaine tablet tablet furosemide furosemide 2018- No Max Unknown Unknown 40 mg 40 mg 10-28 Omar ESPINAL tablet tablet metFORMIN metFORMIN No [place] 1 Unknown 500 mg 500 mg MDTramaine tablet tablet metoprolol metoprolol No Max Unknown Unknown succinate succinate 10-28 Omar ESPINAL ER 50 mg ER 50 mg tablet,exte tablet,exte nded nded release 24 release 24 hr hr LORazepam LORazepam No [place] Unknown Unknown 0.5 mg 0.5 mg 10-28 MDTramaine tablet tablet gabapentin gabapentin 2018- No Max Unknown Unknown 300 mg 300 mg 10-28 Adriel ESPINALed Carin capsule capsule anastrozole anastrozole 2018- No Max Unknown Unknown 1 mg tablet 1 mg tablet 10-28 Omar ESPINAL sertraline sertraline No [place] 1 Unknown 100 mg 100 mg MDTramaine tablet tablet Aspirin Low Aspirin Low No Max Unknown Unknown Dose 81 mg Dose 81 mg 10-28 Adriel ESPINALed Carin tablet,roel tablet,roel yed release yed release simvastatin simvastatin No Max Unknown Unknown 40 mg 40 mg 10-28 ,Omar Carin tablet tablet meclizine meclizine No [place] 2oral Unknown 12.5 mg 12.5 mg Tramaine ESPINAL tablet tablet omeprazole omeprazole No Max Unknown Unknown 40 mg 40 mg 10-28 ,Omar Carin capsule,del capsule,del ayed ayed release release raNITIdine raNITIdine No [place] 1 Unknown 150 mg 150 mg Tramaine ESPINAL tablet tablet mirtazapine mirtazapine No [place] 1 Unknown 30 mg 30 mg Tramaine ESPINAL tablet tablet Nitrostat Nitrostat No [place] 1 Unknown 0.4 mg 0.4 mg Tramaine ESPINAL sublingual sublingual tablet tablet polyethylen polyethylen No Max Unknown Unknown e glycol e glycol 10-28 ,Omar Del Rosario 3350 (bulk) 3350 (bulk) granules granules cholecalcif cholecalcif No Max Unknown Unknown john john 10-28 Omar ESPINAL (vitamin (vitamin D3) 5,000 D3) 5,000 unit unit capsule capsule HYDROcodone HYDROcodone No [place] 2 Unknown 7.5 7.5 Tramaine ESPINAL mg-acetamin mg-acetamin ophen 325 ophen 325 mg tablet mg tablet sucralfate sucralfate No [place] 1 Unknown 1 gram 1 gram Tramaine ESPINAL tablet tablet oxybutynin oxybutynin No Max Unknown Unknown chloride ER chloride ER 10-28 Omar ESPINAL 10 mg 10 mg tablet,exte tablet,exte nded nded release 24 release 24 hr hr metroNIDAZO metroNIDAZO No [place] 1applic Unknown LE 0.75 % LE 0.75 [...] Carin tablet tablet HYDROcodone HYDROcodone 2018- No [place] Unknown Unknown 7.5 7.5 01-26 Tramaine ESPINAL [...] Observation Time Observation Value Comments SYSTOLIC mm[Hg] 2019-07-06 18:09:10 122 mm[Hg] mm[Hg] Method: Sit SYSTOLIC mm[Hg] 2019-04-27 18:08:00 124 mm[Hg] mm[Hg] Method: Stand DIASTOLIC mm[Hg] 2019-07-06 18:09:10 78 mm[Hg] mm[Hg] Method: Sit DIASTOLIC mm[Hg] 2019-04-27 18:08:00 82 mm[Hg] mm[Hg] Method: Stand PULSE 2019-07-06 18:09:10 60 /min /min RESP RATE 2019-07-06 18:09:10 16 /min /min TEMP 2019-07-06 18:09:10 95.8 [degF] Procedures This patient has no known procedures. Results This patient has no known results.
--- OUTSIDE RECORDS SUMMARY | 2019-08-13 04:55 | XMS REPORT ---
:1940 Author Organization [facility] Care Team Providers Name Role Phone Unavailable Unavailable Unavailable Problems Condition Condition Condition Status Onset Resolution Last Treating Comments Name Details Category Date Date Treatment Clinician Date Pain frequent Pain Mgmt Resolve 2018-12-01 Sera pain d 3- 16:22:00 (Kirk) 10:50: Rider 00 [id number] Cardio edema Cardiovasc Resolve 2019-04-27 Sera ular d 3 13:15:00 (Kirk) 10:50: Rider 00 [id number] Respiratory dyspnea Respirator Resolve 2019-02-16 Sera present y d 3- 10:57:00 (Kirk) 10:50: Rider 00 [id number] Respiratory CPAP Respirator Resolve 2019-02-16 Sera treatments y d 3-27 10:57:00 (Kirk) in home 10:50: Rider 00 [id number] Endo/Steven anti-coagul Endo/Steven Resolve 2018-11-17 Sera ation d 3-27 14:30:00 (Kirk) therapy 10:50: Rider 00 [id number] Sensory impaired Sensory Active Sera hearing 3 (Kirk) 10:50: Rider 00 [id number] Integument skin Integument Resolve 2018-12-31 Sera integrity d 3-27 14:10:00 (Kirk) risk 10:50: Rider 00 [id number] Elimination urinary Eliminatio Resolve 2018-11-17 Sera incontinenc n d 3-27 14:30:00 (Kirk) e 10:50: Rider 00 [id number] Elimination UTI within Eliminatio Resolve 2018-11-17 Sera past 14 n d 3-27 14:30:00 (Kirk) days 10:50: Rider 00 [id number] Elimination bowel Eliminatio Resolve 2018-2018-11-17 Sera incontinenc n d 3- 14:30:00 (Kirk) e 10:50: Rider [id number] Neuro confusion Neuro/Emot Active Sera present ion 3-27 (Kirk) 10:50: Rider [id number] Neuro anxiety Neuro/Emot Active Sera present ion 3 (Kirk) 10:50: Rider [id number] Neuro depressive Neuro/Emot Active Sera feelings ion 3 (Kirk) present 10:50: Rider [id number] Neuro impaired Neuro/Emot Active Sera decision-ma ion 10-28 (Kirk) camilla 10:50: Rider [id number] Neuro memory Neuro/Emot Active Sera deficit ion 10-28 (Kirk) needing 10:50: Rider supervision 00 [id number] Activity ADL Activity Resolve 2019-04-13 Sera assistance d 10-28 10:57:00 (Kirk) required 10:50: Rider [id number] Activity self-care Activity Resolve 2019-04-13 Sera deficit d 3 10:57:00 (Kirk) 10:50: Rider [id number] Safety structural Safety Resolve 2019-06-15 Sera barriers d 3 09:01:00 (Kirk) present 10:50: Rider [id number] Safety sanitation Safety Resolve 2019-06-15 Sera hazards d 3 09:01:00 (Kirk) present 10:50: Rider [id number] Safety fall risk Safety Active Sera factor 3- (Kirk) present 10:50: Rider [id number] Safety risk for Safety Active Sera hospitaliza 10-28 (Kirk) tion 10:50: Rider [id number] Safety can be left Safety Resolve 2019-06-15 Sera alone for d 3- 09:01:00 (Kirk) only short 10:50: Rider 00 [id number] Medication oral med Meds Active Sera assistance 3 (Kirk) required 10:50: Rider [id number] Medication potential Meds Active Sera clinically 10-28 (Kirk) significant 10:50: Rider medication 00 [id number] issue Musculoskel transfer Musculoske Resolve 2019-03-16 Sera etal assistance letal d 10-28 12:21:00 (Kirk) required 10:50: Rider 00 [id number] Safety fire risk Safety Active Lilliam present 10-30 Drake 10:25: [id number] 00 Musculoskel requires Musculoske Resolve 2019-03-16 Marilyn etal human letal d 11-03 12:21:00 Lizzeth assist to 13:12: [id number] leave home 00 Nutrition nutritional Nutrition Resolve 2018-12-08 Marilyn risk d 11-10 13:53:00 Lizzeth 12:39: [id number] 00 Nutrition knowledge/s Nutrition Resolve 2018-12-08 Marilyn kill d 11-10 13:53:00 Lizzeth deficit: pt 12:39: [id number] 00 Endo/Steven anti-coagul Endo/Steven Resolve 2018-12-01 Marilyn ation d 11-24 16:22:00 Lizzeth therapy 14:10: [id number] 00 Elimination urinary Eliminatio Resolve 2018-11-24 Marilyn incontinenc n d 11-24 14:10:00 Lizzeth e 14:10: [id number] 00 Elimination urinary Eliminatio Resolve 2018-12-08 Marilyn incontinenc n d 12-01 13:53:00 Lizzeth e 16:22: [id number] 00 Endo/Steven anti-coagul Endo/Steven Resolve 2019-01-07 Marilyn ation d 12-08 11:45:00 Lizzeth therapy 13:53: [id number] 00 Musculoskel knowledge/s Musculoske Resolve 2019-03-16 Marilyn etal kill letal d 12-08 12:21:00 Lizzeth deficit: pt 13:53: [id number] 00 Elimination urinary Eliminatio Resolve 2018-12-31 Marilyn incontinenc n d 12-15 14:10:00 Lizzeth e 13:30: [id number] 00 Pain frequent Pain Mgmt Active Marilyn pain 12-22 Lizzeth 13:45: [id number] 00 Elimination urinary Eliminatio Resolve 2019-02-16 Marilyn incontinenc n d 01-07 10:57:00 Lizzeth e 11:45: [id number] 00 Endo/Steven anti-coagul Endo/Steven Resolve 2019-02-16 Marilyn ation d 01-14 10:57:00 Lizzeth therapy 12:15: [id number] 00 Pain knowledge/s Pain Mgmt Resolve 2019-05-04 Marilyn kill d 01-22 11:45:00 Lizzeth deficit: cg 12:43: [id number] 00 Safety cannot be Safety Resolve 2019-06-15 Marilyn left alone d 01-22 09:01:00 Lizzeth 12:43: [id number] 00 Safety knowledge/s Safety Resolve 2019-06-15 Marilyn kill d 01-22 09:01:00 Lizzeth deficit: cg 12:43: [id number] 00 Musculoskel knowledge/s Musculoske Resolve 2019-03-16 Marilyn etal kill letal d 01-22 12:21:00 Lizzeth deficit: cg 12:43: [id number] 00 Pain knowledge/s Pain Mgmt Resolve 2019-05-04 Marilyn kill d 01-26 11:45:00 Lizzeth deficit: pt 14:21: [id number] 00 Elimination recurring Eliminatio Resolve 2019-02-16 Marilyn UTI n d 01-26 10:57:00 Lizzeth 14:21: [id number] 00 Respiratory dyspnea Respirator Resolve 2019-04-27 Marilyn present y d 02-23 13:15:00 Lizzeth 14:30: [id number] 00 Endo/Steven anti-coagul Endo/Steven Resolve 2018-2019-04-13 Marilyn ation d 02-23 10:57:00 Lizzeth therapy 14:30: [id number] 00 Integument skin Integument Resolve 2019-04-20 Marilyn integrity d 02-23 11:34:00 Lizzeth risk 14:30: [id number] 00 Elimination urinary Eliminatio Resolve 2019-04-20 Marilyn incontinenc n d 02-23 11:34:00 Lizzeth e 14:30: [id number] 00 Respiratory BiPAP Respirator Resolve 2019-06-15 Marilyn treatments y d 8- 09:01:00 Lizzeth in home 12:21: [id number] 00 Social support LEATHA: Active Marilyn Services deficit Social 03-16 Lizzeth Services 12:21: [id number] 00 Musculoskel requires Musculoske Active Marilyn etal human letal 03-23 Lizzeth assist to 10:15: [id number] leave home 00 Respiratory CPAP Respirator Resolve 2019-06-15 Marilyn treatments y d 03-30 09:01:00 Lizzeth in home 12:50: [id number] 00 Musculoskel transfer Musculoske Active Lilliam etal assistance letal 04-20 Drake required 11:34: [id number] 00 Pain knowledge/s Pain Mgmt Active 2018-08 Tani kill 0-04 Jalen deficit: pt 12:45: [id number] 00 Bed knowledge/s PT/OT: Bed Active 2018-08 Tani Mobility/Tr kill Mobility/T 0-04 Jalen ansfer deficit: pt ransfer 12:45: [id number] 00 Balance/End balance/home coordinator PT/OT: Active 2018-08 Tani urance rdination Balance/En 0-04 Jalen deficit durance 12:45: [id number] 00 OT: Self self-care OT: Active 2018-08 Tani Care deficit Self-Care 0-04 Jalen 12:45: [id number] 00 OT: Self knowledge/s OT: Active 2018-08 Tani Care kill Self-Care 0-04 Jalen deficit: pt 12:45: [id number] 00 Gait/Locomo stair PT/OT: Active 2018-08 Tani tion management Gait/Locom 0-04 Jalen problems req otion 12:45: [id number] 00 Gait/Locomo knowledge/s PT/OT: Active 2018-08 Tani tion kill Gait/Locom 0-04 Kobziewicz problems deficit: pt otion 12:45: [id number] 00 Gait/Locomo gait PT/OT: Active 2018-08 Tani tion deficit Gait/Locom 0-04 Kobziewicz problems otion 12:45: [id number] 00 Endo/Steven anti-coagul Endo/Steven Active 2018-08 Marilyn ation 08-08 Lizzeth therapy 14:16: [id number] 00 Activity self-care Activity Active 2018-08 Marilyn deficit 08-15 Lizzeth 09:01: [id number] 00 Allergies, Adverse Reactions, Alerts Allergy Allergy Status Severity Reaction(s) Onset Inactive Treating Comments Name Type Date Date Clinician Ronal Unknown Active Unknown Reaction 2017-10 Lilliam Unknown -14 Drake [id number] Medications Ordered Filled Start Stop Current Ordering Indication Dosage Frequency Signature Comments Components Medication Medication Date Date Medication? Clinician (SIG) Name Name furosemide furosemide No Gem 1 Unknown 20 mg 20 mg Tramaine ESPINAL tablet tablet furosemide furosemide 2018- Max Unknown Unknown 40 mg 40 mg 10-28 Adriel ESPINALed Carin tablet tablet metFORMIN metFORMIN No Gem 1 Unknown 500 mg 500 mg Tramaine ESPINAL tablet tablet metoprolol metoprolol No Max Unknown Unknown succinate succinate 10-28 Omar ESPINAL ER 50 mg ER 50 mg tablet,exte tablet,exte nded nded release 24 release 24 hr hr LORazepam LORazepam No Gem Unknown Unknown 0.5 mg 0.5 mg 10-28 Tramaine ESPINAL tablet tablet gabapentin gabapentin 2018- No Max Unknown Unknown 300 mg 300 mg 10-28 Adriel ESPINALed Carin capsule capsule anastrozole anastrozole 2018- No Max Unknown Unknown 1 mg tablet 1 mg tablet 10-28 Adriel ESPINALed Carin sertraline sertraline No Gem 1 Unknown 100 mg 100 mg Tramaine ESPINAL tablet tablet Aspirin Low Aspirin Low No Max Unknown Unknown Dose 81 mg Dose 81 mg 10-28 Adriel ESPINALed Carin tablet,roel tablet,roel yed release yed release simvastatin simvastatin No Max Unknown Unknown 40 mg 40 mg 10-28 Adriel ESPINALed Carin tablet tablet meclizine meclizine No Gem 2oral Unknown 12.5 mg 12.5 mg MDTramaine tablet tablet omeprazole omeprazole No Max Unknown Unknown 40 mg 40 mg 10-28 ,Omar Carin capsule,del capsule,del ayed ayed release release raNITIdine raNITIdine No Gem 1 Unknown 150 mg 150 mg MDTramaine tablet tablet mirtazapine mirtazapine No Gem 1 Unknown 30 mg 30 mg MDTramaine tablet tablet Nitrostat Nitrostat No Gem 1 Unknown 0.4 mg 0.4 mg Tramaine ESPINAL sublingual sublingual tablet tablet polyethylen polyethylen No Max Unknown Unknown e glycol e glycol 10-28 ,Omar Carin 3350 (bulk) 3350 (bulk) granules granules cholecalcif cholecalcif No Max Unknown Unknown john john 10-28 ,Omar Carin (vitamin (vitamin D3) 5,000 D3) 5,000 unit unit capsule capsule HYDROcodone HYDROcodone No Gem 2 Unknown 7.5 7.5 Tramaine ESPINAL mg-acetamin mg-acetamin ophen 325 ophen 325 mg tablet mg tablet sucralfate sucralfate No Gem 1 Unknown 1 gram 1 gram MDTramaine tablet tablet oxybutynin oxybutynin No Max Unknown Unknown chloride ER chloride ER 10-28 ,Omar Carin 10 mg 10 mg tablet,exte tablet,exte nded nded release 24 release 24 hr hr metroNIDAZO metroNIDAZO No Gem 1applic Unknown LE 0.75 % LE 0.75 [...] 12-01 ,Omar Carin HYDROcodone HYDROcodone 2018- No Max Unknown Unknown 7.5 7.5 12-02 ,Omar Carin mg-acetamin mg-acetamin ophen 325 ophen 325 mg tablet mg tablet gabapentin gabapentin 2018- No Max Unknown Unknown 300 mg 300 mg 10-28 ,Omar Cairn capsule capsule sertraline sertraline 2018- No Max Unknown Unknown 100 mg 100 mg 12-22 ,Omar Carin tablet tablet HYDROcodone HYDROcodone 2019- No Gem Unknown Unknown 7.5 7.5 01-26 Tramaine ESPINAL [...] Unknown Unknown ne 10 ne 10 04-13 09- Omar ESPINAL mcg/hour mcg/hour weekly weekly transdermal transdermal patch patch buprenorphi buprenorphi Yes [place] Unknown Unknown ne 10 ne 10 - Brian ESPINAL mcg/hour mcg/hour weekly weekly transdermal transdermal patch patch metroNIDAZO metroNIDAZO Yes Max Unknown Unknown LE 0.75 % LE 0.75 % 04-22 ,Omar Carin topical gel topical gel cefdinir cefdinir 2019- Yes Santana Unknown Unknown 300 mg 300 mg 04-22 MD,Omar J capsule capsule furosemide furosemide 2018-08 Yes Santana Unknown Unknown 40 mg 40 mg 0- MD,Omar J tablet tablet gabapentin gabapentin No Santana Unknown Unknown 300 mg 300 mg 3- MD,Omar J capsule capsule traMADol 50 traMADol 50 2018-08 Yes [place] Unknown Unknown mg tablet mg tablet 0- Brian ESPINAL lisinopril lisinopril 2018-08 Yes Santana Unknown Unknown 10 mg 10 mg 0 MD,Omar J tablet tablet methylPREDN methylPREDN 2018-08- Yes Ellis Unknown Unknown ISolone 4 ISolone 4 08-08 ,Vladislav mg tablets mg tablets in a dose in a dose pack pack metaxalone metaxalone 2018-08 Yes Ellis Unknown Unknown 400 mg 400 mg 08-08 MD,Vladislav tablet tablet amoxicillin amoxicillin 2018-08- Yes Ellis Unknown Unknown [id number] 08-08 ,Vladislav mg-potassiu mg-potassiu m m clavulanate clavulanate 125 mg 125 mg tablet tablet Vital Signs Vital Name Observation Time Observation Value Comments SYSTOLIC mm[Hg] 2019-06-15 18:08:49 118 mm[Hg] mm[Hg] Method: Sit SYSTOLIC mm[Hg] 2019-04-27 18:08:00 124 mm[Hg] mm[Hg] Method: Stand DIASTOLIC mm[Hg] 2019-06-15 18:08:49 70 mm[Hg] mm[Hg] Method: Sit DIASTOLIC mm[Hg] 2019-04-27 18:08:00 82 mm[Hg] mm[Hg] Method: Stand PULSE 2019-06-15 18:08:49 60 /min /min RESP RATE 2019-06-15 18:08:49 16 /min /min TEMP 2019-06-15 18:08:49 96.8 [degF] Procedures This patient has no known procedures. Results This patient has no known results.
--- OUTSIDE RECORDS SUMMARY | 2019-08-13 04:55 | XMS REPORT ---
:1940 Author Organization [facility] Care Team Providers Name Role Phone Unavailable Unavailable Unavailable Problems Condition Condition Condition Status Onset Resolution Last Treating Comments Name Details Category Date Date Treatment Clinician Date Pain frequent Pain Mgmt Resolve 2018-12-01 Sera pain d 3- 16:22:00 (Kirk) 10:50: Rider 00 [id number] Cardio edema Cardiovasc Resolve 2019-04-27 Sera ular d 3 13:15:00 (Kirk) 10:50: Rider 00 [id number] Respiratory dyspnea Respirator Resolve 2019-02-16 Sera present y d 3- 10:57:00 (Kirk) 10:50: Rider 00 [id number] Respiratory CPAP Respirator Resolve 2019-02-16 Sera treatments y d 3-27 10:57:00 (Kirk) in home 10:50: Rider 00 [id number] Endo/Steven anti-coagul Endo/Steven Resolve 2018-11-17 Sera ation d 3-27 14:30:00 (Kirk) therapy 10:50: Rider 00 [id number] Sensory impaired Sensory Active Sera hearing 3 (Kirk) 10:50: Rider 00 [id number] Integument skin Integument Resolve 2018-12-31 Sera integrity d 3- 14:10:00 (Kirk) risk 10:50: Rider 00 [id number] Elimination urinary Eliminatio Resolve 2018-11-17 Sera incontinenc n d 3-27 14:30:00 (Kirk) e 10:50: Rider 00 [id number] Elimination UTI within Eliminatio Resolve 2018-11-17 Sera past 14 n d 3-27 14:30:00 (Kirk) days 10:50: Rider 00 [id number] Elimination bowel Eliminatio Resolve 2018-2018-11-17 Sera incontinenc n d 3- 14:30:00 (Kirk) e 10:50: Rider [id number] Neuro confusion Neuro/Emot Active Sera present ion 3-27 (Kirk) 10:50: Rider [id number] Neuro anxiety Neuro/Emot Active Sera present ion 3 (Kirk) 10:50: Rider [id number] Neuro depressive Neuro/Emot Active Sera feelings ion 3 (Kirk) present 10:50: Rider [id number] Neuro impaired Neuro/Emot Active Sera decision-ma ion 10-28 (Kirk) camilla 10:50: Rider [id number] Neuro memory Neuro/Emot Active Sera deficit ion 10-28 (Kirk) needing 10:50: Rider supervision 00 [id number] Activity ADL Activity Resolve 2019-04-13 Sera assistance d 10-28 10:57:00 (Kirk) required 10:50: Rider [id number] Activity self-care Activity Resolve 2019-04-13 Sera deficit d 3 10:57:00 (Kirk) 10:50: Rider [id number] Safety structural Safety Resolve 2019-06-15 Sera barriers d 3 09:01:00 (Kirk) present 10:50: Rider [id number] Safety sanitation Safety Resolve 2019-06-15 Sera hazards d 3 09:01:00 (Kirk) present 10:50: Rider [id number] Safety fall risk Safety Active Sera factor 3- (Kirk) present 10:50: Rider [id number] Safety risk for Safety Active Sera hospitaliza 10-28 (Kirk) tion 10:50: Rider [id number] Safety can be left Safety Resolve 2019-06-15 Sera alone for d 3- 09:01:00 (Kirk) only short 10:50: Rider 00 [id number] Medication oral med Meds Active Sera assistance 3 (Kirk) required 10:50: Rider [id number] Medication potential Meds Active Sera clinically 10-28 (Kirk) significant 10:50: Rider medication 00 [id number] issue Musculoskel transfer Musculoske Resolve 2019-03-16 Sera etal assistance letal d 10-28 12:21:00 (Kirk) required 10:50: Rider 00 [id number] Safety fire risk Safety Active Lilliam present 10-30 Drake 10:25: [id number] 00 Musculoskel requires Musculoske Resolve 2019-03-16 Marilyn etal human letal d 11-03 12:21:00 Lizzeth assist to 13:12: [id number] leave home 00 Nutrition nutritional Nutrition Resolve 2018-12-08 Marilyn risk d 11-10 13:53:00 Lizzeth 12:39: [id number] 00 Nutrition knowledge/s Nutrition Resolve 2018-12-08 Marilyn kill d 11-10 13:53:00 Lizzeth deficit: pt 12:39: [id number] 00 Endo/Steven anti-coagul Endo/Steven Resolve 2018-12-01 Marilyn ation d 11-24 16:22:00 Lizzeth therapy 14:10: [id number] 00 Elimination urinary Eliminatio Resolve 2018-11-24 Marilyn incontinenc n d 11-24 14:10:00 Lizzeth e 14:10: [id number] 00 Elimination urinary Eliminatio Resolve 2018-12-08 Marilyn incontinenc n d 12-01 13:53:00 Lizzeth e 16:22: [id number] 00 Endo/Steven anti-coagul Endo/Steven Resolve 2019-01-07 Marilyn ation d 12-08 11:45:00 Lizzeth therapy 13:53: [id number] 00 Musculoskel knowledge/s Musculoske Resolve 2019-03-16 Marilyn etal kill letal d 12-08 12:21:00 Lizzeth deficit: pt 13:53: [id number] 00 Elimination urinary Eliminatio Resolve 2018-12-31 Marilyn incontinenc n d 12-15 14:10:00 Lizzeth e 13:30: [id number] 00 Pain frequent Pain Mgmt Active Marilyn pain 12-22 Lizzeth 13:45: [id number] 00 Elimination urinary Eliminatio Resolve 2019-02-16 Marilyn incontinenc n d 01-07 10:57:00 Lizzeth e 11:45: [id number] 00 Endo/Steven anti-coagul Endo/Steven Resolve 2019-02-16 Marilyn ation d 01-14 10:57:00 Lizzeth therapy 12:15: [id number] 00 Pain knowledge/s Pain Mgmt Resolve 2019-05-04 Marilyn kill d 01-22 11:45:00 Lizzeth deficit: cg 12:43: [id number] 00 Safety cannot be Safety Resolve 2019-06-15 Marilyn left alone d 01-22 09:01:00 Lizzeth 12:43: [id number] 00 Safety knowledge/s Safety Resolve 2019-06-15 Marilyn kill d 01-22 09:01:00 Lizzeth deficit: cg 12:43: [id number] 00 Musculoskel knowledge/s Musculoske Resolve 2019-03-16 Marilyn etal kill letal d 01-22 12:21:00 Lizzeth deficit: cg 12:43: [id number] 00 Pain knowledge/s Pain Mgmt Resolve 2019-05-04 Marilyn kill d 01-26 11:45:00 Lizzeth deficit: pt 14:21: [id number] 00 Elimination recurring Eliminatio Resolve 2019-02-16 Marilyn UTI n d 01-26 10:57:00 Lizzeth 14:21: [id number] 00 Respiratory dyspnea Respirator Resolve 2019-04-27 Marilyn present y d 02-23 13:15:00 Lizzeth 14:30: [id number] 00 Endo/Steven anti-coagul Endo/Steven Resolve 2018-2019-04-13 Marilyn ation d 02-23 10:57:00 Lizzeth therapy 14:30: [id number] 00 Integument skin Integument Resolve 2019-04-20 Marilyn integrity d 02-23 11:34:00 Lizzeth risk 14:30: [id number] 00 Elimination urinary Eliminatio Resolve 2019-04-20 Marilyn incontinenc n d 02-23 11:34:00 Lizzeth e 14:30: [id number] 00 Respiratory BiPAP Respirator Resolve 2019-06-15 Marilyn treatments y d 8- 09:01:00 Lizzeth in home 12:21: [id number] 00 Social support LEATHA: Active Marilyn Services deficit Social 03-16 Lizzeth Services 12:21: [id number] 00 Musculoskel requires Musculoske Active Marilyn etal human letal 03-23 Lizzeth assist to 10:15: [id number] leave home 00 Respiratory CPAP Respirator Resolve 2019-06-15 Marilyn treatments y d 03-30 09:01:00 Lizzeth in home 12:50: [id number] 00 Musculoskel transfer Musculoske Active Lilliam etal assistance letal 04-20 Drake required 11:34: [id number] 00 Pain knowledge/s Pain Mgmt Active 2018-08 Tani kill 0-04 Jalen deficit: pt 12:45: [id number] 00 Bed knowledge/s PT/OT: Bed Active 2018-08 Tani Mobility/Tr kill Mobility/T 0-04 Jalen ansfer deficit: pt ransfer 12:45: [id number] 00 Balance/End balance/business services coordinator PT/OT: Active 2018-08 Tani urance rdination Balance/En 0-04 Jalen deficit durance 12:45: [id number] 00 OT: Self self-care OT: Active 2018-08 Tani Care deficit Self-Care 0-04 Jalen 12:45: [id number] 00 OT: Self knowledge/s OT: Active 2018-08 Tani Care kill Self-Care 0-04 Jalen deficit: pt 12:45: [id number] 00 Gait/Locomo stair PT/OT: Active 2018-08 Tani tion management Gait/Locom 0-04 Jalen problems req otion 12:45: [id number] 00 Gait/Locomo knowledge/s PT/OT: Active 2018-08 Tani tion kill Gait/Locom 0-04 Kobziewicz problems deficit: pt otion 12:45: [id number] 00 Gait/Locomo gait PT/OT: Active 2018-08 Tani tion deficit Gait/Locom 0-04 Kobziewicz problems otion 12:45: [id number] 00 Endo/Steven anti-coagul Endo/Steven Active 2018-08 Marilyn ation 08-08 Lizzeth therapy 14:16: [id number] 00 Activity self-care Activity Active 2018-08 Marilyn deficit 08-15 Lizzeth 09:01: [id number] 00 Allergies, Adverse Reactions, Alerts Allergy Allergy Status Severity Reaction(s) Onset Inactive Treating Comments Name Type Date Date Clinician Ronal Unknown Active Unknown Reaction 2017-10 Lilliam Unknown -14 Drake [id number] Medications Ordered Filled Start Stop Current Ordering Indication Dosage Frequency Signature Comments Components Medication Medication Date Date Medication? Clinician (SIG) Name Name furosemide furosemide No [place] 1 Unknown 20 mg 20 mg Tramaine ESPINAL tablet tablet furosemide furosemide 2018- Max Unknown Unknown 40 mg 40 mg 10-28 Adriel ESPINALed Carin tablet tablet metFORMIN metFORMIN No [place] 1 Unknown 500 mg 500 mg Tramaine ESPINAL tablet tablet metoprolol metoprolol No Max Unknown Unknown succinate succinate 10-28 Omar ESPINAL ER 50 mg ER 50 mg tablet,exte tablet,exte nded nded release 24 release 24 hr hr LORazepam LORazepam No [place] Unknown Unknown 0.5 mg 0.5 mg 10-28 Tramaine ESPINAL tablet tablet gabapentin gabapentin 2018- No Max Unknown Unknown 300 mg 300 mg 10-28 Adriel ESPINALed Carin capsule capsule anastrozole anastrozole 2018- No Max Unknown Unknown 1 mg tablet 1 mg tablet 10-28 Adriel ESPINALed Carin sertraline sertraline No [place] 1 Unknown 100 mg 100 mg Tramaine ESPINAL tablet tablet Aspirin Low Aspirin Low No Max Unknown Unknown Dose 81 mg Dose 81 mg 10-28 Adriel ESPINALed Carin tablet,roel tablet,roel yed release yed release simvastatin simvastatin No Max Unknown Unknown 40 mg 40 mg 10-28 Adriel ESPINALed Carin tablet tablet meclizine meclizine No [place] 2oral Unknown 12.5 mg 12.5 mg MDTramaine tablet tablet omeprazole omeprazole No Max Unknown Unknown 40 mg 40 mg 10-28 ,Omar Carin capsule,del capsule,del ayed ayed release release raNITIdine raNITIdine No [place] 1 Unknown 150 mg 150 mg MDTramaine tablet tablet mirtazapine mirtazapine No [place] 1 Unknown 30 mg 30 mg MDTramaine tablet tablet Nitrostat Nitrostat No [place] 1 Unknown 0.4 mg 0.4 mg Tramaine ESPINAL sublingual sublingual tablet tablet polyethylen polyethylen No Max Unknown Unknown e glycol e glycol 10-28 ,Omar Carin 3350 (bulk) 3350 (bulk) granules granules cholecalcif cholecalcif No Max Unknown Unknown john john 10-28 ,Omar Carin (vitamin (vitamin D3) 5,000 D3) 5,000 unit unit capsule capsule HYDROcodone HYDROcodone No [place] 2 Unknown 7.5 7.5 Tramaine ESPINAL mg-acetamin mg-acetamin ophen 325 ophen 325 mg tablet mg tablet sucralfate sucralfate No [place] 1 Unknown 1 gram 1 gram MDTramaine tablet tablet oxybutynin oxybutynin No Max Unknown Unknown chloride ER chloride ER 10-28 ,Omar Carin 10 mg 10 mg tablet,exte tablet,exte nded nded release 24 release 24 hr hr metroNIDAZO metroNIDAZO No [place] 1applic Unknown LE 0.75 % LE 0.75 [...] Carin capsule capsule sertraline sertraline 2018- No Max Unknown Unknown 100 mg 100 mg 12-22 ,Omar Carin tablet tablet HYDROcodone HYDROcodone 2019- No [place] Unknown Unknown 7.5 7.5 01-26 Tramaine ESPINAL [...] Santana Unknown Unknown 300 mg 300 mg 04-22- MD,Omar J capsule capsule furosemide furosemide 2018-08 Yes Santana Unknown Unknown 40 mg 40 mg 0-08 MD,Omar J tablet tablet gabapentin gabapentin No Santana Unknown Unknown 300 mg 300 mg 3- MD,Omar J capsule capsule traMADol 50 traMADol 50 2018-08 Yes [place] Unknown Unknown mg tablet mg tablet 0- Brian ESPINAL lisinopril lisinopril 2018-08 Yes Santana Unknown Unknown 10 mg 10 mg 0- MD,Omar J tablet tablet methylPREDN methylPREDN 2018-08 Yes Ellis Unknown Unknown ISolone 4 ISolone 4 1-05 MD,Vladislav mg tablets mg tablets in a dose in a dose pack pack metaxalone metaxalone 2018-08 Yes Ellis Unknown Unknown 400 mg 400 mg 1- MD,Vladislav tablet tablet amoxicillin amoxicillin 2018-08 Yes Ellis Unknown Unknown [id number] 1- MD,Vladislav mg-potassiu mg-potassiu m m clavulanate clavulanate 125 [...]
--- OUTSIDE RECORDS SUMMARY | 2019-08-13 04:55 | XMS REPORT ---
:1940 Author Organization [facility] Care Team Providers Name Role Phone Unavailable Unavailable Unavailable Problems Condition Condition Condition Status Onset Resolution Last Treating Comments Name Details Category Date Date Treatment Clinician Date Pain frequent Pain Mgmt Resolve 2018-12-01 Sera pain d 3- 16:22:00 (Kirk) 10:50: Rider 00 [id number] Cardio edema Cardiovasc Resolve 2019-04-27 Sera ular d 3 13:15:00 (Kirk) 10:50: Rider 00 [id number] Respiratory dyspnea Respirator Resolve 2019-02-16 Sera present y d 3- 10:57:00 (Kirk) 10:50: Rider 00 [id number] Respiratory CPAP Respirator Resolve 2019-02-16 Sera treatments y d 3-27 10:57:00 (Kirk) in home 10:50: Rider 00 [id number] Endo/Steven anti-coagul Endo/Steven Resolve 2018-11-17 Sera ation d 3-27 14:30:00 (Kirk) therapy 10:50: Rider 00 [id number] Sensory impaired Sensory Active Sera hearing 3 (Kirk) 10:50: Rider 00 [id number] Integument skin Integument Resolve 2018-12-31 Sera integrity d 3- 14:10:00 (Kirk) risk 10:50: Rider 00 [id number] Elimination urinary Eliminatio Resolve 2018-11-17 Sera incontinenc n d 3-27 14:30:00 (Kirk) e 10:50: Rider 00 [id number] Elimination UTI within Eliminatio Resolve 2018-11-17 Sera past 14 n d 3-27 14:30:00 (Kirk) days 10:50: Rider 00 [id number] Elimination bowel Eliminatio Resolve 2018-2018-11-17 Sera incontinenc n d 3- 14:30:00 (Kirk) e 10:50: Rider [id number] Neuro confusion Neuro/Emot Active Sera present ion 3-27 (Kirk) 10:50: Rider [id number] Neuro anxiety Neuro/Emot Active Sera present ion 3 (Kirk) 10:50: Rider [id number] Neuro depressive Neuro/Emot Active Sera feelings ion 3 (Kirk) present 10:50: Rider [id number] Neuro impaired Neuro/Emot Active Sera decision-ma ion 10-28 (Kirk) camilla 10:50: Rider [id number] Neuro memory Neuro/Emot Active Sera deficit ion 10-28 (Kirk) needing 10:50: Rider supervision 00 [id number] Activity ADL Activity Resolve 2019-04-13 Sera assistance d 10-28 10:57:00 (Kirk) required 10:50: Rider [id number] Activity self-care Activity Resolve 2019-04-13 Sera deficit d 3 10:57:00 (Kirk) 10:50: Rider [id number] Safety structural Safety Resolve 2019-06-15 Sera barriers d 3 09:01:00 (Kirk) present 10:50: Rider [id number] Safety sanitation Safety Resolve 2019-06-15 Sera hazards d 3 09:01:00 (Kirk) present 10:50: Rider [id number] Safety fall risk Safety Active Sera factor 3- (Kirk) present 10:50: Rider [id number] Safety risk for Safety Active Sera hospitaliza 10-28 (Kirk) tion 10:50: Rider [id number] Safety can be left Safety Resolve 2019-06-15 Sera alone for d 3- 09:01:00 (Kirk) only short 10:50: Rider 00 [id number] Medication oral med Meds Active Sera assistance 3 (Kirk) required 10:50: Rider [id number] Medication potential Meds Active Sera clinically 10-28 (Kirk) significant 10:50: Rider medication 00 [id number] issue Musculoskel transfer Musculoske Resolve 2019-03-16 Sera etal assistance letal d 10-28 12:21:00 (Kirk) required 10:50: Rider 00 [id number] Safety fire risk Safety Active Lilliam present 10-30 Drake 10:25: [id number] Musculoskel requires Musculoske Resolve 2019-03-16 Marilyn etal human letal d 11-03 12:21:00 Lizzeth assist to 13:12: [id number] leave home 00 Nutrition nutritional Nutrition Resolve 2018-12-08 Marilyn risk d 11-10 13:53:00 Lizzeth 12:39: [id number] 00 Nutrition knowledge/s Nutrition Resolve 2018-12-08 Marilyn kill d 11-10 13:53:00 Lizzeth deficit: pt 12:39: [id number] 00 Endo/Steven anti-coagul Endo/Steven Resolve 2018-12-01 Marilyn ation d 11-24 16:22:00 Lizzeth therapy 14:10: [id number] 00 Elimination urinary Eliminatio Resolve 2018-11-24 Marilyn incontinenc n d 11-24 14:10:00 Lizzeth e 14:10: [id number] 00 Elimination urinary Eliminatio Resolve 2018-12-08 Marilyn incontinenc n d 12-01 13:53:00 Lizzeth e 16:22: [id number] 00 Endo/Steven anti-coagul Endo/Steven Resolve 2019-01-07 Marilyn ation d 12-08 11:45:00 Lizzeth therapy 13:53: [id number] 00 Musculoskel knowledge/s Musculoske Resolve 2019-03-16 Marilyn etal kill letal d 12-08 12:21:00 Lizzeth deficit: pt 13:53: [id number] 00 Elimination urinary Eliminatio Resolve 2018-12-31 Marilyn incontinenc n d 12-15 14:10:00 Lizzeth e 13:30: [id number] 00 Pain frequent Pain Mgmt Active Marilyn pain 12-22 Lizzeth 13:45: [id number] 00 Elimination urinary Eliminatio Resolve 2019-02-16 Marilyn incontinenc n d 01-07 10:57:00 Lizzeth e 11:45: [id number] 00 Endo/Steven anti-coagul Endo/Steven Resolve 2019-02-16 Marilyn ation d 01-14 10:57:00 Lizzeth therapy 12:15: [id number] 00 Pain knowledge/s Pain Mgmt Resolve 2019-05-04 Marilyn kill d 01-22 11:45:00 Lizzeth deficit: cg 12:43: [id number] 00 Safety cannot be Safety Resolve 2019-06-15 Marilyn left alone d 01-22 09:01:00 Lizzeth 12:43: [id number] 00 Safety knowledge/s Safety Resolve 2019-06-15 Marilyn kill d 01-22 09:01:00 Lizzeth deficit: cg 12:43: [id number] 00 Musculoskel knowledge/s Musculoske Resolve 2019-03-16 Marilyn etal kill letal d 01-22 12:21:00 Lizzeth deficit: cg 12:43: [id number] 00 Pain knowledge/s Pain Mgmt Resolve 2019-05-04 Marilyn kill d 01-26 11:45:00 Lizzeth deficit: pt 14:21: [id number] 00 Elimination recurring Eliminatio Resolve 2019-02-16 Marilyn UTI n d 01-26 10:57:00 Lizzeth 14:21: [id number] 00 Respiratory dyspnea Respirator Resolve 2019-04-27 Marilyn present y d 02-23 13:15:00 Lizzeth 14:30: [id number] 00 Endo/Steven anti-coagul Endo/Steven Resolve 2018-2019-04-13 Marilyn ation d 02-23 10:57:00 Lizzeth therapy 14:30: [id number] 00 Integument skin Integument Resolve 2019-04-20 Marilyn integrity d 02-23 11:34:00 Lizzeth risk 14:30: [id number] 00 Elimination urinary Eliminatio Resolve 2019-04-20 Marilyn incontinenc n d 02-23 11:34:00 Lizzeth e 14:30: [id number] 00 Respiratory BiPAP Respirator Resolve 2019-06-15 Marilyn treatments y d 8- 09:01:00 Lizzeth in home 12:21: [id number] 00 Social support LEATHA: Active Marilyn Services deficit Social 03-16 Lizzeth Services 12:21: [id number] 00 Musculoskel requires Musculoske Active Marilyn etal human letal 03-23 Lizzeth assist to 10:15: [id number] leave home 00 Respiratory CPAP Respirator Resolve 2019-06-15 Marilyn treatments y d 03-30 09:01:00 Lizzeth in home 12:50: [id number] 00 Musculoskel transfer Musculoske Active Lilliam etal assistance letal 04-20 Drake required 11:34: [id number] 00 Pain knowledge/s Pain Mgmt Active 2018-08 Tani kill 0-04 Jalen deficit: pt 12:45: [id number] 00 Bed knowledge/s PT/OT: Bed Active 2018-08 Tani Mobility/Tr kill Mobility/T 0-04 Jalen ansfer deficit: pt ransfer 12:45: [id number] 00 Balance/End balance/education coordinator PT/OT: Active 2018-08 Tani urance rdination Balance/En 0-04 Jalen deficit durance 12:45: [id number] 00 OT: Self self-care OT: Active 2018-08 Tani Care deficit Self-Care 0-04 Jalen 12:45: [id number] 00 OT: Self knowledge/s OT: Active 2018-08 Tani Care kill Self-Care 0-04 Jalen deficit: pt 12:45: [id number] 00 Gait/Locomo stair PT/OT: Active 2018-08 Tani tion management Gait/Locom 0-04 Jalen problems req otion 12:45: [id number] 00 Gait/Locomo knowledge/s PT/OT: Active 2018-08 Tani tion kill Gait/Locom 0-04 Kobziewicz problems deficit: pt otion 12:45: [id number] 00 Gait/Locomo gait PT/OT: Active 2018-08 Tani tion deficit Gait/Locom 0-04 Kobziewicz problems otion 12:45: [id number] 00 Endo/Steven anti-coagul Endo/Steven Active 2018-08 Marilyn ation 08-08 Lizzeth therapy 14:16: [id number] 00 Activity self-care Activity Active 2018-08 Marilyn deficit 08-15 Lizzeth 09:01: [id number] 00 Allergies, Adverse Reactions, Alerts Allergy Allergy Status Severity Reaction(s) Onset Inactive Treating Comments Name Type Date Date Clinician Ronal Unknown Active Unknown Reaction 2017-10 Lilliam Unknown -14 Drake [id number] Medications Ordered Filled Start Stop Current Ordering Indication Dosage Frequency Signature Comments Components Medication Medication Date Date Medication? Clinician (SIG) Name Name furosemide furosemide No Door 1 Unknown 20 mg 20 mg Tramaine ESPINAL tablet tablet furosemide furosemide 2018- Max Unknown Unknown 40 mg 40 mg 10-28 Adriel ESPINALed Carin tablet tablet metFORMIN metFORMIN No Door 1 Unknown 500 mg 500 mg Tramaine ESPINAL tablet tablet metoprolol metoprolol No Max Unknown Unknown succinate succinate 10-28 Omar ESPINAL ER 50 mg ER 50 mg tablet,exte tablet,exte nded nded release 24 release 24 hr hr LORazepam LORazepam No Door Unknown Unknown 0.5 mg 0.5 mg 10-28 Tramaine ESPINAL tablet tablet gabapentin gabapentin 2018- No Max Unknown Unknown 300 mg 300 mg 10-28 Adriel ESPINALed Carin capsule capsule anastrozole anastrozole 2018- No Max Unknown Unknown 1 mg tablet 1 mg tablet 10-28 Adriel ESPINALed Carin sertraline sertraline No Door 1 Unknown 100 mg 100 mg Tramaine ESPINAL tablet tablet Aspirin Low Aspirin Low No Max Unknown Unknown Dose 81 mg Dose 81 mg 10-28 Adriel ESPINALed Carin tablet,roel tablet,roel yed release yed release simvastatin simvastatin No Max Unknown Unknown 40 mg 40 mg 10-28 Adriel ESPINALed Carin tablet tablet meclizine meclizine No Door 2oral Unknown 12.5 mg 12.5 mg MDTramaine tablet tablet omeprazole omeprazole No Max Unknown Unknown 40 mg 40 mg 10-28 ,Omar Carin capsule,del capsule,del ayed ayed release release raNITIdine raNITIdine No Door 1 Unknown 150 mg 150 mg MDTramaine tablet tablet mirtazapine mirtazapine No Door 1 Unknown 30 mg 30 mg MDTramaine tablet tablet Nitrostat Nitrostat No Door 1 Unknown 0.4 mg 0.4 mg Tramaine ESPINAL sublingual sublingual tablet tablet polyethylen polyethylen No Max Unknown Unknown e glycol e glycol 10-28 ,Omar Carin 3350 (bulk) 3350 (bulk) granules granules cholecalcif cholecalcif No Max Unknown Unknown john john 10-28 ,Omar Carin (vitamin (vitamin D3) 5,000 D3) 5,000 unit unit capsule capsule HYDROcodone HYDROcodone No Door 2 Unknown 7.5 7.5 Tramaine ESPINAL mg-acetamin mg-acetamin ophen 325 ophen 325 mg tablet mg tablet sucralfate sucralfate No Door 1 Unknown 1 gram 1 gram MDTramaine tablet tablet oxybutynin oxybutynin No Max Unknown Unknown chloride ER chloride ER 10-28 ,Omar Carin 10 mg 10 mg tablet,exte tablet,exte nded nded release 24 release 24 hr hr metroNIDAZO metroNIDAZO No Door 1applic Unknown LE 0.75 % LE 0.75 [...] Carin tablet tablet HYDROcodone HYDROcodone 2019- No Door Unknown Unknown 7.5 7.5 01-26 Tramaine ESPINAL [...]
--- OUTSIDE RECORDS SUMMARY | 2019-08-13 04:55 | XMS REPORT ---
:1940 Author Organization [facility] Care Team Providers Name Role Phone Unavailable Unavailable Unavailable Problems Condition Condition Condition Status Onset Resolution Last Treating Comments Name Details Category Date Date Treatment Clinician Date Pain frequent Pain Mgmt Resolve 2018-12-01 Sera pain d 3- 16:22:00 (Kirk) 10:50: Rider 00 [id number] Cardio edema Cardiovasc Resolve 2019-04-27 Sera ular d 3 13:15:00 (Kirk) 10:50: Rider 00 [id number] Respiratory dyspnea Respirator Resolve 2019-02-16 Sera present y d 3- 10:57:00 (Kirk) 10:50: Rider 00 [id number] Respiratory CPAP Respirator Resolve 2019-02-16 Sera treatments y d 3-27 10:57:00 (Kirk) in home 10:50: Rider 00 [id number] Endo/Steven anti-coagul Endo/Steven Resolve 2018-11-17 Sera ation d 3-27 14:30:00 (Kirk) therapy 10:50: Rider 00 [id number] Sensory impaired Sensory Active Sera hearing 3 (Kirk) 10:50: Rider 00 [id number] Integument skin Integument Resolve 2018-12-31 Sera integrity d 3-27 14:10:00 (Kirk) risk 10:50: Rider 00 [id number] Elimination urinary Eliminatio Resolve 2018-11-17 Sera incontinenc n d 3-27 14:30:00 (Kirk) e 10:50: Rider 00 [id number] Elimination UTI within Eliminatio Resolve 2018-11-17 Sera past 14 n d 3-27 14:30:00 (Kirk) days 10:50: Rider 00 [id number] Elimination bowel Eliminatio Resolve 2018-2018-11-17 Sear incontinenc n d 3- 14:30:00 (Kirk) e 10:50: Rider [id number] Neuro confusion Neuro/Emot Active Sera present ion 3-27 (Kirk) 10:50: Rider [id number] Neuro anxiety Neuro/Emot Active Sera present ion 3 (Kirk) 10:50: Rider [id number] Neuro depressive Neuro/Emot Active Sera feelings ion 3 (Kirk) present 10:50: Rider [id number] Neuro impaired Neuro/Emot Active Sera decision-ma ion 10-28 (Kirk) camilla 10:50: Rider [id number] Neuro memory Neuro/Emot Active Sera deficit ion 10-28 (Kirk) needing 10:50: Rider supervision 00 [id number] Activity ADL Activity Resolve 2019-04-13 Sera assistance d 10-28 10:57:00 (Kirk) required 10:50: Rider [id number] Activity self-care Activity Resolve 2019-04-13 Sera deficit d 3 10:57:00 (Kirk) 10:50: Rider [id number] Safety structural Safety Resolve 2019-06-15 Sera barriers d 3 09:01:00 (Kirk) present 10:50: Rider [id number] Safety sanitation Safety Resolve 2019-06-15 Sera hazards d 3 09:01:00 (Kirk) present 10:50: Rider [id number] Safety fall risk Safety Active Sera factor 3- (Kirk) present 10:50: Rider [id number] Safety risk for Safety Active Sera hospitaliza 10-28 (Kirk) tion 10:50: Rider [id number] Safety can be left Safety Resolve 2019-06-15 Sera alone for d 3- 09:01:00 (Kirk) only short 10:50: Rider 00 [id number] Medication oral med Meds Active Sera assistance 3 (Kirk) required 10:50: Rider [id number] Medication potential Meds Active Sera clinically 10-28 (Kirk) significant 10:50: Rider medication 00 [id number] issue Musculoskel transfer Musculoske Resolve 2019-03-16 Sera etal assistance letal d 10-28 12:21:00 (Kirk) required 10:50: Rider 00 [id number] Safety fire risk Safety Active Lilliam present 10-30 Drake 10:25: [id number] 00 Musculoskel requires Musculoske Resolve 2019-03-16 Marilyn etal human letal d 11-03 12:21:00 Lizzeth assist to 13:12: [id number] leave home 00 Nutrition nutritional Nutrition Resolve 2018-12-08 Marilyn risk d 11-10 13:53:00 Lizzeth 12:39: [id number] 00 Nutrition knowledge/s Nutrition Resolve 2018-12-08 Marilyn kill d 11-10 13:53:00 Lizzeth deficit: pt 12:39: [id number] 00 Endo/Steven anti-coagul Endo/Steven Resolve 2018-12-01 Marilyn ation d 11-24 16:22:00 Lizzeth therapy 14:10: [id number] Elimination urinary Eliminatio Resolve 2018-11-24 Marilyn incontinenc n d 11-24 14:10:00 Lizzeth e 14:10: [id number] 00 Elimination urinary Eliminatio Resolve 2018-12-08 Marilyn incontinenc n d 12-01 13:53:00 Lizzeth e 16:22: [id number] 00 Endo/Steven anti-coagul Endo/Steven Resolve 2019-01-07 Marilyn ation d 12-08 11:45:00 Lizzeth therapy 13:53: [id number] 00 Musculoskel knowledge/s Musculoske Resolve 2019-03-16 Marilyn etal kill letal d 12-08 12:21:00 Lizzeth deficit: pt 13:53: [id number] 00 Elimination urinary Eliminatio Resolve 2018-12-31 Marilyn incontinenc n d 12-15 14:10:00 Lizzeth e 13:30: [id number] 00 Pain frequent Pain Mgmt Active Marilyn pain 12-22 Lizzeth 13:45: [id number] 00 Elimination urinary Eliminatio Resolve 2019-02-16 Marilyn incontinenc n d 01-07 10:57:00 Lizzeth e 11:45: [id number] 00 Endo/Steven anti-coagul Endo/Steven Resolve 2019-02-16 Marilyn ation d 01-14 10:57:00 Lizzeth therapy 12:15: [id number] 00 Pain knowledge/s Pain Mgmt Resolve 2019-05-04 Marilyn kill d 01-22 11:45:00 Lizzeth deficit: cg 12:43: [id number] 00 Safety cannot be Safety Resolve 2019-06-15 Marilyn left alone d 01-22 09:01:00 Lizzeth 12:43: [id number] 00 Safety knowledge/s Safety Resolve 2019-06-15 Marilyn kill d 01-22 09:01:00 Lizzeth deficit: cg 12:43: [id number] 00 Musculoskel knowledge/s Musculoske Resolve 2019-03-16 Marilyn etal kill letal d 01-22 12:21:00 Lizzeth deficit: cg 12:43: [id number] 00 Pain knowledge/s Pain Mgmt Resolve 2019-05-04 Marilyn kill d 01-26 11:45:00 Lizzeth deficit: pt 14:21: [id number] 00 Elimination recurring Eliminatio Resolve 2019-02-16 Marilyn UTI n d 01-26 10:57:00 Lizzeth 14:21: [id number] 00 Respiratory dyspnea Respirator Resolve 2019-04-27 Marilyn present y d 02-23 13:15:00 Lizzeth 14:30: [id number] 00 Endo/Steven anti-coagul Endo/Steven Resolve 2018-2019-04-13 Marilyn ation d 02-23 10:57:00 Lizzeth therapy 14:30: [id number] 00 Integument skin Integument Resolve 2019-04-20 Marilyn integrity d 02-23 11:34:00 Lizzeth risk 14:30: [id number] 00 Elimination urinary Eliminatio Resolve 2019-04-20 Marilyn incontinenc n d 02-23 11:34:00 Lizzeth e 14:30: [id number] 00 Respiratory BiPAP Respirator Resolve 2019-06-15 Marilyn treatments y d 8- 09:01:00 Lizzeth in home 12:21: [id number] 00 Social support LEATHA: Active Marilyn Services deficit Social 03-16 Lizzeth Services 12:21: [id number] 00 Musculoskel requires Musculoske Active Marilyn etal human letal 03-23 Lizzeth assist to 10:15: [id number] leave home 00 Respiratory CPAP Respirator Resolve 2019-06-15 Marilyn treatments y d 03-30 09:01:00 Lizzeth in home 12:50: [id number] 00 Musculoskel transfer Musculoske Active Lilliam etal assistance letal 04-20 Drake required 11:34: [id number] 00 Pain knowledge/s Pain Mgmt Active 2018-08 Tani kill 0-04 Jalen deficit: pt 12:45: [id number] 00 Bed knowledge/s PT/OT: Bed Active 2018-08 Tani Mobility/Tr kill Mobility/T 0-04 Jalen ansfer deficit: pt ransfer 12:45: [id number] 00 Balance/End balance/damage prevention coordinator PT/OT: Active 2018-08 Tani urance rdination Balance/En 0-04 Jalen deficit durance 12:45: [id number] 00 OT: Self self-care OT: Active 2018-08 Tani Care deficit Self-Care 0-04 Jalen 12:45: [id number] 00 OT: Self knowledge/s OT: Active 2018-08 Tani Care kill Self-Care 0-04 Jalen deficit: pt 12:45: [id number] 00 Gait/Locomo stair PT/OT: Active 2018-08 Tani tion management Gait/Locom 0-04 Jalen problems req otion 12:45: [id number] 00 Gait/Locomo knowledge/s PT/OT: Active 2018-08 Tani tion kill Gait/Locom 0-04 Kobziewicz problems deficit: pt otion 12:45: [id number] 00 Gait/Locomo gait PT/OT: Active 2018-08 Tani tion deficit Gait/Locom 0-04 Kobziewicz problems otion 12:45: [id number] 00 Endo/Steven anti-coagul Endo/Steven Active 2018-08 Marilyn ation 08-08 Lizzeth therapy 14:16: [id number] 00 Activity self-care Activity Active 2018-08 Marilyn deficit 08-15 Lizzeth 09:01: [id number] 00 Activity ADL Activity Active 2018-08 Marilyn assistance 08-22 Lizzeth required 11:20: [id number] 00 Allergies, Adverse Reactions, Alerts Allergy Allergy Status Severity Reaction(s) Onset Inactive Treating Comments Name Type Date Date Clinician Lipitor Unknown Active Unknown Reaction 2017-10 Lilliam Unknown -14 Drake [id number] Medications Ordered Filled Start Stop Current Ordering Indication Dosage Frequency Signature Comments Components Medication Medication Date Date Medication? Clinician (SIG) Name Name furosemide furosemide No [place] 1 Unknown 20 mg 20 mg MDTramaine tablet tablet furosemide furosemide 2018- No Max Unknown Unknown 40 mg 40 mg 10-28 Omar ESPINAL tablet tablet metFORMIN metFORMIN No [place] 1 Unknown 500 mg 500 mg MDTramaine tablet tablet metoprolol metoprolol No Max Unknown Unknown succinate succinate 10-28 Omar ESPINAL ER 50 mg ER 50 mg tablet,exte tablet,exte nded nded release 24 release 24 hr hr LORazepam LORazepam No [place] Unknown Unknown 0.5 mg 0.5 mg 10-28 MDTramaine tablet tablet gabapentin gabapentin 2018- No Max Unknown Unknown 300 mg 300 mg 10-28 Adriel ESPINALed Carin capsule capsule anastrozole anastrozole 2018- No Max Unknown Unknown 1 mg tablet 1 mg tablet 10-28 Omar ESPINAL sertraline sertraline No [place] 1 Unknown 100 mg 100 mg MDTramaine tablet tablet Aspirin Low Aspirin Low No Max Unknown Unknown Dose 81 mg Dose 81 mg 10-28 Adriel ESPINALed Carin tablet,roel tablet,roel yed release yed release simvastatin simvastatin No Max Unknown Unknown 40 mg 40 mg 10-28 ,Omar Carin tablet tablet meclizine meclizine No [place] 2oral Unknown 12.5 mg 12.5 mg Tramaine ESPINAL tablet tablet omeprazole omeprazole No Max Unknown Unknown 40 mg 40 mg 10-28 ,Omar Carin capsule,del capsule,del ayed ayed release release raNITIdine raNITIdine No [place] 1 Unknown 150 mg 150 mg Tramaine ESPINAL tablet tablet mirtazapine mirtazapine No [place] 1 Unknown 30 mg 30 mg Tramaine ESPINAL tablet tablet Nitrostat Nitrostat No [place] 1 Unknown 0.4 mg 0.4 mg Tramaine ESPINAL sublingual sublingual tablet tablet polyethylen polyethylen No Max Unknown Unknown e glycol e glycol 10-28 ,Omar Del Rosario 3350 (bulk) 3350 (bulk) granules granules cholecalcif cholecalcif No Max Unknown Unknown john john 10-28 Omar ESPINAL (vitamin (vitamin D3) 5,000 D3) 5,000 unit unit capsule capsule HYDROcodone HYDROcodone No [place] 2 Unknown 7.5 7.5 Tramaine ESPINAL mg-acetamin mg-acetamin ophen 325 ophen 325 mg tablet mg tablet sucralfate sucralfate No [place] 1 Unknown 1 gram 1 gram Tramaine ESPINAL tablet tablet oxybutynin oxybutynin No Max Unknown Unknown chloride ER chloride ER 10-28 Omar ESPINAL 10 mg 10 mg tablet,exte tablet,exte nded nded release 24 release 24 hr hr metroNIDAZO metroNIDAZO No [place] 1applic Unknown LE 0.75 % LE 0.75 [...] Carin tablet tablet HYDROcodone HYDROcodone 2018- No [place] Unknown Unknown 7.5 7.5 01-26 Tramaine ESPINAL [...]
--- OUTSIDE RECORDS SUMMARY | 2019-08-13 04:55 | XMS REPORT ---
:1940 Author Organization [facility] Care Team Providers Name Role Phone Unavailable Unavailable Unavailable Problems Condition Condition Condition Status Onset Resolution Last Treating Comments Name Details Category Date Date Treatment Clinician Date Pain frequent Pain Mgmt Resolve 2018-12-01 Sera pain d 3- 16:22:00 (Kirk) 10:50: Rider 00 [id number] Cardio edema Cardiovasc Resolve 2019-04-27 Sera ular d 3 13:15:00 (Kirk) 10:50: Rider 00 [id number] Respiratory dyspnea Respirator Resolve 2019-02-16 Sera present y d 3- 10:57:00 (Kirk) 10:50: Rider 00 [id number] Respiratory CPAP Respirator Resolve 2019-02-16 Sera treatments y d 3-27 10:57:00 (Kirk) in home 10:50: Rider 00 [id number] Endo/Steven anti-coagul Endo/Steven Resolve 2018-11-17 Sera ation d 3-27 14:30:00 (Kirk) therapy 10:50: Rider 00 [id number] Sensory impaired Sensory Active Sera hearing 3 (Kirk) 10:50: Rider 00 [id number] Integument skin Integument Resolve 2018-12-31 Sera integrity d 3- 14:10:00 (Kirk) risk 10:50: Rider 00 [id number] Elimination urinary Eliminatio Resolve 2018-11-17 Sera incontinenc n d 3-27 14:30:00 (Kirk) e 10:50: Rider 00 [id number] Elimination UTI within Eliminatio Resolve 2018-11-17 Sera past 14 n d 3-27 14:30:00 (Kirk) days 10:50: Rider 00 [id number] Elimination bowel Eliminatio Resolve 2018-2018-11-17 Sera incontinenc n d 3 14:30:00 (Kirk) e 10:50: Rider [id number] Neuro confusion Neuro/Emot Active Sera present ion 3- (Kirk) 10:50: Rider [id number] Neuro anxiety Neuro/Emot Active Sera present ion 3- (Kirk) 10:50: Rider [id number] Neuro depressive Neuro/Emot Active Sera feelings ion - (Kirk) present 10:50: Rider [id number] Neuro impaired Neuro/Emot Active Sera decision-ma ion - (Kirk) camilla 10:50: Rider [id number] Neuro memory Neuro/Emot Active Sera deficit ion - (Kirk) needing 10:50: Rider supervision 00 [id number] Activity ADL Activity Resolve 2019-04-13 Sera assistance d 10-28 10:57:00 (Kirk) required 10:50: [id number] Activity self-care Activity Resolve 2018-2019-04-13 Sera deficit d - 10:57:00 (Kirk) 10:50: [id number] Safety structural Safety Active Sera barriers - (Kirk) present 10:50: Rider [id number] Safety sanitation Safety Active Sera hazards 3- (Kirk) present 10:50: [id number] Safety fall risk Safety Active Sera factor 3- (Kirk) present 10:50: Rider [id number] Safety risk for Safety Active Sera hospitaliza 3- (Kirk) tion 10:50: Rider [id number] Safety can be left Safety Active Sera alone for 3- (Kirk) only short 10:50: Rider periods [id number] Medication oral med Meds Active Sera assistance 3- (Kirk) required 10:50: Rider [id number] Medication potential Meds Active Sera clinically 3- (Kirk) significant 10:50: Rider medication [id number] issue Musculoskel transfer Musculoske Resolve 2019-03-16 Sera etal assistance letal d 10-28 12:21:00 (Kirk) required 10:50: Rider 00 [id number] Safety fire risk Safety Active Lilliam present 10-30 Drake 10:25: [id number] 00 Musculoskel requires Musculoske Resolve 2019-03-16 Marilyn etal human letal d 11-03 12:21:00 Lizzeth assist to 13:12: [id number] leave home 00 Nutrition nutritional Nutrition Resolve 2018-12-08 Marilyn risk d 11-10 13:53:00 Lizzeth 12:39: [id number] 00 Nutrition knowledge/s Nutrition Resolve 2018-12-08 Marilyn kill d 11-10 13:53:00 Lizzeth deficit: pt 12:39: [id number] 00 Endo/Steven anti-coagul Endo/Steven Resolve 2018-12-01 Marilyn ation d 11-24 16:22:00 Lizzeth therapy 14:10: [id number] 00 Elimination urinary Eliminatio Resolve 2018-11-24 Marilyn incontinenc n d 11-24 14:10:00 Lizzeth e 14:10: [id number] 00 Elimination urinary Eliminatio Resolve 2018-12-08 Marilyn incontinenc n d 12-01 13:53:00 Lizzeth e 16:22: [id number] 00 Endo/Steven anti-coagul Endo/Steven Resolve 2019-01-07 Marilyn ation d 12-08 11:45:00 Lizzeth therapy 13:53: [id number] 00 Musculoskel knowledge/s Musculoske Resolve 2019-03-16 Marilyn etal kill letal d 12-08 12:21:00 Lizzeth deficit: pt 13:53: [id number] 00 Elimination urinary Eliminatio Resolve 2018-12-31 Marilyn incontinenc n d 12-15 14:10:00 Lizzeth e 13:30: [id number] 00 Pain frequent Pain Mgmt Active Marilyn pain 12-22 Lizzeth 13:45: [id number] 00 Elimination urinary Eliminatio Resolve 2019-02-16 Marilyn incontinenc n d 01-07 10:57:00 Lizzeth e 11:45: [id number] 00 Endo/Steven anti-coagul Endo/Steven Resolve 2019-02-16 Marilyn ation d 01-14 10:57:00 Lizzeth therapy 12:15: [id number] 00 Pain knowledge/s Pain Mgmt Resolve 2019-05-04 Marilyn kill d 01-22 11:45:00 Lizzeth deficit: cg 12:43: [id number] 00 Safety cannot be Safety Active Marilyn left alone 01-22 Lizzeth 12:43: [id number] 00 Safety knowledge/s Safety Active Marilyn kill 01-22 Lizzeth deficit: cg 12:43: [id number] 00 Musculoskel knowledge/s Musculoske Resolve 2019-03-16 Marilyn etal kill letal d 01-22 12:21:00 Lizzeth deficit: cg 12:43: [id number] 00 Pain knowledge/s Pain Mgmt Resolve 2019-05-04 Marilyn kill d 01-26 11:45:00 Lizzeth deficit: pt 14:21: [id number] 00 Elimination recurring Eliminatio Resolve 2019-02-16 Marilyn UTI n d 01-26 10:57:00 Lizzeth 14:21: [id number] 00 Respiratory dyspnea Respirator Resolve 2019-04-27 Marilyn present y d 02-23 13:15:00 Lizzeth 14:30: [id number] 00 Endo/Steven anti-coagul Endo/Steven Resolve 2019-04-13 Marilyn ation d 02-23 10:57:00 Lizzeth therapy 14:30: [id number] 00 Integument skin Integument Resolve 2019-04-20 Marilyn integrity d 02-23 11:34:00 Lizzeth risk 14:30: [id number] 00 Elimination urinary Eliminatio Resolve 2019-04-20 Marilyn incontinenc n d 02-23 11:34:00 Lizzeth e 14:30: [id number] 00 Respiratory BiPAP Respirator Active Marilyn treatments y 8- Lizzeth in home 12:21: [id number] 00 Social support LEATHA: Active Marilyn Services deficit Social 8- Lizzeth Services 12:21: [id number] 00 Musculoskel requires Musculoske Active Marilyn etal human letal 03-23 Lizzeth assist to 10:15: [id number] leave home 00 Respiratory CPAP Respirator Active Marilyn treatments y 03-30 Lizzeth in home 12:50: [id number] 00 Musculoskel transfer Musculoske Active Lilliam etal assistance letal 04-20 Drake required 11:34: [id number] 00 Pain knowledge/s Pain Mgmt Active 2018-08 Tani kill 0-04 Kalaziewicz deficit: pt 12:45: [id number] 00 Bed knowledge/s PT/OT: Bed Active 2018-08 Tani Mobility/Tr kill Mobility/T 0-04 Kobzishylaicz ansfer deficit: pt ransfer 12:45: [id number] 00 Balance/End balance/compensation coordinator PT/OT: Active 2018-08 Tani urance rdination Balance/En 0-04 Kalaziewicz deficit durance 12:45: [id number] 00 OT: Self self-care OT: Active 2018-08 Tani Care deficit Self-Care 0-04 Conradicz 12:45: [id number] 00 OT: Self knowledge/s OT: Active 2018-08 Tani Care kill Self-Care 0-04 Kobziewicz deficit: pt 12:45: [id number] 00 Gait/Locomo stair PT/OT: Active 2018-08 Tani tion management Gait/Locom 0-04 Kobziewicz problems req otion 12:45: [id number] 00 Gait/Locomo knowledge/s PT/OT: Active 2018-08 Tani tion kill Gait/Locom 0-04 Kobziewicz problems deficit: pt otion 12:45: [id number] 00 Gait/Locomo gait PT/OT: Active 2018-08 Tani tion deficit Gait/Locom 0-04 Kobziewicz problems otion 12:45: [id number] 00 Endo/Steven anti-coagul Endo/Steven Active 2018-08 Marilyn martinez 08-08 Lizzeth therapy 14:16: [id number] 00 Allergies, Adverse Reactions, Alerts Allergy Allergy Status Severity Reaction(s) Onset Inactive Treating Comments Name Type Date Date Clinician Lipryanne Unknown Active Unknown Reaction 2017-10 Lilliam Unknown -14 Drake [id number] Medications Ordered Filled Start Stop Current Ordering Indication Dosage Frequency Signature Comments Components Medication Medication Date Date Medication? Clinician (SIG) Name Name furosemide furosemide No [place] 1 Unknown 20 mg 20 mg MD,Tramaine tablet tablet furosemide furosemide 2018- No Max Unknown Unknown 40 mg 40 mg 10-28 ,Omar J tablet tablet metFORMIN metFORMIN No [place] 1 Unknown 500 mg 500 mg MD,Tramaine tablet tablet metoprolol metoprolol No Santana Unknown Unknown succinate succinate 10-28 ,Omar J ER 50 mg ER 50 mg tablet,exte tablet,exte nded nded release 24 release 24 hr hr LORazepam LORazepam No [place] Unknown Unknown 0.5 mg 0.5 mg 10-28 ,[employer] tablet tablet gabapentin gabapentin 2018- No Max Unknown Unknown 300 mg 300 mg 10-28 ,Omar J capsule capsule anastrozole anastrozole 2018- No Max Unknown Unknown 1 mg tablet 1 mg tablet 10-28 ,Omar J sertraline sertraline No [place] 1 Unknown 100 mg 100 mg MD,[employer] tablet tablet Aspirin Low Aspirin Low No Max Unknown Unknown Dose 81 mg Dose 81 mg 10-28 ,Omar J tablet,roel tablet,roel yed release yed release simvastatin simvastatin No Max Unknown Unknown 40 mg 40 mg 10-28 ,Omar J tablet tablet meclizine meclizine No [place] 2oral Unknown 12.5 mg 12.5 mg MD,[employer] tablet tablet omeprazole omeprazole No Max Unknown Unknown 40 mg 40 mg 10-28 ,Omar J capsule,del capsule,del ayed ayed release release raNITIdine raNITIdine No [place] 1 Unknown 150 mg 150 mg MD,[employer] tablet tablet mirtazapine mirtazapine No [place] 1 Unknown 30 mg 30 mg MD,Tramaine tablet tablet Nitrostat Nitrostat No [place] 1 Unknown 0.4 mg 0.4 mg Tramaine ESPINAL sublingual sublingual tablet tablet polyethylen polyethylen No Max Unknown Unknown e glycol e glycol 10-28 ,Omar Carin 3350 (bulk) 3350 (bulk) granules granules cholecalcif cholecalcif No Max Unknown Unknown john john 10-28 ,Omar Del Rosario (vitamin (vitamin D3) 5,000 D3) 5,000 unit unit capsule capsule HYDROcodone HYDROcodone No [place] 2 Unknown 7.5 7.5 Tramaine ESPINAL mg-acetamin mg-acetamin ophen 325 ophen 325 mg tablet mg tablet sucralfate sucralfate No [place] 1 Unknown 1 gram 1 gram Tramaine ESPINAL tablet tablet oxybutynin oxybutynin No Max Unknown Unknown chloride ER chloride ER 10-28 Omar ESPINAL 10 mg 10 mg tablet,exte tablet,exte nded nded release 24 release 24 hr hr metroNIDAZO metroNIDAZO No [place] 1applic Unknown LE 0.75 % LE 0.75 % Tramaine ESPINAL ation lotion lotion lisinopril lisinopril 2018- No Max Unknown Unknown 10 mg 10 mg 10-28 10 ,Omar Carin tablet tablet levothyroxi levothyroxi No Max Unknown Unknown ne 25 mcg ne 25 mcg 10-28 ,Omar Carin capsule capsule meclizine meclizine No Max Unknown Unknown 25 mg 25 mg 10-28 ,Omar Carin tablet tablet sulfamethox sulfamethox 2018- No Max Unknown Unknown azole 800 azole 800 10-28 04-03 ,Omar Carin mg-trimetho mg-trimetho prim 160 mg prim 160 mg tablet tablet triamcinolo triamcinolo No Max Unknown Unknown ne ne 10-28 ,Omar Carin acetonide acetonide 0.1 % 0.1 % topical topical cream cream venlafaxine venlafaxine No Max Unknown Unknown ER 75 mg ER 75 mg 10-28 ,Omar Del Rosario capsule,ext capsule,ext ended ended release 24 release [...] J tablet tablet HYDROcodone HYDROcodone 2018- No [place] Unknown Unknown 7.5 7.5 01-26 Tramaine ESPINAL mg-acetamin mg-acetamin ophen 325 ophen 325 mg tablet mg tablet nitrofurant nitrofurant Yes Santana Unknown Unknown oin oin 03-17 ,Omar Carin macrocrysta macrocrysta l 50 mg l 50 mg capsule capsule ibuprofen ibuprofen Yes Santana Unknown Unknown 600 mg 600 mg [...] 0-29 ,Omar J tablet tablet methylPREDN methylPREDN 2018-08 Yes Ellis Unknown Unknown ISolone 4 ISolone 4 - ,Vladislav mg tablets mg tablets in a dose in a dose pack pack metaxalone metaxalone 2018-08 Yes Ellis Unknown Unknown 400 mg 400 mg 08-08 ,Vladislav tablet tablet amoxicillin amoxicillin 2018-08 Yes Ellis Unknown Unknown [id number] 08-08 ,Vladislav mg-potassiu mg-potassiu m m clavulanate clavulanate 125 mg 125 mg tablet tablet Vital Signs Vital Name Observation Time Observation Value Comments SYSTOLIC mm[Hg] 2019-06-08 18:08:42 110 mm[Hg] mm[Hg] Method: Sit SYSTOLIC mm[Hg] 2019-04-27 18:08:00 124 mm[Hg] mm[Hg] Method: Stand DIASTOLIC mm[Hg] 2019-06-08 18:08:42 60 mm[Hg] mm[Hg] Method: Sit DIASTOLIC mm[Hg] 2019-04-27 18:08:00 82 mm[Hg] mm[Hg] Method: Stand PULSE 2019-06-08 18:08:42 60 /min /min RESP RATE 2019-06-08 18:08:42 16 /min /min TEMP 2019-06-08 18:08:42 97.3 [degF] Procedures This patient has no known procedures. Results This patient has no known results.
[2019-08-13 05:10] LABS: Urine Appearance Cloudy; Urine Bilirubin Negative (Negative); Urine Blood 2+ (Negative); Urine Color Yellow; Urine Glucose Negative (Negative); Urine Ketones Trace (Negative); Urine Nitrite Positive (Negative); Urine Protein 1+(30 mg/dL) (Negative); Urine Specific Gravity 1.015 (1.010-1.030); Urine Urobilinogen Negative (Negative)
[2019-08-13 05:15] LABS: Urine Bacteria 3+ (Absent); Urine Red Blood Cell 3+(>10/hpf) (Absent); Urine Squamous Epithelial Cell Present (Absent); Urine White Blood Cell 3+(>20/hpf) (Absent)
[2019-08-13] MEDS ORDERED: Cephalexin CAP* 500 MG PO ONE (05:33)
[2019-08-13 06:03] VITALS: BP 138/76
== END 2019-08-13 06:03 | disposition home or self-care (01) ==
LOC: ED 03:36
DX: N39.0 Urinary tract infection, site not specified (principal); E11.9 Type 2 diabetes mellitus without complications; I50.30 Unspecified diastolic (congestive) heart failure; I25.10 Atherosclerotic heart disease of native coronary artery without angina pectoris; E78.00 Pure hypercholesterolemia, unspecified; I11.0 Hypertensive heart disease with heart failure; I25.2 Old myocardial infarction; J45.909 Unspecified asthma, uncomplicated; K21.9 Gastro-esophageal reflux disease without esophagitis; Z95.5 Presence of coronary angioplasty implant and graft; Z87.442 Personal history of urinary calculi; Z86.718 Personal history of other venous thrombosis and embolism; F41.9 Anxiety disorder, unspecified; F32.9 Major depressive disorder, single episode, unspecified; Z85.3 Personal history of malignant neoplasm of breast; Z90.11 Acquired absence of right breast and nipple; Z88.8 Allergy status to other drugs, medicaments and biological substances; Z90.710 Acquired absence of both cervix and uterus
CPT/HCPCS: 36415; 80053; 81003; 81015; 83605; 85025; 87077; 87086; 87186; 93005; 96361; 96374; 99283; A9270-GY; J2405

== ENCOUNTER 2020-08-17 17:35 | Observation (INO) ==
[2020-08-17 19:53] LABS: ABS Basophils 0.1 10^3/ul (0-0.2); ABS Eosinophils 0.1 10^3/ul (0-0.6); ABS Lymphocytes 1.7 10^3/ul (1.0-4.8); ABS Monocytes 0.6 10^3/ul (0-0.8); ABS Neutrophils 5.1 10^3/ul (1.5-7.7); Eosinophil % 1.9 %; Hematocrit 36 % (35-47); Hemoglobin 11.7 g/dL (12.0-16.0); Lymphocyte % 21.8 %; Mean Corpuscular HGB Conc 32 g/dL (31-36); Mean Corpuscular Hemoglobin 28 pg (27-31); Mean Corpuscular Volume 88 fL (80-97); Mean Platelet Volume 10.1 fL (7.4-10.4); Nucleated Red Blood Cells % 0.1; Platelet Count 142 10^3/uL (150-450); Red Blood Count 4.14 10^6 /uL (3.70-4.87); Red Cell Distribution Width 15 % (10-15); White Blood Count 7.6 10^3/uL (3.5-10.8)
[2020-08-17 20:16] LABS: BUN/Creatinine Ratio 22.3 (8-20); Calcium 9.8 mg/dL (8.6-10.3); EGFR African American 56.8 (>60); EGFR Non-African American 46.9 (>60); Potassium 3.6 mmol/L (3.5-5.0)
[2020-08-17 20:19] LABS: Troponin I 0.02 ng/mL (<0.03)
[2020-08-17 20:38] LABS: Free T4 0.86 ng/dL (0.61-1.12)
[2020-08-17 20:59] LABS: Urine Appearance Cloudy; Urine Bilirubin Negative (Negative); Urine Blood Negative (Negative); Urine Color Yellow; Urine Glucose Negative (Negative); Urine Ketones Negative (Negative); Urine Nitrite Positive (Negative); Urine Protein Negative (Negative); Urine Specific Gravity 1.015 (1.010-1.030); Urine Urobilinogen Negative (Negative)
[2020-08-17 21:03] LABS: Urine Bacteria 1+ (Absent); Urine Red Blood Cell 1+(3-5/hpf) (Absent); Urine Squamous Epithelial Cell Present (Absent); Urine White Blood Cell 3+(>20/hpf) (Absent)
[2020-08-17 22:14] LABS: TSH Ultra Thyroid Stim Horm 2.79 mcIU/mL (0.34-5.60)
[2020-08-17] MEDS ORDERED: cefTRIAXone 1 gm/50 mL NS BAG 1 GM/50 ML BAG IVPB ONE (22:26)
[2020-08-17] MEDS ORDERED: Magnesium Sulfate 2 gm BAG 2 GM/50 ML BAG IVPB ONE (23:08)
[2020-08-18] MEDS ORDERED: Magnesium Sulfate 2 GM IV (Premix) IVPB ONE
[2020-08-18 00:11] LABS: Magnesium 1.8 mg/dL (1.9-2.7)
[2020-08-18] MEDS ORDERED: NS 0.9% 500 ml BAG 500 ML IV ONE (02:55)
[2020-08-18] MEDS ORDERED: Buprenorphine 15 MCG PATCH(NF) 15 MCG/HR PATCH (15 MG TOTAL) TRANSDERM SCH (04:00)
[2020-08-18] MEDS: Heparin 5000 UNITS/ML 1 mL VIAL SUBCUT SCH ×2 (04:55→12:42)
[2020-08-18] MEDS ORDERED: Buprenorph Patch Check Q Shift 1 NOTE MISC FOLLOW UP SCH ×2 (08:00→19:00)
[2020-08-18] MEDS ORDERED: Aspirin EC 81 mg TAB.EC (enteric coated) PO SCH (09:00)
[2020-08-18] MEDS ORDERED: Cholecalciferol (VIT D3) 1,000 unit TAB PO SCH (09:00)
[2020-08-18] MEDS ORDERED: Venlafaxine XR 75 mg PO SCH (09:00)
[2020-08-18 10:13] LABS: BUN/Creatinine Ratio 20.8 (8-20); EGFR African American 67.8 (>60); EGFR Non-African American 56.1 (>60); Magnesium 2.1 mg/dL (1.9-2.7); Potassium 3.5 mmol/L (3.5-5.0)
[2020-08-18 11:41] VITALS: BP 125/49
[2020-08-18] MEDS ORDERED: cefTRIAXone 1 gm/50 mL NS BAG 1 GM/50 ML BAG IVPB SCH (21:00)
[2020-08-18] MEDS ORDERED: CMCS: Simvastatin 20 mg TAB (NF) PO SCH (21:00)
== END 2020-08-18 14:49 | disposition home or self-care (01) ==
LOC: ED 17:35 → MEDTELE 17:35
PROVIDERS: ADMIT Internal Medicine; ATTEND Internal Medicine

== ENCOUNTER 2020-12-03 20:34 | Observation (INO) ==
[2020-12-03 22:19] LABS: Urine Appearance Cloudy; Urine Bilirubin Negative (Negative); Urine Blood 1+ (Negative); Urine Color Amber; Urine Glucose Negative (Negative); Urine Ketones Trace (Negative); Urine Nitrite Positive (Negative); Urine Protein 1+(30 mg/dL) (Negative); Urine Specific Gravity 1.018 (1.002-1.030); Urine Urobilinogen Negative (Negative)
[2020-12-03 22:22] LABS: Calcium 9.5 mg/dL (8.6-10.3); EGFR African American 61.9 (>60); EGFR Non-African American 51.1 (>60); Potassium 3.1 mmol/L (3.5-5.0)
[2020-12-03 22:38] LABS: Urine Bacteria 2+ (Absent); Urine Red Blood Cell Trace(0-2/hpf) (Absent); Urine Squamous Epithelial Cell Present (Absent); Urine White Blood Cell 3+(>20/hpf) (Absent)
[2020-12-04] MEDS ORDERED: cefTRIAXone 1 gm/50 mL NS BAG 1 GM/50 ML BAG IV ONE (00:03)
[2020-12-04] MEDS ORDERED: Dextrose 50% Syringe 50 ml 25 GM/50 ML SYRINGE IV PUSH PRN (00:52)
[2020-12-04] MEDS ORDERED: NS 0.9% 1000 ml BAG 1,000 ML IV SCH (01:00)
[2020-12-04 01:15] LABS: Magnesium 1.9 mg/dL (1.9-2.7)
[2020-12-04] MEDS ORDERED: Potassium Chlor 20 meq TAB.ER PO ONE (01:24)
[2020-12-04 04:40] LABS: Hematocrit 37 % (35-47); Hemoglobin 12.1 g/dL (12.0-16.0); Mean Corpuscular HGB Conc 32 g/dL (31-36); Mean Corpuscular Hemoglobin 28 pg (27-31); Mean Corpuscular Volume 86 fL (80-97); Platelet Count 108 10^3/uL (150-450); Red Blood Count 4.32 10^6 /uL (3.70-4.87); Red Cell Distribution Width 15 % (10-15); White Blood Count 6.8 10^3/uL (3.5-10.8)
[2020-12-04 04:48] LABS: Activated Partial Thrombo Time 25.7 seconds (26.0-38.0); Activated Partial Thrombo Time 26.2 seconds (26.0-38.0); INR 1.15 (0.82-1.09)
[2020-12-04] MEDS ORDERED: Buprenorphine 15 MCG PATCH(NF) 15 MCG/HR PATCH (15 MG TOTAL) TRANSDERM SCH (05:00)
[2020-12-04 05:05] LABS: Calcium 9.4 mg/dL (8.6-10.3); EGFR African American 64.7 (>60); EGFR Non-African American 53.5 (>60); Potassium 2.9 mmol/L (3.5-5.0)
[2020-12-04 05:16] LABS: ABS Lymphocytes 1.1 10^3/ul (1.0-4.8); ABS Monocytes 0.5 10^3/ul (0-0.8); ABS Neutrophils 5.1 10^3/ul (1.5-7.7); Eosinophil % 0.7 %; Lymphocyte % 15.6 %
[2020-12-04] MEDS: KCL 10 MEQ/50 ML IVPREMIX 10 MEQ/50 ML BAG IV SCH ×3 (05:59→10:36)
[2020-12-04] MEDS: Heparin 5000 UNITS/ML 1 mL VIAL SUBCUT SCH ×2 (06:01→16:18)
[2020-12-04 06:44] LABS: Magnesium 1.9 mg/dL (1.9-2.7)
[2020-12-04] MEDS: Buprenorph Patch Check Q Shift 1 NOTE MISC FOLLOW UP SCH ×2 (07:12→19:35)
[2020-12-04] MEDS: Aspirin EC 81 mg TAB.EC (enteric coated) PO SCH (08:27)
[2020-12-04] MEDS ORDERED: Potassium Chloride LIQUID 20 MEQ/15 ML LIQUID PO ONE (10:30)
[2020-12-04 11:49] LABS: TSH Ultra Thyroid Stim Horm 2.7 mcIU/mL (0.34-5.60)
[2020-12-04 17:07] LABS: EGFR African American 78.1 (>60); EGFR Non-African American 64.5 (>60); Potassium 3.9 mmol/L (3.5-5.0)
[2020-12-04] MEDS: Enoxaparin 40 MG/0.4 ML SYR SUBCUT SCH (20:49)
[2020-12-05] MEDS: cefTRIAXone 1 gm/50 mL NS BAG 1 GM/50 ML BAG IVPB SCH (01:27)
[2020-12-05 06:03] LABS: Calcium 9.2 mg/dL (8.6-10.3); EGFR African American 71.3 (>60); EGFR Non-African American 58.9 (>60); Potassium 3.7 mmol/L (3.5-5.0)
[2020-12-05] MEDS: Buprenorph Patch Check Q Shift 1 NOTE MISC FOLLOW UP SCH ×2 (06:43→18:38)
[2020-12-05] MEDS ORDERED: Potassium Chloride LIQUID 20 MEQ/15 ML LIQUID PO ONE (06:47)
[2020-12-05] MEDS: Ondansetron 4 mg VIAL 2 MG/ML 2 ml VIAL IV PRN (08:08)
[2020-12-05] MEDS ORDERED: Metoclopramide 5 MG/ML VIAL (10 mg) IV ONE (11:55)
[2020-12-05 12:40] LABS: Hematocrit 37 % (35-47); Hemoglobin 12.2 g/dL (12.0-16.0); Mean Corpuscular HGB Conc 33 g/dL (31-36); Mean Corpuscular Hemoglobin 29 pg (27-31); Mean Corpuscular Volume 86 fL (80-97); Mean Platelet Volume 10.4 fL (7.4-10.4); Platelet Count 117 10^3/uL (150-450); Red Blood Count 4.28 10^6 /uL (3.70-4.87); Red Cell Distribution Width 16 % (10-15); White Blood Count 6.6 10^3/uL (3.5-10.8)
[2020-12-05 14:40] LABS: C Reactive Protein 1.18 mg/L (<8.01)
[2020-12-05] MEDS ORDERED: Iodixanol (CONTRAST) 320 MG/ML 100 ML SDV IV ONE (17:20)
[2020-12-05] MEDS: Aspirin EC 81 mg TAB.EC (enteric coated) PO SCH (18:55)
[2020-12-05] MEDS: Enoxaparin 40 MG/0.4 ML SYR SUBCUT SCH (21:28)
[2020-12-06] MEDS: cefTRIAXone 1 gm/50 mL NS BAG 1 GM/50 ML BAG IVPB SCH (02:11)
[2020-12-06] MEDS: Buprenorph Patch Check Q Shift 1 NOTE MISC FOLLOW UP SCH ×2 (07:15→19:27)
[2020-12-06] MEDS: Lidocaine PATCH 5% PATCH TRANSDERM SCH ×2 (09:23→09:24)
[2020-12-06] MEDS: Aspirin EC 81 mg TAB.EC (enteric coated) PO SCH (09:25)
[2020-12-06] MEDS: Ondansetron 4 mg VIAL 2 MG/ML 2 ml VIAL IV PRN (10:06)
[2020-12-06] MEDS ORDERED: Potassium Chloride LIQUID 20 MEQ/15 ML LIQUID PO ONE (16:49)
[2020-12-06] MEDS ORDERED: Lidocaine Patch REMOVE PATCH PATCH OFF SCH (21:00)
[2020-12-06] MEDS: Enoxaparin 40 MG/0.4 ML SYR SUBCUT SCH (22:25)
[2020-12-07] MEDS: cefTRIAXone 1 gm/50 mL NS BAG 1 GM/50 ML BAG IVPB SCH (02:15)
[2020-12-07 05:32] LABS: ABS Eosinophils 0.1 10^3/ul (0-0.6); ABS Monocytes 0.6 10^3/ul (0-0.8); ABS Neutrophils 6.3 10^3/ul (1.5-7.7); Eosinophil % 0.7 %; Hematocrit 42 % (35-47); Hemoglobin 13.4 g/dL (12.0-16.0); Mean Corpuscular HGB Conc 32 g/dL (31-36); Mean Corpuscular Hemoglobin 28 pg (27-31); Mean Corpuscular Volume 89 fL (80-97); Mean Platelet Volume 10.6 fL (7.4-10.4); Nucleated Red Blood Cells % 0.1; Platelet Count 101 10^3/uL (150-450); Red Blood Count 4.72 10^6 /uL (3.70-4.87); Red Cell Distribution Width 16 % (10-15); White Blood Count 8.1 10^3/uL (3.5-10.8)
[2020-12-07] MEDS: Buprenorph Patch Check Q Shift 1 NOTE MISC FOLLOW UP SCH (07:16)
[2020-12-07] MEDS: Aspirin EC 81 mg TAB.EC (enteric coated) PO SCH (08:39)
[2020-12-07] MEDS: Ondansetron 4 mg VIAL 2 MG/ML 2 ml VIAL IV PRN (08:40)
[2020-12-07] MEDS: Lidocaine PATCH 5% PATCH TRANSDERM SCH (08:40)
[2020-12-07] MEDS ORDERED: Sodium Phosphate ADULT ENEMA 133 ML BTL PR ONE ×3 (08:44→12:08)
[2020-12-07] MEDS ORDERED: Senna TAB 8.6 mg TAB PO PRN (12:05)
[2020-12-07] MEDS ORDERED: Magnesium Hydroxide LIQ 30 ML UDC PO ONE (12:05)
[2020-12-07 12:16] VITALS: BP 123/56
== END 2020-12-07 14:10 ==
LOC: ED 20:34 → MEDTELE 20:34
PROVIDERS: ADMIT Internal Medicine; ATTEND Internal Medicine

== ENCOUNTER 2021-03-07 14:10 | Inpatient (IN) ==
[2021-03-07] MEDS ORDERED: Magnesium Hydroxide LIQ 30 ML UDC PO ONE (14:46)
[2021-03-07 16:05] LABS: ABS Eosinophils 0.1 10^3/ul (0-0.6); ABS Lymphocytes 1.3 10^3/ul (1.0-4.8); ABS Monocytes 0.5 10^3/ul (0-0.8); ABS Neutrophils 5.8 10^3/ul (1.5-7.7); Eosinophil % 1.7 %; Hematocrit 39 % (35-47); Hemoglobin 12.5 g/dL (12.0-16.0); Lymphocyte % 16.3 %; Mean Corpuscular HGB Conc 32 g/dL (31-36); Mean Corpuscular Hemoglobin 28 pg (27-31); Mean Corpuscular Volume 89 fL (80-97); Mean Platelet Volume 10.3 fL (7.4-10.4); Platelet Count 143 10^3/uL (150-450); Red Cell Distribution Width 15 % (10-15); White Blood Count 7.8 10^3/uL (3.5-10.8)
[2021-03-07 16:16] LABS: Urine Appearance Cloudy; Urine Bilirubin Negative (Negative); Urine Blood Negative (Negative); Urine Color Yellow; Urine Glucose Negative (Negative); Urine Ketones Negative (Negative); Urine Nitrite Positive (Negative); Urine Protein Negative (Negative); Urine Specific Gravity 1.011 (1.002-1.030); Urine Urobilinogen Negative (Negative)
[2021-03-07 16:19] LABS: Urine Bacteria 1+ (Absent); Urine Red Blood Cell Trace(0-2/hpf) (Absent); Urine Squamous Epithelial Cell Present (Absent); Urine White Blood Cell Trace(0-5/hpf) (Absent)
[2021-03-07 16:25] LABS: Troponin I 0.01 ng/mL (<0.03)
[2021-03-07 16:26] LABS: INR 1.12 (0.86-1.15)
[2021-03-07 16:29] LABS: Albumin 4.1 g/dL (3.2-5.2); Albumin/Globulin Ratio 1.3 (1-3); Calcium 9.8 mg/dL (8.6-10.3); EGFR African American 55.6 (>60); Globulin 3.2 g/dL (2-4); Magnesium 1.9 mg/dL (1.9-2.7); Potassium 3.9 mmol/L (3.5-5.0); Total Bilirubin 0.4 mg/dL (0.2-1.0); Total Protein 7.3 g/dL (6.4-8.9)
[2021-03-07] MEDS ORDERED: Ondansetron 4 mg VIAL 2 MG/ML 2 ml VIAL IV PRN (21:38)
[2021-03-07] MEDS ORDERED: Iodixanol (CONTRAST) 320 MG/ML 100 ML SDV IV ONE ×2 (21:45→23:02)
[2021-03-08] MEDS: cefTRIAXone 1 gm/50 mL NS BAG 1 GM/50 ML BAG IVPB SCH ×2 (00:16→19:54)
[2021-03-08] MEDS ORDERED: CMCS: Buprenorphine 15 MCG PATCH(NF) 15 MCG/HR PATCH (15 MG TOTAL) TRANSDERM SCH (02:00)
[2021-03-08 05:02] LABS: ABS Eosinophils 0.1 10^3/ul (0-0.6); ABS Lymphocytes 1.3 10^3/ul (1.0-4.8); ABS Monocytes 0.5 10^3/ul (0-0.8); ABS Neutrophils 4.4 10^3/ul (1.5-7.7); Eosinophil % 1.4 %; Hematocrit 37 % (35-47); Hemoglobin 11.8 g/dL (12.0-16.0); Lymphocyte % 20.6 %; Mean Corpuscular HGB Conc 32 g/dL (31-36); Mean Corpuscular Hemoglobin 28 pg (27-31); Mean Corpuscular Volume 89 fL (80-97); Mean Platelet Volume 10.4 fL (7.4-10.4); Platelet Count 118 10^3/uL (150-450); Red Blood Count 4.15 10^6 /uL (3.70-4.87); Red Cell Distribution Width 15 % (10-15); White Blood Count 6.3 10^3/uL (3.5-10.8)
[2021-03-08 05:17] LABS: Activated Partial Thrombo Time 29.6 seconds (26.0-38.0); INR 1.1 (0.86-1.15)
[2021-03-08 05:21] LABS: Calcium 9.3 mg/dL (8.6-10.3); EGFR African American 58.6 (>60); EGFR Non-African American 48.4 (>60); Potassium 3.6 mmol/L (3.5-5.0)
[2021-03-08] MEDS ORDERED: Buprenorph Patch Check Q Shift 1 NOTE MISC FOLLOW UP SCH (08:00)
[2021-03-08] MEDS: Cholecalciferol (VIT D3) 1,000 unit TAB PO SCH (08:46)
[2021-03-08] MEDS: Heparin 5000 UNITS/ML 1 mL VIAL SUBCUT SCH ×2 (08:46→19:56)
[2021-03-08] MEDS: Calcium Carb (TUMS) 500 mg CHEW TAB PO SCH ×3 (08:47→19:49)
[2021-03-08] MEDS: Aspirin EC 81 mg TAB.EC (enteric coated) PO SCH (08:48)
[2021-03-08] MEDS ORDERED: Rosuvastatin 40 mg TAB (NF) PO SCH (09:00)
[2021-03-08] MEDS: Buprenorph Patch Check Q Shift 1 NOTE MISC FOLLOW UP SCH (19:08)
[2021-03-08] MEDS: Polyethylene Glycol 3350 17 GM PACKET PO PRN (19:46)
[2021-03-09 07:00] LABS: ABS Eosinophils 0.1 10^3/ul (0-0.6); ABS Monocytes 0.4 10^3/ul (0-0.8); ABS Neutrophils 3.7 10^3/ul (1.5-7.7); Eosinophil % 1.1 %; Hematocrit 36 % (35-47); Hemoglobin 11.9 g/dL (12.0-16.0); Mean Corpuscular HGB Conc 33 g/dL (31-36); Mean Corpuscular Hemoglobin 29 pg (27-31); Mean Corpuscular Volume 88 fL (80-97); Mean Platelet Volume 10.3 fL (7.4-10.4); Platelet Count 111 10^3/uL (150-450); Red Blood Count 4.14 10^6 /uL (3.70-4.87); Red Cell Distribution Width 15 % (10-15); White Blood Count 5.2 10^3/uL (3.5-10.8)
[2021-03-09] MEDS: Buprenorph Patch Check Q Shift 1 NOTE MISC FOLLOW UP SCH ×2 (07:00→19:11)
[2021-03-09 07:17] LABS: Calcium 9.5 mg/dL (8.6-10.3); EGFR African American 62.5 (>60); EGFR Non-African American 51.7 (>60); Potassium 3.5 mmol/L (3.5-5.0)
[2021-03-09] MEDS: Cholecalciferol (VIT D3) 1,000 unit TAB PO SCH (08:16)
[2021-03-09] MEDS: Calcium Carb (TUMS) 500 mg CHEW TAB PO SCH ×2 (08:17→20:48)
[2021-03-09] MEDS: Heparin 5000 UNITS/ML 1 mL VIAL SUBCUT SCH ×2 (08:18→20:48)
[2021-03-09] MEDS: Aspirin EC 81 mg TAB.EC (enteric coated) PO SCH (08:19)
[2021-03-09] MEDS ORDERED: Potassium Chlor 20 meq TAB.ER PO ONE (08:30)
[2021-03-09] MEDS: Polyethylene Glycol 3350 17 GM PACKET PO PRN (20:51)
[2021-03-09] MEDS: cefTRIAXone 1 gm/50 mL NS BAG 1 GM/50 ML BAG IVPB SCH (21:56)
[2021-03-10 06:25] LABS: ABS Eosinophils 0.1 10^3/ul (0-0.6); ABS Lymphocytes 1.7 10^3/ul (1.0-4.8); ABS Monocytes 0.5 10^3/ul (0-0.8); ABS Neutrophils 3.7 10^3/ul (1.5-7.7); Eosinophil % 1.6 %; Hematocrit 36 % (35-47); Hemoglobin 11.5 g/dL (12.0-16.0); Lymphocyte % 27.6 %; Mean Corpuscular HGB Conc 32 g/dL (31-36); Mean Corpuscular Hemoglobin 29 pg (27-31); Mean Corpuscular Volume 90 fL (80-97); Mean Platelet Volume 10.4 fL (7.4-10.4); Platelet Count 111 10^3/uL (150-450); Red Blood Count 4.03 10^6 /uL (3.70-4.87); Red Cell Distribution Width 15 % (10-15)
[2021-03-10 06:41] LABS: Calcium 9.4 mg/dL (8.6-10.3); EGFR African American 58.6 (>60); EGFR Non-African American 48.4 (>60)
[2021-03-10] MEDS: Buprenorph Patch Check Q Shift 1 NOTE MISC FOLLOW UP SCH ×2 (07:51→18:49)
[2021-03-10] MEDS: Calcium Carb (TUMS) 500 mg CHEW TAB PO SCH ×2 (07:58→21:05)
[2021-03-10] MEDS: Aspirin EC 81 mg TAB.EC (enteric coated) PO SCH (07:58)
[2021-03-10] MEDS: Heparin 5000 UNITS/ML 1 mL VIAL SUBCUT SCH ×2 (07:58→21:04)
[2021-03-10] MEDS: Cholecalciferol (VIT D3) 1,000 unit TAB PO SCH (07:59)
[2021-03-10] MEDS ORDERED: Senna TAB 8.6 mg TAB PO SCH (10:00)
[2021-03-10] MEDS: Polyethylene Glycol 3350 17 GM PACKET PO SCH ×2 (13:30→21:01)
[2021-03-10] MEDS: Senna TAB 8.6 mg TAB PO SCH (21:03)
[2021-03-11] MEDS: Polyethylene Glycol 3350 17 GM PACKET PO SCH ×3 (06:29→21:35)
[2021-03-11] MEDS: Senna TAB 8.6 mg TAB PO SCH ×3 (06:29→21:38)
[2021-03-11] MEDS: Buprenorph Patch Check Q Shift 1 NOTE MISC FOLLOW UP SCH ×2 (07:10→19:09)
[2021-03-11] MEDS: Calcium Carb (TUMS) 500 mg CHEW TAB PO SCH ×2 (08:19→21:38)
[2021-03-11] MEDS: Cholecalciferol (VIT D3) 1,000 unit TAB PO SCH (08:24)
[2021-03-11] MEDS: Aspirin EC 81 mg TAB.EC (enteric coated) PO SCH (08:27)
[2021-03-11] MEDS: Heparin 5000 UNITS/ML 1 mL VIAL SUBCUT SCH ×2 (08:29→21:39)
[2021-03-11] MEDS ORDERED: Sodium Phosphate ADULT ENEMA 133 ML BTL PR ONE (08:38)
[2021-03-12] MEDS: Buprenorph Patch Check Q Shift 1 NOTE MISC FOLLOW UP SCH (07:00)
[2021-03-12] MEDS: Polyethylene Glycol 3350 17 GM PACKET PO SCH (08:06)
[2021-03-12] MEDS: Cholecalciferol (VIT D3) 1,000 unit TAB PO SCH (08:13)
[2021-03-12] MEDS: Senna TAB 8.6 mg TAB PO SCH (08:13)
[2021-03-12] MEDS: Calcium Carb (TUMS) 500 mg CHEW TAB PO SCH (08:14)
[2021-03-12] MEDS: Aspirin EC 81 mg TAB.EC (enteric coated) PO SCH (08:16)
[2021-03-12] MEDS: Heparin 5000 UNITS/ML 1 mL VIAL SUBCUT SCH (08:36)
[2021-03-12 09:19] VITALS: BP 142/67
== END 2021-03-12 10:42 | DRG 552 ==
LOC: MED 14:10 → ED 14:10 → MEDTELE 14:10
PROVIDERS: ADMIT Internal Medicine; ATTEND Student in an Organized Health Care Education/Training Program

== ENCOUNTER 2021-04-24 11:47 | Inpatient (IN) ==
[2021-04-24 15:24] LABS: ABS Eosinophils 0.1 10^3/ul (0-0.6); ABS Lymphocytes 1.1 10^3/ul (1.0-4.8); ABS Monocytes 0.8 10^3/ul (0-0.8); ABS Neutrophils 7.6 10^3/ul (1.5-7.7); Eosinophil % 0.8 %; Hematocrit 39 % (35-47); Hemoglobin 12.7 g/dL (12.0-16.0); Mean Corpuscular HGB Conc 33 g/dL (31-36); Mean Corpuscular Hemoglobin 29 pg (27-31); Mean Corpuscular Volume 88 fL (80-97); Mean Platelet Volume 10.8 fL (7.4-10.4); Platelet Count 151 10^3/uL (150-450); Red Blood Count 4.38 10^6 /uL (3.70-4.87); Red Cell Distribution Width 14 % (10-15); White Blood Count 9.5 10^3/uL (3.5-10.8)
[2021-04-24 15:43] LABS: Troponin I 0.01 ng/mL (<0.03)
[2021-04-24 16:04] LABS: Albumin 4.1 g/dL (3.2-5.2); Albumin/Globulin Ratio 1.1 (1-3); Calcium 10.9 mg/dL (8.6-10.3); EGFR African American 50.8 (>60); Globulin 3.7 g/dL (2-4); Total Bilirubin 0.6 mg/dL (0.2-1.0); Total Protein 7.8 g/dL (6.4-8.9)
[2021-04-24] MEDS ORDERED: Potassium Chloride LIQUID 20 MEQ/15 ML LIQUID PO ONE (16:17)
[2021-04-24 16:25] LABS: TSH Ultra Thyroid Stim Horm 3.44 mcIU/mL (0.34-5.60)
[2021-04-24 16:26] LABS: Urine Appearance Cloudy; Urine Bilirubin Negative (Negative); Urine Blood 1+ (Negative); Urine Color Yellow; Urine Glucose Negative (Negative); Urine Ketones Trace (Negative); Urine Nitrite Positive (Negative); Urine Protein 1+(30 mg/dL) (Negative); Urine Urobilinogen Negative (Negative)
[2021-04-24 16:30] LABS: Urine Bacteria 1+ (Absent); Urine Red Blood Cell Trace(0-2/hpf) (Absent); Urine Squamous Epithelial Cell Present (Absent); Urine White Blood Cell 1+(6-10/hpf) (Absent)
[2021-04-24] MEDS ORDERED: Lactated Ringers 1000 ml BAG 1,000 ML IV SCH (17:00)
[2021-04-24] MEDS ORDERED: KCL 20 MEQ/100 ML IVPREMIX 20 MEQ/100 ML BAG IV SCH (17:00)
[2021-04-24] MEDS ORDERED: cefTRIAXone 1 gm/50 mL NS BAG 1 GM/50 ML BAG IV ONE (19:21)
[2021-04-24] MEDS ORDERED: diPHENhydraMINE IV 50 MG/ML 1 ml VIAL (BENADRYL) IV ONE (19:33)
[2021-04-24] MEDS ORDERED: Haloperidol 5 mg/ml SDV IV/IM 5 MG/ML AMP IM ONE ×2 (19:33→21:27)
[2021-04-24] MEDS: KCL 10 MEQ/50 ML IVPREMIX 10 MEQ/50 ML BAG IV SCH (22:45)
[2021-04-24 22:51] LABS: Magnesium 1.8 mg/dL (1.9-2.7)
[2021-04-24] MEDS ORDERED: Magnesium Sulfate 2 gm BAG 2 GM/50 ML BAG IVPB ONE (22:53)
[2021-04-25] MEDS: KCL 10 MEQ/50 ML IVPREMIX 10 MEQ/50 ML BAG IV SCH ×3 (02:01→04:18)
[2021-04-25 05:53] LABS: CO2 Carbon Dioxide 30 mmol/L (22-32); Calcium 8.9 mg/dL (8.6-10.3); Chloride 101 mmol/L (101-111); Sodium 141 mmol/L (135-145)
[2021-04-25 05:54] LABS: Anion Gap 10 mmol/L (2-11)
[2021-04-25 05:59] LABS: Blood Urea Nitrogen 16 mg/dL (6-24); EGFR African American 60.4 (>60); EGFR Non-African American 49.9 (>60); Glucose 85 mg/dL (70-100)
[2021-04-25 09:21] LABS: ABS Eosinophils 0.1 10^3/ul (0-0.6); ABS Lymphocytes 0.9 10^3/ul (1.0-4.8); ABS Monocytes 0.4 10^3/ul (0-0.8); ABS Neutrophils 3.9 10^3/ul (1.5-7.7); Eosinophil % 2.4 %; Hematocrit 33 % (35-47); Hemoglobin 10.6 g/dL (12.0-16.0); Lymphocyte % 17.3 %; Mean Corpuscular HGB Conc 32 g/dL (31-36); Mean Corpuscular Hemoglobin 29 pg (27-31); Mean Corpuscular Volume 89 fL (80-97); Mean Platelet Volume 10.2 fL (7.4-10.4); Platelet Count 105 10^3/uL (150-450); Red Blood Count 3.71 10^6 /uL (3.70-4.87); Red Cell Distribution Width 14 % (10-15); White Blood Count 5.4 10^3/uL (3.5-10.8)
[2021-04-25] MEDS: Aspirin EC 81 mg TAB.EC (enteric coated) PO SCH (10:14)
[2021-04-25] MEDS: NS 0.9% 1000 ml BAG 1,000 ML IV SCH (13:53)
[2021-04-25] MEDS ORDERED: cefTRIAXone 1 gm/50 mL NS BAG 1 GM/50 ML BAG IVPB SCH (21:00)
[2021-04-26] MEDS: NS 0.9% 1000 ml BAG 1,000 ML IV SCH (04:11)
[2021-04-26 05:48] LABS: Albumin 3.2 g/dL (3.2-5.2); Albumin/Globulin Ratio 1.1 (1-3); Calcium 8.3 mg/dL (8.6-10.3); EGFR Non-African American 59.5 (>60); Globulin 2.9 g/dL (2-4); Potassium 2.8 mmol/L (3.5-5.0); Total Bilirubin 0.4 mg/dL (0.2-1.0); Total Protein 6.1 g/dL (6.4-8.9)
[2021-04-26] MEDS ORDERED: Potassium Chlor 20 meq TAB.ER PO ONE (06:30)
[2021-04-26] MEDS: KCL 20 MEQ/100 ML IVPREMIX 20 MEQ/100 ML BAG IV SCH ×2 (07:41→11:14)
[2021-04-26] MEDS: Aspirin EC 81 mg TAB.EC (enteric coated) PO SCH (08:04)
[2021-04-26] MEDS ORDERED: Buprenorphine 5 MCG PATCH(NF) 5 MCG/HR PATCH (5 MG TOTAL) TRANSDERM SCH (10:00)
[2021-04-26] MEDS ORDERED: Meropenem 1 GM PREMIX(*) 1 GM/50 ML BAG IV SCH ×2 (12:00)
[2021-04-26] MEDS: Buprenorphine 15 MCG PATCH(NF) 15 MCG/HR PATCH (15 MG TOTAL) TRANSDERM SCH (12:14)
[2021-04-26] MEDS: Meropenem 1 GM PREMIX(*) 1 GM/50 ML BAG IV SCH (16:31)
[2021-04-27] MEDS: Meropenem 1 GM PREMIX(*) 1 GM/50 ML BAG IV SCH (04:24)
[2021-04-27 05:11] LABS: Calcium 8.5 mg/dL (8.6-10.3); EGFR African American 78.9 (>60); EGFR Non-African American 65.2 (>60); Potassium 2.8 mmol/L (3.5-5.0)
[2021-04-27 05:22] LABS: ABS Basophils 0.1 10^3/ul (0-0.2); ABS Eosinophils 0.2 10^3/ul (0-0.6); ABS Lymphocytes 1.3 10^3/ul (1.0-4.8); ABS Monocytes 0.5 10^3/ul (0-0.8); ABS Neutrophils 4.5 10^3/ul (1.5-7.7); Eosinophil % 2.7 %; Hematocrit 34 % (35-47); Lymphocyte % 19.9 %; Mean Corpuscular HGB Conc 33 g/dL (31-36); Mean Corpuscular Hemoglobin 29 pg (27-31); Mean Corpuscular Volume 89 fL (80-97); Mean Platelet Volume 10.3 fL (7.4-10.4); Nucleated Red Blood Cells % 0.3; Platelet Count 113 10^3/uL (150-450); Red Blood Count 3.78 10^6 /uL (3.70-4.87); Red Cell Distribution Width 14 % (10-15); White Blood Count 6.5 10^3/uL (3.5-10.8)
[2021-04-27] MEDS: Aspirin EC 81 mg TAB.EC (enteric coated) PO SCH (09:31)
[2021-04-27] MEDS: Potassium Chlor 20 meq TAB.ER PO SCH ×2 (09:36→21:38)
[2021-04-27] MEDS: Sulfamethox/Trimethoprim DS TAB 800/160 mg PO SCH ×2 (15:23→21:38)
[2021-04-27 20:25] LABS: Calcium 9.2 mg/dL (8.6-10.3); EGFR Non-African American 59.5 (>60)
[2021-04-28 07:04] LABS: ABS Eosinophils 0.1 10^3/ul (0-0.6); ABS Lymphocytes 0.9 10^3/ul (1.0-4.8); ABS Monocytes 0.4 10^3/ul (0-0.8); ABS Neutrophils 4.1 10^3/ul (1.5-7.7); Eosinophil % 1.6 %; Hematocrit 35 % (35-47); Hemoglobin 11.5 g/dL (12.0-16.0); Lymphocyte % 16.7 %; Mean Corpuscular HGB Conc 33 g/dL (31-36); Mean Corpuscular Hemoglobin 29 pg (27-31); Mean Corpuscular Volume 88 fL (80-97); Mean Platelet Volume 10.3 fL (7.4-10.4); Platelet Count 113 10^3/uL (150-450); Red Blood Count 3.98 10^6 /uL (3.70-4.87); Red Cell Distribution Width 15 % (10-15); White Blood Count 5.6 10^3/uL (3.5-10.8)
[2021-04-28 07:22] LABS: EGFR African American 69.3 (>60); EGFR Non-African American 57.3 (>60); Magnesium 1.7 mg/dL (1.9-2.7)
[2021-04-28] MEDS ORDERED: Potassium Chlor 20 meq TAB.ER PO ONE ×2 (08:10→11:00)
[2021-04-28] MEDS ORDERED: Magnesium Sulfate 2 gm BAG 2 GM/50 ML BAG IVPB ONE (08:10)
[2021-04-28] MEDS: Sulfamethox/Trimethoprim DS TAB 800/160 mg PO SCH ×2 (09:05→20:52)
[2021-04-28] MEDS: Aspirin EC 81 mg TAB.EC (enteric coated) PO SCH (09:05)
[2021-04-28] MEDS ORDERED: Magnesium Hydroxide LIQ 30 ML UDC PO PRN (17:01)
[2021-04-28] MEDS ORDERED: Polyethylene Glycol 3350 17 GM PACKET PO PRN (17:01)
[2021-04-28] MEDS ORDERED: Senna TAB 8.6 mg TAB PO PRN (17:01)
[2021-04-28] MEDS: Magnesium Hydroxide LIQ 30 ML UDC PO SCH (20:53)
[2021-04-29 05:59] LABS: EGFR African American 63.8 (>60); EGFR Non-African American 52.7 (>60); Magnesium 2.1 mg/dL (1.9-2.7); Potassium 4.1 mmol/L (3.5-5.0)
[2021-04-29] MEDS: Potassium Chlor 20 meq TAB.ER PO SCH (11:04)
[2021-04-29] MEDS: Aspirin EC 81 mg TAB.EC (enteric coated) PO SCH (11:04)
[2021-04-29] MEDS: Sulfamethox/Trimethoprim DS TAB 800/160 mg PO SCH ×3 (11:10→22:18)
[2021-04-29] MEDS: Magnesium Hydroxide LIQ 30 ML UDC PO SCH ×3 (11:10→22:17)
[2021-04-29] MEDS: Enoxaparin 40 MG/0.4 ML SYR SUBCUT SCH (17:51)
[2021-04-30] MEDS ORDERED: Acetaminophen IV 1 GM/100ML 100 ML IV ONE (00:29)
[2021-04-30] MEDS: Potassium Chlor 20 meq TAB.ER PO SCH (10:40)
[2021-04-30] MEDS: Aspirin EC 81 mg TAB.EC (enteric coated) PO SCH (10:40)
[2021-04-30] MEDS: Magnesium Hydroxide LIQ 30 ML UDC PO SCH ×2 (10:40→22:29)
[2021-04-30] MEDS: Sulfamethox/Trimethoprim DS TAB 800/160 mg PO SCH ×2 (10:41→22:29)
[2021-04-30] MEDS: Enoxaparin 40 MG/0.4 ML SYR SUBCUT SCH (16:52)
[2021-04-30] MEDS ORDERED: Haloperidol 5 mg/ml SDV IV/IM 5 MG/ML AMP IV SLOW PU ONE (22:38)
[2021-04-30] MEDS ORDERED: Piperacillin/Tazobac ADVAN 3.375 GM in NS 0.9% 100 ml BAG 100 ML IV ONE (22:43)
[2021-04-30] MEDS ORDERED: Zosyn per Pharmacy NOTE FOLLOW UP SCH (23:00)
[2021-05-01] MEDS ORDERED: diPHENhydraMINE IV 50 MG/ML 1 ml VIAL (BENADRYL) IV ONE (01:04)
[2021-05-01] MEDS: ZOSYN 3.375 GM Q8H per EXTENDED INFUSION IV SCH ×4 (04:59→20:02)
[2021-05-01] MEDS: Aspirin EC 81 mg TAB.EC (enteric coated) PO SCH ×2 (08:34→08:48)
[2021-05-01] MEDS: Potassium Chlor 20 meq TAB.ER PO SCH ×2 (08:35→08:48)
[2021-05-01] MEDS: Magnesium Hydroxide LIQ 30 ML UDC PO SCH ×2 (08:47→20:08)
[2021-05-01] MEDS ORDERED: Lorazepam PYXIS KEY PRN ×2 (12:05→13:28)
[2021-05-01] MEDS ORDERED: LORazepam 2 mg VIAL 1 ml IM ONE ×2 (12:05→13:28)
[2021-05-01] MEDS ORDERED: Haloperidol 5 mg/ml SDV IV/IM 5 MG/ML AMP IM ONE (15:27)
[2021-05-01] MEDS: Enoxaparin 40 MG/0.4 ML SYR SUBCUT SCH (15:37)
[2021-05-02] MEDS: ZOSYN 3.375 GM Q8H per EXTENDED INFUSION IV SCH ×3 (05:13→20:40)
[2021-05-02] MEDS: Aspirin EC 81 mg TAB.EC (enteric coated) PO SCH (11:21)
[2021-05-02] MEDS: Potassium Chlor 20 meq TAB.ER PO SCH (11:23)
[2021-05-02] MEDS: Magnesium Hydroxide LIQ 30 ML UDC PO SCH ×2 (11:23→20:46)
[2021-05-02] MEDS: Enoxaparin 40 MG/0.4 ML SYR SUBCUT SCH (15:38)
[2021-05-03] MEDS: ZOSYN 3.375 GM Q8H per EXTENDED INFUSION IV SCH ×3 (05:49→22:07)
[2021-05-03] MEDS: Aspirin EC 81 mg TAB.EC (enteric coated) PO SCH ×2 (09:02→10:24)
[2021-05-03] MEDS: Potassium Chlor 20 meq TAB.ER PO SCH ×2 (09:03→10:24)
[2021-05-03] MEDS: Magnesium Hydroxide LIQ 30 ML UDC PO SCH ×3 (09:07→22:46)
[2021-05-03] MEDS: Buprenorphine 15 MCG PATCH(NF) 15 MCG/HR PATCH (15 MG TOTAL) TRANSDERM SCH (13:26)
[2021-05-03] MEDS: Enoxaparin 40 MG/0.4 ML SYR SUBCUT SCH (17:42)
[2021-05-04] MEDS: ZOSYN 3.375 GM Q8H per EXTENDED INFUSION IV SCH (04:39)
[2021-05-04] MEDS: Magnesium Hydroxide LIQ 30 ML UDC PO SCH (08:57)
[2021-05-04] MEDS: Aspirin EC 81 mg TAB.EC (enteric coated) PO SCH (08:57)
[2021-05-04] MEDS: Potassium Chlor 20 meq TAB.ER PO SCH (08:58)
[2021-05-04 09:43] LABS: Rapid COVID-19 Molecular Undetected (Undetected)
[2021-05-04 11:51] VITALS: BP 100/61
== END 2021-05-04 14:08 | DRG 690 ==
LOC: ED 11:47 → MEDTELE 21:15 → SUATTDRO 21:15 → MEDTELE 04-25 00:02
PROVIDERS: ADMIT Internal Medicine; ATTEND Internal Medicine

== ENCOUNTER 2021-09-03 08:19 | Inpatient (IN) ==
[2021-09-03] MEDS ORDERED: Lactated Ringers 1000 ml BAG 1,000 ML IV ONE (08:28)
[2021-09-03] MEDS ORDERED: Ondansetron 4 mg VIAL 2 MG/ML 2 ml VIAL IV ONE (08:28)
[2021-09-03 09:24] LABS: Rapid COVID-19 Molecular Undetected (Undetected)
[2021-09-03 09:26] LABS: Activated Partial Thrombo Time 29.5 seconds (26.0-38.0); Albumin 3.8 g/dL (3.2-5.2); Albumin/Globulin Ratio 1.2 (1-3); C Reactive Protein 55.49 mg/L (<8.01); Globulin 3.3 g/dL (2-4); INR 1.18 (0.86-1.15); Potassium 3.5 mmol/L (3.5-5.0); Total Bilirubin 0.8 mg/dL (0.2-1.0); Total Protein 7.1 g/dL (6.4-8.9); eGFR CKD-EPI 61.3 (>60)
[2021-09-03 09:27] LABS: Hematocrit 40 % (35-47); Hemoglobin 12.8 g/dL (12.0-16.0); Mean Corpuscular HGB Conc 32 g/dL (31-36); Mean Corpuscular Hemoglobin 27 pg (27-31); Mean Corpuscular Volume 86 fL (80-97); Mean Platelet Volume 9.4 fL (7.4-10.4); Platelet Count 99 10^3/uL (150-450); Red Blood Count 4.68 10^6 /uL (3.70-4.87); Red Cell Distribution Width 16 % (10-15); White Blood Count 12.9 10^3/uL (3.5-10.8)
[2021-09-03 09:28] LABS: Troponin I 0.01 ng/mL (<0.03)
[2021-09-03 09:34] LABS: Magnesium 1.7 mg/dL (1.9-2.7)
[2021-09-03 09:38] LABS: ABS Lymphocytes 0.5 10^3/ul (1.0-4.8); ABS Monocytes 0.8 10^3/ul (0-0.8); ABS Neutrophils 11.5 10^3/ul (1.5-7.7); Eosinophil % 0.1 %; Lymphocyte % 4.3 %
[2021-09-03 12:15] LABS: Urine Appearance Cloudy; Urine Bilirubin Negative (Negative); Urine Blood 1+ (Negative); Urine Color Amber; Urine Glucose Negative (Negative); Urine Ketones Trace (Negative); Urine Nitrite Negative (Negative); Urine Protein 1+(30 mg/dL) (Negative); Urine Specific Gravity 1.019 (1.002-1.030); Urine Urobilinogen Negative (Negative)
[2021-09-03 12:30] LABS: Urine Bacteria 3+ (Absent); Urine Red Blood Cell 1+(3-5/hpf) (Absent); Urine Squamous Epithelial Cell Present (Absent); Urine White Blood Cell 2+(11-20/hpf) (Absent)
[2021-09-03] MEDS ORDERED: cefTRIAXone 1 gm/50 mL NS BAG 1 GM/50 ML BAG IV ONE (12:58)
[2021-09-03] MEDS ORDERED: Magnesium Sulfate IV 1GM/100ML 1 GM/100 ML BAG IV ONE (12:59)
[2021-09-03] MEDS ORDERED: CMCS: Buprenorphine 15 MCG PATCH(NF) 15 MCG/HR PATCH (15 MG TOTAL) TRANSDERM SCH (21:00)
[2021-09-04] MEDS: Buprenorph Patch Check Q Shift 1 NOTE MISC FOLLOW UP SCH ×3 (02:12→18:50)
[2021-09-04 05:47] LABS: ABS Lymphocytes 0.8 10^3/ul (1.0-4.8); ABS Monocytes 0.8 10^3/ul (0-0.8); ABS Neutrophils 9.1 10^3/ul (1.5-7.7); Eosinophil % 0.2 %; Hematocrit 37 % (35-47); Hemoglobin 11.8 g/dL (12.0-16.0); Lymphocyte % 7.7 %; Mean Corpuscular HGB Conc 32 g/dL (31-36); Mean Corpuscular Hemoglobin 28 pg (27-31); Mean Corpuscular Volume 86 fL (80-97); Mean Platelet Volume 9.7 fL (7.4-10.4); Platelet Count 89 10^3/uL (150-450); Red Blood Count 4.26 10^6 /uL (3.70-4.87); Red Cell Distribution Width 16 % (10-15); White Blood Count 10.8 10^3/uL (3.5-10.8)
[2021-09-04 05:48] LABS: Calcium 9.2 mg/dL (8.6-10.3); Magnesium 1.9 mg/dL (1.9-2.7); Potassium 3.3 mmol/L (3.5-5.0); eGFR CKD-EPI 72.3 (>60)
[2021-09-04] MEDS ORDERED: Potassium Chlor 20 meq TAB.ER PO ONE (07:59)
[2021-09-04] MEDS: Calcium/Vitamin D TAB 250/125 TAB PO SCH ×3 (08:32→21:31)
[2021-09-04] MEDS: Aspirin EC 81 mg TAB.EC (enteric coated) PO SCH (08:35)
[2021-09-04] MEDS: Enoxaparin 40 MG/0.4 ML SYR SUBCUT SCH (13:29)
[2021-09-04] MEDS ORDERED: Ondansetron 4 mg VIAL 2 MG/ML 2 ml VIAL IV ONE (14:06)
[2021-09-04] MEDS ORDERED: cefTRIAXone 1 gm/50 mL NS BAG 1 GM/50 ML BAG IVPB SCH (16:00)
[2021-09-05] MEDS: Buprenorph Patch Check Q Shift 1 NOTE MISC FOLLOW UP SCH ×2 (08:18→18:44)
[2021-09-05 09:31] LABS: ABS Eosinophils 0.1 10^3/ul (0-0.6); ABS Lymphocytes 1.2 10^3/ul (1.0-4.8); ABS Monocytes 0.7 10^3/ul (0-0.8); ABS Neutrophils 6.5 10^3/ul (1.5-7.7); Eosinophil % 1.1 %; Hematocrit 36 % (35-47); Hemoglobin 11.5 g/dL (12.0-16.0); Lymphocyte % 14.2 %; Mean Corpuscular HGB Conc 32 g/dL (31-36); Mean Corpuscular Hemoglobin 27 pg (27-31); Mean Corpuscular Volume 87 fL (80-97); Mean Platelet Volume 9.8 fL (7.4-10.4); Platelet Count 80 10^3/uL (150-450); Red Cell Distribution Width 16 % (10-15); White Blood Count 8.4 10^3/uL (3.5-10.8)
[2021-09-05] MEDS: DOXYcycline 100 MG in NS 0.9% 250 ml 250 ML IVPB SCH ×2 (09:32→20:01)
[2021-09-05] MEDS: Aspirin EC 81 mg TAB.EC (enteric coated) PO SCH (09:38)
[2021-09-05] MEDS: Calcium/Vitamin D TAB 250/125 TAB PO SCH ×2 (09:38→19:59)
[2021-09-05] MEDS: Enoxaparin 40 MG/0.4 ML SYR SUBCUT SCH (13:05)
[2021-09-06 06:28] LABS: Calcium 9.6 mg/dL (8.6-10.3); Potassium 3.8 mmol/L (3.5-5.0); eGFR CKD-EPI 70.2 (>60)
[2021-09-06 07:08] LABS: Hematocrit 38 % (35-47); Hemoglobin 12.2 g/dL (12.0-16.0); Mean Corpuscular HGB Conc 32 g/dL (31-36); Mean Corpuscular Hemoglobin 28 pg (27-31); Mean Corpuscular Volume 86 fL (80-97); Mean Platelet Volume 10.6 fL (7.4-10.4); Platelet Count 84 10^3/uL (150-450); Red Blood Count 4.43 10^6 /uL (3.70-4.87); Red Cell Distribution Width 16 % (10-15); White Blood Count 5.8 10^3/uL (3.5-10.8)
[2021-09-06] MEDS: Buprenorph Patch Check Q Shift 1 NOTE MISC FOLLOW UP SCH ×2 (07:20→19:04)
[2021-09-06] MEDS: Aspirin EC 81 mg TAB.EC (enteric coated) PO SCH (09:07)
[2021-09-06] MEDS: Calcium/Vitamin D TAB 250/125 TAB PO SCH ×2 (09:08→20:57)
[2021-09-06] MEDS: Enoxaparin 40 MG/0.4 ML SYR SUBCUT SCH (12:49)
[2021-09-07] MEDS: Buprenorph Patch Check Q Shift 1 NOTE MISC FOLLOW UP SCH ×2 (07:19→21:06)
[2021-09-07] MEDS: Calcium/Vitamin D TAB 250/125 TAB PO SCH ×2 (08:48→21:25)
[2021-09-07] MEDS: Aspirin EC 81 mg TAB.EC (enteric coated) PO SCH (08:48)
[2021-09-07] MEDS: Enoxaparin 40 MG/0.4 ML SYR SUBCUT SCH (12:18)
[2021-09-08] MEDS: Buprenorph Patch Check Q Shift 1 NOTE MISC FOLLOW UP SCH ×2 (07:01→19:17)
[2021-09-08] MEDS: Calcium/Vitamin D TAB 250/125 TAB PO SCH ×2 (08:19→21:31)
[2021-09-08] MEDS: Aspirin EC 81 mg TAB.EC (enteric coated) PO SCH (08:19)
[2021-09-08] MEDS: Enoxaparin 40 MG/0.4 ML SYR SUBCUT SCH (11:36)
[2021-09-09] MEDS: Buprenorph Patch Check Q Shift 1 NOTE MISC FOLLOW UP SCH ×2 (07:16→18:38)
[2021-09-09] MEDS: Calcium/Vitamin D TAB 250/125 TAB PO SCH ×2 (09:59→20:05)
[2021-09-09] MEDS: Aspirin EC 81 mg TAB.EC (enteric coated) PO SCH (09:59)
[2021-09-09] MEDS: Enoxaparin 40 MG/0.4 ML SYR SUBCUT SCH (12:43)
[2021-09-10] MEDS: Buprenorph Patch Check Q Shift 1 NOTE MISC FOLLOW UP SCH ×2 (07:17→19:11)
[2021-09-10] MEDS: Aspirin EC 81 mg TAB.EC (enteric coated) PO SCH (08:10)
[2021-09-10] MEDS: Calcium/Vitamin D TAB 250/125 TAB PO SCH ×2 (08:10→19:41)
[2021-09-10 09:09] LABS: Rapid COVID-19 Molecular Undetected (Undetected)
[2021-09-10] MEDS: Enoxaparin 40 MG/0.4 ML SYR SUBCUT SCH (14:21)
[2021-09-11] MEDS: Buprenorph Patch Check Q Shift 1 NOTE MISC FOLLOW UP SCH (07:05)
[2021-09-11] MEDS: Calcium/Vitamin D TAB 250/125 TAB PO SCH (08:20)
[2021-09-11] MEDS: Aspirin EC 81 mg TAB.EC (enteric coated) PO SCH (08:21)
[2021-09-11 10:46] VITALS: BP 174/69
== END 2021-09-11 13:45 | DRG 372 ==
LOC: ED 08:19 → SUATTDRO 17:45 → EDHOLD 17:45 → INTOOBSV 17:45 → OBSVTOIN 17:45 → MED 18:06 → SUATTDRO 09-05 10:02 → UNDODISIN 09-11 13:45 → MED 09-21 15:10
PROVIDERS: ADMIT Nurse Practitioner; ATTEND Internal Medicine

== ENCOUNTER 2021-09-24 16:16 | Inpatient (IN) ==
[2021-09-24 17:49] LABS: ABS Eosinophils 0.1 10^3/ul (0-0.6); ABS Monocytes 0.5 10^3/ul (0-0.8); ABS Neutrophils 4.7 10^3/ul (1.5-7.7); Eosinophil % 1.7 %; Hematocrit 40 % (35-47); Hemoglobin 12.8 g/dL (12.0-16.0); Lymphocyte % 15.9 %; Mean Corpuscular HGB Conc 32 g/dL (31-36); Mean Corpuscular Hemoglobin 28 pg (27-31); Mean Corpuscular Volume 87 fL (80-97); Mean Platelet Volume 10.6 fL (7.4-10.4); Nucleated Red Blood Cells % 0.1; Platelet Count 141 10^3/uL (150-450); Red Blood Count 4.57 10^6 /uL (3.70-4.87); Red Cell Distribution Width 16 % (10-15); White Blood Count 6.4 10^3/uL (3.5-10.8)
[2021-09-24 18:01] LABS: Urine Appearance Turbid; Urine Bilirubin Negative (Negative); Urine Blood 1+ (Negative); Urine Color Yellow; Urine Glucose Negative (Negative); Urine Ketones Negative (Negative); Urine Nitrite Positive (Negative); Urine Protein Negative (Negative); Urine Urobilinogen Negative (Negative)
[2021-09-24] MEDS ORDERED: cefTRIAXone 1 gm/50 mL NS BAG 1 GM/50 ML BAG IV ONE (18:02)
[2021-09-24 18:06] LABS: ALT 46 U/L (7-52); Albumin 3.8 g/dL (3.2-5.2); Albumin/Globulin Ratio 1.2 (1-3); Alkaline Phosphatase 96 U/L (35-149); Blood Urea Nitrogen 21 mg/dL (6-24); CO2 Carbon Dioxide 35 mmol/L (22-32); Calcium 9.3 mg/dL (8.6-10.3); Chloride 100 mmol/L (101-111); Globulin 3.2 g/dL (2-4); Glucose 117 mg/dL (70-100); Lipase 30 U/L (11.0-82.0); Sodium 143 mmol/L (135-145); eGFR CKD-EPI 37.4 (>60)
[2021-09-24 18:08] LABS: Troponin I 0.01 ng/mL (<0.03)
[2021-09-24 18:08] LABS: Urine Bacteria Absent (Absent); Urine Red Blood Cell 3+(>10/hpf) (Absent); Urine Squamous Epithelial Cell Present (Absent); Urine White Blood Cell 3+(>20/hpf) (Absent); Urine Yeast Present (Absent)
[2021-09-24 18:31] LABS: Anion Gap 8 mmol/L (2-11)
[2021-09-24 20:13] LABS: Potassium Redraw 3.4 mmol/L (3.5-5.0)
[2021-09-24] MEDS ORDERED: Lactated Ringers 1000 ml BAG 1,000 ML IV ONE (20:42)
[2021-09-24] MEDS ORDERED: Potassium Chlor 20 meq TAB.ER PO ONE (20:58)
[2021-09-24] MEDS ORDERED: Cefepime 2 GM IV - ED ONCE IV ONE (22:00)
[2021-09-24] MEDS: Heparin 5000 UNITS/ML 1 mL VIAL SUBCUT SCH (22:01)
[2021-09-25 00:54] LABS: Activated Partial Thrombo Time 30.4 seconds (26.0-38.0); INR 1.11 (0.86-1.15)
[2021-09-25 04:53] LABS: ABS Basophils 0.1 10^3/ul (0-0.2); ABS Eosinophils 0.1 10^3/ul (0-0.6); ABS Lymphocytes 1.1 10^3/ul (1.0-4.8); ABS Monocytes 0.6 10^3/ul (0-0.8); Eosinophil % 1.9 %; Hematocrit 35 % (35-47); Hemoglobin 11.2 g/dL (12.0-16.0); INR 1.12 (0.86-1.15); Lymphocyte % 19.3 %; Mean Corpuscular HGB Conc 32 g/dL (31-36); Mean Corpuscular Hemoglobin 28 pg (27-31); Mean Corpuscular Volume 88 fL (80-97); Mean Platelet Volume 9.6 fL (7.4-10.4); Platelet Count 97 10^3/uL (150-450); Red Blood Count 3.96 10^6 /uL (3.70-4.87); Red Cell Distribution Width 16 % (10-15); White Blood Count 5.9 10^3/uL (3.5-10.8)
[2021-09-25 05:05] LABS: Calcium 9.1 mg/dL (8.6-10.3); Potassium 3.2 mmol/L (3.5-5.0); eGFR CKD-EPI 45.8 (>60)
[2021-09-25] MEDS: Heparin 5000 UNITS/ML 1 mL VIAL SUBCUT SCH ×3 (05:55→20:55)
[2021-09-25] MEDS ORDERED: Potassium Chlor 20 meq TAB.ER PO ONE (08:08)
[2021-09-25] MEDS: Aspirin EC 81 mg TAB.EC (enteric coated) PO SCH (08:10)
[2021-09-25 08:30] LABS: Magnesium 1.9 mg/dL (1.9-2.7)
[2021-09-25] MEDS ORDERED: Buprenorphine 15 MCG PATCH(NF) 15 MCG/HR PATCH (15 MG TOTAL) TRANSDERM SCH (09:00)
[2021-09-25] MEDS: Buprenorph Patch Check Q Shift 1 NOTE MISC FOLLOW UP SCH (19:02)
[2021-09-25] MEDS: Cefepime 2 GM in Dextrose 2 GM/50 ML BAG IV SCH (20:49)
[2021-09-26] MEDS: Heparin 5000 UNITS/ML 1 mL VIAL SUBCUT SCH ×3 (04:14→20:48)
[2021-09-26] MEDS: Buprenorph Patch Check Q Shift 1 NOTE MISC FOLLOW UP SCH ×2 (06:37→18:54)
[2021-09-26] MEDS: Aspirin EC 81 mg TAB.EC (enteric coated) PO SCH (08:24)
[2021-09-26] MEDS ORDERED: Senna TAB 8.6 mg TAB PO PRN (08:44)
[2021-09-26] MEDS: Polyethylene Glycol 3350 17 GM PACKET PO PRN (10:19)
[2021-09-26 10:30] LABS: ABS Eosinophils 0.1 10^3/ul (0-0.6); ABS Lymphocytes 0.7 10^3/ul (1.0-4.8); ABS Monocytes 0.3 10^3/ul (0-0.8); ABS Neutrophils 3.4 10^3/ul (1.5-7.7); Eosinophil % 2.7 %; Hematocrit 35 % (35-47); Hemoglobin 10.9 g/dL (12.0-16.0); Lymphocyte % 14.6 %; Mean Corpuscular HGB Conc 31 g/dL (31-36); Mean Corpuscular Hemoglobin 28 pg (27-31); Mean Corpuscular Volume 89 fL (80-97); Mean Platelet Volume 10.8 fL (7.4-10.4); Nucleated Red Blood Cells % 0.1; Platelet Count 97 10^3/uL (150-450); Red Blood Count 3.89 10^6 /uL (3.70-4.87); Red Cell Distribution Width 17 % (10-15); White Blood Count 4.6 10^3/uL (3.5-10.8)
[2021-09-26 10:39] LABS: Calcium 9.1 mg/dL (8.6-10.3); Potassium 4.4 mmol/L (3.5-5.0); eGFR CKD-EPI 52.5 (>60)
[2021-09-26] MEDS: Cefepime 2 GM in Dextrose 2 GM/50 ML BAG IV SCH (20:48)
[2021-09-27] MEDS: Heparin 5000 UNITS/ML 1 mL VIAL SUBCUT SCH ×3 (06:34→21:22)
[2021-09-27] MEDS: Buprenorph Patch Check Q Shift 1 NOTE MISC FOLLOW UP SCH ×2 (07:01→19:06)
[2021-09-27 07:56] LABS: ABS Eosinophils 0.2 10^3/ul (0-0.6); ABS Lymphocytes 0.8 10^3/ul (1.0-4.8); ABS Monocytes 0.4 10^3/ul (0-0.8); ABS Neutrophils 3.3 10^3/ul (1.5-7.7); Eosinophil % 3.5 %; Hematocrit 36 % (35-47); Hemoglobin 11.6 g/dL (12.0-16.0); Lymphocyte % 16.8 %; Mean Corpuscular HGB Conc 32 g/dL (31-36); Mean Corpuscular Hemoglobin 28 pg (27-31); Mean Corpuscular Volume 88 fL (80-97); Mean Platelet Volume 10.5 fL (7.4-10.4); Nucleated Red Blood Cells % 0.1; Platelet Count 103 10^3/uL (150-450); Red Blood Count 4.13 10^6 /uL (3.70-4.87); Red Cell Distribution Width 16 % (10-15); White Blood Count 4.7 10^3/uL (3.5-10.8)
[2021-09-27 08:52] LABS: Ferritin 75.1 ng/mL (11-307)
[2021-09-27] MEDS: Aspirin EC 81 mg TAB.EC (enteric coated) PO SCH ×2 (10:06→10:12)
[2021-09-27] MEDS: Cefepime 2 GM in Dextrose 2 GM/50 ML BAG IV SCH ×2 (13:18→23:02)
[2021-09-28] MEDS: Heparin 5000 UNITS/ML 1 mL VIAL SUBCUT SCH ×3 (05:29→20:34)
[2021-09-28] MEDS: Buprenorph Patch Check Q Shift 1 NOTE MISC FOLLOW UP SCH ×2 (07:14→19:08)
[2021-09-28] MEDS: Aspirin EC 81 mg TAB.EC (enteric coated) PO SCH (10:41)
[2021-09-28] MEDS ORDERED: Enalaprilat IV 1.25 mg/ml 1 ml VIAL (1.25 MG) IV ONE (12:20)
[2021-09-28] MEDS: Cefepime 2 GM in Dextrose 2 GM/50 ML BAG IV SCH (12:45)
[2021-09-28] MEDS ORDERED: Metoprolol Tartrate 5 mg VIAL 5 ml VIAL (1 mg/ml) IV SCH ×2 (19:30)
[2021-09-28] MEDS ORDERED: Labetalol IV 5 MG/ML 20 ml VIAL IV PUSH ONE (19:52)
[2021-09-28] MEDS: Nitrofurantoin (monohydrate/macrocrystals) 100 mg CAP PO SCH (20:34)
[2021-09-28] MEDS ORDERED: Labetalol IV 5 MG/ML 20 ml VIAL IV PUSH PRN (23:54)
[2021-09-29] MEDS: Heparin 5000 UNITS/ML 1 mL VIAL SUBCUT SCH ×3 (04:53→22:28)
[2021-09-29 06:34] LABS: Calcium 10.2 mg/dL (8.6-10.3); Potassium 3.8 mmol/L (3.5-5.0); eGFR CKD-EPI 63.8 (>60)
[2021-09-29] MEDS: Buprenorph Patch Check Q Shift 1 NOTE MISC FOLLOW UP SCH ×2 (06:54→18:23)
[2021-09-29] MEDS: Nitrofurantoin (monohydrate/macrocrystals) 100 mg CAP PO SCH ×2 (08:08→22:27)
[2021-09-29] MEDS: Aspirin EC 81 mg TAB.EC (enteric coated) PO SCH (08:09)
[2021-09-30] MEDS ORDERED: Alteplase (CATHFLO) 2 MG VIAL IV ONE (02:36)
[2021-09-30] MEDS: Heparin 5000 UNITS/ML 1 mL VIAL SUBCUT SCH ×3 (06:47→21:41)
[2021-09-30] MEDS: Buprenorph Patch Check Q Shift 1 NOTE MISC FOLLOW UP SCH ×2 (07:32→19:14)
[2021-09-30] MEDS: Nitrofurantoin (monohydrate/macrocrystals) 100 mg CAP PO SCH ×2 (09:23→21:39)
[2021-09-30] MEDS: Aspirin EC 81 mg TAB.EC (enteric coated) PO SCH (10:09)
[2021-09-30] MEDS: Polyethylene Glycol 3350 17 GM PACKET PO PRN (21:43)
[2021-10-01] MEDS: Heparin 5000 UNITS/ML 1 mL VIAL SUBCUT SCH ×3 (05:30→20:57)
[2021-10-01 05:35] LABS: ABS Eosinophils 0.4 10^3/ul (0-0.6); ABS Lymphocytes 1.5 10^3/ul (1.0-4.8); ABS Monocytes 0.7 10^3/ul (0-0.8); ABS Neutrophils 4.7 10^3/ul (1.5-7.7); Eosinophil % 5.8 %; Hematocrit 38 % (35-47); Hemoglobin 12.2 g/dL (12.0-16.0); Mean Corpuscular HGB Conc 32 g/dL (31-36); Mean Corpuscular Hemoglobin 29 pg (27-31); Mean Corpuscular Volume 89 fL (80-97); Mean Platelet Volume 10.3 fL (7.4-10.4); Nucleated Red Blood Cells % 0.1; Platelet Count 112 10^3/uL (150-450); Red Blood Count 4.28 10^6 /uL (3.70-4.87); Red Cell Distribution Width 17 % (10-15); White Blood Count 7.3 10^3/uL (3.5-10.8)
[2021-10-01 05:54] LABS: Calcium 9.8 mg/dL (8.6-10.3); Potassium 3.8 mmol/L (3.5-5.0); eGFR CKD-EPI 46.7 (>60)
[2021-10-01] MEDS: Buprenorph Patch Check Q Shift 1 NOTE MISC FOLLOW UP SCH ×2 (07:02→19:06)
[2021-10-01] MEDS: Nitrofurantoin (monohydrate/macrocrystals) 100 mg CAP PO SCH ×2 (09:25→20:53)
[2021-10-01] MEDS: Aspirin EC 81 mg TAB.EC (enteric coated) PO SCH (09:26)
[2021-10-02] MEDS: Heparin 5000 UNITS/ML 1 mL VIAL SUBCUT SCH ×3 (05:33→20:10)
[2021-10-02] MEDS: Aspirin EC 81 mg TAB.EC (enteric coated) PO SCH (09:18)
[2021-10-02] MEDS: Buprenorph Patch Check Q Shift 1 NOTE MISC FOLLOW UP SCH ×2 (09:41→19:33)
[2021-10-02 13:35] LABS: Rapid COVID-19 Molecular Undetected (Undetected)
[2021-10-03] MEDS: Heparin 5000 UNITS/ML 1 mL VIAL SUBCUT SCH (05:45)
[2021-10-03] MEDS: Buprenorph Patch Check Q Shift 1 NOTE MISC FOLLOW UP SCH (07:36)
[2021-10-03] MEDS: Aspirin EC 81 mg TAB.EC (enteric coated) PO SCH (08:50)
[2021-10-03 11:56] VITALS: BP 127/52
== END 2021-10-03 11:30 | DRG 689 ==
LOC: ED 16:16 → SUATTDRO 20:38 → EDHOLD 20:38 → MED 23:39
PROVIDERS: ADMIT Internal Medicine; ATTEND Hospitalist